=== PATIENT | female | born 1940 | race Caucasian/White ===

== ENCOUNTER 2020-10-12 18:20 | Observation (INO) | payer OTHER ==
--- OUTSIDE RECORDS SUMMARY | 2020-10-12 18:24 | XMS REPORT | Clinical Summary ---
:1940 Author Organization [facility] Address [address] [place] [address] Care Team Providers Name Role Phone MD Zuly Primary Care Provider Allergies Active Allergy Reactions Severity Noted Date Comments Levofloxacin 06/16/2017 Terfenadine 06/16/2017 Medications Medication Sig Dispensed Refills Start Date End Date Status ALPRAZolam (XANAX) 0.5 Take 0.5 mg by 0 Active MG tablet mouth 3 (three) times daily as needed for Anxiety. mrybpbn-kvvhdxjgpuevc-l Take 1 tablet by 0 Active affeine (EXCEDRIN mouth every 6 MIGRAINE) 250-250-65 mg (six) hours as per tablet needed for Pain. atorvastatin (LIPITOR) Take 20 mg by 0 Active 20 MG tablet mouth daily. carvedilol (COREG CR) Take 20 mg by 0 Active 20 MG 24 hr capsule mouth 2 (two) times daily. naproxen-esomeprazole Take by mouth. 0 Active 375-20 mg TbID pregabalin (LYRICA) 50 Take 50 mg by 0 Active MG capsule mouth 3 (three) times daily. temazepam (RESTORIL) 30 Take 30 mg by 0 Active mg capsule mouth every night as needed for Sleep. Active Problems Problem Noted Date Cerebral aneurysm 06/16/2017 Social History Tobacco Use Types Packs/Day Years Used Date Never Smoker Smokeless Tobacco: Never Used Alcohol Use Drinks/Week oz/Week Comments No Sex Assigned at Date Recorded Not on file Last Filed Vital Signs Not on file Plan of Treatment Not on file Results Not on fileafter 10/12/2019 Insurance Payer Benefit Plan / Subscriber ID Effective Phone Address T ype Group Dates HUMANA - HUMANA [id number] 2016-[employer] Contracted MEDICARE MGD MEDICARE ADV nt CARE Advance Directives For more information, please contact: [phone] Code Status Date Activated Date Inactivated Comments Full Code 06/16/2017 10:21 AM 06/16/2017 3:18 PM This code status was determined by: Patient
--- OUTSIDE RECORDS SUMMARY | 2020-10-12 18:24 | XMS REPORT | Summary of Care ---
:1940 Author Organization [facility] - Health Address [address] [place] [address] Care Team Providers Name Role Phone Ryan Caruso Primary Care Provider Reason for Referral Radiology Services (STAT) Status Reason Specialty Diagnoses / Referred By Referred To Procedures Contact Contact New Request Diagnostic Diagnoses Pain of left lower extremity Serena Hoffmann Radiology Procedures XR TIBIA FIBULA 2 VW LEFT J, DO [address] [place] [address] Reason for Visit Reason Comments LEG SWELLING Auth/Cert Status Reason Specialty Diagnoses / Referred By Referred To Procedures Contact Contact Emergency [facility] [address] [place] [address] Fax: Encounter Details Date Type Department Care Team Description 07/24/2020 Emergency ADC-Emergency Serena Hoffmann J, Pain of left lower Department DO extremity (Primary Dx) [address] [address] [place] [id number] Allergies Active Allergy Reactions Severity Noted Date Comments Adhesive Rash 03/28/2020 Levofloxacin Hives 09/05/2017 Seldane Unknown - See comments 03/21/2017 documented as of this encounter (statuses as of 07/24/2020) Medications Medication Sig Dispensed Refills Start Date End Date Status ATORVASTATIN CALCIUM Take 20 mg by 0 Active (ATORVASTATIN ORAL) mouth at bedtime. NAPROXEN/ESOMEPRAZOLE Take by mouth. 0 Active MAG (VIMOVO ORAL) carvedilol 20 mg 24 hr Take 20 mg by 0 Active capsule mouth daily. lidocaine 5 % (700 APPLY ONE PATCH TO 1 Each 0 10/24/2018 Active mg/patch) patch MOST PAINFUL AREA EVERY 12 HOURS NEEDED FOR PAIN. PHARMACIST: DISPENSE ONE BOX temazepam (RESTORIL) Take 30 mg by 0 Active 30 mg capsule mouth at bedtime. omeprazole 40 mg Take 40 mg by 0 Active capsule mouth daily. denosumab 60 mg/mL inject 60 mg under 0 Active injection the skin. Pt takes twice a year documented as of this encounter (statuses as of 07/24/2020) Active Problems Problem Noted Date SBO (small bowel obstruction) 03/28/2020 Abdominal pain 03/28/2020 SVT (supraventricular tachycardia) 07/07/2019 Essential hypertension 07/07/2019 Other hyperlipidemia 07/07/2019 Chest pain 03/21/2017 documented as of this encounter (statuses as of 07/24/2020) Immunizations Name Administration Dates Next Due Pneumococcal Polysaccharide, PPSV23 (PNEUMOVAX) 03/22/2017 documented as of this encounter Social History Tobacco Use Types Packs/Day Years Used Date Never Smoker Smokeless Tobacco: Never Used Alcohol Use Drinks/Week oz/Week Comments Not Currently Sex Assigned at Date Recorded Not on file COVID-19 Exposure Response Date Recorded In the last month, have you been in contact with No / Unsure 07/24/2020 8:32 PM CDT someone who was confirmed or suspected to have Coronavirus / COVID-19? documented as of this encounter Last Filed Vital Signs Vital Sign Reading Time Taken Comments Blood Pressure 128/79 07/24/2020 9:00 PM CDT Pulse 78 07/24/2020 9:00 PM CDT Temperature 36.3 C (97.3 F) 07/24/2020 8:46 PM CDT Respiratory Rate 14 07/24/2020 9:00 PM CDT Oxygen Saturation - - Inhaled Oxygen Concentration - - Weight 71.7 kg (158 lb) 07/24/2020 8:33 PM CDT Height - - Body Mass Index 26.29 03/28/2020 1:37 PM CDT documented in this encounter Discharge Instructions Serena Espinoza DO - 07/24/2020DIAGNOSIS 1. Leg hematoma NO LIFE-THREATENING FINDINGS ON TODAY'S EXAM. PROCEDURES IN THE ER TODAY: Xray leg MEDICATIONS ADMINISTERED IN THE ER TODAY: [place] YOUR PRESCRIPTIONS AND [id number] MEDICATION RECOMMENDATIONS: None SPECIAL CARE INSTRUCTIONS: None FOLLOW-UP RECOMMENDATIONS: RECOMMEND FOLLOW-UP WITH A PRIMARY CARE PROVIDER OR SPECIALIST IN 2-5 DAYS, ESPECIALLY IF NO IMPROVEMENT IN SYMPTOMS. TO FOLLOW-UP WITHIN THE [facility], TRY THESE OPTIONS (CLINIC APPOINTMENTS AVAILABLE ON BLQP-DC-QJIR BASIS): 1. SCHEDULE AN APPOINTMENT ONLINE AT [email or web address] 2. OR CALL THE [facility] ACCESS CENTER AT OR 3. OR CALL YOUR [facility] PHYSICIAN'S OFFICE DIRECTLY IF YOU ARE ALREADY AN ESTABLISHED [facility] PATIENT. OR, YOU MAY FOLLOW-UP WITH A PROVIDER OF YOUR CHOICE, SUCH : 1. A PHYSICIAN OF YOUR CHOICE 2. [facility], . LOCATIONS IN [facility] 3. [facility], [address] [place] [address]; [phone] RETURN TO ER FOR WORSENING OF SYMPTOMS. AttachmentsThe following attachments cannot be sent through Care Everywhere. Hematoma (Algerian)RICE (Algerian)documented in this encounter ED Notes Gerardo Knott RN - 07/24/2020 8:32 PM CDTPatient states, "I hit my left leg on the corner of the bed and it is swollen up." PMH: See list erena Hofmfann DO - 07/24/2020 8:28 PM CDT [facility] Emergency Department Note Patient Name: Dilia Russell Date of : 1940 79 year old female Treatment Room: TX2/TX2 Primary Care Physician: Ryan Caruso Patient Escorted by: Self [9] Mode of Arrival: Personal means [1] EMS Treatment Prior to ED Arrival: [employer] treatment: None Travel and Exposure Screening: Symptoms Does patient have any of these symptoms?: (not recorded) Exposure Screening Has patient had contact with someone with a communicable disease in the last month?: (not recorded) Diseases exposed to:: (not recorded) Is Patient ?: (not recorded) Exposure Date: (not recorded) Chief Complaint: Chief Complaint Patient presents with LEG SWELLING History of Present Illness: Patient presents for eval for left leg pain s/p hitting hit in the side of the bed around 1730. Didnot fall down. Has had some swelling to left leg just below her knee. Is not on blood thinners. No medicines for pain. Is able to bend her knee, hip and ankle without difficulty. Is able to walk but just has some pain. Here for eval. Past Medical History/Immunizations: Past Medical History: Diagnosis Date GERD (gastroesophageal reflux disease) 06/06/2019 HTN (hypertension) Hyperlipidemia Osteoarthritis Tetanus received in last 5 years: Unable to assess Allergies: Allergies Allergen Reactions Adhesive Rash Levaquin [Levofloxacin] Hives Seldane Unknown - See comments Past Social History: Tobacco Use Never smoked or used smokeless tobacco. Alcohol Use Not Currently. Past Surgical History: Past Surgical History: Procedure Laterality Date ANTERIOR CERVICAL FUSION C6-7 EXTRACAPSULAR CATARACT EXTRACTION WITH INTRAOCULAR LENS IMPLANT Bilateral EYE SURGERY Bilateral Macular holes HB CATH ABLATION - AV NODE 2004 LAPAROSCOPIC TOTAL ABDOMINAL HYSTERECTOMY 2017 TOTAL KNEE ARTHROPLASTY Bilateral Review of Systems: Review of Systems Constitutional: Negative for chills and fever. Respiratory: Negative for cough and shortness of breath. Cardiovascular: Negative for chest pain. Gastrointestinal: Negative for abdominal pain, nausea and vomiting. Genitourinary: Negative for dysuria. Musculoskeletal: Negative for arthralgias, neck pain and neck stiffness. Skin: Negative for wound. Neurological: Negative for dizziness. Psychiatric/Behavioral: Negative for agitation. Endocrine: Negative for goiter. Physical Exam: ED Triage Vitals Weight 07/24/202032 71.7 kg (158 lb) Actual or estimated -- Height -- BP 07/24/202045 (!) 146/87 Pulse 07/24/202045 80 Resp 07/24/202045 15 Temp 07/24/202045 36.3 C (97.3 F) Temp src -- SpO2 -- Measured on -- Physical Exam Vitals signs and nursing note reviewed. Constitutional: Appearance: She is normal weight. HENT: Head: Normocephalic and atraumatic. Neck: Musculoskeletal: Normal range of motion and neck supple. Cardiovascular: Rate and Rhythm: Normal rate. Pulmonary: Effort: Pulmonary effort is normal. No respiratory distress. Musculoskeletal: Normal range of motion. Comments: FROM left knee and ankle. +2 dp left side. Has swelling to lateral left leg just below the knee. It is soft and not erythematous or warm. No ecchymosis to the leg Skin: General: Skin is warm and dry. Neurological: General: No focal deficit present. Mental Status: She is alert. Radiology: Hospital Encounter on 07/24/20 XR TIBIA FIBULA 2 VW LEFT Narrative EXAM: XR TIBIA FIBULA 2 VW LEFT HISTORY: left leg pain COMPARISON: None FINDINGS: Radiographs of the left leg demonstrate no acute fracture or dislocation. Postsurgical changes of total knee arthroplasty are identified. The joint spaces are maintained. Anterolateral proximal leg soft tissue swelling. Impression Marked proximal lateral leg/knee soft tissue swelling, possibly a hematoma in the setting of trauma. No acute bony abnormality. Preliminary Report Dictated by Resident: Hansel Lopez I, Gonsalo Buchanan MD., have reviewed this study and agree with the above report. Lab Results (24h): No results found for this or any previous visit (from the past 24 hour(s)). Orders and Treatments: Orders Placed This Encounter Procedures XR TIBIA FIBULA 2 VW LEFT Orders Placed This Encounter Medications HYDROcodone-acetaminophen (NORCO 5) 5-325 mg tablet 1 tablet ED COURSE patient presents for eval for swelling to left leg s/p hitting her leg on the corner of the bed around 1730. Is not on blood thinners. No meds for pain. Pain worse with standing. Is able to bend knee without difficulty. VSS here in the EC. Has FROM left knee and ankle. Swelling to left lateral leg just distal to the knee. No ecchymosis to the skin. Low concern for fracture. Suspect hematoma. Will give pian meds and obtain xray. Anticipate discharge home later. 2149 - xray shows no fracture. No concern for cellulitis based on presentation. Suspect hematoma. Will give humza wrap. RICE at home. Ok for discharge home with PCP f/u. MDM: Coding Scoring Tools: No data recorded Diagnosis/Impression: ICD-10-CM ICD-9-CM 1. Pain of left lower extremity M79.605 729.5 Disposition/Condition: ED Disposition ED Disposition Condition Comment Disch - Home Stable Discharge Medications: Patient's Medications START taking these medications No medications on file CONTINUE taking these medications which have NOT CHANGED ATORVASTATIN CALCIUM (ATORVASTATIN ORAL) Take 20 mg by mouth at bedtime. CARVEDILOL 20 MG 24 HR CAPSULE Take 20 mg by mouth daily. DENOSUMAB 60 MG/ML INJECTION inject 60 mg under the skin. Pt takes twice a year LIDOCAINE 5 % (700 MG/PATCH) PATCH APPLY ONE PATCH TO MOST PAINFUL AREA EVERY 12 HOURS NEEDEDFOR PAIN. PHARMACIST: DISPENSE ONE BOX NAPROXEN/ESOMEPRAZOLE MAG (VIMOVO ORAL) Take by mouth. OMEPRAZOLE 40 MG CAPSULE Take 40 mg by mouth daily. TEMAZEPAM (RESTORIL) 30 MG CAPSULE Take 30 mg by mouth at bedtime. START taking Modified Medications as Prescribed No medications on file STOP taking these medications No medications on file Follow-up: Electronically signed by: Serena Hoffmann DO 07/24/2020 8:44 PM documented in this encounter Miscellaneous Notes ED Nurse Note - Ze Bill RN - 07/24/2020 9:52 PM CDTPt discharged home with friend. VSS, denies complaints, able to teach back instructions. D Nurse Note - Ze Bill RN - 07/24/2020 9:18 PM CDTPt reports no relief with Norco documented in this encounter Plan of Treatment Health Maintenance Due Date Last Done Comments DTaP,Tdap,and Td Vaccines (1 - Tdap) 1959 Zoster Recombinant Vaccine (SHINGRIX) (1 of 2) 1990 Medicare Wellness Visit 2005 Osteoporosis Screening 2005 INFLUENZA VACCINE (#1) 2020 Depression Screening 04/23/2021 04/23/2020 PNEUMOCOCCAL VACCINES 65+ Completed 03/22/2017 documented as of this encounter Implants Implanted Type Area Hand Pleater Device Identifier Shelf Exp iration Model / Serial Date / Lot Knee KNEE documented as of this encounter Procedures Procedure Name Priority Date/Time Associated Diagnosis Comme nts XR TIBIA FIBULA 2 STAT 07/24/2020 8:53 PM Pain of left low er Results for this VW LEFT CDT extremity procedure are i n the results section. documented in this encounter Results XR TIBIA FIBULA 2 VW LEFT (07/24/2020 8:53 PM CDT) Specimen Impressions Performed At PACS/VR/DOSE Marked proximal lateral leg/knee soft tissue swelling, possibly a hematoma in the setting of trauma. No acute bony abnormality. Preliminary Report Dictated by Resident: Gonsalo Rodrigues MD., have reviewed this study and agree with the above report. Narrative Performed At EXAM: XR TIBIA FIBULA 2 VW LEFT PACS/VR/DOSE HISTORY: left leg pain COMPARISON: None FINDINGS: Radiographs of the left leg demonstrate no acute fract ure or dislocation. Postsurgical changes of total knee arthroplasty are id entified. The joint spaces are maintained. Anterolateral pro ximal leg soft tissue swelling. Procedure Note [facility], Radiant Results Inft User - 2019 9:47 PM CDT EXAM: XR TIBIA FIBULA 2 VW LEFT HISTORY: left leg pain COMPARISON: None FINDINGS: Radiographs of the left leg demonstrate no acute fracture or dislocation. Postsurgical changes of total knee arthr oplasty are identified. The joint spaces are maintained. Anterolateral pro ximal leg soft tissue swelling. IMPRESSION Marked proximal lateral leg/knee soft ti ssue swelling, possibly a hematoma in the setting of trauma. No acute bony abnormality. Preliminary Report Dictated by Resident: Gonsalo Rodrigues MD., have reviewed th is study and agree with the above report. Performing Organization Address City/State/Zipcode Phone Number PACS/VR/DOSE documented in this encounter Visit Diagnoses Diagnosis Pain of left lower extremity - Primary documented in this encounter Administered Medications Medication Order MAR Action Action Date Dose Rate Site HYDROcodone-acetaminophen Given 07/24/2020 8:52 PM CDT 1 tablet (NORCO 5) 5-325 mg tablet 1 tablet 1 tablet, Oral, ONCE, 1 dose, Mon07/24/20 at 2145, JANEL documented in this encounter Insurance Payer Benefit Plan / Subscriber ID Effective Dates Phone Addre ss Type Group HUMANA - HUMANA [id number] 2016-Presen Medi care Adv MANAGED MEDICARE t FFS MEDICARE documented as of this encounter
--- OUTSIDE RECORDS SUMMARY | 2020-10-12 18:24 | XMS REPORT | Continuity of Care Document ---
:1940 Author Organization [facility] t Address [address] [place] [address] Care Team Providers Name Role Phone Zuly CASTAÑEDA Primary Care Physician Deonte Hoffmann DO Attending Clinician Gely MCPHERSON Attending Clinician Unavailable Yo Ott Attending Clinician Jayson CASTAÑEDA Attending Clinician Keith CASTAÑEDA Attending Clinician GLORY THURSTON Attending Clinician Unavailable Jayson CASTAÑEDA Admitting Clinician GLORY THURSTON Admitting Clinician Unavailable Payers Payer Name Policy Type Policy Number Effective Date Expiration Date S ource Problems Condition Condition Condition Status Onset Resolution Last Treating Co mments Source Name Details Category Date Date Treatment Clinician Date Cerebral Cerebral Disease [facility] Allergies, Adverse Reactions, Alerts Allergy Allergy Status Severity Reaction(s) Onset Inactive Treating Comm ents Source Name Type Date Date Clinician levoflox DA Active U 2016-10 [facility] [place] [facility] Levoflox Propensi Active [facility] adverse 00:00: Medical reaction 00 [facility] Terfenad Propensi Active [facility] - adverse 00:00: Medical reaction 00 [facility] terfenad DA [facility] [place] [facility] Social History Social Habit Start Date Stop Date Quantity Comments Source Sex Assigned At [facility] Tobacco use and 2017-06-22 2017-06-22 Never used [facility] - exposure 00:00:00 00:00:00 [facility] Alcohol intake 2017-06-22 2017-06-22 [facility] non-drinker of Medical nter alcohol (finding) Smoking Status Start Date Stop Date Source Never smoker [facility] edical Stevens Medications Ordered Filled Start Stop Current Ordering Indication Dosage Frequency Signature Comments Components Source Medication Medication Date Date Medication? Clinician (SIG) Name Name ALPRAZolam Yes .5mg Take 0.[address] [facility] (XANAX) 0.5 8-25 mg by [facility] - [facility] tablet 13:18: mouth 3 Medic al 09 (three) Center times daily as needed for Anxiety. aspirin-humza Yes 1{tbl} Take [address] taminophen- 8-25 tablet by Juan Carlos es - caffeine 13:18: mouth Medical (EXCEDRIN 09 every 6 Center MIGRAINE) (six) 250-250-65 hours as mg per needed for tablet Pain. atorvastati Yes 20mg QD Take [address] [facility] n (LIPITOR) 8-25 by mouth Luke s - 20 MG 13:18: daily. Medical tablet 09 Center carvedilol Yes 20mg Q.5D Take [address] (COREG CR) 8-25 by mouth 2 Juan Carlos es - 20 MG 24 hr 13:18: (two) Medic al capsule 09 times Center daily. naproxen-es 2017-0 Yes Take by [facility] omeprazole 8-25 [facility]. [facility] - 375-20 mg 13:18: Medical TbID 09 Center pregabalin 2017-0 Yes 50mg [id number] Take [address] [facility] (LYRICA) 50 8-25 [id number] by mouth 3 [facility] - MG capsule 13:18: 3D (three) Medi mildred 09 times Center daily. temazepam 2017-0 Yes 30mg Take [address] (RESTORIL) 8-25 by mouth [facility] - 30 mg 13:18: every Medical capsule 09 night as Center needed for Sleep. Procedures This patient has no known procedures. Encounters Start End Encounter Admission Attending Care Care Encounter Source Date/Time Date/Time Type Type Clinicians Facility Department ID 2020-10-04 2020-10-04 Emergency [facility] [id number] 16:10:00 19:08:00 Serena Carter [id number] [place] [id number] [place] [id number] 2020-09-28 2020-09-28 Transition Vi Hong [id number] 00:00:00 00:00:00 of Care Kenna Thorpe [id number] [place] [id number] [id number] 2020-09-23 2020-09-25 [facility] Lida Silverio [facility] [id number] 15:42:00 16:41:00 Encounter Wilbert Tyler [id number] [place] [id number] [place] [id number] 2020-07-24 2020-07-24 [facility] [id number] 20:31:00 21:54:00 Serena Carter [id number] [place] [id number] [place] [id number] 2020-05-19 2020-05-19 [facility] [place] [facility] [id number] 14:14:00 23:59:00 Encounter Yelena Carter [id number] [place] [id number] [place] [id number] 2020-05-19 2020-05-19 Office TRISTON Parker [id number] 13:28:59 13:43:59 Visit Yelena Carter [id number] [place] 4.2.7.2.686 Profess [id number] [facility] [address] Results Test Description Test Time Test Comments Results Result [facility] e Comments - MRI UP JNT W/O 2019-12-17 Patient Name: CONT RT 14:05:00 YULY CHADWICK Unit No: [id number] EXAMS: CPT CODE: [id number] MRI UP JNT W/[place] [id number] EXAM: MRI RIGHT SHOULDER WITHOUT CONTRAST DIAGNOSIS: 1. Marked supraspinatus tendinosis. Partial-thickness interstitial tearing is present anteriorly. No evidence of full-thickness tear. There is moderate subacromial and subdeltoid bursitis. 2. 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 3. Diffuse labral degeneration and tearing. 4. 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 5. Mild distal subscapularis tendinosis. INDICATION: Right shoulder pain TECHNIQUE: Multiplanar, multisequence MRI is obtained of the right shoulder without contrast. COMPARISON: None DISCUSSION: Osseous acromion outlet: The acromion is shallow type II, with mild lateral downsloping. Moderate AC joint arthrosis is noted. Rotator cuff: Supraspinatus tendinopathy as described. Mild distal subscapularis tendinosis. Infraspinatus and teres minor tendons are intact. Biceps tendon and anchor: The biceps anchor is intact. The biceps tendon is unremarkable, without evidence of dislocation. Labral and capsular structures: Labral abnormality is as described. Osseous structures: No evidence of fracture or avascular necrosis. at 1405 Reported and signed by: Dagmar Chaney MD CC: Ryan Caruso MD; Sherry Tavares M.D. Technologist: Reba Lai, RT(R) Transcribed D/ (1405) t.SDR.GVG [facility] NAME: YULY CHADWICK DECATUR [address] [facility] PHYS: Kin Jama MD : 1940 AGE: 79 SEX: F [place] [address] LOC: Y.MRI PHONE #: [phone] EXAM DATE: 12/17/2019 STATUS: REG CLI FAX #: [phone] RAD #: D/C DT PAGE 1 Signed Report Patient Name: YULY CHADWICKFALL Unit No: [id number] EXAMS: CPT CODE: [id number] MRI UP JNT W/[place] [id number] <Continued> Orig Print D/T: S: 12/17/2019 (1409) [facility] NAME: YULY CHADWICK DECATUR [address] [place] [address] PHYS: Kin Jama MD : 1940 AGE: 79 SEX: F [place] [address] LOC: Y.MRI PHONE #: [phone] EXAM DATE: 12/17/2019 STATUS: REG CLI FAX #: [phone] RAD #: D/C DT PAGE 2 Signed Report BASIC METABOLIC PANEL 2017-06-16 07:24:00 Test Item Value Reference Range Interpretation Comme nts SODIUM (BEAKER) (test code 141 meq/L 136-145 = 381) POTASSIUM (BEAKER) (test 4.0 meq/L 3.5-5.1 code = 379) CHLORIDE (BEAKER) (test 107 meq/L 98-107 code = 382) CO2 (BEAKER) (test code = 23 meq/L 22-29 355) BLOOD UREA NITROGEN 17 mg/dL 7-21 (BEAKER) (test code = 354) CREATININE (BEAKER) (test 0.95 mg/dL 0.57-1.25 code = 358) GLUCOSE RANDOM (BEAKER) 112 mg/dL 70-105 H (test code = 652) CALCIUM (BEAKER) (test code 9.2 mg/dL 8.4-10.2 = 697) EGFR (BEAKER) (test code = 57 mL/min/1.73 sq m ESTIMATED GFR IS NOT 1092) ACCURATE CRE ATININE CLEARANCE IN DC EDICTING GLOMERULAR FILT RATION RATE. ESTIMATED GFR IS NOT APPLICABLE FOR DIALYSIS PATIENTS. PT/[id number] 07:20:00 Test Item Value Reference Range Interpretation Comments PROTIME (BEAKER) (test code = 13.2 seconds 11.7-14.7 759) INR (BEAKER) (test code = 370) 1.0 <=5.9 PARTIAL THROMBOPLASTIN TIME 27.7 seconds 22.5-36.0 (BEAKER) (test code = 760) RECOMMENDED COUMADIN/WARFARIN INR THERAPY RANGESSTANDARD DOSE: 2.0 - 3.0 Includes: PROPHYLAXIS forvenous thrombosis, systemic embolization; TREATMENT for venous thrombosis and/or pulmonary embolus.HIGH RISK: Target INR is 2.5-3.5 for patients with mechanical heart valves.CBC W/PLT COUNT & AUTO DIFFERENTIAL 2017-06-16 07:03:00 Test Item Value Reference Range Interpretation Comments WHITE BLOOD CELL COUNT (BEAKER) 4.7 K/ L 3.5-10.5 (test code = 775) RED BLOOD CELL COUNT (BEAKER) 4.11 M/ L 3.93-5.22 (test code = 761) HEMOGLOBIN (BEAKER) (test code = 11.8 GM/DL 11.2-15.7 410) HEMATOCRIT (BEAKER) (test code = 36.1 % 34.1-44.9 411) MEAN CORPUSCULAR VOLUME (BEAKER) 87.8 fL 79.4-94.8 (test code = 753) MEAN CORPUSCULAR HEMOGLOBIN 28.7 pg 25.6-32.2 (BEAKER) (test code = 751) MEAN CORPUSCULAR HEMOGLOBIN CONC 32.7 GM/DL 32.2-35.5 (BEAKER) (test code = 752) RED CELL DISTRIBUTION WIDTH 14.3 % 11.7-14.4 (BEAKER) (test code = 412) PLATELET COUNT (BEAKER) (test 256 K/CU MM 150-450 code = 756) MEAN PLATELET VOLUME (BEAKER) 9.9 fL 9.4-12.3 (test code = 754) NUCLEATED RED BLOOD CELLS 0 /100 WBC 0-0 (BEAKER) (test code = 413) NEUTROPHILS RELATIVE PERCENT 55 % (BEAKER) (test code = 429) LYMPHOCYTES RELATIVE PERCENT 33 % (BEAKER) (test code = 430) MONOCYTES RELATIVE PERCENT 7 % (BEAKER) (test code = 431) EOSINOPHILS RELATIVE PERCENT 4 % (BEAKER) (test code = 432) BASOPHILS RELATIVE PERCENT 1 % (BEAKER) (test code = 437) NEUTROPHILS ABSOLUTE COUNT 2.60 K/ L 1.56-6.13 (BEAKER) (test code = 670) LYMPHOCYTES ABSOLUTE COUNT 1.54 K/ L 1.18-3.74 (BEAKER) (test code = 414) MONOCYTES ABSOLUTE COUNT (BEAKER) 0.34 K/ L 0.24-0.36 (test code = 415) EOSINOPHILS ABSOLUTE COUNT 0.17 K/ L 0.04-0.36 (BEAKER) (test code = 416) BASOPHILS ABSOLUTE COUNT (BEAKER) 0.05 K/ L 0.01-0.08 (test code = 417) IMMATURE GRANULOCYTES-RELATIVE 0 % 0-1 PERCENT (BEAKER) (test code = 9075)
--- OUTSIDE RECORDS SUMMARY | 2020-10-12 18:25 | XMS REPORT | Summary of Care ---
:1940 Author Organization [facility] Address [address] [place] [address] Care Team Providers Name Role Phone Zuly Primary Care Provider Reason for Referral Other (Routine) Status Reason Specialty Diagnoses / Referred By Referred To Procedures Contact Contact New Request Diagnoses Syncope, unspecified syncope type Wilbert Tyler MD Prasad, Sendil Procedures Discharge Follow-up: Specialty Provider JUAN LUIS DIAZ K.H.; 4-6 Weeks [address] [facility] MD Federico [place], [place] [address] [place] [address] JULIA 106 Phone: [place], [place] [phone] Fax: Other (Routine) Status Reason Specialty Diagnoses / Referred By Referred To Procedures Contact Contact New Request Diagnoses JASON (acute kidney injury) Wilbert Tyler MD Aglieco, Fabio G, Procedures Discharge Follow-up: Specialty Provider KITTY SARGENT; 4-6 Weeks [address] [place], [place] [address] [place] [address] [place], [place] Phone: [phone] Phone: Fax: (Routine) Status Reason Specialty Diagnoses / Referred By Referred To Procedures Contact Contact New Request Pulmonary Disease Diagnoses COVID-19 virus infection Wilbert Tyler MD Procedures Consult/Referral Post-COVID Recovery Clinic [address] [place] [address] (Routine) Status Reason Specialty Diagnoses / Referred By Referred To Procedures Contact Contact New Request Diagnoses COVID-19 virus infection Wilbert Tyler MD Resnick, Harvey Procedures Discharge Follow-up: PCP HEMALATHA CARUSO; 1 Week [address] [facility] [address] [place], [place] [address] [address] [place], [place] Phone: [phone] Phone: Fax: (Routine) Status Reason Specialty Diagnoses / Referred By Referred To Procedures Contact Contact New Request Vascular Procedures Juan Luis Diaz Sonography CAROTID DUPLEX MD Federico BILATERAL BY [address] [facility] [address] [address] (Routine) Status Reason Specialty Diagnoses / Referred By Referred To Procedures Contact Contact New Request Echocardiograph Diagnoses Syncope, unspecified syncope type Sterling Cobos, Procedures ECHO ROUTINE W/DOPPLER COLOR [address] [place] [address]. [address] [place] [address] MRI/CAT Scan (STAT) Status Reason Specialty Diagnoses / Referred By Referred To Procedures Contact Contact New Request Diagnostic Diagnoses COVID-19 virus infection Weakness generalized Silverio, Lida Radiology Procedures CT HEAD WO CONTRAST R, EMNP [address] [facility] [id number] [place] [phone] Radiology Services (STAT) Status Reason Specialty Diagnoses / Referred By Referred To Procedures Contact Contact New Request Diagnostic Diagnoses COVID-19 virus infection Weakness generalized Silverio, Lida Radiology Procedures XR CHEST 1 VW R, EMNP [address] [facility] [id number] [place] [address] Reason for Visit Reason Comments Fatigue Auth/Cert Status Reason Specialty Diagnoses / Referred By Referred To Procedures Contact Contact Emergency Medicine [facility] Em ergency Dept [address] [place] [phone] Fax: Encounter Details Date Type Department Care Team Description 09/23/2020 - Hospital Encounter [facility] Intensive Care Nusrat, Me pricila Ram, EMNP [address] [facility] [id number] [place], [place] [id number] COVID-19 virus 09/25/2020 Unit Wilbert Tyler MD [address] [place] [address] [place] [address] [place] [id number] Allergies Active Allergy Reactions Severity Noted Date Comments Adhesive Rash 03/28/2020 Levofloxacin Hives 09/05/2017 Seldane Unknown - See comments 03/21/2017 documented as of this encounter (statuses as of 09/25/2020) Medications Medication Sig Dispensed Refills Start Date End Date Status ATORVASTATIN Take 20 mg by 0 Act diandra CALCIUM mouth at (ATORVASTATIN ORAL) bedtime. temazepam Take 30 mg by 0 Active (RESTORIL) 30 mg mouth at capsule bedtime. omeprazole 40 mg Take 40 mg by 0 Active capsule mouth daily. denosumab 60 mg/mL inject 60 mg 0 Active injection under the skin. Pt takes twice a year ascorbic acid, Take 1 tablet 60 tablet 0 09/25/2020 Active vitamin C, 500 mg by mouth 2 1 tabletIndications: (two) times COVID-19 virus daily for 30 infection days. carvediloL 6.25 mg Take 1 tablet 60 tablet 0 09/25/2020 Active tabletIndications: by mouth 2 1 Essential (two) times hypertension daily with meals for 30 days. cefdinir 300 mg Take 1 capsule 10 capsule 0 09/25/2020 02 Active capsuleIndications: by mouth 2 0 Urinary tract (two) times infection without daily for 5 hematuria, site days. unspecified lactobacillus Take 1 tablet 10 tablet 0 09/25/2020 A ctive acidophilus 25 by mouth 2 0 million cell -100 (two) times mg daily for 5 captabIndications: days. Urinary tract infection without hematuria, site unspecified dexAMETHasone 4 mg Take 1.5 12 tablet 0 09/25/2020 Active tabletIndications: tablets by 0 COVID-19 virus mouth daily infection for 8 days. ergocalciferol, Take 1 capsule 4 capsule 0 10/01/2020 Active vitamin d2, 1,250 by mouth mcg (50,000 unit) weekly. capsuleIndications: COVID-19 virus infection zinc sulfate 220 Take 1 capsule 60 capsule 0 09/25/2020 Active (50) mg by mouth 2 1 capsuleIndications: (two) times COVID-19 virus daily for 30 infection days. benzonatate 100 mg Take 1 capsule 15 capsule 0 09/25/2020 Active capsuleIndications: by mouth 3 0 COVID-19 virus (three) times infection daily for 5 days. NAPROXEN/ESOMEPRAZO Take by 0 Discontinued LE MAG (VIMOVO mouth. 0 ORAL) carvedilol 20 mg 24 Take 20 mg by 0 Discontinued hr capsule mouth daily. 0 lidocaine 5 % (700 APPLY ONE 1 Each 0 10/24/2018 Discontinued mg/patch) patch PATCH TO MOST 0 PAINFUL AREA EVERY 12 HOURS NEEDED FOR PAIN. PHARMACIST: DISPENSE ONE BOX documented as of this encounter (statuses as of 09/25/2020) Active Problems Problem Noted Date Syncope 09/24/2020 Elevated brain natriuretic peptide (BNP) level 020 COVID-19 virus infection 09/23/2020 SBO (small bowel obstruction) 03/28/2020 Abdominal pain 03/28/2020 SVT (supraventricular tachycardia) 07/07/2019 Essential hypertension 07/07/2019 Other hyperlipidemia 07/07/2019 Chest pain 03/21/2017 documented as of this encounter (statuses as of 09/25/2020) Immunizations Name Administration Dates Next Due Pneumococcal Polysaccharide, PPSV23 (PNEUMOVAX) 03/22/2017 documented as of this encounter Social History Tobacco Use Types Packs/Day Years Used Date Never Smoker Smokeless Tobacco: Never Used Alcohol Use Drinks/Week oz/Week Comments Not Currently Sex Assigned at Date Recorded Not on file COVID-19 Exposure Response Date Recorded In the last month, have you been in contact with Yes 09/23/2020 3:44 PM DOMESTIC FREIGHT FORWARDER someone who was confirmed or suspected to have Coronavirus / COVID-19? documented as of this encounter Last Filed Vital Signs Vital Sign Reading Time Taken Comments Blood Pressure 125/69 09/25/2020 3:00 PM DOME[employer]IC FREIGHT FORWARDER Pulse 74 09/25/2020 3:00 PM DOME[employer]IC [employer]REIGHT FORWARDER Temperature 36.6 C (97.9 F) 09/25/2020 3:00 PM DOMESTIC FREIGHT FORWARDER Respiratory Rate 26 09/25/2020 3:00 PM DOMESTIC FREIGHT FORWARDER Oxygen Saturation 94% 09/25/2020 3:00 PM DOME[employer]IC FREIGHT FORWARDER Inhaled Oxygen Concentration - - Weight 81.6 kg (180 lb) 09/23/2020 7:30 PM DOMESTIC FREIGHT FORWARDER Height - - Body Mass Index 29.95 03/28/2020 1:37 PM CDT documented in this encounter Discharge Instructions InstructionsFostMariaelena silveira RN - 09/25/2020 Patient Discharge Instructions Discharge date: Discharge Diagnosis: Discharge Orders Discharge Follow-up: PCP HEMALATHA CARUSO; 1 Week To PCP: HEMALATHA CARUSO [[id number]] Patient's Preferred Location: Other - Specify Comments Discharge Disposition: HOME, (AHR) When (Patients with risk for unplanned readmission score over 16 or those noted as Hospital Dependent should follow up within 7 days with PCP or primary DX specialist): 1 Week Risk of Unplanned Readmission:( Score greater than 16 indicates high risk) 15 Consult/Referral Post-COVID Recovery Clinic Order Comments: At [facility] we have developed the POST COVID-19 Recovery clinic to assist 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 This is a multidisciplinaryclinic consisting of multiple medical subspecialties, and clinicians from physical and occupational therapy, rehabilitation services, nutrition, behavioral health and social work. Our goal is to help improve quality of life for patients recovering from COVID-19 through individualized care. Requesting consult or referral? Referral Reason for referral - please evaluate and treat for: covid 19 Regular Diet; Texture: Regular. Texture Regular. Diabetic: No Discharge Condition - Discharge Condition: FAIR Discharge Activity Discharge Activity: As Tolerated VTE Propylaxis- Was ordered during hospitalization Discharge Instructions Order Comments: Follow with PCP for urine culture final result. Adjustment of antibiotics deferred to PCP if needed. Discharge Follow-up: Specialty Provider KITTY SARGENT; 4-6 Weeks To Provider: KITTY SARGENT [[id number]] Patient's Preferred Location: [facility] follow-up resource center will contact the patient Discharge Disposition: Home, (AHR) When (Patients with risk for unplanned readmission score over 16 or those noted as Hospital Dependent should follow up within 7 days with PCP or primary DX specialist): 4-6 Weeks Risk of Unplanned Readmission:( Score greater than 16 indicates high risk) 15 Discharge Follow-up: Specialty Provider JUAN LUIS DIAZ; 4-6 Weeks To Provider: JUAN LUIS DIAZ [[id number]] Patient's Preferred Location: [facility] follow-up resource center will contact the patient Discharge Disposition: Home, (AHR) When (Patients with risk for unplanned readmission score over 16 or those noted as Hospital Dependent should follow up within 7 days with PCP or primary DX specialist): 4-6 Weeks Risk of Unplanned Readmission:( Score greater than 16 indicates high risk) 15 Follow instructions as indicated below: Lifting: {IP DISCHARGE INSTRUCTIONS LIFTIN::"No medical restrictions"} Weight: In general, sudden weight whalen or losses should be reported to your provider. Cardiac patients should weigh daily and notify their provider for a weight gain of 3 pounds per day or 5 pounds per week. Tobacco Avoidance: Follow recommendations below Wound/dressing care: Other discharge instructions: {DC IP DISCHARGE INSTRUCTIONS OTHER:53698} Vaccines and/or immunizations received during this hospitalization: {IP DISCHARGE INSTRUCTIONS VACCINES THIS HOSPITALIZATION:69600::"None"} Take Home Medications These are medications ordered for you by your healthcare provider. Do not take any other medications or supplements unless advised by your healthcare provider. Current Discharge Medication List START taking these medications Details ascorbic acid (vitamin C) (VITAMIN C) 500 mg Take 500 mg by mouth 2 (two) times daily. Qty: 60 tablet, Refills: 0 Start date: 09/25/2020, End date: 10/25/2020 Associated Diagnoses: COVID-19 virus infection benzonatate (TESSALON PERLES) 100 mg Take 100 mg by mouth 3 (three) times daily. Qty: 15 capsule, Refills: 0 Start date: 09/25/2020, End date: 09/30/2020 Associated Diagnoses: COVID-19 virus infection carvediloL (COREG) 6.25 mg Take 6.25 mg by mouth 2 (two) times daily with meals. Qty: 60 tablet, Refills: 0 Start date: 09/25/2020, End date: 10/25/2020 Associated Diagnoses: Essential hypertension cefdinir (OMNICEF) 300 mg Take 300 mg by mouth 2 (two) times daily. Qty: 10 capsule, Refills: 0 Start date: 09/25/2020, End date: 09/30/2020 Associated Diagnoses: Urinary tract infection without hematuria, site unspecified dexAMETHasone (DECADRON) 6 mg Take 6 mg by mouth daily. Qty: 12 tablet, Refills: 0 Start date: 09/25/2020, End date: 10/03/2020 Associated Diagnoses: COVID-19 virus infection ergocalciferol (vitamin d2) (CALCIFEROL) 50,000 Units Take 50,000 Units by mouth weekly. Qty: 4 capsule, Refills: 0 Start date: 10/01/2020 Associated Diagnoses: COVID-19 virus infection lactobacillus acidophilus (ACIDOPHILLUS) 1 tablet Take 1 tablet by mouth 2 (two) times daily. Qty: 10 tablet, Refills: 0 Start date: 09/25/2020, End date: 09/30/2020 Associated Diagnoses: Urinary tract infection without hematuria, site unspecified zinc sulfate (ORAZINC) 220 mg Take 220 mg by mouth 2 (two) times daily. Qty: 60 capsule, Refills: 0 Start date: 09/25/2020, End date: 10/25/2020 Associated Diagnoses: COVID-19 virus infection CONTINUE these medications which have NOT CHANGED Details denosumab (PROLIA) 60 mg inject 60 mg under the skin. Pt takes twice a year omeprazole (PRILOSEC) 40 mg Take 40 mg by mouth daily. temazepam (RESTORIL) 30 mg Take 30 mg by mouth at bedtime. ATORVASTATIN CALCIUM (ATORVASTATIN ORAL) 20 mg Take 20 mg by mouth at bedtime. STOP taking these medications lidocaine 5 % (700 mg/patch) patch Comments: Reason for Stopping: carvedilol (COREG CR) 20 mg Comments: Reason for Stopping: NAPROXEN/ESOMEPRAZOLE MAG (VIMOVO ORAL) Comments: Reason for Stopping: Follow-up appointments: For questions regarding follow-up instructions call the Healthcare Hotline at or If you experience any of the following symptoms , please follow up with . For worsening symptoms/changing condition/problems or questions: Non-emergency/urgent: Call the Healthcare Hotline at or or Emergency: Go to the closest emergency room or call 911 Translated by Date Time Warfarin (COUMADIN) Stay in Range Checklist: 1. Provider portion completed on Discharge Summary: (not recorded), If No, a. Name and time provider notified: (not recorded) b. Final completion of section time: (not recorded) Patient has a follow up appt in 3-5 days after starting warfarin: (not recorded) If No, a. Name and time provider notified: (not recorded) b. Time completed: (not recorded) Patient provided with anticoagulation follow-up appointment information: (not recorded) Importance of follow up discussed with patient: (not recorded) Warfarin/Anticoagulation educational materials provided: (not recorded) 6. Educational material reinforced with patient and documented on interdisciplinary form: (not recorded) Prescription(s) provided: (not recorded) Please tell us how we are doing. Complete and return the patient satisfaction survey that is mailed to you. Tobacco Avoidance Exposure to tobacco either from smoking, or from second hand (environmental smoke or smokeless tobacco - snuff) is damaging to your health. This information is to encourage everyone to avoid tobacco exposure. It is recommended that you: Avoid second-hand smoke If you do not smoke or use smokeless tobacco, do not start. If you smoke or use smokeless tobacco we encourage you to quit. If you have quit smoking, continue your good work! Information in the You Can Quit section may be used as a resource. Secondhand smoke is dangerous Secondhand smoke is the smoke that comes from a cigarette or other tobacco that someone other than you is smoking. Protect Yourself: Make your home and car smoke-free Family, friends, and visitors should never smoke inside your home or car Everyone knows that smoking is bad for smokers but did you know? Breathing smoke from someone else's cigarette, pipe or cigar can make you sick Smoking inside a home or car is more dangerous because smoke gets trapped inside - even fans and open windows don't help Children who live in homes where people smoke get sick more often with coughs, breathing problemssuch as asthma, and ear infections Secondhand smoke is also linked to Sudden Syndrome (SIDS) Secondhand smoke can cause lung cancer in adults and is also bad for the heart.1 You Can Quit Smoking Want to Quit? Nicotine is a powerful addiction Quitting is hard, but don't give up Many people try 2-3 times before they quit for good Each time you try to quit, the more likely you are to succeed Good Reasons for Quitting You will live longer and live better Quitting will lower your chance of having a heart attack, stroke, or cancer If you are , quitting smoking will improve your chances of having a healthy baby The people you live with, especially your children, will be healthier You will have extra money to spend on things other than cigarettes Tips to Help You Quit Get rid of all cigarettes and ashtrays in your home, car, or workplace Ask your family, friends, and coworkers for support Stay in nonsmoking areas Breathe in deeply when you feel the urge to smoke Keep your self busy Reward yourself often Additional Resources You may want to contact these organizations for further information on smoking and how to quit. [place] [employer] [place] [employer] Society [place] Lung Association 1U.S. Environmental Protection Agency. Secondhand Tobacco Smoke and the Health of Your Family brochure. Retrieved from the Internet on April 24, 2006. Http://www.epa.gov/smokefree/publications.html#How %20to%20Order%20EPA%20Publications Five [place] for Quitting Studies have shown that these five steps will help you quit and quit for good. You have the best chances of quitting if you use them together. 1. Get Ready Set a quit date Change your environment 1. Get rid of ALL cigarettes and ashtrays in your home, car, and place of work 2. Don't let people smoke in your home Review your past attempts to quit. Think about what worked and what did not Once you quit, don't smoke - NOT EVEN A PUFF! 2. Get Support and Encouragement Studies have shown that you have a better chance of being successful if you have help. You can get support in many ways: Tell you family, friends, and co-workers that you are going to quit and want their support. Ask them not to smoke around you or leave cigarettes out. Talk to your health care provider (for example, doctor, nurse, pharmacist, psychologist, or smoking counselor Get individual, group, or telephone counseling. The more counseling you have, the better you chances are of quitting. Programs are given at local hospitals and health centers. Call your local health department for information about programs in your area. 3. Learn New Skills and Behaviors Try to distract yourself from urges to smoke. Talk to someone, go for a walk, or get busy with atask When you first try to quit, change your routine. Use a different route to work. Drink tea instead of coffee. Eat breakfast in a different place. Do something to reduce your stress. Take a hot bath, exercise, or read a book. Plan something enjoyable to do every day Drink a lot of water and other fluids 4. Get Medication and Use It Correctly Medications can help you stop smoking and lessen the urge to smoke. The U.S. Food and Drug Administration (FDA) has approved five medications to help you quit smokin. Bupropion SR - Available by prescription 2. Nicotine gum - Available mvgx-hdt-jhpwwal 3. Nicotine inhaler - Available by prescription 4. Nicotine nasal spray - Available by prescription 5. Nicotine patch - Available by prescription and xxpn-lnt-phlrfit Ask your health care provider for advice and carefully read the information on the package All of these medications will more or less double your chances of quitting and quitting for good Everyone who is trying to quit may benefit from using a medication. If you are or trying to become , nursing, under age 18, smoking fewer than 10 cigarettes per day, or have a medical condition, talk to your doctor or other health care provider before taking medications 5. Be Prepared for Relapse or Difficult Situations Most relapses occur within the first 3 months after quitting. Don't be discouraged if you start smoking again. Remember, most people try several times before they finally quit. Here are some difficult situations to watch for: Alcohol. Avoid drinking alcohol. Drinking lowers your chances of success. Other Smokers. Being around smoking can make you want to smoke. Weight Gain. Many smokers will gain weight when they quit, usually less than 10 pounds. Eat a healthy diet and stay active. Don't let weight gain distract you from your main goal - quitting smoking. Some quit-smoking medications may help delay weight gain. Bad Mood or Depression. There are a lot of ways to improve your mood other than smoking. If you are having problems with any of these situations, talk to your doctor or other health careprovider. AttachmentsThe following attachments cannot be sent through Care Everywhere. Coronavirus Disease 2019, Caring for Yourself and Others ([place]uxembourger)Cefdinir capsules (Luxembourger)Urinary Tract Infections (UTIs), Understanding (Luxembourger) Dexamethasone tablets (Luxembourger)Lactobacillus Oral formulations (Luxembourger)Zinc Salts tablets or capsules (Luxembourger)Ergocalciferol, Vitamin D2 tablets or capsules (Luxembourger)documented in this encounter Progress Notes Ayo Birmingham RN - 09/25/2020 3:05 PM DOMESTIC FREIGHT FORWARDER Care Management Discharge Disposition Note (DCDN) 5-2-1 Interventions: Clear discharge plan 5-2-1 Providers: Supervisor Inspection Room/Teacher Advisor 5-2-1 Patient Capacity Improvements: Discharge Plan for ongoing care and services: Durable Medical Equipment Patient Choice completed for referred services: Discussed with patient/patients family involved in decision making: Patient's family or support contact: Discharge Plan: Durable Medical Equipment Receiving facility was provided the following clinical documentation at discharge- CM Facesheet, Consult notes, Labs, Progress Notes, MAR: DME location: [facility] [place] [facility], [address], [address], [place], [place] () [phone] (F) [phone] Other DME location: Durable Medical Equipment: Oxygen Concentrator;Portable Oxygen Home Health location: Discharge location(s): DME location: [facility], [address],[place], [place] () [phone] (F) [phone] Community resources/referrals made or provided to patient: Resources/Referrals: Mental Status: Alert & Oriented to Person,Place & Time Psychosocial issues and/or concerns resulting in patient being a high risk for re-admission: Manage ADL indepentdly: Living Arrangement: Home Other living arrangement: Address of living arrangement: [address] [place] [address] Funding Resources: Medicaid HMO Has patient been referred to [facility]/MedData? Nursing informed of discharge plan: CHP referral sent? CM medication request completed (if appropriate): PCP: Transportation: Private Vehicle Prior authorization obtained for ambulance: Authorization number: CPT code: Discharge Medications Will the patient be able to obtain his medications? Does the patient have transportation to to obtain the prescription medications? CM Medication Request completed (if appropriate): Name of RN informed: Expected discharge date: Time: Additional Information: CM/SW Name & Contact number: Ayo Birmingham RN Ph. Ayo Birmingham RN, BSN [facility] ADC Supervisor Inspection Room O [phone] The following information has been provided to the facility noted above: reason for the patient discharge or transfer; patients physical and psychosocial status; summary of care, treatment, servicesprovided to patient; and the patient progress toward goals. Ayo Warner RN - 09/25/2020 11:54 AM CSTHome O2 orders faxed to [facility] Patient. Awaiting auth. Ayo Birmingham RN, BSN [facility] Supervisor Inspection Room O [phone] STIC FREIGHT FORWARDER Raj Wiley RT - 09/25/2020 11:27 AM CSTO2 Saturation at REST on Room Air = 88% O2 Saturation at REST on 2 LPM of Oxygen = 91% Ayo Warner RN - 09/24/2020 3:24 PM CSTCare Management Social Functional Assessment Patient Name: Dilia Russell Age: [age] year old Sex: female Patient's Previous Admission Date at [facility]: 03/28/2020 Current diagnosis and co-morbidities: COVID-19 virus infection Readmission Questions: Was patient discharged from any acute care hospital within the last 30 days: No Social Functional Assessment: Primary language spoken/preferred: [place] Mental Status: Alert & Oriented to Person,Place & Time Information given by: Self Patient's support system: Child Name and number of support system: Nathaly Goodson daughter [phone] Primary Systems Integration Engineer: Self MPOA: Same as support system Living Arrangement: Home Address of living arrangement : [address] [place] [address] Persons living in home: Self Barriers to returning home: None Baseline functional status- ambulation: Independent Functional status-baseline personal care: Independent Baseline functional status- driving: Independent Baseline functional status- grocery shopping: Independent Functional status-baseline housekeeping: Independent Functional status-baseline meal prep: Independent Current functional status same as prior: No Current functional status- ambulation: Requires minimal to moderate assistance Current functional status- personal care: Requires minimal to moderate assistance Current functional status- driving: Requires minimal to moderate assistance Current functional status- grocery shopping: Requires minimal to moderate assistance Current functional status-house keeping: Requires minimal to moderate assistance Current functional status- meal preparation: Requires minimal to moderate assistance Do you have a PCP?: Yes Name of PCP: Hemalatha Caruso Home [facility] Care Agency: No Provider Services: No DME Company: No Equipment: Walker;Cane Hemodialysis: No Funding Resources: Medicare Replacement Medicare Replacement name and information: [employer] Prescription coverage plan: Medicare Part D Pharmacy where meds are filled: ([facility]) Expected mode of discharge transportation: Wheelchair van Additional info required for discharge planning: Pending medical evaluation Recommended discharge plan: Home with new Home Health;New placement SFA Complete: Social Functional Assessment complete: Yes Alcohol Use Screening (AUDIT-C) How often do you have a drink containing alcohol?: Never SCORE: 0 Role of Care Management explained. Yes Any issues or concerns with obtaining/affording your medications at home: no. Are you or your support system able to meat pickler medications at discharge: yes. Describe: Ayo Birmingham RN, BSN [facility] ADC Supervisor Inspection Room [phone] . Wilbert Colon MD - 09/24/2020 2:51 PM CST Hospital Medicine Progress Note Name: Dilia Russell : 1940 Admit Date: 09/23/2020 PCP on file: Hemalatha Caruso ASSESSMENT: Dilia Russell is a 80 year old female with PLAN: # Sepsis due to COVID 19, with JASON and possible AMS # Acute covid 19. Currently not hypoxic (SpO2 90% on RA) # Diarrhea likely due to COVID 19 - No hypoxia at this point. Monitor SpO2 - not a candidate for remdesivir or convalescent plasma - procal 0.24. On empiric abx ceftriaxone and azithromycin day 2 - d dimer 0.85. on Lovenox 30mg bid; hold CTA chest for now given JASON - low dose dexamethasone day 12/02 - Vit C, vit D, zinc - supportive measures - ID consulted # JASON. Initial creatinine 1.25, baseline creatinne around 0.6 # Mild hyponatremia # Dehydration - JASON resolved after IVF. Will decrease IVF rate - appreciate nephrology's input - avoid nephrotoxins - monitor renal function # Confusion, syncope, possible fall at home - Ct head no acute intracranial process; opacification sinus and ethoid, radiographic mentioned concern for fungal colonization, however clincal history and exam not consistent - follow Echo, carotid doppler - appreciate cardiology's input # Possible UTI - on empiric abx as above - follow urine culture # vit D deficiency - repletion # Hypertension - Due to low normal bp, started only low dose coreg. Monitor BP # Dyslipidemia - Lipitor # Insomnia - Temazepam # GERD - ppi Called patient's daughter and daughter in law, and updated them about patient's condition Patient's daughter declined rehab/SNF placement. She will stay will the patient after discharge. Shealso declined home health Dispo: home once medically cleared VTE Prophylaxis: lovenox Code Status: [facility] [place] CHANGE MANAGEMENT CONSULTANT was verified during stay Electronically signed by: Wilbert Tyler MD SUBJECTIVE/ 24-HOUR HOSPITAL EVENTS: 12/3: loose stools x 2 since am. No abd pain/N/V. No SOB. OBJECTIVE: Vital signs range: Temp: [36.6 C (97.8 F)-37.3 C (99.1 F)] 36.9 C (98.5 F) Pulse: [67-87] 77 Resp: [15-28] 23 BP: (95-120)/(50-67) 120/60 Most recent vital signs: BP 120/60 | Pulse 77 | Temp 36.9 C (98.5 F) (Oral) | Resp 23 | Wt 81.6 kg (180 lb) | SpO2 99% | BMI 29.95 kg/m I/O: I/O last 3 completed shifts: In: - Out: 300 [Urine:300] PHYSICAL EXAM: General: alert and oriented x 4 (person, place, date/time and situation); no apparent distress HEENT: pupils equal, round, reactive to light; extraocular movements intact; oropharynx clear; moistmucous membranes Neck: supple, no lymphadenopathy, no bruits, no JVD Lungs: clear to auscultation bilaterally Cardio: S1, S2 normal; no murmurs, rubs or gallops Abdomen: soft; non-tender; non-distended; normoactive bowel sounds Extremities: no clubbing, cyanosis, or edema Skin: no rashes Neuro: cranial nerves II through XII grossly intact; sensation grossly intact; muscle strength 5 outof 5 in all four extremities, no focal deficits, alert and oriented x 3 LABS: I reviewed all the relevant patient's new lab test results Recent Results (from the past 24 hour(s)) Lactic Acid Whole Blood Collection Time: 09/23/20 4:02 PM Result Value Ref Range LACTIC ACID 1.41 mmol/L CBC WITH DIFF Collection Time: 09/23/20 4:11 PM Result Value Ref Range WBC 3.31 (L) 4.30 - 11.10 10*3/L RBC 4.47 3.93 - 5.25 10*6/L HGB 12.4 11.6 - 15.0 g/dL HCT 37.7 35.7 - 45.2 % MCV 84.3 80.6 - 95.5 fL MCH 27.7 25.9 - 32.8 pg MCHC 32.9 31.6 - 35.1 g/dL RDW-SD 42.8 39.0 - 49.9 fL RDW-CV 13.7 12.0 - 15.5 % PLT 179 166 - 358 10*3/L MPV 10.4 9.5 - 12.9 fL NRBC/100 WBC 0.0 0.0 - 10.0 /100 WBCs NRBC x10^3 <0.01 10*3/L GRAN MAT (NEUT) % 68.9 % IMM GRAN % 0.30 % LYMPH % 25.4 % MONO % 5.1 % EOS % 0.0 % BASO % 0.3 % GRAN MAT x10^3(ANC) 2.28 1.88 - 7.09 10*3/uL IMM GRAN x10^3 <0.03 0.00 - 0.06 10*3/uL LYMPH x10^3 0.84 (L) 1.32 - 3.29 10*3/uL MONO x10^3 0.17 (L) 0.33 - 0.92 10*3/uL EOS x10^3 <0.03 (L) 0.03 - 0.39 10*3/uL BASO x10^3 <0.03 0.01 - 0.07 10*3/uL COMP. METABOLIC PANEL (55867) Collection Time: 09/23/20 4:11 PM Result Value Ref Range NA 132 (L) 135 - 145 mmol/L K 3.7 3.5 - 5.0 mmol/L CL 98 98 - 108 mmol/L CO2 TOTAL 25 23 - 31 mmol/L AGAP 9 2 - 16 BUN 27 (H) 7 - 23 mg/dL GLUCOSE 133 (H) 70 - 110 mg/dL CREATININE 1.25 (H) 0.50 - 1.04 mg/dL TOTAL BILI 0.5 0.1 - 1.1 mg/dL CALCIUM 8.4 (L) 8.6 - 10.6 mg/dL T PROTEIN 6.7 6.3 - 8.2 g/dL ALBUMIN 3.7 3.5 - 5.0 g/dL ALK PHOS 64 34 - 122 U/L ALTv 30 5 - 35 U/L AST(SGOT) 55 (H) 13 - 40 U/L eGFR Calculation (Non-) 41.2 mL/min/1.73m2 eGFR Calculation () 50.0 mL/min/1.73m2 BLOOD CULTURE SCREEN Collection Time: 09/23/20 4:11 PM Specimen: VENOUS; Blood Result Value Ref Range Blood Culture-Aerobic Culture In Progress No growth Blood Culture-Anaerobic Culture In Progress No growth BLOOD CULTURE SCREEN Collection Time: 09/23/20 4:11 PM Specimen: VENOUS; Blood Result Value Ref Range Blood Culture-Aerobic Culture In Progress No growth Blood Culture-Anaerobic Culture In Progress No growth CREATINE KINASE Collection Time: 09/23/20 4:11 PM Result Value Ref Range CK 250 (H) 33 - 194 U/L TROPONIN I Collection Time: 09/23/20 4:11 PM Result Value Ref Range TROPONIN I 0.013 <=0.034 ng/mL N-TERMINAL PRO-BNP Collection Time: 09/23/20 4:11 PM Result Value Ref Range NT-proBNP 459 (H) <=450 pg/mL LIPASE Collection Time: 09/23/20 4:11 PM Result Value Ref Range LIPASE 378 (H) 0 - 220 U/L MAGNESIUM Collection Time: 09/23/20 4:11 PM Result Value Ref Range MAGNESIUM 2.1 1.7 - 2.4 mg/dL COVID-19 (ID NOW RAPID TESTING) Collection Time: 09/23/20 4:11 PM Specimen: NASOPHARYNGEAL SWAB Result Value Ref Range SARS-CoV-2 Rapid ID NOW Positive (A) Not Detected URIC ACID Collection Time: 09/23/20 4:11 PM Result Value Ref Range URIC ACID 5.9 2.9 - 6.0 mg/dL PHOSPHORUS Collection Time: 09/23/20 4:11 PM Result Value Ref Range PHOSPHORUS 3.9 2.5 - 5.0 mg/dL FERRITIN SERUM Collection Time: 09/23/20 4:11 PM Result Value Ref Range FERRITIN 168.0 11.0 - 264.0 ng/mL THYROID STIMULATING HORMONE Collection Time: 09/23/20 4:11 PM Result Value Ref Range TSH 1.43 0.45 - 4.70 mIU/L URINALYSIS Collection Time: 09/23/20 5:33 PM Result Value Ref Range APPEARANCE Hazy (A) Clear COLOR Yellow Yellow PH 5.0 4.8 - 8.0 SP GRAVITY 1.024 1.003 - 1.030 GLU U QUAL Normal Normal BLOOD Negative Negative KETONES 20 mg/dL (A) Negative PROTEIN 30 mg/dL (A) Negative UROBILIN Normal Normal BILIRUBIN Negative Negative NITRITE Negative Negative LEUK RAMOS Negative Negative RBC/HPF 1 0 - 3 HPF WBC/HPF 6 (H) 0 - 5 HPF BACTERIA Moderate (A) Negative MUCOUS Moderate (A) Negative LPF SQ EPITH 5 HPF HYAL CAST 15 (H) <=2 LPF SEDIMENTATION RATE Collection Time: 09/24/20 3:47 AM Result Value Ref Range ESR 15 0 - 20 mm/HR CBC WITH DIFF Collection Time: 09/24/20 3:47 AM Result Value Ref Range WBC 3.05 (L) 4.30 - 11.10 10*3/L RBC 3.90 (L) 3.93 - 5.25 10*6/L HGB 10.9 (L) 11.6 - 15.0 g/dL HCT 33.5 (L) 35.7 - 45.2 % MCV 85.9 80.6 - 95.5 fL MCH 27.9 25.9 - 32.8 pg MCHC 32.5 31.6 - 35.1 g/dL RDW-SD 43.5 39.0 - 49.9 fL RDW-CV 13.8 12.0 - 15.5 % PLT 167 166 - 358 10*3/L MPV 10.6 9.5 - 12.9 fL NRBC/100 WBC 0.0 0.0 - 10.0 /100 WBCs NRBC x10^3 <0.01 10*3/L GRAN MAT (NEUT) % 65.0 % IMM GRAN % 0.30 % LYMPH % 29.8 % MONO % 4.6 % EOS % 0.0 % BASO % 0.3 % GRAN MAT x10^3(ANC) 1.98 1.88 - 7.09 10*3/uL IMM GRAN x10^3 <0.03 0.00 - 0.06 10*3/uL LYMPH x10^3 0.91 (L) 1.32 - 3.29 10*3/uL MONO x10^3 0.14 (L) 0.33 - 0.92 10*3/uL EOS x10^3 <0.03 (L) 0.03 - 0.39 10*3/uL BASO x10^3 <0.03 0.01 - 0.07 10*3/uL BANDS Increased (A) LACTATE DEHYDROGENASE Collection Time: 09/24/20 3:48 AM Result Value Ref Range LDH 842 (H) 300 - 600 U/L PROTHROMBIN TIME / INR Collection Time: 09/24/20 3:48 AM Result Value Ref Range PROTIME PATIENT 13.2 12.0 - 14.7 Seconds INR 1.1 D-DIMER Collection Time: 09/24/20 3:48 AM Result Value Ref Range D-DIMER 0.85 (H) <0.41 g/mL (FEU) TROPONIN I Collection Time: 09/24/20 3:48 AM Result Value Ref Range TROPONIN I 0.013 <=0.034 ng/mL OSMOLALITY SERUM Collection Time: 09/24/20 3:48 AM Result Value Ref Range OSMOLALITY 282 278 - 305 mOsm/kg PROCALCITONIN Collection Time: 09/24/20 3:48 AM Result Value Ref Range Procalcitonin 0.24 (H) <0.07 ng/mL VITAMIN B12, LEVEL Collection Time: 09/24/20 3:48 AM Result Value Ref Range VIT B12 993 (H) 240 - 930 pg/mL VITAMIN D, 25-OH Collection Time: 09/24/20 3:48 AM Result Value Ref Range VIT D 25OH 23 (L) 25 - 80 ng/mL N-TERMINAL PRO-BNP Collection Time: 09/24/20 3:48 AM Result Value Ref Range NT-proBNP 266 <=450 pg/mL COMP. METABOLIC PANEL ([id number]) Collection Time: 09/24/20 3:48 AM Result Value Ref Range NA 135 135 - 145 mmol/L K 3.7 3.5 - 5.0 mmol/L CL 104 98 - 108 mmol/L CO2 TOTAL 25 23 - 31 mmol/L AGAP 6 2 - 16 BUN 22 7 - 23 mg/dL GLUCOSE 100 70 - 110 mg/dL CREATININE 0.88 0.50 - 1.04 mg/dL TOTAL BILI 0.5 0.1 - 1.1 mg/dL CALCIUM 7.7 (L) 8.6 - 10.6 mg/dL T PROTEIN 5.8 (L) 6.3 - 8.2 g/dL ALBUMIN 3.1 (L) 3.5 - 5.0 g/dL ALK PHOS 54 34 - 122 U/L ALTv 27 5 - 35 U/L AST(SGOT) 57 (H) 13 - 40 U/L eGFR Calculation (Non-) 61.8 mL/min/1.73m2 eGFR Calculation () 74.9 mL/min/1.73m2 URIC ACID Collection Time: 09/24/20 3:48 AM Result Value Ref Range URIC ACID 4.5 2.9 - 6.0 mg/dL IMAGING: I reviewed all the relevant patient's new radiology test results Hospital Encounter on 09/23/20 CT HEAD WO CONTRAST Narrative Exam: CT HEAD WO CONTRAST Clinical History: Altered mental status (AMS), unclear cause Technique:Routine CT brain with multiplanar reformats. Comparison: None Findings: Ventricles are normal. Age-related volume loss is noted with prominent sulci, cisterns and ventricles. Basal cisterns are within normal limits. Aspect score: 10. The included portions of the orbits are within normal limits. Craniocervical junction is normal. Bilateral sphenoid sinuses as well as left posterior ethmoid air cells are opacified. Minimal calcification is noted within the secretions. Impression Impression: 1. No acute intracranial process. 2. Hyperdense opacification of the sphenoid sinuses and the left posterior ethmoid air cells, with small calcification noted within the sphenoid sinus and the posterior left ethmoid air cells. These are most likely related to chronic inspissated secretions and/or fungal colonization. XR CHEST 1 VW Narrative HISTORY: COVID positive. TECHNIQUE: Portable AP view of the chest is obtained. Comparison is made with 07/06/2019 study. FINDINGS: Minimal groundglass hazy changes are seen in the lower lungs and right upper lung without focal area of consolidation. Some of the hazy changes could be chronic interstitial pulmonary fibrosis. No pneumothorax or pleural effusion. Cardiac size is upper normal. Thoracic aorta is dilated. CONCLUSIONS: No definite signs of acute cardiopulmonary disease. Hazy changes in the lungs are likely secondary to chronic pulmonary fibrosis. MEDICATIONS: I reviewed the current inpatient medications ordered Current Facility-Administered Medications Medication Dose Route Frequency Last Rate Last Admin ascorbic acid (vitamin C) (VITAMIN C) tablet 500 mg 500 mg Oral TID 500 mg at 09/24/20 1330 atorvastatin (LIPITOR) tablet 20 mg 20 mg Oral QHS azithromycin (ZITHROMAX) 500 mg in NaCl 0.9% (NS) 250 mL VIAL-MATE IV piggyback 500 mg IV Piggyback Q24H ABX 500 mg at 09/24/20 0151 carvediloL (COREG) tablet 6.25 mg 6.25 mg Oral BID MEALS 6.25 mg at 09/24/20 0921 cefTRIAXone (ROCEPHIN) 1,000 mg in NaCl 0.9% (NS) 50 mL MINI-BAG 1,000 mg IV Piggyback Q24H ABX 1,000 mg at 09/24/20 0112 dexamethasone (DECADRON PHOSPHATE) 6 mg in NaCl 0.9% (NS) piggyback 6 mg IV Piggyback DAILY 6mg at 09/24/20 0922 enoxaparin (LOVENOX) injection 30 mg 30 mg Subcutaneous Q12H 30 mg at 09/24/20 0921 ergocalciferol (vitamin d2) (CALCIFEROL) capsule 50,000 Units 50,000 Units Oral QWEEKLY 50,000 Units at 09/24/20 0921 lactobacillus acidophilus (ACIDOPHILLUS) 25 million cell -100 mg captab 1 tablet 1 tablet Oral BID 1 tablet at 09/24/20 0920 NaCl 0.9% (NS) IV infusion 1,000 mL 1,000 mL IV Infusion CONTINUOUS 75 mL/hr at 09/24/20 1330 1,000 mL at 09/24/20 1330 omeprazole (PRILOSEC) capsule 40 mg 40 mg Oral DAILY 40 mg at 09/24/20 0921 temazepam (RESTORIL) capsule 30 mg 30 mg Oral QHS zinc sulfate (ORAZINC) capsule 220 mg 220 mg Oral BID 220 mg at 09/24/20 0921 acetaminophen (TYLENOL) tablet 650 mg 650 mg Oral Q6HPRN ondansetron (ZOFRAN (PF)) injection 4 mg 4 mg Slow IV Push Q6HPRN documented in this encounter H&P Notes Sterling Cobos MD - 09/23/2020 7:30 PM CST General Internal Medicine Admission History & Physical CHIEF COMPLAINT: confusion, syncope, found down, cough History of Present Illness 80 y/o female, diagnosed with COVID 4 days ago at urgent care, presents with syncope, found down with feces, diarrhea, persistent cough, fevers/chlls, dyspnea, weakenss, dizziness, decrease appetite. Family requested [employer] to check in and patient was found down, unresponsive. On arrival she was AAOx3. She's positive for fatigue. Currently denies vision changes, seizures, abdominal pain, vomiting, bleeding, dysuria, hematuria, leg edema, rash, itching, focal weakness. Denies nasal congestion, nasal pain or discharge. PAST MEDICAL HISTORY Past Medical History: Diagnosis Date GERD (gastroesophageal reflux disease) 06/06/2019 HTN (hypertension) Hyperlipidemia Osteoarthritis Past Surgical History: Procedure Laterality Date ANTERIOR CERVICAL FUSION C6-7 EXTRACAPSULAR CATARACT EXTRACTION WITH INTRAOCULAR LENS IMPLANT Bilateral EYE SURGERY Bilateral Macular holes HB CATH ABLATION - AV NODE 2003 LAPAROSCOPIC TOTAL ABDOMINAL HYSTERECTOMY 2017 TOTAL KNEE ARTHROPLASTY Bilateral Family History Problem Relation Age of Onset Ovarian Cancer Sister Kidney Cancer Brother Lymphoma Brother Stroke Father ALLERGIES Allergies Allergen Reactions Adhesive Rash Levaquin [Levofloxacin] Hives Seldane Unknown - See comments MEDICATIONS Current Discharge Medication List STOP taking these medications denosumab 60 mg/mL injection Comments: Reason for Stopping: omeprazole 40 mg capsule Comments: Reason for Stopping: temazepam (RESTORIL) 30 mg capsule Comments: Reason for Stopping: lidocaine 5 % (700 mg/patch) patch Comments: Reason for Stopping: ATORVASTATIN CALCIUM (ATORVASTATIN ORAL) Comments: Reason for Stopping: carvedilol 20 mg 24 hr capsule Comments: Reason for Stopping: NAPROXEN/ESOMEPRAZOLE MAG (VIMOVO ORAL) Comments: Reason for Stopping: SOCIAL HISTORY Social History Socioeconomic History Marital status: Spouse name: Not on file Number of children: Not on file Years of education: Not on file Highest education level: Not on file Occupational History Not on file Social Needs Financial resource strain: Not on file Food insecurity Worry: Not on file Inability: Not on file Transportation needs Medical: Not on file Non-medical: Not on file Tobacco Use Smoking status: Never Smoker Smokeless tobacco: Never Used Substance and Sexual Activity Alcohol use: Not Currently Drug use: Not on file Sexual activity: Not on file Lifestyle Physical activity Days per week: Not on file Minutes per session: Not on file Stress: Not on file Relationships Social connections Talks on phone: Not on file Gets together: Not on file Attends episcopalian service: Not on file Active member of club or organization: Not on file Attends meetings of clubs or organizations: Not on file Relationship status: Not on file Intimate partner violence Fear of current or ex partner: Not on file Emotionally abused: Not on file Physically abused: Not on file Forced sexual activity: Not on file Other Topics Concern Not on file Social History Narrative Not on file REVIEW OF SYSTEMS 12 point ROS comprehensively reviewed and negative for acute symptoms unless stated above PHYSICAL EXAMINATION Vitals: 09/23/20 1805 09/23/20 1900 09/23/20 1930 09/23/201999 BP: 107/61 105/67 115/63 Pulse: 69 67 70 Resp: 16 16 15 Temp: 36.7 C (98.1 F) TempSrc: Oral SpO2: 100% 100% 100% Weight: 81.6 kg (180 lb) NAD, lying comfortably Anicteric sclera, oral mucosa clear Good air entry b/l RRR, nl s1s2 Abd soft NT No significant LE, no calf tenderness AAO, no gross deficits Skin warm and dry Bilateral knees inspected and palpated and is not red or swollen LABS - reviewed pertinent labs as below: CBC BMP PT/INR WBC (10*3/L) Date Value 09/23/2020 3.31 (L) NA (mmol/L) Date Value 09/23/2020 132 (L) No results found for: PT RBC (10*6/L) Date Value 09/23/2020 4.47 K (mmol/L) Date Value 09/23/2020 3.7 INR (no units) Date Value 03/31/2020 1.0 PLT (10*3/L) Date Value 09/23/2020 179 CALCIUM (mg/dL) Date Value 09/23/2020 8.4 (L) HGB (g/dL) Date Value 09/23/2020 12.4 CL (mmol/L) Date Value 09/23/2020 98 aPTT HCT (%) Date Value 09/23/2020 37.7 BUN (mg/dL) Date Value 09/23/2020 27 (H) APTT Patient (Seconds) Date Value 03/31/2020 25 CREATININE (mg/dL) Date Value 09/23/2020 1.25 (H) IMAGING - reviewed, pertinent results as below: Hospital Encounter on 09/23/20 CT HEAD WO CONTRAST Narrative Exam: CT HEAD WO CONTRAST Clinical History: Altered mental status (AMS), unclear cause Technique:Routine CT brain with multiplanar reformats. Comparison: None Findings: Ventricles are normal. Age-related volume loss is noted with prominent sulci, cisterns and ventricles. Basal cisterns are within normal limits. Aspect score: 10. The included portions of the orbits are within normal limits. Craniocervical junction is normal. Bilateral sphenoid sinuses as well as left posterior ethmoid air cells are opacified. Minimal calcification is noted within the secretions. Impression Impression: 1. No acute intracranial process. 2. Hyperdense opacification of the sphenoid sinuses and the left posterior ethmoid air cells, with small calcification noted within the sphenoid sinus and the posterior left ethmoid air cells. These are most likely related to chronic inspissated secretions and/or fungal colonization. XR CHEST 1 VW Narrative HISTORY: COVID positive. TECHNIQUE: Portable AP view of the chest is obtained. Comparison is made with 07/06/2019 study. FINDINGS: Minimal groundglass hazy changes are seen in the lower lungs and right upper lung without focal area of consolidation. Some of the hazy changes could be chronic interstitial pulmonary fibrosis. No pneumothorax or pleural effusion. Cardiac size is upper normal. Thoracic aorta is dilated. CONCLUSIONS: No definite signs of acute cardiopulmonary disease. Hazy changes in the lungs are likely secondary to chronic pulmonary fibrosis. ASSESSMENT/PLAN Dilia Russell is a 80 year old female with PMH as listed above, admitted to the hospital with: COVID-19 virus infection 80 y/o female, diagnosed with COVID 4 days ago at urgent care, presents with syncope, found down with feces, diarrhea, persistent cough, fevers/chlls, dyspnea, weakenss, dizziness, decrease appetite. Family requested [employer] to check in and patient was found down, unresponsive. On arrival she was AAOx3. She's positive for fatigue. Currently denies vision changes, seizures, abdominal pain, vomiting, bleeding, dysuria, hematuria, leg edema, rash, itching, focal weakness. Denies nasal congestion, nasal pain or discharge. Sepsis Acute covid infection. Currently not hypoxic. Acute respiratory distress JASON. Initial creatinine 1.25, baseline creatinne around 0.6 Confusion, syncope, fall, diarrhea, cough Ct head no acute intracranial process; opacification sinus and ethoid, radiographic mentioned concern for fungal colonization, however clincal history and exam not consistent. If further consideration, please call ENT to discuss Mild hyponatremia Dehydration Possible UTI Full admission IVF NS 100/hr Monitor bmp Check procal, LDH, esr, d-dimer, ferritin If d-dimer elevated, consider CTA chest Vit C, vit D, zinc F/u vit D, vit b12 F/u urine culture, blood culture lovenox 40 mg bid Iv azithromycin day 1 Iv decadron day 1 ID consult Echo, telemetry, trend trops, cardiology consult for syncope Nephrology consult Dr. Marta barlow ox Telemetry Home O2 eval dvt proph lovenox 40 mg BID Full Code, advance care planning discussed with patient for 18 minutes, surrogate decision maker 2 kids in [place] Patient previous to this lives alone and independent PT consult, SW consult Dispo - likely home health discharge in 2-3 days Full admission, will require 2-3 inpatient stay Hypertension Due to low normal bp, start only low dose coreg, but might have to increase dose tomorrow Dyslipidemia Lipitor Insomnia Temazepam GERD ppi documented in this encounter Consult Notes yL Vital, PT - 09/24/2020 4:42 PM CSTAssociated Order(s): CONSULT ADULT PHYSICAL THERAPY Patient agreeable to working with physical therapy. Patient met Semi reclined in bed. PHYSICAL THERAPY EVALUATION Consult received, chart reviewed and evaluation complete this date. Patient is referred to PT for evaluation and treatment. Patient is a 80 year old female who presents to hospital for COVID-19 virus infection . Discharge Recommendations: Therapy Needs and Potential: Patient demonstrates good potential to improve and meet therapy goals with further physical therapy services. Challenges to Home Transition: increased risk of falls decreased caregiver availability decreased safety awareness Equipment recommendations: rolling walker Current Functional Status and/or Treatment:Functional mobility training, Transfer training, Gait training and Patient/Family/Caregiver education Bed Mobility: Supine to sit: CGA Scooting to edge of bed: CGA Sit to supine: CGA. Transfers: Sit to stand: Minimal assist using Rolling Walker Stand to sit: Minimal assist using Rolling Walker Verbal cueing provided for correct hand placement and correct use of AD Ambulation: Assisted patient with ambulation as follows: 6 feet using FOLDED CLOTH TAPER and Minimal assist. Therapeutic exercise: patient/caregiver verbalizes understanding of instructions. After session, patient Up in chair. Call button provided. Nurse was notified. O2 level 93-94 PLAN OF CARE: At least 2 times per week, once or twice a day (while in hospital) per patient's tolerance and medical needs. See below for complete details. Admit Date: 09/23/2020 Hospital Diagnosis:COVID-19 virus infection PT Diagnosis: Difficulty walking and Weakness Weight Bearing Precaution: NA General Precautions: PPE used:Gloves, Gown, Surgical mask, N-95 Mask and Goggles, General, Fall,IV Larm Bracing/Cast present or required:N/A PMH: Past Medical History: Diagnosis Date GERD (gastroesophageal reflux disease) 06/06/2019 HTN (hypertension) Hyperlipidemia Osteoarthritis PSH: Past Surgical History: Procedure Laterality Date ANTERIOR CERVICAL FUSION C6-7 EXTRACAPSULAR CATARACT EXTRACTION WITH INTRAOCULAR LENS IMPLANT Bilateral EYE SURGERY Bilateral Macular holes HB CATH ABLATION - AV NODE 2003 LAPAROSCOPIC TOTAL ABDOMINAL HYSTERECTOMY 2017 TOTAL KNEE ARTHROPLASTY Bilateral Prior Living Situation: lives alone and house DME: No device Prior level of Mobility: community ambulation Subjective: Patient denies pain but feels weak. Patient/Family Goals: Patient wants to get stronger and go home. Patient/Family verbalizes understanding of condition: Yes PAIN: denies pain COMMUNICATION Primary Language: Luxembourger Able to Verbalize needs: Yes Vision:good; no issues reported Hearing:good; no issues reported ORIENTATION/COGNITION: Oriented to: person, place and date/time Awake: Yes Alert: Yes Dizzy: No Follows Commands: Yes 1-Step Yes Multi-Step Yes Inconsistent: Yes NEUROLOGICAL Light Touch: within functional limits bilateral LE Heel to sparrow: NT Tone: Normal BALANCE: Sitting: Static: Good Dynamic: Good Standing: Static: Fair+ Dynamic: NT RANGE OF MOTION: within functional limits bilateral LE STRENGTH: 4-/5 (G-), bilateral LE ENDURANCE: NT SKIN INTEGRITY: intact PROBLEM LIST: Decline in bed mobility, Decline in gait, Decline in transfers, Decreased strength andSafety awareness deficits ASSESSMENT: Patient is a 80 year old female seen secondary to the above listed diagnosis. Patient would benefit from continued PT to address the above listed deficits to maximize independence and safety with functional mobility. Rehabilitation Potential: good Goals: The following goals are to maximize independence and safety with functional mobility to eventually return to prior living situation and prior functional status. Upon discharge, patient and/or family will demonstrate the followin. Supine to sit: Modified independent Scooting to edge of bed: Modified independent Sit to supine: Modified independent 2. Sit to stand: Modified independent using Rolling Walker Stand to sit: Modified independent using Rolling Walker 3. CGA with ambulation, Feet: 100 using least assistive device. Treatment Plan: Gait training, Therapeutic exercise, Transfer training, Balance training, Bed mobility training and Safety education, patient/caregiver education PATIENT EDUCATION: Patient provided with preferred teaching of verbal information on role of PT, plan of care. Shows readiness to learn. Verbal instruction teaching provided. Individual is able to readand verbalizes understanding of teaching provided. Ly Vital,PT [place] License: [id number] Required Components in Determining Evaluation Level History: No personal factors or comorbidities: Yes (03492) 1-2 personal factors and/or comorbidities: Yes (11305) 3 or more personal factors and/ or comorbidities: No (05741) Examination of Body System(s) Addressing 1-2 elements: Yes (95931) Addressing a total of 3 or more elements: No (09388) Addressing a total of 4 or more elements: No (21948) Clinical Presentation Stable: Yes (26794) Evolving: No (78618) Unstable: No (97912) Clinical Decision Making (Complexity) Low: Yes (67915) Moderate: No (08211) High: No (50422) Juan Luis Sheth MD - 09/24/2020 7:40 AM CSTAssociated Order(s): CONSULT CARDIOLOGY [facility] Cardiology Consult Note Patient: Dilia Russell Date of : 1940 Date of service: 09/24/2020 Primary Care Physician: Hemalatha Caruso CHIEF COMPLAINT: Chief Complaint Patient presents with Fatigue HISTORY OF PRESENT ILLNESS: Dilia Russell is a 80 year old female presented to the ER for evaluation for syncope. Pertinent cardiac related history reviewed from chart Patient is currently in Covid isolation Diagnosed with COVID 4 days ago at urgent care. Presented with syncope, found down with feces, diarrhea, Reports persistent cough, fevers/chlls, dyspnea, weakenss, dizziness, decrease appetite. Patient wasfound down, unresponsive. On arrival she was AAOx3. She's positive for fatigue. Previous Cardiac Studies: IMAGING - I personally reviewed, pertinent results as below: ECG 09/23/2020 Sinus rhythm with Premature atrial beats Possible Left atrial enlargement Borderline ECG CXR 09/2020 CONCLUSIONS: No definite signs of acute cardiopulmonary disease. Hazy changes in the lungs are likely secondary to chronic pulmonary fibrosis. CT head 09/2020 IMPRESSION Impression: 1. No acute intracranial process. 2. Hyperdense opacification of the sphenoid sinuses and the left posterior ethmoid air cells, with small calcification noted within the sphenoid sinus and the posterior left ethmoid air cells. These are most likely related to chronic inspissated secretions and/or fungal colonization PAST MEDICAL HISTORY Past Medical History: Diagnosis Date GERD (gastroesophageal reflux disease) 06/06/2019 HTN (hypertension) Hyperlipidemia Osteoarthritis Past Surgical History: Procedure Laterality Date ANTERIOR CERVICAL FUSION C6-7 EXTRACAPSULAR CATARACT EXTRACTION WITH INTRAOCULAR LENS IMPLANT Bilateral EYE SURGERY Bilateral Macular holes HB CATH ABLATION - AV NODE 2003 LAPAROSCOPIC TOTAL ABDOMINAL HYSTERECTOMY 2017 TOTAL KNEE ARTHROPLASTY Bilateral Family History Problem Relation Age of Onset Ovarian Cancer Sister Kidney Cancer Brother Lymphoma Brother Stroke Father SOCIAL HISTORY Social History Socioeconomic History Marital status: Spouse name: Not on file Number of children: Not on file Years of education: Not on file Highest education level: Not on file Occupational History Not on file Social Needs Financial resource strain: Not on file Food insecurity Worry: Not on file Inability: Not on file Transportation needs Medical: Not on file Non-medical: Not on file Tobacco Use Smoking status: Never Smoker Smokeless tobacco: Never Used Substance and Sexual Activity Alcohol use: Not Currently Drug use: Not on file Sexual activity: Not on file Lifestyle Physical activity Days per week: Not on file Minutes per session: Not on file Stress: Not on file Relationships Social connections Talks on phone: Not on file Gets together: Not on file Attends episcopalian service: Not on file Active member of club or organization: Not on file Attends meetings of clubs or organizations: Not on file Relationship status: Not on file Intimate partner violence Fear of current or ex partner: Not on file Emotionally abused: Not on file Physically abused: Not on file Forced sexual activity: Not on file Other Topics Concern Not on file Social History Narrative Not on file ALLERGIES Allergies Allergen Reactions Adhesive Rash Levaquin [Levofloxacin] Hives Seldane Unknown - See comments MEDICATIONS Current Discharge Medication List STOP taking these medications denosumab 60 mg/mL injection Comments: Reason for Stopping: omeprazole 40 mg capsule Comments: Reason for Stopping: temazepam (RESTORIL) 30 mg capsule Comments: Reason for Stopping: lidocaine 5 % (700 mg/patch) patch Comments: Reason for Stopping: ATORVASTATIN CALCIUM (ATORVASTATIN ORAL) Comments: Reason for Stopping: carvedilol 20 mg 24 hr capsule Comments: Reason for Stopping: NAPROXEN/ESOMEPRAZOLE MAG (VIMOVO ORAL) Comments: Reason for Stopping: Current Facility-Administered Medications: ascorbic acid (vitamin C) (VITAMIN C) tablet 500 mg, 500 mg, Oral, TID, Sterling Cobos MD, 500mg at 09/24/20 1330 atorvastatin (LIPITOR) tablet 20 mg, 20 mg, Oral, QHS, Sterling Cobos MD azithromycin (ZITHROMAX) 500 mg in NaCl 0.9% (NS) 250 mL VIAL-MATE IV piggyback, 500 mg, IV Piggyback, Q24H ABX, Sterling Cobos MD, 500 mg at 09/24/20 0151 carvediloL (COREG) tablet 6.25 mg, 6.25 mg, Oral, BID MEALS, Sterling Cobos MD, 6.25 mg at 09/24/20 1714 cefTRIAXone (ROCEPHIN) 1,000 mg in NaCl 0.9% (NS) 50 mL MINI-BAG, 1,000 mg, IV Piggyback, Q24H ABX, Sterling Cobos MD, 1,000 mg at 09/24/20 0112 dexamethasone (DECADRON PHOSPHATE) 6 mg in NaCl 0.9% (NS) piggyback, 6 mg, IV Piggyback, DAILY,Sterling Cobos MD, 6 mg at 09/24/20 0922 enoxaparin (LOVENOX) injection 30 mg, 30 mg, Subcutaneous, Q12H, Sterling Cobos MD, 30 mg at 09/24/20 0921 ergocalciferol (vitamin d2) (CALCIFEROL) capsule 50,000 Units, 50,000 Units, Oral, QWEEKLY, Sterling Cobos MD, 50,000 Units at 09/24/20 0921 lactobacillus acidophilus (ACIDOPHILLUS) 25 million cell -100 mg captab 1 tablet, 1 tablet, Oral, BID, Sterling Cobos MD, 1 tablet at 09/24/20 0920 NaCl 0.9% (NS) IV infusion 1,000 mL, 1,000 mL, IV Infusion, CONTINUOUS, Wilbert Tyler MD, Last Rate: 75 mL/hr at 09/24/20 1330, 1,000 mL at 09/24/20 1330 omeprazole (PRILOSEC) capsule 40 mg, 40 mg, Oral, DAILY, Sterling Cobos MD, 40 mg at 09/24/20 0921 temazepam (RESTORIL) capsule 30 mg, 30 mg, Oral, QHS, Sterling Cobos MD zinc sulfate (ORAZINC) capsule 220 mg, 220 mg, Oral, BID, Sterling Cobos MD, 220 mg at 09/24/20 0921 acetaminophen (TYLENOL) tablet 650 mg, 650 mg, Oral, Q6HPRN, Wilbert Tyler MD ondansetron (ZOFRAN (PF)) injection 4 mg, 4 mg, Slow IV Push, Q6HPRN, Wilbert Tyler MD REVIEW OF SYSTEMS: ROS reviewed from H&P. PHYSICAL EXAMINATION: Vitals: 09/24/20 1000 09/24/20 1200 09/24/20 1600 09/24/20 1940 BP: 120/60 114/59 Pulse: 73 77 82 77 Resp: 23 15 23 Temp: 36.9 C (98.5 F) TempSrc: Oral SpO2: 97% 99% 95% 94% Weight: Exam is limited due to COVID19 status ENT: normocephalic atraumatic GI: non-distended : not examined Neuro: no gross deficits noted. LABS - Reviewed pertinent labs as below: CBC BMP PT/INR WBC (10*3/L) Date Value 09/24/2020 3.05 (L) NA (mmol/L) Date Value 09/24/2020 135 No results found for: PT PLT (10*3/L) Date Value 09/24/2020 167 K (mmol/L) Date Value 09/24/2020 3.7 INR (no units) Date Value 09/24/2020 1.1 HGB (g/dL) Date Value 09/24/2020 10.9 (L) BUN (mg/dL) Date Value 09/24/2020 22 HCT (%) Date Value 09/24/2020 33.5 (L) CREATININE (mg/dL) Date Value 09/24/2020 0.88 LIPID PROFILE GLUCOSE (mg/dL) Date Value 09/24/2020 100 CHOL (mg/dL) Date Value 07/06/2019 181 TSH LDL CHOL (mg/dL) Date Value 07/06/2019 106 TSH (mIU/L) Date Value 09/23/2020 1.43 CARDIAC ENZYMES HDL (mg/dL) Date Value 07/06/2019 51 CK (U/L) Date Value 09/23/2020 250 (H) TRIG (mg/dL) Date Value 07/06/2019 122 LFTs No results found for: CKMB AST(SGOT) (U/L) Date Value 09/24/2020 57 (H) TROPONIN I (ng/mL) Date Value 09/24/2020 0.013 ALT(SGPT) (U/L) Date Value 07/06/2019 25 ALTv (U/L) Date Value 09/24/2020 27 No results found for: BNP LDL CHOL (mg/dL) Date Value 07/06/2019 106 Recent Labs 09/24/20 0348 TROPNI 0.013 There are no current results on file for these tests and/or test for 1 year. LDL CHOL (mg/dL) Date Value 07/06/2019 106 NT-proBNP (pg/mL) Date Value 09/24/2020 266 ASSESSMENT/PLAN Principal Problem: COVID-19 virus infection Active Problems: SVT (supraventricular tachycardia) Essential hypertension Other hyperlipidemia Syncope Elevated brain natriuretic peptide (BNP) level Sepsis/Covid infection: As per primary team. Syncope: Unspecified EKG reviewed no significant changes noted. Recommend tele monitoring, serial trop. Echo and carotid USG in AM. Mildly elevated NT proBNP: We will hold off on Lasix for now. Chest x-ray appears to be clear. History of SVT: Telemetry monitoring. No significant apneas noted so far. Hypertension: Currently blood pressure low normal. Agree with low-dose Coreg 6.25 twice daily. Will monitor. Dyslipidemia on Lipitor 20 mg daily JASON: As per primary team. IV fluids. Treatment plan reviewed with hospitalist Thank you for allowing us to participate in the care of Dilia Russell. If you have any questions or concerns please feel free to call our office at [phone]. I would be happy to be of further assistance for Dilia Russell wellbeing. Mario Diaz MD Service Cashier, Division of Cardiology [facility] [employer] Kitty Sargent, - 09/24/2020 7:20 AM CSTAssociated Order(s): CONSULT NEPHROLOGY Nephrology Consult Admit Date: 09/23/2020 PCP: Hemalatha Caruso Referring Physician: Dr. Cobos Reason for Referral: JASON/ Hyponatremia Admitting Dx: COVID-19 virus infection CHIEF COMPLAINT: Syncope HISTORY OF PRESENT ILLNESS: Dilia Russell is a 80 year old female that presented to the ER withsyncope complicated by JASON and Hyponatremia. 80 y/o female, diagnosed with COVID 4 days ago at urgent care, presents with syncope, found down with feces, diarrhea, persistent cough, fevers/chlls, dyspnea, weakenss, dizziness, decrease appetite. Family requested [employer] to check in and patient was found down, unresponsive. On arrival she was AAOx3. She's positive for fatigue. Currently denies vision changes, seizures, abdominal pain, vomiting, bleeding, dysuria, hematuria, leg edema, rash, itching, focal weakness. Denies nasal congestion, nasal pain or discharge. ROS as stated above. All other ROS negative. Temp: [36.6 C (97.8 F)-37.3 C (99.1 F)] Heart Rate (monitor): [68-87] Pulse: [67-87] Resp: [15-28] BP: (95-120)/(54-67) MAP (mmHg): [66-84] PE: Gen: NAD HEENT: NCAT. MMM. Neck: Supple. No LAD. Lungs: CTA CVS: RRR Abd: Soft. NT. +BS Ext: No C/C. LE Edema none. Skin: No rash Psych: AAO Neuro: Normal speech ASSESSMENT/PLAN Dilia Russell is a 80 year old female with PMH as listed above, admitted to the hospital with: The primary encounter diagnosis was COVID-19 virus infection. Diagnoses of Weakness generalized, Dehydration, JASON (acute kidney injury), and Syncope, unspecified syncope type were also pertinent to this visit. A/ JASON likely due to hypovolemia Hyponatremia Hypocalcemia Proteinuria HTN with CKD DM II Anemia in chronic illness COVID 19 acute respiratory distress Toxic metabolic encephalopathy/ Syncope P/ Continue current POC and Medications other than changes listed below. Please see chart and orders for complete details. Continue IVF. COVID protocol including abx and steroids. Vitamin D as ordered. No NSAIDs. AM labs. Daily weight. Thank you kindly for the consultation. Vitals: 09/23/20 1930 09/23/20 2000 09/24/20 0000 09/24/20 0400 BP: 115/63 120/67 111/60 Pulse: 70 82 87 Resp: 15 16 20 Temp: 36.7 C (98.1 F) 37.3 C (99.1 F) 36.7 C (98.1 F) TempSrc: Oral Oral Oral SpO2: 100% 100% 94% Weight: 81.6 kg (180 lb) LABS - reviewed in the chart: CBC BMP PT/INR WBC (10*3/L) Date Value 09/24/2020 3.05 (L) NA (mmol/L) Date Value 09/24/2020 135 No results found for: PT RBC (10*6/L) Date Value 09/24/2020 3.90 (L) K (mmol/L) Date Value 09/24/2020 3.7 INR (no units) Date Value 09/24/2020 1.1 PLT (10*3/L) Date Value 09/24/2020 167 CALCIUM (mg/dL) Date Value 09/24/2020 7.7 (L) HGB (g/dL) Date Value 09/24/2020 10.9 (L) CL (mmol/L) Date Value 09/24/2020 104 aPTT HCT (%) Date Value 09/24/2020 33.5 (L) BUN (mg/dL) Date Value 09/24/2020 22 APTT Patient (Seconds) Date Value 03/31/2020 25 CREATININE (mg/dL) Date Value 09/24/2020 0.88 IMAGING - reviewed in the chart: Hospital Encounter on 09/23/20 CT HEAD WO CONTRAST Narrative Exam: CT HEAD WO CONTRAST Clinical History: Altered mental status (AMS), unclear cause Technique:Routine CT brain with multiplanar reformats. Comparison: None Findings: Ventricles are normal. Age-related volume loss is noted with prominent sulci, cisterns and ventricles. Basal cisterns are within normal limits. Aspect score: 10. The included portions of the orbits are within normal limits. Craniocervical junction is normal. Bilateral sphenoid sinuses as well as left posterior ethmoid air cells are opacified. Minimal calcification is noted within the secretions. Impression Impression: 1. No acute intracranial process. 2. Hyperdense opacification of the sphenoid sinuses and the left posterior ethmoid air cells, with small calcification noted within the sphenoid sinus and the posterior left ethmoid air cells. These are most likely related to chronic inspissated secretions and/or fungal colonization. XR CHEST 1 VW Narrative HISTORY: COVID positive. TECHNIQUE: Portable AP view of the chest is obtained. Comparison is made with 07/06/2019 study. FINDINGS: Minimal groundglass hazy changes are seen in the lower lungs and right upper lung without focal area of consolidation. Some of the hazy changes could be chronic interstitial pulmonary fibrosis. No pneumothorax or pleural effusion. Cardiac size is upper normal. Thoracic aorta is dilated. CONCLUSIONS: No definite signs of acute cardiopulmonary disease. Hazy changes in the lungs are likely secondary to chronic pulmonary fibrosis. PAST MEDICAL HISTORY Past Medical History: Diagnosis Date GERD (gastroesophageal reflux disease) 06/06/2019 HTN (hypertension) Hyperlipidemia Osteoarthritis Past Surgical History: Procedure Laterality Date ANTERIOR CERVICAL FUSION C6-7 EXTRACAPSULAR CATARACT EXTRACTION WITH INTRAOCULAR LENS IMPLANT Bilateral EYE SURGERY Bilateral Macular holes HB CATH ABLATION - AV NODE 2003 LAPAROSCOPIC TOTAL ABDOMINAL HYSTERECTOMY 2017 TOTAL KNEE ARTHROPLASTY Bilateral ALLERGIES Allergies Allergen Reactions Adhesive Rash Levaquin [Levofloxacin] Hives Seldane Unknown - See comments MEDICATIONS reviewed in the chart. Current Facility-Administered Medications Medication Dose Route Frequency Last Rate Last Admin ascorbic acid (vitamin C) (VITAMIN C) tablet 500 mg 500 mg Oral TID atorvastatin (LIPITOR) tablet 20 mg 20 mg Oral QHS azithromycin (ZITHROMAX) 500 mg in NaCl 0.9% (NS) 250 mL VIAL-MATE IV piggyback 500 mg IV Piggyback Q24H ABX 500 mg at 09/24/20 0151 carvediloL (COREG) tablet 6.25 mg 6.25 mg Oral BID MEALS cefTRIAXone (ROCEPHIN) 1,000 mg in NaCl 0.9% (NS) 50 mL MINI-BAG 1,000 mg IV Piggyback Q24H ABX 1,000 mg at 09/24/20 0112 dexamethasone (DECADRON) 6 mg in NaCl 0.9% (NS) piggyback 6 mg IV Piggyback DAILY enoxaparin (LOVENOX) injection 30 mg 30 mg Subcutaneous Q12H ergocalciferol (vitamin d2) (CALCIFEROL) capsule 50,000 Units 50,000 Units Oral QWEEKLY lactobacillus acidophilus (ACIDOPHILLUS) 25 million cell -100 mg captab 1 tablet 1 tablet Oral BID NaCl 0.9% (NS) IV infusion 1,000 mL 1,000 mL IV Infusion CONTINUOUS 100 mL/hr at 09/24/20 0113 1,000 mL at 09/24/20 0113 omeprazole (PRILOSEC) capsule 40 mg 40 mg Oral DAILY temazepam (RESTORIL) capsule 30 mg 30 mg Oral QHS zinc sulfate (ORAZINC) capsule 220 mg 220 mg Oral BID acetaminophen (TYLENOL) tablet 650 mg 650 mg Oral Q6HPRN ondansetron (ZOFRAN (PF)) injection 4 mg 4 mg Slow IV Push Q6HPRN SOCIAL HISTORY Social History Socioeconomic History Marital status: Spouse name: Not on file Number of children: Not on file Years of education: Not on file Highest education level: Not on file Occupational History Not on file Social Needs Financial resource strain: Not on file Food insecurity Worry: Not on file Inability: Not on file Transportation needs Medical: Not on file Non-medical: Not on file Tobacco Use Smoking status: Never Smoker Smokeless tobacco: Never Used Substance and Sexual Activity Alcohol use: Not Currently Drug use: Not on file Sexual activity: Not on file Lifestyle Physical activity Days per week: Not on file Minutes per session: Not on file Stress: Not on file Relationships Social connections Talks on phone: Not on file Gets together: Not on file Attends episcopalian service: Not on file Active member of club or organization: Not on file Attends meetings of clubs or organizations: Not on file Relationship status: Not on file Intimate partner violence Fear of current or ex partner: Not on file Emotionally abused: Not on file Physically abused: Not on file Forced sexual activity: Not on file Other Topics Concern Not on file Social History Narrative Not on file FAMILY History Family History Problem Relation Age of Onset Ovarian Cancer Sister Kidney Cancer Brother Lymphoma Brother Stroke Father [employer] documented in this encounter ED Notes Donna Simmons RN - 09/23/2020 3:45 PM CSTPatient states she was diagnosed with COVID 4 days ago. Since then she has felt fatigued, persistentcough and fever controlled by antipyretic. Today the family requested [employer] to do a wellness check. When [employer] arrived they saw patient behind front door on floor. Then gained entrance into house and reported to EMS when they sternal rubbed her she was unresponsive and appeared apneic. After the sternal rub patient began to spontaneously breathe per [employer] to EMS. On arrival to ED patient is alert, oriented x4 and does not appear in distress. She is complaining of fatigue, cough and diarrhea. 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: Medication (comment) [employer]IVERS' CASH CLERK treatment comments: Home meds Travel and Exposure Screening: Symptoms Does patient have any of these symptoms?: (not recorded) Exposure Screening Has patient had contact with someone with a communicable disease in the last month?: (not recorded) Diseases exposed to:: (not recorded) Is Patient ?: (not recorded) Exposure Date: (not recorded) Chief Complaint: Chief Complaint Patient presents with Fatigue History of Present Illness: EMS states family called for welfare check since they hadn't heard from her in a few hours and when they got there they had to gain access to house because they saw her on the floor behind the door. EMS found her unconscious and apneic, did sternal rub and she began breathing. No CPR initiated. IV started and oxygen applied. Per EMS patient now alert and oriented. Patient states she woke up this am down on the floor with a light blanket but no pillow and doesn't recall lying on floor. Denies chest pain, sob, dizziness and denies syncopal episode. Reports slight headache. No nausea or vomiting. Reports she has had 'black' diarrhea. Is known covid + from urgent care on Monday. Is only on Tylenol and Motrin. Has had cough and fatigue since Monday. Hx of HTN, HLD, OA and GERD. Past Medical History/Immunizations: Past Medical History: Diagnosis Date GERD (gastroesophageal reflux disease) 06/06/2019 HTN (hypertension) Hyperlipidemia Osteoarthritis Tetanus received in last 5 years: No Childhood immunizations: Up-to-date Allergies: Allergies Allergen Reactions Adhesive Rash Levaquin [Levofloxacin] Sanjiv Wallace Unknown - See comments Past Social History: Tobacco Use Never smoked or used smokeless tobacco. Alcohol Use Not Currently. Past Surgical History: Past Surgical History: Procedure Laterality Date ANTERIOR CERVICAL FUSION C6-7 EXTRACAPSULAR CATARACT EXTRACTION WITH INTRAOCULAR LENS IMPLANT Bilateral EYE SURGERY Bilateral Macular holes HB CATH ABLATION - AV NODE 2003 LAPAROSCOPIC TOTAL ABDOMINAL HYSTERECTOMY 2017 TOTAL KNEE ARTHROPLASTY Bilateral Review of Systems: Review of Systems Constitutional: Positive for fatigue. Negative for chills and fever. HENT: Negative for congestion, ear pain and sore throat. Eyes: Negative for pain and visual disturbance. Respiratory: Positive for cough. Negative for chest tightness and shortness of breath. Breasts: Negative for pain. Cardiovascular: Negative for chest pain, palpitations and leg swelling. Gastrointestinal: Positive for diarrhea. Negative for abdominal pain, constipation, nausea and vomiting. Genitourinary: Negative for dysuria, flank pain, vaginal bleeding, vaginal discharge, difficulty urinating and pelvic pain. Musculoskeletal: Negative for arthralgias, gait problem, myalgias and neck pain. Skin: Negative for color change and rash. Neurological: Negative for dizziness, syncope, weakness, light-headedness and numbness. All other systems reviewed and are negative. Hematological: Does not bruise/bleed easily. Physical Exam: ED Triage Vitals Weight 09/23/20 1543 72 kg (158 lb 11.7 oz) Actual or estimated 09/23/20 1543 Estimated by healthcare provider Height -- BP 12/02/20 1548 106/67 Pulse 09/23/20 1548 73 Resp 09/23/20 1548 28 Temp 09/23/20 1548 36.6 C (97.8 F) Temp source 09/23/20 1548 Oral SpO2 09/23/20 1548 93 % Measured on 09/23/20 1548 Room air Physical Exam Vitals signs reviewed. Constitutional: General: She is not in acute distress. Appearance: Normal appearance. She is well-developed and normal weight. She is not ill-appearing or toxic-appearing. HENT: Head: Normocephalic and atraumatic. Right Ear: External ear normal. Left Ear: External ear normal. Nose: Nose normal. No rhinorrhea. Mouth/Throat: Mouth: Mucous membranes are dry. Pharynx: No oropharyngeal exudate or posterior oropharyngeal erythema. Eyes: General: Right eye: No discharge. Left eye: No discharge. Conjunctiva/sclera: Conjunctivae normal. Neck: Musculoskeletal: Normal range of motion and neck supple. No muscular tenderness. Cardiovascular: Rate and Rhythm: Normal rate and regular rhythm. Pulses: Normal pulses. Heart sounds: No murmur. Pulmonary: Effort: Pulmonary effort is normal. No respiratory distress. Breath sounds: Normal breath sounds. No wheezing. Chest: Chest wall: No tenderness. Abdominal: General: Bowel sounds are normal. There is no distension. Palpations: Abdomen is soft. Tenderness: There is no abdominal tenderness. There is no right CVA tenderness, left CVA tenderness, guarding or rebound. Musculoskeletal: Normal range of motion. General: No swelling, tenderness or signs of injury. Right lower leg: No edema. Left lower leg: No edema. Skin: General: Skin is warm and dry. Capillary Refill: Capillary refill takes less than 2 seconds. Coloration: Skin is pale. Findings: No rash. Neurological: General: No focal deficit present. Mental Status: She is alert and oriented to person, place, and time. GCS: GCS eye subscore is 4. GCS verbal subscore is 5. GCS motor subscore is 6. Cranial Nerves: No cranial nerve deficit. Sensory: No sensory deficit. Motor: No weakness or abnormal muscle tone. Gait: Gait normal. Psychiatric: Mood and Affect: Mood normal. Behavior: Behavior normal. Thought Content: Thought content normal. Judgment: Judgment normal. Radiology: Hospital Encounter on 09/23/20 CT HEAD WO CONTRAST Narrative Exam: CT HEAD WO CONTRAST Clinical History: Altered mental status (AMS), unclear cause Technique:Routine CT brain with multiplanar reformats. Comparison: None Findings: Ventricles are normal. Age-related volume loss is noted with prominent sulci, cisterns and ventricles. Basal cisterns are within normal limits. Aspect score: 10. The included portions of the orbits are within normal limits. Craniocervical junction is normal. Bilateral sphenoid sinuses as well as left posterior ethmoid air cells are opacified. Minimal calcification is noted within the secretions. Impression Impression: 1. No acute intracranial process. 2. Hyperdense opacification of the sphenoid sinuses and the left posterior ethmoid air cells, with small calcification noted within the sphenoid sinus and the posterior left ethmoid air cells. These are most likely related to chronic inspissated secretions and/or fungal colonization. XR CHEST 1 VW Narrative HISTORY: COVID positive. TECHNIQUE: Portable AP view of the chest is obtained. Comparison is made with 07/06/2019 study. FINDINGS: Minimal groundglass hazy changes are seen in the lower lungs and right upper lung without focal area of consolidation. Some of the hazy changes could be chronic interstitial pulmonary fibrosis. No pneumothorax or pleural effusion. Cardiac size is upper normal. Thoracic aorta is dilated. CONCLUSIONS: No definite signs of acute cardiopulmonary disease. Hazy changes in the lungs are likely secondary to chronic pulmonary fibrosis. Lab Results (24h): Recent Results (from the past 24 hour(s)) Lactic Acid Whole Blood Collection Time: 09/23/20 4:02 PM Result Value Ref Range LACTIC ACID 1.41 mmol/L CBC WITH DIFF Collection Time: 09/23/20 4:11 PM Result Value Ref Range WBC 3.31 (L) 4.30 - 11.10 10*3/L RBC 4.47 3.93 - 5.25 10*6/L HGB 12.4 11.6 - 15.0 g/dL HCT 37.7 35.7 - 45.2 % MCV 84.3 80.6 - 95.5 fL MCH 27.7 25.9 - 32.8 pg MCHC 32.9 31.6 - 35.1 g/dL RDW-SD 42.8 39.0 - 49.9 fL RDW-CV 13.7 12.0 - 15.5 % PLT 179 166 - 358 10*3/L MPV 10.4 9.5 - 12.9 fL NRBC/100 WBC 0.0 0.0 - 10.0 /100 WBCs NRBC x10^3 <0.01 10*3/L GRAN MAT (NEUT) % 68.9 % IMM GRAN % 0.30 % LYMPH % 25.4 % MONO % 5.1 % EOS % 0.0 % BASO % 0.3 % GRAN MAT x10^3(ANC) 2.28 1.88 - 7.09 10*3/uL IMM GRAN x10^3 <0.03 0.00 - 0.06 10*3/uL LYMPH x10^3 0.84 (L) 1.32 - 3.29 10*3/uL MONO x10^3 0.17 (L) 0.33 - 0.92 10*3/uL EOS x10^3 <0.03 (L) 0.03 - 0.39 10*3/uL BASO x10^3 <0.03 0.01 - 0.07 10*3/uL COMP. METABOLIC PANEL ([id number]) Collection Time: 09/23/20 4:11 PM Result Value Ref Range NA 132 (L) 135 - 145 mmol/L K 3.7 3.5 - 5.0 mmol/L CL 98 98 - 108 mmol/L CO2 TOTAL 25 23 - 31 mmol/L AGAP 9 2 - 16 BUN 27 (H) 7 - 23 mg/dL GLUCOSE 133 (H) 70 - 110 mg/dL CREATININE 1.25 (H) 0.50 - 1.04 mg/dL TOTAL BILI 0.5 0.1 - 1.1 mg/dL CALCIUM 8.4 (L) 8.6 - 10.6 mg/dL T PROTEIN 6.7 6.3 - 8.2 g/dL ALBUMIN 3.7 3.5 - 5.0 g/dL ALK PHOS 64 34 - 122 U/L ALTv 30 5 - 35 U/L AST(SGOT) 55 (H) 13 - 40 U/L eGFR Calculation (Non-) 41.2 mL/min/1.73m2 eGFR Calculation () 50.0 mL/min/1.73m2 CREATINE KINASE Collection Time: 09/23/20 4:11 PM Result Value Ref Range CK 250 (H) 33 - 194 U/L TROPONIN I Collection Time: 09/23/20 4:11 PM Result Value Ref Range TROPONIN I 0.013 <=0.034 ng/mL N-TERMINAL PRO-BNP Collection Time: 09/23/20 4:11 PM Result Value Ref Range NT-proBNP 459 (H) <=450 pg/mL LIPASE Collection Time: 09/23/20 4:11 PM Result Value Ref Range LIPASE 378 (H) 0 - 220 U/L MAGNESIUM Collection Time: 09/23/20 4:11 PM Result Value Ref Range MAGNESIUM 2.1 1.7 - 2.4 mg/dL COVID-19 (ID NOW RAPID TESTING) Collection Time: 09/23/20 4:11 PM Specimen: NASOPHARYNGEAL SWAB Result Value Ref Range SARS-CoV-2 Rapid ID NOW Positive (A) Not Detected URINALYSIS Collection Time: 09/23/20 5:33 PM Result Value Ref Range APPEARANCE Hazy (A) Clear COLOR Yellow Yellow PH 5.0 4.8 - 8.0 SP GRAVITY 1.024 1.003 - 1.030 GLU U QUAL Normal Normal BLOOD Negative Negative KETONES 20 mg/dL (A) Negative PROTEIN 30 mg/dL (A) Negative UROBILIN Normal Normal BILIRUBIN Negative Negative NITRITE Negative Negative LEUK RAMOS Negative Negative RBC/HPF 1 0 - 3 HPF WBC/HPF 6 (H) 0 - 5 HPF BACTERIA Moderate (A) Negative MUCOUS Moderate (A) Negative LPF SQ EPITH 5 HPF HYAL CAST 15 (H) <=2 LPF EKG: reviewed by me Sinus rhythm with PAC Rate 76 MA 166ms QTc 447ms Comparison with prior EK07/06/2019, nsr, no PAC noted ER scoring tools No data recorded Orders and Treatments: Orders Placed This Encounter Procedures XR CHEST [address] HEAD WO CONTRAST CBC WITH DIFF COMP. METABOLIC PANEL (58683) BLOOD CULTURE SCREEN BLOOD CULTURE SCREEN CREATINE KINASE Lactic Acid Whole Blood URINALYSIS URINE CULTURE TROPONIN I N-TERMINAL PRO-BNP LIPASE MAGNESIUM COVID-19 (ID NOW RAPID TESTING) LAB ONLY COVID INTERPRETATION Orders Placed This Encounter Medications NaCl 0.9% (NS) bolus infusion 1,000 mL ED COURSE ED Course as of Sep 23 1807MonSep 23, [address] Tyler, accepted for obs. Patient aware. [MM] 1558 Guaiac neg stool. Noted to be black, not no blood [MM] ED Course User Index [MM] Lida Silverio EMNP MDM: MDM Reviewed: nursing note and vitals Interpretation: labs, ECG, x-ray and CT scan Consults: admitting MD DDx: covid, covid pneumonia, dehydration, uti, hypoxemia, ICH Diagnosis/Impression: ICD-10-CM ICD-9-CM 1. COVID-19 virus infection U07.1 079.89 2. Weakness generalized R53.1 780.79 3. Dehydration E86.0 276.51 4. JASON (acute kidney injury) N17.9 584.9 Disposition/Condition: ED Disposition ED Disposition Condition Comment Admit - Observation Is this patient COVID positive or a patient under investigation (PUI)?: Yes Treatment Team: [facility] [[id number]] Primary reason for admission: COVID-19 virus infection [4689894923] Secondary reason for admission: Dehydration [276.51.ICD-9-CM] Secondary reason for admission: JASON (acute kidney injury) [[id number]] Is (or was) this a planned re-admission?: No Discharge Medications: Patient's Medications START taking these [...] taking these medications No medications on file At admission BP 107/61 | Pulse 69 | Temp 36.6 C (97.8 F) (Oral) | Resp 16 | Wt 81.6 kg (180 lb) | SpO2 100% | BMI 29.95 kg/m Electronically signed by: IRVING Triana 09/23/2020 3:40 PM [employer] Associated attestation - Stevie Huffman DO - 09/24/2020 7:05 AM CSTI was available for consultation at all times during the patient encounter. However, I did not see or evaluate the patient unless otherwise noted. Signature is for administrative purposes and not an endorsement of care provided.documented in this encounter Miscellaneous Notes Care Plan - Mariaelena Manning RN - 09/25/2020 4:18 PM [employer] Problem: Falls, Risk of Goal: Absence of falls Outcome: Adequate for discharge Problem: Infection Risk Goal: Absence of infection Outcome: Adequate for discharge Problem: Discharge Planning Goal: Absence of venous thromboembolism Outcome: Adequate for discharge Goal: Adequate for discharge Outcome: Adequate for discharge Goal: Effective communication Outcome: Adequate for discharge Problem: Respiratory Function - Impaired Goal: Able to cough effectively Outcome: Adequate for discharge Goal: Adequate oxygenation Outcome: Adequate for discharge Goal: Adequate work of breathing Outcome: Adequate for discharge Goal: Patent airway Outcome: Adequate for discharge are Plan - Ross Varghese RN - 09/25/2020 4:07 AM [employer] Problem: Falls, Risk of Goal: Absence of falls Outcome: Progressing as expected Problem: Infection Risk Goal: Absence of infection Outcome: Progressing as expected Problem: Discharge Planning Goal: Absence of venous thromboembolism Outcome: Progressing as expected Goal: Adequate for discharge Outcome: Progressing as expected Goal: Effective communication Outcome: Progressing as expected Problem: Respiratory Function - Impaired Goal: Able to cough effectively Outcome: Progressing as expected Goal: Adequate oxygenation Outcome: Progressing as expected Goal: Adequate work of breathing Outcome: Progressing as expected Goal: Patent airway Outcome: Progressing as expected are Plan - Adrianna Barnett RN - 09/24/2020 2:26 PM [employer] Problem: Falls, Risk of Goal: Absence of falls 09/24/2020 1426 by Adrianna Barnett RN Outcome: Progressing as expected 09/24/2020 1111 by Adrianna Barnett RN Outcome: Progressing as expected Problem: Infection Risk Goal: Absence of infection 09/24/2020 1426 by Adrianna Barnett RN Outcome: Progressing as expected 09/24/2020 1111 by Adrianna Barnett RN Outcome: Progressing as expected Problem: Discharge Planning Goal: Absence of venous thromboembolism 09/24/2020 1426 by Adrianna Barnett RN Outcome: Progressing as expected 09/24/2020 1111 by Adrianna Barnett RN Outcome: Progressing as expected Goal: Adequate for discharge 09/24/2020 1426 by Adrianna Barnett RN Outcome: Progressing as expected 09/24/2020 1111 by Adrianna Barnett RN Outcome: Progressing as expected Goal: Effective communication 09/24/2020 1426 by Adrianna Barnett RN Outcome: Progressing as expected 09/24/2020 1111 by Adrianna Barnett RN Outcome: Progressing as expected Problem: Respiratory Function - Impaired Goal: Able to cough effectively 09/24/2020 1426 by Adrianna Barnett RN Outcome: Progressing as expected 09/24/2020 1111 by Adrianna Barnett RN Outcome: Progressing as expected Goal: Adequate oxygenation 09/24/2020 1426 by Adrianna Barnett RN Outcome: Progressing as expected 09/24/2020 1111 by Adrianna Barnett RN Outcome: Progressing as expected Goal: Adequate work of breathing 09/24/2020 1426 by Adrianna Barnett RN Outcome: Progressing as expected 09/24/2020 1111 by Adrianna Barnett RN Outcome: Progressing as expected Goal: Patent airway 09/24/2020 1426 by Adrianna Barnett RN Outcome: Progressing as expected 09/24/2020 1111 by Adrianna Barnett RN Outcome: Progressing as expected D Nurse Note - Tran Reynaga RN - 09/23/2020 7:01 PM CSTPatient admitted to ICU for diagnosis of COVID-19, JASON, Dehydration, Weakness Patient agrees to admission, discussed plan of care with patient and family. Patient is awake, alert, oriented, resp reg unlabored, color appropriate for race, PIV intact No adverse reaction to medications administered while in ED Belongings with patient to unit Report to Gurwinder MCPHERSON D Nurse Note - Tran Reynaga RN - 09/23/2020 7:00 PM CSTReport given to Gurwinder MCPHERSON ICU. documented in this encounter Plan of Treatment Name Type Priority Associated Diagnoses Date/Ti me BLOOD CULTURE SCREEN LAB STAT COVID-19 virus 09/23 4:11 PM infection [employer] Weakness generalized BLOOD CULTURE SCREEN LAB STAT COVID-19 virus 09/23 4:11 PM infection [employer] Weakness generalized URINE CULTURE LAB STAT COVID-19 virus 09/23/2020 5:33 PM infection [employer] Weakness generalized LAB ONLY COVID LAB STAT COVID-19 virus 09/23/2020 4:11 PM INTERPRETATION infection [employer] Weakness generalized Name Type Priority Associated Diagnoses Order S chedule LAB ONLY COVID LAB Routine COVID-19 virus ONCE for 1 INTERPRETATION infection Occurrences starting Weakness generalized 020 until 09/23/2020, 1 completed TROPONIN I LAB Routine EVERY MORNING A T 0500 for 1 Days star ting 09/24/2020 unti l 09/24/2020 N-TERMINAL PRO-BNP LAB Routine EVERY MOR SUZANNE AT 0500 for 3 Days star ting 09/24/2020 unti l 09/26/2020, 2 completed CBC WITH DIFF LAB Routine EVERY MORNING AT 0500 for 3 Days star ting 09/24/2020 unti l 09/26/2020, 2 completed COMP. METABOLIC PANEL LAB Routine EVERY MORNING AT 0500 ([id number]) for 3 Days star ting 09/24/2020 unti l 09/26/2020, 2 completed OSMOLALITY URINE LAB Routine ONCE for 1 Occurrences sta rting 09/24/2020 unti l 09/24/2020 PROTEIN CREAT RATIO URINE LAB JANEL Add-On AP for 1 RANDOM Occurrences sta rting 09/24/2020 unti l 09/24/2020 SODIUM, URINE RANDOM LAB JANEL Add-On JANEL fo r 1 Occurrences sta rting 09/24/2020 unti l 09/24/2020 Health Maintenance Due Date Last Done Comments DTaP,Tdap,and Td Vaccines (1 - Tdap) 1959 Zoster Recombinant Vaccine (SHINGRIX) (1 of 2) 1990 Medicare Wellness Visit 2005 Osteoporosis Screening 2005 INFLUENZA VACCINE (#1) 2020 Depression Screening 04/23/2021 04/23/2020 PNEUMOCOCCAL VACCINES 65+ Completed 03/22/2017 documented as of this encounter Implants Implanted Type Area Philosophy And Religion Instructor Device Identifier Shelf Exp iration Model / Serial Date / Lot Knee KNEE documented as of this encounter Procedures Procedure Name Priority Date/Time Associated Comments Diagnosis N-TERMINAL PRO-BNP Routine 09/25/2020 5:12 Resul ts for this AM [employer] procedure are i n the results section. CBC WITH DIFF Routine 09/25/2020 5:12 Results fo r this AM [employer] procedure are i n the results section. COMP. METABOLIC PANEL Routine 09/25/2020 5:12 Re sults for this ([id number]) AM [employer] procedure are i n the results section. URIC ACID Routine 09/25/2020 5:12 Results for this AM [employer] procedure are i n the results section. ECHO ROUTINE Routine 09/24/2020 11:18 Syncope, W/DOPPLER COLOR AM [employer] unspecified syncope type CAROTID DUPLEX Routine 09/24/2020 10:40 BILATERAL BY VASCULAR AM [employer] LAB PROCALCITONIN STAT 09/24/2020 3:48 Results fo r this AM [employer] procedure are i n the results section. VITAMIN D, 25-OH JANEL 09/24/2020 3:48 Results for this AM [employer] procedure are i n the results section. N-TERMINAL PRO-BNP Routine 09/24/2020 3:48 Resul ts for this AM [employer] procedure are i n the results section. D-DIMER STAT 09/24/2020 3:48 Results for this AM [employer] procedure are i n the results section. PROTHROMBIN TIME / STAT 09/24/2020 3:48 Resul ts for this INR AM [employer] procedure are i n the results section. COMP. METABOLIC PANEL Routine 09/24/2020 3:48 Re sults for this ([id number]) AM [employer] procedure are i n the results section. TROPONIN I STAT 09/24/2020 3:48 Results for this AM [employer] procedure are i n the results section. VITAMIN B12, LEVEL JANEL 09/24/2020 3:48 Resul ts for this AM [employer] procedure are i n the results section. OSMOLALITY SERUM JANEL 09/24/2020 3:48 Results for this AM [employer] procedure are i n the results section. URIC ACID Routine 09/24/2020 3:48 Results for this AM [employer] procedure are i n the results section. LACTATE DEHYDROGENASE STAT 09/24/2020 3:48 Re sults for this AM [employer] procedure are i n the results section. CBC WITH DIFF Routine 09/24/2020 3:47 Results fo r this AM [employer] procedure are i n the results section. SEDIMENTATION RATE JANEL 09/24/2020 3:47 Resul ts for this AM [employer] procedure are i n the results section. URINE CULTURE STAT 09/23/2020 5:33 COVID-19 virus PM [employer] infection Weakness generalized URINALYSIS STAT 09/23/2020 5:33 COVID-19 virus Results f or this PM [employer] infection procedure are in Weakness the results generalized section. CT HEAD WO CONTRAST STAT 09/23/2020 4:50 COVID-19 virus Re sults for this PM [employer] infection procedure are in Weakness the results generalized section. HB ECG ROUTINE & STAT 09/23/2020 4:17 COVID-19 virus RHYTHM STRIP PM [employer] infection Weakness generalized COVID-19 (ID NOW STAT 09/23/2020 4:11 COVID-19 virus Resul ts for this RAPID TESTING) PM [employer] infection procedure are in Weakness the results generalized section. N-TERMINAL PRO-BNP STAT 09/23/2020 4:11 COVID-19 virus Res ults for this PM [employer] infection procedure are in Weakness the results generalized section. CBC WITH DIFF STAT 09/23/2020 4:11 COVID-19 virus Results for this PM [employer] infection procedure are in Weakness the results generalized section. COMP. METABOLIC PANEL STAT 09/23/2020 4:11 COVID-19 virus Results for this ([id number]) PM [employer] infection procedure are in Weakness the results generalized section. THYROID STIMULATING JANEL Add-On 09/23/2020 4:11 Resu lts for this HORMONE PM [employer] procedure are i n the results section. TROPONIN I STAT 09/23/2020 4:11 COVID-19 virus Results f or this PM [employer] infection procedure are in Weakness the results generalized section. FERRITIN SERUM JANEL Add-On 09/23/2020 4:11 Results f or this PM [employer] procedure are i n the results section. MAGNESIUM STAT 09/23/2020 4:11 COVID-19 virus Results f or this PM [employer] infection procedure are in Weakness the results generalized section. LIPASE STAT 09/23/2020 4:11 COVID-19 virus Results f or this PM [employer] infection procedure are in Weakness the results generalized section. URIC ACID JANEL Add-On 09/23/2020 4:11 Results for this PM [employer] procedure are i n the results section. CREATINE KINASE STAT 09/23/2020 4:11 COVID-19 virus Result s for this PM [employer] infection procedure are in Weakness the results generalized section. PHOSPHORUS JANEL Add-On 09/23/2020 4:11 Results for this PM [employer] procedure are i n the results section. BLOOD CULTURE SCREEN STAT 09/23/2020 4:11 COVID-19 virus PM [employer] infection Weakness generalized BLOOD CULTURE SCREEN STAT 09/23/2020 4:11 COVID-19 virus PM [employer] infection Weakness generalized LACTIC ACID WHOLE STAT 09/23/2020 4:02 COVID-19 virus Resu lts for this BLOOD PM [employer] infection procedure are in Weakness the results generalized section. XR CHEST 1 VW STAT 09/23/2020 4:01 COVID-19 virus Results for this PM [employer] infection procedure are in Weakness the results generalized section. documented in this encounter Results URIC ACID (09/25/2020 5:12 AM [employer]) Pathologist Sig nature URIC ACID 3.6 2.9 - 6.0 mg/dL [facility] Specimen Blood - ARM, LEFT Performing Organization Address City/State/Zipcode Phone Number [facility] CLIA: [id number] [place] [address] COMP. METABOLIC PANEL ([id number]) (09/25/2020 5:12 AM [employer]) Pathologist Sig [facility] NA [phone] 145 [facility] mmol/L [facility] K 4.0 3.5 - 5.0 [facility] mmol/L [facility] CL 105 98 - 108 mmol/L [facility] CO2 TOTAL 25 23 - 31 mmol/L [facility] AGAP 6 2 - 16 [facility] BUN 17 7 - 23 mg/dL [facility] GLUCOSE 152 (H) 70 - 110 mg/dL [facility] CREATININE 0.75 0.50 - 1.04 [facility] mg/dL [facility] TOTAL BILI 0.5 0.1 - 1.1 mg/dL [facility] CALCIUM 7.3 (L) 8.6 - 10.6 [facility] mg/dL [facility] T PROTEIN 5.7 (L) 6.3 - 8.2 g/dL [facility] ALBUMIN 2.9 (L) 3.5 - 5.0 g/dL [facility] ALK PHOS 50 34 - 122 U/L [facility] ALTv 26 5 - 35 U/L [facility] AST(SGOT) 55 (H) 13 - 40 U/L [facility] eGFR Calculation 74.4 mL/min/1.73m2 [facility] (Non[facility] Citizen [place]) eGFR Calculation 90.1 mL/min/1.73m2 [facility] () [facility] Specimen Blood - ARM, LEFT Narrative Performed At [facility] of Glomerular Filtration Rate (GFR) [facility] and Staging of Kidney Disease* + + +- + | GFR (mL/min/1.73 m2) | With Kidney Damage | Without Kidney Damage + + +- + | >90 | Stage one | Normal + + +- + | 60-89 | Stage two | Decreased GFR + + +- + | 30-59 | Stage three | Stage three + + +- + | 15-29 | Stage four | Stage four + + +- + | <15 (or dialysis) | Stage five | Stage five + + +- + *Each stage assumes the associated GFR level has been in effect for at least three months. Stages 1 to 5, with or without kidney disease, indicate chronic kidney disease. Notes: Determination of stages one and two (with eGFR >59mL/min/1.73 m2) requires estimation of kidney damage for at least three months as defined by structural or functional abnormalities of the kidney, manifested by either: Pathological abnormalities or Markers of kidney damage (including abnormalities in the composition of the blood or urine or abnormalities in imaging tests). Performing Organization Address City/State/Zipcode Phone Number [facility] CLIA: [id number] [place] [address] CBC WITH DIFF (09/25/2020 5:12 AM [employer]) WBC 2.76 (L) 4.30 - 11.10 [facility] 10*3/L [facility] RBC 3.82 (L) 3.93 - 5.25 [facility] 10*6/L [facility] HGB 10.6 (L) 11.6 - 15.0 [facility] g/dL [facility] HCT 32.9 (L) 35.7 - 45.2 % [facility] MCV 86.1 80.6 - 95.5 fL [facility] MCH 27.7 25.9 - 32.8 pg [facility] MCHC 32.2 31.6 - 35.1 [facility] g/dL [facility] RDW-SD 43.1 39.0 - 49.9 fL [facility] RDW-CV 13.6 12.0 - 15.5 % [facility] PLT 183 166 - 358 [facility] 10*3/L HOSPITAL LAB[facility]ATORY MPV 10.7 9.5 - 12.9 fL [facility] NRBC/100 WBC 0.0 0.0 - 10.0 [facility] /100 WBCs [facility] NRBC x10^3 <0.01 10*3/L [facility] GRAN MAT (NEUT) % 62.7 % [facility] IMM GRAN % 0.70 % [facility] LABORATORY LYMPH % 29.7 % [facility] LABOR[facility] MONO % 6.9 % [facility] EOS % 0.0 % [facility] BASO % 0.0 % [facility] GRAN MAT 1.73 (L) 1.88 - 7.09 [facility] x10^3(ANC) 10*3/uL HOSPITAL LABORATORY IMM GRAN x10^3 <0.03 0.00 - 0.06 [facility] 10*3/uL HOSPITAL LABORATORY LYMPH x10^3 0.82 (L) 1.32 - 3.29 [facility] 10*3/uL HOSPITAL LABORATORY MONO x10^3 0.19 (L) 0.33 - 0.92 [facility] 10*3/uL HOSPITAL LABORATORY EOS x10^3 <0.03 (L) 0.03 - 0.39 [facility] 10*3/uL HOSPITAL LABORATORY BASO x10^3 <0.03 0.01 - 0.07 [facility] 10*3/uL HOSPITAL LABORATORY CHERYL CELLS 2+ (A) (none) [facility] ELLIPTO/OVAL 2+ (A) (none) [facility] BANDS Increased (A) [facility] Specimen Blood - ARM, LEFT Performing Organization Address City/State/Zipcode Phone Number [facility] CLIA: [id number] [place] [address] [place] [address] N-TERMINAL PRO-BNP (09/25/2020 5:12 AM DOMESTIC [employer]REIGHT FORWARDER) Pathologist Sig nature NT-proBNP 445 <=450 pg/mL [facility] Specimen Blood - ARM, LEFT Narrative Performed At Biotin has been reported to cause a negative [facility] LABOR[facility] bias, interpret results relative to patient's use of biotin. Performing Organization Address City/State/Zipcode Phone Number [facility] CLIA: [id number] [place] [address] [place] [address] VITAMIN D, 25-OH (09/24/2020 3:48 AM DOMESTIC [employer]REIGHT FORWARDER) Pathologist Sig nature VIT D 25OH 23 (L) 25 - 80 ng/mL [facility] Specimen Blood - ARM, LEFT Narrative Performed At Deficiency: <20 ng/mL [facility] Insufficiency: 20-24 ng/mL Optimal: 25-80 ng/mL Performing Organization Address [facility] Phone Number [facility] CLIA: [id number] [place] [address] [place] [address] VITAMIN B12, LEVEL (09/24/2020 3:48 AM DOMESTIC FREIGHT FORWARDER) Pathologist [facility] VIT B12 993 (H) 240 - 930 pg/mL [facility] Specimen Blood - ARM, LEFT Narrative Performed At Biotin has been reported to cause a positive bias, int erpret [facility] results relative to patient's use of biotin. Performing Organization Address City/State/Zipcode Phone Number [facility] CLIA: [id number] [place] [address] [place] [address] URIC ACID (09/24/2020 3:48 AM DOMESTIC FREIGHT FORWARDER) Pathologist Sig [facility] URIC ACID 4.5 2.9 - 6.0 mg/dL [facility] Specimen Blood - ARM, LEFT Performing Organization Address City/[facility]/Zipcode Phone Number [facility] CLIA: [id number] [place] [address] [place] [address] PROCALCITONIN (09/24/2020 3:48 AM DOMESTIC FREIGHT FORWARDER) Pathologist Lloyd treadwell Procalcitonin 0.24 (H) <0.07 ng/mL [facility] Specimen Blood - ARM, LEFT Narrative Performed At INTERPRETATION OF PROCALCITONIN RESULTS IN ADULTS >= 1 8 [facility] YEARS OF AGE Initiation and discontinuation of antibiotics on patie nts with suspected or confirmed Lower Respiratory Tract Infection in Adults >= 18 years of age. + + + +----- ------ + |Procalcitonin |Interpretation |Antibiotic |Considerations |ng/mL | |recommend ation | + + + +----- ------ + | <0.1 | Bacterial | Strongly | | | infection very | discouraged | Overruling: | | unlikely | | Clinically unstable + + + + H igh risk for adverse | <0.25 | Bacterial | Discouraged | outcome | | infection | | SEE IMPORTANT NOTE | | unlikely | | + + + +----- ------ + | >=0.25 | Bacterial | Encouraged | | | infection | | | | likely | | Consider treatment failure + + + + if l cesario does not decrease | >0.5 | Bacterial | Strongly | appropriately | | infection very | encouraged | | | likely | | + + + +----- ------ + Discontinuation of antibiotics in high-acuity patients with suspected or confirmed sepsis in Adults >= 18 years of age. + + + +----- ------ + |Procalcitonin |Interpretation |Antibiotic |Considerations |ng/mL | |recommend ation | + + + +----- ------ + | <0.25 | Bacterial | Strongly | | | infection very | discouraged | Overruling: | | unlikely | | Clinically unstable + + + + H igh risk for adverse | <0.5 or drop | Bacterial | Discouraged | outcome | >80% from | infection | | SEE IMPORTANT NOTE | highest PCT | unlikely | | | level | | | + + + +----- ------ + | >=0.5 | Bacterial | Encouraged | | | infection | | | | likely | | Consider treatment failure + + + + if l evels does not decrease | >1.0 | Bacterial | Strongly | appropriately | | infection very | encouraged | | | likely | | + + + +----- ------ + Percentage of drop of Procalcitonin calculation for Discontinuation of antibiotics in high-acuity patients with suspected or confirmed sepsis in Adults >= 18 years of age. Procalcitonin highest{}-Procalcitonin current{} Delta Procalcitonin = x100% Procalcitonin current {} IMPORTANT NOTE: Procalcitonin may be elevated without bacterial infection by physiologic stress related to t rauma, pabon, chronic dialysis, metastatic cancer, surgery in the past seven days, malaria, some fungal infections, and some forms of vasculitis. The interpretation algorithm may not apply to patients with immunosuppression (equivalent o f >10 mg of prednisone daily), HIV with CD4 cell count < 350 cells/mm3, active malignancy on systemic chemotherapy, solid organ transplant or hematopoietic stem cell transplant ation, or hospital acquired pneumonia. Additionally, some cli nical trials of procalcitonin have excluded patients with sh ock requiring vasopressor use, acute respiratory failure requiring mechanical ventilation, or those with known lung abscess/empyema. For further information please refer to: [email or web address] Performing Organization Address City/[facility]/Zipcode Phone Number [facility] CLIA: [id number] [place] [address] [place] [address] OSMOLALITY SERUM (09/24/2020 3:48 AM DOMESTIC FREIGHT FORWARDER) Pathologist Sig nature OSMOLALITY 282 278 - 305 mOsm/kg [facility] S Specimen Blood - ARM, LEFT Performing Organization Address City/[facility]/Zipcode Phone Number [facility] CLIA: [id number] [place] [address] [phone] 301 [facility] COMP. METABOLIC PANEL ([id number]) (09/24/2020 3:48 AM DOMESTIC FREIGHT FORWARDER) Pathologist Sig nature NA 135 135 - 145 [facility] mmol/L [facility] LABORATORY K 3.7 3.5 - 5.0 [facility] mmol/L [facility] CL 104 98 - 108 mmol/L [facility] CO2 TOTAL 25 23 - 31 mmol/L [facility] AGAP 6 2 - 16 [facility] BUN 22 7 - 23 mg/dL [facility] GLUCOSE 100 70 - 110 mg/dL [facility] CREATININE 0.88 0.50 - 1.04 [facility] mg/dL [facility] LAB[facility] TOTAL BILI 0.5 0.1 - 1.1 mg/dL [facility] CALCIUM 7.7 (L) 8.6 - 10.6 [facility] mg/dL [facility] LAB[facility]AT[facility] T PROTEIN 5.8 (L) 6.3 - 8.2 g/dL [facility] ALBUMIN 3.1 (L) 3.5 - 5.0 g/dL [facility] ALK PHOS 54 34 - 122 U/L [facility] ALTv 27 5 - 35 U/L [facility] AST(SGOT) 57 (H) 13 - 40 U/L [facility] eGFR Calculation 61.8 mL/min/1.73m2 [facility] ([facility] LABORATORY Citizen Of [place]) eGFR Calculation 74.9 mL/min/1.73m2 [facility] ([facility] LABORATORY Specimen Blood - ARM, LEFT Narrative Performed At Association of Glomerular Filtration Rate (GFR) [place] [facility] LABORATORY and Staging of Kidney Disease* + + +- + | GFR (mL/min/1.73 m2) | With Kidney Damage | Without Kidney Damage + + +- + | >90 | Stage one | Normal + + +- + | 60-89 | Stage two | Decreased GFR + + +- + | 30-59 | Stage three | Stage three + + +- + | 15-29 | Stage four | Stage four + + +- + | <15 (or dialysis) | Stage five | Stage five + + +- + *Each stage assumes the associated GFR level has been in effect for at least three months. Stages 1 to 5, with or without kidney disease, indicate chronic kidney disease. Notes: Determination of stages one and two (with eGFR >59mL/min/1.73 m2) requires estimation of kidney damage for at least three months as defined by structural or functional abnormalities of the kidney, manifested by either: Pathological abnormalities or Markers of kidney damage (including abnormalities in the composition of the blood or urine or abnormalities in imaging tests). Performing Organization Address City/[facility] Phone Number [facility] CLIA: [id number] [place] [address] N-TERMINAL PRO-BNP (09/24/2020 3:48 AM DOMESTIC FREIGHT FORWARDER) Pathologist Sig nature NT-proBNP 266 <=450 pg/mL [facility] Specimen Blood - ARM, LEFT Narrative Performed At Biotin has been reported to cause a negative [facility] bias, interpret results relative to patient's use of biotin. Performing Organization Address [facility] Phone Number [facility] CLIA: [id number] [place] [address] [facility] [address] TROPONIN I (09/24/2020 3:48 AM DOMESTIC FREIGHT FORWARDER) Pathologist Sig nature TROPONIN I 0.013 <=0.034 ng/mL [facility] Specimen Blood - ARM, LEFT Narrative Performed At Equal or Less than 0.034 ng/ml---Normal [facility] Note: Cardiac troponin begins to rise 3-4 hours after the onset of ischemia. Repeat in 4-6 hours if the sample was drawn within 3-4 hours of the onset of the symptom and found normal. Between 0.035 and 0.120 ng/mL--- Borderline. Questionable myocardial injury or necros is Note: Serial measurement may be necessary to confirm or exclude the diagnosis of myocardial injury or necrosis; Clinical correlation (symptoms, EKGs, imaging studies, and others) required; Repeat in 4-6 hours if clinically indicated. Equal or Higher than 0.121 ng/mL---Abnormal. Myocardial Injury or Necrosis Likely Biotin has been reported to cause a negative bias, interpret results relative to patient's use of biotin. Performing Organization Address [facility] Phone Number [facility] CLIA: [id number] [place] [address] [address] D-DIMER (09/24/2020 3:48 AM DOMESTIC FREIGHT FORWARDER) [facility] D-DIMER 0.85 (H) <0.41 g/mL (FEU) [facility] LABORATORY Specimen Blood - ARM, LEFT Narrative Performed At This test may be used in conjunction with a [facility] clinical pretest probability (PTP) assessment model to exclude venous thromboembolism (VTE) in patients suspected of deep venous thrombosis (DVT) and pulmonary embolism (PE) A D-Dimer value less than 0.50 g/ml (FEU) has a negative predicative value of 96 to 100% (95% CI)and 97 to 100% (95% CI) as an aid in the diagnosis of deep vein thrombosis (DVT) and pulmonary embolism when there is low or moderate pretest probability of PE or DVT. D-Dimer values are expressed in initial fibrinogen equivalent units (FEU)" The assay results should be used with other information, including the clinical context, in forming a diagnosis. Performing Organization Address [facility] Phone Number [facility] CLIA: [id number] [place] [address] PROTHROMBIN TIME / INR (09/24/2020 3:48 AM DOMESTIC FREIGHT FORWARDER) [facility] PROTIME PATIENT 13.2 12.0 - 14.7 [facility] LABORATORY INR 1.1Comment: Normal [facility] INR <1.1; Warfarin [facility] Therapeutic range LABORATORY 2.0 to 3.0 or 2.5 to 3.5, depending upon the indications. Specimen Blood - ARM, LEFT Performing Organization Address [facility]/Zipcode Phone Number [facility] CLIA: [id number] [place] [address] LACTATE DEHYDROGENASE (09/24/2020 3:48 AM DOMESTIC FREIGHT FORWARDER) Pathologist Sig nature LDH 842 (H) 300 - 600 U/L [facility] Specimen Blood - ARM, LEFT Performing Organization Address [facility] Phone Number [facility] CLIA: [id number] [place] [address] CBC WITH DIFF (09/24/2020 3:47 AM DOMESTIC FREIGHT FORWARDER) WBC 3.05 (L) 4.30 - 11.10 [facility] 10*3/L [facility] LAB[facility]AT[facility] RBC 3.90 (L) 3.93 - 5.25 [facility] 10*6/L [facility] LAB[facility]AT[facility] HGB 10.9 (L) 11.6 - 15.0 [facility] g/dL [facility] LAB[facility]AT[facility] HCT 33.5 (L) 35.7 - 45.2 % [facility] MCV 85.9 80.6 - 95.5 fL [facility] MCH 27.9 25.9 - 32.8 pg [facility] MCHC 32.5 31.6 - 35.1 [facility] g/dL [facility] LAB[facility] RDW-SD 43.5 39.0 - 49.9 fL [facility] RDW-CV 13.8 12.0 - 15.5 % [facility] PLT 167 166 - 358 [facility] 10*3/L [facility] MPV 10.6 9.5 - 12.9 fL [facility] NRBC/100 WBC 0.0 0.0 - 10.0 [facility] /100 WBCs [facility] NRBC x10^3 <0.01 10*3/L [facility] GRAN MAT (NEUT) % 65.0 % [facility] IMM GRAN % 0.30 % [facility] LYMPH % 29.8 % [facility] MONO % 4.6 % [facility] EOS % 0.0 % [facility] BASO % 0.3 % [facility] GRAN MAT 1.98 1.88 - 7.09 [facility] x10^3(ANC) 10*3/uL HOSPITAL LABORATORY IMM GRAN x10^3 <0.03 0.00 - 0.06 [facility] 10*3/uL HOSPITAL LABORATORY LYMPH x10^3 0.91 (L) 1.32 - 3.29 [facility] 10*3/uL HOSPITAL LABORATORY MONO x10^3 0.14 (L) 0.33 - 0.92 [facility] 10*3/uL HOSPITAL LABORATORY EOS x10^3 <0.03 (L) 0.03 - 0.39 [facility] 10*3/uL HOSPITAL LABORATORY BASO x10^3 <0.03 0.01 - 0.07 [facility] 10*3/uL [facility] LABORATORY BANDS Increased (A) [facility] Specimen Blood - ARM, LEFT Performing Organization Address [facility] Phone Number [facility] CLIA: [id number] [place] [address] SEDIMENTATION RATE (09/24/2020 3:47 AM DOMESTIC FREIGHT FORWARDER) Pathologist Sig nature ESR 15 0 - 20 mm/HR [facility] Specimen Blood - ARM, LEFT Performing Organization Address [facility] Phone Number [facility] CLIA: [id number] [place] [address] URINALYSIS (09/23/2020 5:33 PM DOMESTIC FREIGHT FORWARDER) Pathologist Sig nature APPEARANCE Hazy (A) Clear [facility] COLOR Yellow Yellow [facility] PH 5.0 4.8 - 8.0 [facility] SP GRAVITY 1.024 1.003 - 1.030 [facility] GLU U QUAL Normal Normal [facility] BLOOD Negative Negative [facility] KETONES 20 mg/dL (A) Negative [facility] PROTEIN 30 mg/dL (A) Negative [facility] UROBILIN Normal Normal [facility] BILIRUBIN Negative Negative [facility] NITRITE Negative Negative [facility] LEUK RAMOS Negative Negative [facility] RBC/HPF 1 0 - 3 HPF [facility] WBC/HPF 6 (H) 0 - 5 HPF [facility] BACTERIA Moderate (A) Negative [facility] MUCOUS Moderate (A) Negative LPF [facility] SQ EPITH 5 HPF [facility] HYAL CAST 15 (H) <=2 LPF [facility] Specimen Urine - URINE, CLEAN CATCH Performing Organization Address City/State/Zipcode Phone Number [facility] CLIA: [id number] [place] [address] HEAD WO CONTRAST (09/23/2020 4:50 PM DOMESTIC FREIGHT FORWARDER) Specimen Impressions Performed At Impression: PACS/VR/DOSE 1. No acute intracranial process. 2. Hyperdense opacification of the sphenoid sinuses and the left posterior ethmoid air cells, with small calcification noted with in the sphenoid sinus and the posterior left ethmoid air cells. These are mo st likely related to chronic inspissated secretions and/or fungal colonizat ion. Narrative Performed At This result has an attachment that is no t available. Exam: CT HEAD WO CONTRAST PACS/VR/DOSE Clinical History: Altered mental status (AMS), unclear cause Technique:Routine CT brain with multiplanar reformats. Comparison: None Findings: Ventricles are normal. Age-related volume lo ss is noted with prominent sulci, cisterns and ventricles. Basal cister ns are within normal limits. Aspect score: 10. The included portions of the orbits are within normal limits. Craniocervical junction is normal. Bilateral sphenoid sinuses as well as left posterior e thmoid air cells are opacified. Minimal calcification is noted within the s ecretions. Procedure Note [facility], Radiant Results Inft User - 2019 5:00 PM DOMESTIC FREIGHT FORWARDER Exam: CT HEAD WO CONTRAST Clinical History: Altered mental status (AMS), unclear cause Technique:Routine CT brain with multipla anmol reformats. Comparison: None Findings: Ventricles are normal. Age-rel ated volume loss is noted with prominent sulci, cisterns and ventricles . Basal cisterns are within normal limits. Aspect score: 10. The included portions of the orbits are within normal limits. Craniocervical junction is normal. Bilateral sphenoid sinuses as well as le ft posterior ethmoid air cells are opacified. Minimal calcification is note d within the secretions. IMPRESSION Impression: 1. No acute intracranial process. 2. Hyperdense opacification of the sphe noid sinuses and the left posterior ethmoid air cells, with small calcificat ion noted within the sphenoid sinus and the posterior left ethmoid air cells . These are most likely related to chronic inspissated secretions and/or fu ngal colonization. Performing Organization Address City/[facility] Phone Number PACS/VR/DOSE THYROID STIMULATING HORMONE (09/23/2020 4:11 PM DOMESTIC FREIGHT FORWARDER) Pathologist Sig nature TSH 1.43Comment: Biotin 0.45 - 4.70 [facility] has been reported mIU/L [facility] LAB[facility]AT[facility] to cause a negative bias, interpret results relative to patient's use of biotin. Specimen Blood - VENOUS Performing Organization Address [facility] Phone Number [facility] CLIA: [id number] [place] [id number] LABORATORY [address] FERRITIN SERUM (09/23/2020 4:11 PM DOMESTIC FREIGHT FORWARDER) Pathologist Sig nature FERRITIN 168.0 11.0 - 264.0 ng/mL [facility]ORAT[facility] Specimen Blood - VENOUS Narrative Performed At Biotin has been reported to cause a negative [facility] LAB[facility] bias, interpret results relative to patient's use of biotin. Performing Organization Address [facility] Phone Number [facility] CLIA: [id number] [place], [place] [address] LABORATORY [address] PHOSPHORUS (09/23/2020 4:11 PM DOMESTIC FREIGHT FORWARDER) Pathologist Sig nature PHOSPHORUS 3.9 2.5 - 5.0 mg/dL [facility] Specimen Blood - VENOUS Performing Organization Address [facility] Phone Number [facility] CLIA: [id number] [place] [address] LABORATORY [address] URIC ACID (09/23/2020 4:11 PM DOMESTIC FREIGHT FORWARDER) Pathologist Sig nature URIC ACID 5.9 2.9 - 6.0 mg/dL [facility] Specimen Blood - VENOUS Performing Organization Address [facility] Phone Number [facility] CLIA: [id number] [place] [address] [place] [address] COVID-19 (ID NOW RAPID TESTING) (09/23/2020 4:11 PM DOMESTIC FREIGHT FORWARDER) SARS-CoV-2 Rapid ID Positive (A) Not Detected [facility] LAB[facility] Specimen Swab - NASOPHARYNGEAL SWAB Narrative Performed At MA NOW COVID-19 Assay is an isothermal nucleic [facility] LABOR[facility] acid amplification test intended for the qualitative detection of nucleic acid from SARS-CoV-2 viral RNA in nasopharyngeal (CUFF TURNER) specimens. It is used under Emergency Use Authorization (EUA) by FDA. The limit of detection (LOD) of the assay is 125 Genome Equivalents/mL. A positive result is indicative of the presence of SARS-CoV-2 RNA. Clinical correlation with patient history and other diagnostic information is necessary to determine patient infection status. A negative (Not Detected) result does not preclude SARS-CoV-2 infection. In patients with clinical symptoms and other tests that are consistent with SARS-CoV-2 infection, negative results should be treated as presumptive negative and a new specimen should be tested with alternative PCR molecular test. Invalid: Please collect a new specimen for repeat patient testing if clinically indicated. Performing Organization Address [facility]/Zipcode Phone Number [facility] CLIA: [id number] [place] [address] MAGNESIUM (09/23/2020 4:11 PM DOMESTIC FREIGHT FORWARDER) Pathologist Sig nature MAGNESIUM 2.1 1.7 - 2.4 mg/dL [facility] Specimen Blood - VENOUS Performing Organization Address City/[facility] Phone Number [facility] CLIA: [id number] [place] [address] LIPASE (09/23/2020 4:11 PM DOMESTIC FREIGHT FORWARDER) Pathologist Sig nature LIPASE 378 (H) 0 - 220 U/L [facility] Specimen Blood - VENOUS Performing Organization Address [facility] Phone Number [facility] CLIA: [id number] [place] [address] [place] [address] Drive N-TERMINAL PRO-BNP (09/23/2020 4:11 PM DOMESTIC FREIGHT FORWARDER) Pathologist Sig nature NT-proBNP 459 (H) <=450 pg/mL [facility] Specimen Blood - VENOUS Narrative Performed At Biotin has been reported to cause a negative [facility] bias, interpret results relative to patient's use of biotin. Performing Organization Address [facility] Phone Number [facility] CLIA: [id number] [place] [address] TROPONIN I (09/23/2020 4:11 PM DOMESTIC FREIGHT FORWARDER) Pathologist Sig nature TROPONIN I 0.013 <=0.034 ng/mL [facility] Specimen Blood - VENOUS Narrative Performed At Equal or Less than 0.034 ng/ml---Normal [facility] Note: Cardiac troponin begins to rise 3-4 hours after the onset of ischemia. Repeat in 4-6 hours if the sample was drawn within 3-4 hours of the onset of the symptom and found normal. Between 0.035 and 0.120 ng/mL--- Borderline. Questionable myocardial injury or necros is Note: Serial measurement may be necessary to confirm or exclude the diagnosis of myocardial injury or necrosis; Clinical correlation (symptoms, EKGs, imaging studies, and others) required; Repeat in 4-6 hours if clinically indicated. Equal or Higher than 0.121 ng/mL---Abnormal. Myocardial Injury or Necrosis Likely Biotin has been reported to cause a negative bias, interpret results relative to patient's use of biotin. Performing Organization Address [facility] Phone Number [facility] CLIA: [id number] [place] [address] CREATINE KINASE (09/23/2020 4:11 PM DOMESTIC FREIGHT FORWARDER) Pathologist Sig nature CK 250 (H) 33 - 194 U/L [facility] Specimen Blood - VENOUS Performing Organization Address [facility] Phone Number [facility] CLIA: [id number] [place] [address] COMP. METABOLIC PANEL (76018) (09/23/2020 4:11 PM DOMESTIC FREIGHT FORWARDER) NA 132 (L) 135 - 145 [facility] mmol/L [facility] K 3.7 3.5 - 5.0 [facility] mmol/L [facility] CL 98 98 - 108 mmol/L [facility] CO2 TOTAL 25 23 - 31 mmol/L [facility] AGAP 9 2 - 16 [facility] BUN 27 (H) 7 - 23 mg/dL [facility] GLUCOSE 133 (H) 70 - 110 mg/dL [facility] CREATININE 1.25 (H) 0.50 - 1.04 [facility] mg/dL [facility] TOTAL BILI 0.5 0.1 - 1.1 mg/dL [facility] CALCIUM 8.4 (L) 8.6 - 10.6 [facility] mg/dL [facility] T PROTEIN 6.7 6.3 - 8.2 g/dL [facility] ALBUMIN 3.7 3.5 - 5.0 g/dL [facility] ALK PHOS 64 34 - 122 U/L [facility] ALTv 30 5 - 35 U/L [facility] AST(SGOT) 55 (H) 13 - 40 U/L [facility] eGFR Calculation 41.2 mL/min/1.73m2 [facility] (Non-[facility] LABORATORY Citizen Of [place]) eGFR Calculation 50.0 mL/min/1.73m2 [facility] () [facility] Specimen Blood - VENOUS Narrative Performed At Association of Glomerular Filtration Rate (GFR) [facility] and Staging of Kidney Disease* + + +- + | GFR (mL/min/1.73 m2) | With Kidney Damage | Without Kidney Damage + + +- + | >90 | Stage one | Normal + + +- + | 60-89 | Stage two | Decreased GFR + + +- + | 30-59 | Stage three | Stage three + + +- + | 15-29 | Stage four | Stage four + + +- + | <15 (or dialysis) | Stage five | Stage five + + +- + *Each stage assumes the associated GFR level has been in effect for at least three months. Stages 1 to 5, with or without kidney disease, indicate chronic kidney disease. Notes: Determination of stages one and two (with eGFR >59mL/min/1.73 m2) requires estimation of kidney damage for at least three months as defined by structural or functional abnormalities of the kidney, manifested by either: Pathological abnormalities or Markers of kidney damage (including abnormalities in the composition of the blood or urine or abnormalities in imaging tests). Performing Organization Address City/State/Zipcode Phone Number [facility] CLIA: [id number] [place] [address] CBC WITH DIFF (09/23/2020 4:11 PM DOMESTIC FREIGHT FORWARDER) Pathologist Sig nature WBC 3.31 (L) 4.30 - 11.10 [facility] 10*3/L [facility] RBC 4.47 3.93 - 5.25 [facility] 10*6/L [facility] HGB 12.4 11.6 - 15.0 [facility] g/dL [facility] HCT 37.7 35.7 - 45.2 % [facility] MCV 84.3 80.6 - 95.5 fL [facility] MCH 27.7 25.9 - 32.8 pg [facility] MCHC 32.9 31.6 - 35.1 [facility] g/dL [facility] RDW-SD 42.8 39.0 - 49.9 fL [facility] RDW-CV 13.7 12.0 - 15.5 % [facility] PLT 179 166 - 358 [facility] 10*3/L [facility] MPV 10.4 9.5 - 12.9 fL [facility] NRBC/100 WBC 0.0 0.0 - 10.0 /100 [facility] WBCs [facility] NRBC x10^3 <0.01 10*3/L [facility] GRAN MAT (NEUT) % 68.9 % [facility] IMM GRAN % 0.30 % [facility] LYMPH % 25.4 % [facility] MONO % 5.1 % [facility] EOS % 0.0 % [facility] BASO % 0.3 % [facility] GRAN MAT x10^3(ANC) 2.28 1.88 - 7.09 [facility] 10*3/uL [facility] IMM GRAN x10^3 <0.03 0.00 - 0.06 [facility] 10*3/uL [facility] LYMPH x10^3 0.84 (L) 1.32 - 3.29 [facility] 10*3/uL HOSPITAL LABORATORY MONO x10^3 0.17 (L) 0.33 - 0.92 [facility] 10*3/uL [facility] EOS x10^3 <0.03 (L) 0.03 - 0.39 [facility] 10*3/uL HOSPITAL LABORATORY BASO x10^3 <0.03 0.01 - 0.07 [place] [address]*3/uL [facility] Specimen Blood - VENOUS Performing Organization Address City/[facility]/Zipcode Phone Number [facility] CLIA: [id number] [place] [address] Lactic Acid Whole Blood (09/23/2020 4:02 PM DOMESTIC FREIGHT FORWARDER) Pathologist Sig nature LACTIC ACID 1.41 mmol/L [facility] Specimen Blood - VENOUS Performing Organization Address [facility] Phone Number [facility] CLIA: [id number] [place] [address] LABORATORY [address] [facility] XR CHEST 1 VW (09/23/2020 4:01 PM DOMESTIC FREIGHT FORWARDER) Specimen Narrative Performed At This result has an attachment that is no t available. HISTORY: COVID positive. PACS/VR/DOSE TECHNIQUE: Portable AP view of the chest is obtained. Comparison is made with 07/06/2019 study. FINDINGS: Minimal groundglass hazy changes are seen in the lower lungs and right upper lung without focal area of consolidation. Some of the hazy changes could be chronic interstitial pulmonary fibros is. No pneumothorax or pleural effusion. Cardiac size is upper normal. Tho racic aorta is dilated. CONCLUSIONS: No definite signs of acute cardiopulmonar y disease. Hazy changes in the lungs are likely secondary to chronic p ulmonary fibrosis. Procedure Note [facility], Radiant Results Inft User - 2019 4:05 PM DOMESTIC FREIGHT FORWARDER HISTORY: COVID positive. TECHNIQUE: Portable AP view of the chest is obtained. Comparison is made with 07/06/2019 study. FINDINGS: Minimal groundglass hazy reynolds es are seen in the lower lungs and right upper lung without focal area of c onsolidation. Some of the hazy changes could be chronic interstitial pu lmonary fibrosis. No pneumothorax or pleural effusion. Cardiac size is upp er normal. Thoracic aorta is dilated. CONCLUSIONS: No definite signs of acute cardiopulmonary disease. Hazy changes in the lungs are likely secondar y to chronic pulmonary fibrosis. Performing Organization Address City/State/Zipcode Phone Number PACS/VR/DOSE documented in this encounter Visit Diagnoses Diagnosis COVID-19 virus infection - Primary Weakness generalized Other malaise and fatigue Dehydration JASON (acute kidney injury) Acute kidney failure, unspecified Syncope, unspecified syncope type Urinary tract infection without hematuri a, site unspecified Essential hypertension Unspecified essential hypertension Other hyperlipidemia SVT (supraventricular tachycardia) Other specified cardiac dysrhythmias Elevated brain natriuretic peptide (BNP) level Other nonspecific findings on examinatio n of blood documented in this encounter Administered Medications Medication Order MAR Action Action Date Dose Rate Site acetaminophen (TYLENOL) tablet 650 mg 650 mg, Oral, Q6HPRN, Starting Mon at 1856, Until Discontinued, Routine, Pain (scale 1-3) ascorbic acid (vitamin C) (VITAMIN C) tablet Given 01/2020 2:39 PM DOMESTIC FREIGHT FORWARDER 500 mg 500 mg 500 mg, Oral, TID, First dose on Mon09/24/20 at 0015, Until Discontinued, Routine Given 09/25/2020 7:54 AM DOMESTIC FREIGHT FORWARDER 500 mg Given 09/24/2020 9:06 PM DOMESTIC FREIGHT FORWARDER 500 mg atorvastatin (LIPITOR) tablet 20 mg Given 09/24/2020 9:06 PM DOMESTIC FREIGHT FORWARDER 20 mg 20 mg, Oral, QHS, First dose on Mon09/24/20 at 2100, Until Discontinued azithromycin (ZITHROMAX) 500 mg in NaCl 0.9% Given 01/2020 2:35 AM DOMESTIC FREIGHT FORWARDER 500 mg (NS) 250 mL VIAL-MATE IV piggyback 500 mg, IV Piggyback, Q24H ABX, 6 doses, First dose on Mon09/24/20 at 0100, Last dose on Mon09/29/20 at 0100, 250 mL, Reason for Anti-Infective: Empiric Therapy for Suspected Infection, Empiric Therapy Site: Respiratory, Duration of therapy: 7 days Given 09/24/2020 1:51 AM DOMESTIC FREIGHT FORWARDER 500 mg carvediloL (COREG) tablet 6.25 mg Given 09/25/2020 4:15 PM DOMESTIC FREIGHT FORWARDER 6.25 mg 6.25 mg, Oral, BID MEALS, First dose on Mon09/24/20 at 0800, Until Discontinued, Routine Given 09/25/2020 7:54 AM DOMESTIC FREIGHT FORWARDER 6.25 mg Given 09/24/2020 5:14 PM DOMESTIC FREIGHT FORWARDER 6.25 mg cefTRIAXone (ROCEPHIN) 1,000 mg in NaCl Given 09/25/2020 1:14 A M DOMESTIC FREIGHT FORWARDER 1,000 mg 0.9% (NS) 50 mL MINI-BAG 1,000 mg, IV Piggyback, Q24H ABX, First dose on Chelsey 09/24/20 at 0100, Until Discontinued, 50 mL, Reason for Anti-Infective: Empiric Therapy for Suspected Infection, Empiric Therapy Site: Urine, Duration of therapy: 7 days Given 09/24/2020 1:12 AM DOMESTIC FREIGHT FORWARDER 1,000 mg dexamethasone (DECADRON PHOSPHATE) 6 mg in New Bag 09/25/2020 7:55 AM DOMESTIC FREIGHT FORWARDER 6 mg NaCl 0.9% (NS) piggyback 6 mg, IV Piggyback, DAILY, First dose on Chelsey 09/24/20 at 0015, Until Discontinued, 50 mL New Bag 09/24/2020 9:22 AM DOMESTIC FREIGHT FORWARDER 6 mg enoxaparin (LOVENOX) injection 30 mg Given 09/25/2020 7:54 AM DOMESTIC FREIGHT FORWARDER 30 mg Abdo men-SC 30 mg, Subcutaneous, Q12H, First dose on Chelsey 09/24/20 at 0800, Until Discontinued, Routine Given 09/24/2020 9:07 PM DOMESTIC FREIGHT FORWARDER 30 mg Abdo men-SC Given 09/24/2020 9:21 AM DOMESTIC FREIGHT FORWARDER 30 mg Abdo men-SC ergocalciferol (vitamin d2) Given 09/24/2020 9:21 AM DOMESTIC FREIGHT FORWARDER 50,000 Units (CALCIFEROL) capsule 50,000 Units 50,000 Units, Oral, QWEEKLY, First dose on Chelsey 09/24/20 at 0900, Until Discontinued, Routine lactobacillus acidophilus (ACIDOPHILLUS) Given 09/25/2020 7 :54 AM DOMESTIC FREIGHT FORWARDER 1 tablet 25 million cell -100 mg captab 1 tablet 1 tablet, Oral, BID, First dose on Chelsey 09/24/20 at 0015, Until Discontinued, Routine Given 09/24/2020 9:06 PM DOMESTIC FREIGHT FORWARDER 1 tablet Given 09/24/2020 9:20 AM DOMESTIC FREIGHT FORWARDER 1 tablet NaCl 0.9% (NS) IV infusion 1,000 New Bag 09/24/2020 9:[address] 1,000 mL 75 mL/hr mL at 75 mL/hr, IV Infusion, CONTINUOUS, Starting Mon09/24/20 at 1300, Until Discontinued, Routine New Bag 09/24/2020 1:30 PM DOMESTIC FREIGHT FORWARDER 1,000 mL 75 mL/hr omeprazole (PRILOSEC) capsule 40 mg Given 09/25/2020 7:54 AM DOMESTIC FREIGHT FORWARDER 40 mg 40 mg, Oral, DAILY, First dose on Mon09/24/20 at 0900, Until Discontinued Given 09/24/2020 9:21 AM DOMESTIC FREIGHT FORWARDER 40 mg ondansetron (ZOFRAN (PF)) injection 4 mg 4 mg, Slow IV Push, Q6HPRN, Starting Mon09/23/20 at 18 56, Until Discontinued, Routine, Nausea and Vomiting (N/V) temazepam (RESTORIL) capsule 30 mg Given 09/24/2020 9:06 PM DOMESTIC FREIGHT FORWARDER 30 mg 30 mg, Oral, QHS, First dose on Mon09/24/20 at 0015, Until Discontinued, Routine zinc sulfate (ORAZINC) capsule 220 mg Given 09/25/2020 7:54 AM DOMESTIC FREIGHT FORWARDER 220 mg 220 mg, Oral, BID, First dose on Mon09/24/20 at 0015, Until Discontinued, Routine Given 09/24/2020 9:07 PM DOMESTIC FREIGHT FORWARDER 220 mg Given 09/24/2020 9:21 AM DOMESTIC FREIGHT FORWARDER 220 mg Medication Order MAR Action Action Date Dose Rate Site heparin (porcine) Given 09/23/2020 8:00 PM 5,000 Units Abdomen-SC injection 5,000 Units DOMESTIC FREIGHT FORWARDER 5,000 Units, Subcutaneous, Q12H, First dose on Mon09/23/20 at 2000, Until Discontinued, Routine NaCl 0.9% (NS) bolus infusion New Bag 09/23/2020 4:23 PM DOMESTIC FREIGHT FORWARDER 1,000 mL 999 mL/hr 1,000 mL at 999 mL/hr, 1,000 mL, IV Infusion, ONCE, 1 dose, Mon09/23/20 at 1600, JANEL NaCl 0.9% (NS) IV infusion 1,000 New Bag 09/23/2020 7:[address] 1,000 mL 100 mL/hr mL at 100 mL/hr, IV Infusion, CONTINUOUS, Starting Mon09/23/20 at 1900, Until Mon09/24/20 at 0002, Routine NaCl 0.9% (NS) IV infusion 1,000 New Bag 09/24/2020 1:[address] 1,000 mL 100 mL/hr mL at 100 mL/hr, IV Infusion, CONTINUOUS, Starting Chelsey 09/24/20 at 0015, Until Chelsey 09/24/20 at 1256, Routine documented in this encounter Additional Health Concerns Infection Onset Date Last Indicated Resolved Time COVID-19 Rule Out 09/23/2020 09/23/2020 09/23/2020 4: 45 PM DOMESTIC FREIGHT FORWARDER COVID-19 Confirmed 09/23/2020 09/23/2020 documented as of this encounter Insurance Payer Benefit Plan / Subscriber ID Effective Dates Phone Addre ss Type Group HUMANA - HUMANA [id number] 2016-[facility] MANAGED MEDICARE t FFS MEDICARE documented as of this encounter
--- OUTSIDE RECORDS SUMMARY | 2020-10-12 18:26 | XMS REPORT | Summary of Care ---
:1940 Author Organization [facility] - Health Address [address] [place] [address] Care Team Providers Name Role Phone Zuly Primary Care Provider Reason for Visit Reason Comments Transition Of Care Encounter Details Date Type Department Care Team Description 09/28/2020 Transition of Care [facility] Kenna Hong RN Transition Of Care Health [facility]- [address] [place] [id number] Allergies Active Allergy Reactions Severity Noted Date Comments Adhesive Rash 03/28/2020 Levofloxacin Hives 09/05/2017 Seldane Unknown - See comments 03/21/2017 documented as of this encounter (statuses as of 09/28/2020) Medications Medication Sig Dispensed Refills Start Date End Date Status ATORVASTATIN CALCIUM Take 20 mg by 0 Active (ATORVASTATIN ORAL) mouth at bedtime. temazepam (RESTORIL) Take 30 mg by 0 Active 30 mg capsule mouth at bedtime. omeprazole 40 mg Take 40 mg by 0 Active capsule mouth daily. denosumab 60 mg/mL inject 60 mg 0 Active injection under the skin. Pt takes twice a year ascorbic acid, vitamin Take 1 tablet 60 tablet 0 09/25/2020 Active C, 500 mg by mouth 2 tabletIndications: (two) times COVID-19 virus daily for 30 infection days. carvediloL 6.25 mg Take 1 tablet 60 tablet 0 09/25/20202020 Active tabletIndications: by mouth 2 Essential hypertension (two) times daily with meals for 30 days. cefdinir 300 mg Take 1 capsule 10 capsule 0 09/25/2020 020 Active capsuleIndications: by mouth 2 Urinary tract (two) times infection without daily for 5 hematuria, site days. unspecified lactobacillus Take 1 tablet 10 tablet 0 09/25/2020 09/30/2020 Active acidophilus 25 million by mouth 2 cell -100 mg (two) times captabIndications: daily for 5 Urinary tract days. infection without hematuria, site unspecified dexAMETHasone 4 mg Take 1.5 12 tablet 0 09/25/2020 10/03/2020 Active tabletIndications: tablets by COVID-19 virus mouth daily for infection 8 days. ergocalciferol, Take 1 capsule 4 capsule 0 10/01/2020 Active vitamin d2, 1,250 mcg by mouth (50,000 unit) weekly. capsuleIndications: COVID-19 virus infection zinc sulfate 220 (50) Take 1 capsule 60 capsule 0 09/25/2020 0 10/25/2020 Active mg capsuleIndications: by mouth 2 COVID-19 virus (two) times infection daily for 30 days. benzonatate 100 mg Take 1 capsule 15 capsule 0 09/25/202006/2020 Active capsuleIndications: by mouth 3 COVID-19 virus (three) times infection daily for 5 days. 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 documented as of this encounter Last Filed Vital Signs Not on filedocumented in this encounter Miscellaneous Notes Telephone Encounter - Kenna Hong RN - 09/28/2020 1:06 PM CST TRANSITIONAL CARE MANAGEMENT ASSESSMENT 09/28/2020 Dilia Russell [id number] Dilia Russell is a 80 year old /White female was admitted on 09/23/20 to [facility] ICU. She was discharged on 09/25/20 with discharge disposition of HR- Routine Discharge. Admitting Physician: Wilbert Tyler Discharge Diagnosis: COVID-19 virus infection Linked Episodes Type: Episode: Status: Noted: Resolved: Last update: Updated by: TRANSITION OF CARE TCM Active 09/28/2020 09/28/2020 12:59 PM Kenna Hong RN Comments: TCM Hko-amac-xi-face outreach documentation: It is noted in the discharge summary that you were tested for COVID 19. Did your physician discuss the results of this test with you? Yes Do you have any questions about your test results? No What instructions did you receive from your physician? Pt to follow up in [facility] recovery clinic Do you have any questions about your discharge instructions related to COVID 19? No Discharge Assessment Chart Assessed: 09/28/20 TCM Outreach Completed: 09/28/20 Do you have a few minutes to speak with me about how you are doing at home?: Yes(Dtr reports pt is doing "okay, just day by day". Denies any questions/concerns at this time.) Dtr reports patient's SpO2 fluctuates and unsure if patient is receiving adequate oxygenation. Dtr reports O2 rep is scheduled to visit today to drop off supplies and dtr will ask to check O2 settings.Dtr denies patient has any sob, difficulty breathing or any other complications at this time. ED warnings given. Discharge Instructions Do you understand your at-home instructions?: Yes Medications Have you filled your prescriptions and do you have them in your home? : Yes(Dtr reports pt is takingmeds as directed. Denies any questions at this time.) Do you know how to take your medications?: Yes Can you provide me with the names or descriptions of any pzmh-eys-yhpmgrr or supplements you are currently taking?: Patient declined Supplies Did you receive applicable home medical supplies/equipment?: Yes(Dtr reports pt has O2 at home and rep is coming by today to deliver supplies. Dtr will ask questions regarding if pt is receiving O2 adequately.) Do you understand how to use the medical supplies/equipment?: Yes DME location: [facility], [address], [address], [place], [place] (Ph) [phone] (F) [phone] Other DME location: Durable Medical Equipment: Oxygen Concentrator;Portable Oxygen Follow Up Appointment Has a follow up appointment been scheduled?: Yes(Dtr reports receiving a call and setting up some appts. CM advised dtr pulm clinic will call and schedule hfu appt. Dtr verbalizes understanding.) Do you have any questions about your follow up appointments?: No Are you able to get to your appointment? Who will be taking you?: Yes(Dtr) Home Health Assistance Has the home health nurse contacted you since you've been home?: N/A Survey - Recognition Is there anything you would like to share about your recent hospitalization, or anyone you would like to recognize?: No Do you have any suggestions for improvement?: No Do you have any other questions or concerns at this time?: No Future Appointments: Future Appointments Provider Department Dept Phone 11/13/2020 10:30 AM [facility] [phone] CRISTA Hernandez, RN-BC, CCRN Transition Screw Supervisor Nurse Clinician IV Transitions of Care Management Team Office: [phone] [email or web address] Encounter - Kenna Hong RN - 09/28/2020 12:59 PM CSTCM LM to return call. Will attempt again at a later time. CRISTA Hernandez, RN-BC, CCRN Transition Screw Supervisor Nurse Clinician IV Care Management Team Office: [phone] [email or web address] documented in this encounter Plan of Treatment Date Type Specialty Care Team Description 11/13/2020 Office Visit Cardiology Virginia Mclean MD [address] [place] [phone] Health Maintenance Due Date Last Done Comments DTaP,Tdap,and Td Vaccines (1 - Tdap) 1959 Zoster Recombinant Vaccine (SHINGRIX) (1 of 2) 1990 Medicare Wellness Visit 2005 Osteoporosis Screening 2005 INFLUENZA VACCINE (#1) 2020 Depression Screening 04/23/2021 04/23/2020 PNEUMOCOCCAL VACCINES 65+ Completed 03/22/2017 documented as of this encounter Implants Implanted Type Area Rip Sawyer Device Identifier Shelf Exp iration Model / Serial Date / Lot Knee KNEE documented as of this encounter Results Not on filedocumented in this encounter Additional Health Concerns Infection Onset Date Last Indicated Resolved Time COVID-19 Confirmed 09/23/2020 09/23/2020 documented as of this encounter Insurance Payer Benefit Plan / Subscriber ID Effective Dates Phone Addre ss Type Group HUMANA - HUMANA [id number] 2016-[facility] MANAGED MEDICARE t FFS MEDICARE documented as of this encounter
--- OUTSIDE RECORDS SUMMARY | 2020-10-12 18:26 | XMS REPORT | Summary of Care ---
:1940 Author Organization [facility] - [facility] Address [address] [place] [address] Care Team Providers Name Role Phone Zuly Primary Care Provider Reason for Referral Radiology Services (STAT) Status Reason Specialty Diagnoses / Referred By Referred To Procedures Contact Contact New Request Diagnostic Diagnoses Weakness Serena Hoffmann Radiology Procedures Chest 1 View J, DO [address] [place] [address] Reason for Visit Reason Comments Weakness covid + Auth/Cert Status Reason Specialty Diagnoses / Referred By Referred To Procedures Contact Contact Emergency Medicine [facility] ergency Dept [address] [place], [place] [phone] Fax: Encounter Details Date Type Department Care Team Description 10/04/2020 Emergency [facility]-Emergency Serena Hoffmann Weaknes s (Primary Dx) Department DO [address] [place] [id number] [place], [place] [address] Allergies Active Allergy Reactions Severity Noted Date Comments Adhesive Rash 03/28/2020 Levofloxacin Hives 09/05/2017 Seldane Unknown - See comments 03/21/2017 documented as of this encounter (statuses as of 10/04/2020) Medications Medication Sig Dispensed Refills Start Date [...] a year ascorbic acid, Take 1 tablet by 60 tablet 0 09/25/2020 021 Active vitamin C, 500 mg mouth 2 (two) tabletIndications: times daily for COVID-19 virus 30 days. infection carvediloL 6.25 mg Take 1 tablet by 60 tablet 0 09/25/202012/2020 Active tabletIndications: mouth 2 (two) Essential times daily with hypertension meals for 30 days. ergocalciferol, Take 1 capsule 4 capsule 0 10/01/2020 Active vitamin d2, 1,250 mcg by mouth weekly. (50,000 unit) capsuleIndications: COVID-19 virus infection zinc sulfate 220 (50) Take 1 capsule 60 capsule 0 09/25/2020 0 10/25/2020 Active mg by mouth 2 (two) capsuleIndications: times daily for COVID-19 virus 30 days. infection documented as of this encounter (statuses as of 10/04/2020) Active Problems Problem Noted Date Syncope 09/24/2020 Elevated brain natriuretic peptide (BNP) level 020 COVID-19 virus infection 09/23/2020 SBO (small bowel obstruction) 03/28/2020 Abdominal pain 03/28/2020 SVT (supraventricular tachycardia) 07/07/2019 Essential hypertension 07/07/2019 Other hyperlipidemia 07/07/2019 Chest pain 03/21/2017 documented as of this encounter (statuses as of 10/04/2020) Immunizations Name Administration Dates Next Due Pneumococcal [...] been in contact with No / Unsure 10/04/2020 4:11 PM COIN WRAPPING MACHINE OPERATOR someone who was confirmed or suspected to have Coronavirus / COVID-19? documented as of this encounter Last Filed Vital Signs Vital Sign Reading Time Taken Comments Blood Pressure 115/69 10/04/2020 6:35 PM COIN WRAPPING MACHINE OPERATOR Pulse 94 10/04/2020 6:35 PM COIN WRAPPING MACHINE OPERATOR Temperature 37.1 C (98.8 F) 10/04/2020 6:35 PM COIN WRAPPING MACHINE OPERATOR Respiratory Rate 17 10/04/2020 6:35 PM COIN WRAPPING MACHINE OPERATOR Oxygen Saturation 98% 10/04/2020 6:35 PM COIN WRAPPING MACHINE OPERATOR Inhaled Oxygen Concentration - - Weight 71.7 kg (158 lb) 10/04/2020 4:12 PM COIN WRAPPING MACHINE OPERATOR Height 165.1 cm (5' 5") 10/04/2020 4:12 PM COIN WRAPPING MACHINE OPERATOR Body Mass Index 26.29 10/04/2020 4:12 PM COIN WRAPPING MACHINE OPERATOR documented in this encounter Discharge Instructions Serena Espinoza, - 10/04/2020DIAGNOSIS 1. COVID 2. Dehydration NO LIFE-THREATENING FINDINGS ON TODAY'S EXAM. PROCEDURES IN THE ER TODAY: Blood work Urine test Chest Xray MEDICATIONS ADMINISTERED IN THE ER TODAY: IV fluids Decadron YOUR PRESCRIPTIONS AND [id number] MEDICATION RECOMMENDATIONS: None SPECIAL CARE INSTRUCTIONS: None FOLLOW-UP RECOMMENDATIONS: RECOMMEND FOLLOW-UP WITH A PRIMARY CARE PROVIDER OR SPECIALIST IN 2-5 DAYS, ESPECIALLY IF NO IMPROVEMENT IN SYMPTOMS. TO FOLLOW-UP WITHIN THE [facility], TRY THESE OPTIONS (CLINIC APPOINTMENTS AVAILABLE ON [id number] BASIS): 1. SCHEDULE AN APPOINTMENT ONLINE AT WWW[facility] 2. OR CALL THE [facility] AT OR 3. OR CALL YOUR [facility] PHYSICIAN'S OFFICE DIRECTLY IF YOU ARE ALREADY AN ESTABLISHED [facility] PATIENT. OR, YOU MAY FOLLOW-UP WITH A PROVIDER OF YOUR CHOICE, SUCH : 1. A PHYSICIAN OF YOUR CHOICE 2. [facility], . LOCATIONS IN [place] AND [place] 3. [facility], [address] [facility], [place], [place]; [phone] RETURN TO ER FOR WORSENING OF SYMPTOMS. AttachmentsThe following attachments cannot be sent through Care Everywhere. Coronavirus Disease 2019, Caring for Yourself and Others (Jamaican)documented in this encounter ED Notes Radha Kemp, RN - 10/04/2020 4:11 PM CSTPatient states: "I have covid and my daughter has been staying with me. She left today and she told me I should go to the ER because I"m weak and my doctor wanted lab work done tomorrow" Pt presents to er via wheelchair with home o2, 2 L NC. Serena Freed DO - 10/04/2020 4:07 PM CST [facility] Emergency Department Note Patient Name: Dilia Russell Date of : 1940 80 year old female Treatment Room: [place] [address] Primary Care Physician: Ryan Caruso Patient Escorted by: Self [9] Mode of Arrival: Personal means [1] EMS Treatment Prior to ED Arrival: SUPERVISOR ADVERTISING DISPATCH CLERKS treatment: Oxygen SUPERVISOR ADVERTISING DISPATCH CLERKS treatment comments: excedrine this am Travel and Exposure Screening: Symptoms Does patient have any of these symptoms?: (not recorded) Exposure Screening Has patient had contact with someone with a communicable disease in the last month?: (not recorded) Diseases exposed to:: (not recorded) Is Patient ?: (not recorded) Exposure Date: (not recorded) Chief Complaint: Chief Complaint Patient presents with Weakness covid + History of Present Illness: Patient presents for eval for weakness for several days. Was diagnosed with covid last month and went home on home O2. Her daughter has been staying with her from [place] and she went home yesterday.States her daughter told her to come into the ED today for blood work and to see about plasma. States she only coughs when she goes to the restroom. No chest pain. No n/v. No diarrhea. Did eat today - oatmeal and yogurt. Does not smoke. No h/o COPD or asthma. No h/o dm. Does have htn. Has appointment with her PCP for tomorrow. Here for eval. Past Medical History/Immunizations: Past Medical History: Diagnosis Date GERD (gastroesophageal reflux disease) 06/06/2019 HTN (hypertension) Hyperlipidemia Osteoarthritis Tetanus received in last 5 years: No Allergies: Allergies Allergen Reactions Adhesive Rash Levaquin [...] Constitutional: Negative for chills and fever. Respiratory: Positive for cough. Negative for shortness of breath. Cardiovascular: Negative for chest pain. Gastrointestinal: Negative for abdominal pain, nausea and vomiting. Genitourinary: Negative for dysuria. Musculoskeletal: Negative for arthralgias, neck pain and neck stiffness. Skin: Negative for wound. Neurological: Positive for weakness. Negative for headaches. Physical Exam: ED Triage Vitals [10/04/20 1612] Weight 71.7 kg (158 lb) Actual or estimated Estimated by patient/family report Height 1.651 m (5' 5") BP (!) 140/76 Pulse 94 Resp 16 Temp 36.4 C (97.6 F) Temp source Oral SpO2 92 % Measured on On oxygen Physical Exam Vitals signs and nursing note reviewed. Constitutional: Appearance: Normal appearance. HENT: Head: Normocephalic and atraumatic. Mouth/Throat: Mouth: Mucous membranes are dry. Neck: Musculoskeletal: Neck supple. Cardiovascular: Rate and Rhythm: Normal rate. Pulses: Normal pulses. Pulmonary: Effort: Pulmonary effort is normal. No respiratory distress. Breath sounds: No wheezing. Abdominal: General: There is no distension. Palpations: Abdomen is soft. Tenderness: There is no abdominal tenderness. Musculoskeletal: Normal range of motion. Skin: General: Skin is warm and dry. Neurological: General: No focal deficit present. Mental Status: She is alert. Radiology: Hospital Encounter on 10/04/20 Chest 1 View Narrative EXAM: XR CHEST 1 VW HISTORY: 80 years-old Female; covid, cough TECHNIQUE: Single frontal view COMPARISON: Chest radiograph 09/23/2020, 07/06/2019 FINDINGS: Bilateral mixed airspace and interstitial opacities are more prominent from the prior radiograph, and likely represents a combination of chronic parenchymal disease and acute infiltrates. The lungs remain well expanded. No pleural effusion or pneumothorax is visualized. The cardiomediastinal silhouette is unchanged. Calcifications outline the tortuous thoracic aorta. No acute osseous abnormality is present. Impression Interval worsening of multifocal airspace opacities associated with known COVID 19 pneumonia. Preliminary Report Dictated by Resident: Alberto Gonzlaez Lab Results (24h): Recent Results (from the past 24 hour(s)) CBC with Differential Collection Time: 10/04/20 4:47 PM Result Value Ref Range WBC 11.14 (H) 4.30 - 11.10 10*3/L RBC 4.74 3.93 - 5.25 10*6/L HGB 13.2 11.6 - 15.0 g/dL HCT 40.9 35.7 - 45.2 % MCV 86.3 80.6 - 95.5 fL MCH 27.8 25.9 - 32.8 pg MCHC 32.3 31.6 - 35.1 g/dL RDW-SD 42.8 39.0 - 49.9 fL RDW-CV 13.7 12.0 - 15.5 % PLT 338 166 - 358 10*3/L MPV 9.8 9.5 - 12.9 fL NRBC/100 WBC 0.0 0.0 - 10.0 /100 WBCs NRBC x10^3 <0.01 10*3/L GRAN MAT (NEUT) % 82.8 % IMM GRAN % 1.00 % LYMPH % 9.1 % MONO % 6.2 % EOS % 0.7 % BASO % 0.2 % GRAN MAT x10^3(ANC) 9.23 (H) 1.88 - 7.09 10*3/uL IMM GRAN x10^3 0.11 (H) 0.00 - 0.06 10*3/uL LYMPH x10^3 1.01 (L) 1.32 - 3.29 10*3/uL MONO x10^3 0.69 0.33 - 0.92 10*3/uL EOS x10^3 0.08 0.03 - 0.39 10*3/uL BASO x10^3 <0.03 0.01 - 0.07 10*3/uL Basic Metabolic Panel (NA, K, CL, CO2, GLUCOSE, BUN, CREATININE, CA) Collection Time: 10/04/20 4:47 PM Result Value Ref Range NA 133 (L) 135 - 145 mmol/L K 4.3 3.5 - 5.0 mmol/L CL 98 98 - 108 mmol/L CO2 TOTAL 28 23 - 31 mmol/L AGAP 7 2 - 16 BUN 27 (H) 7 - 23 mg/dL GLUCOSE 214 (H) 70 - 110 mg/dL CREATININE 1.00 0.50 - 1.04 mg/dL CALCIUM 9.2 8.6 - 10.6 mg/dL eGFR Calculation (Non-) 53.3 mL/min/1.73m2 eGFR Calculation () 64.7 mL/min/1.73m2 Hepatic Function Panel (ALB, T.PRO, BILI T, BU/BC, ALT, AST, ALK PHOS) Collection Time: 10/04/20 4:47 PM Result Value Ref Range TOTAL BILI 1.1 0.1 - 1.1 mg/dL BILI UNCON 1.0 0.1 - 1.1 mg/dL BILI CONJ 0.0 0.0 - 0.3 mg/dL T PROTEIN 6.6 6.3 - 8.2 g/dL ALBUMIN 3.4 (L) 3.5 - 5.0 g/dL ALK PHOS 79 34 - 122 U/L ALTv 23 5 - 35 U/L AST(SGOT) 22 13 - 40 U/L Troponin I Collection Time: 10/04/20 4:47 PM Result Value Ref Range TROPONIN I <0.012 <=0.034 ng/mL Urinalysis Collection Time: 10/04/20 5:06 PM Result Value Ref Range APPEARANCE Clear Clear COLOR Yellow Yellow PH 5.0 4.8 - 8.0 SP GRAVITY 1.024 1.003 - 1.030 GLU U QUAL Normal Normal BLOOD Negative Negative KETONES Negative Negative PROTEIN Negative Negative UROBILIN 2.0 mg/dL (A) Normal BILIRUBIN Negative Negative NITRITE Negative Negative LEUK RAMOS Negative Negative RBC/HPF 1 0 - 3 HPF WBC/HPF <1 0 - 5 HPF BACTERIA Few (A) Negative MUCOUS Slight (A) Negative LPF SQ EPITH 1 HPF Orders and Treatments: Orders Placed This Encounter Procedures Chest 1 View CBC with Differential Basic Metabolic Panel (NA, K, CL, CO2, GLUCOSE, BUN, CREATININE, CA) Hepatic Function Panel (ALB, T.PRO, BILI T, BU/BC, ALT, AST, ALK PHOS) Troponin I Urinalysis Orders Placed This Encounter Medications NaCl 0.9% (NS) bolus infusion 1,000 mL dexamethasone (DECADRON PHOSPHATE) injection 10 mg ED COURSE patient presents for eval for feeling weak. Has covid that was diagnosed last month. Her daughterwas staying with her and just went home to [place] yesterday. She is here as she thinks she might need some plasma. Cough improved and she states she is only coughing when in the restroom. No n/v. No diarrhea. Did eat today. No h/o dm. Does not smoke. No h/o asthma or COPD. Was admitted when first diagnosed and went home on 2L of O2. Is still using that and doing ok. VSS here in the EC. Lungs clear. Dry MM. Hand commodity specialist R=L Will obtain CXr. Will check labs and UA. Will give IV fluids. Anticipate discharge home later. 1830 - patient feeling better after IV fluids. Labs ok. UA clean. Remains with stable VS here in the EC. Is ok for discharge home with PCP f/u. MDM: Coding Scoring Tools: No data recorded Diagnosis/Impression: ICD-10-CM ICD-9-CM 1. Weakness R53.1 780.79 Disposition/Condition: ED Disposition ED Disposition Condition Comment Disch - Home Stable Discharge Medications: Patient's Medications START taking these medications No medications on file CONTINUE taking these medications which have NOT CHANGED ASCORBIC ACID, VITAMIN C, 500 MG TABLET Take 1 tablet by mouth 2 (two) times daily for 30 days. ATORVASTATIN CALCIUM (ATORVASTATIN ORAL) Take 20 mg by mouth at bedtime. CARVEDILOL 6.25 MG TABLET Take 1 tablet by mouth 2 (two) times daily with meals for 30 days. DENOSUMAB 60 MG/ML INJECTION inject 60 mg under the skin. Pt takes twice a year ERGOCALCIFEROL, VITAMIN D2, 1,250 MCG (50,000 UNIT) CAPSULE Take 1 capsule by mouth weekly. OMEPRAZOLE 40 MG CAPSULE Take 40 mg by mouth daily. TEMAZEPAM (RESTORIL) 30 MG CAPSULE Take 30 mg by mouth at bedtime. ZINC SULFATE 220 (50) MG CAPSULE Take 1 capsule by mouth 2 (two) times daily for 30 days. START taking Modified Medications as Prescribed No medications on file STOP taking these medications No medications on file Follow-up: Electronically signed by: Serena Hoffmann DO 10/04/2020 4:38 PM WRAPPING MACHINE OPERATOR documented in this encounter Miscellaneous Notes ED Nurse Note - Hortensia Chung RN - 10/04/2020 6:56 PM CSTDrClemencia Hoffmann spoke with the patient's daughter over the phone regarding the patient's condition and discharge instructions. Patient left ER vitally stable by wheelchair escorted by ED RN and states shefeels better. Patient states her son's girlfriend will be her ride home and will wait for her in thelobby. No valuables left in ED. documented in this encounter Plan of Treatment Date Type Specialty Care Team Description 11/13/2020 Office Visit Cardiology Virginia Mclean MD [address] [place] [phone] Name Type Priority Associated Diagnoses Date/Ti me Chest 1 View IMAGING STAT Weakness 10/04/2020 4:5 2 PM COIN WRAPPING MACHINE OPERATOR Health Maintenance Due Date Last Done Comments DTaP,Tdap,and Td Vaccines (1 - Tdap) 1959 Zoster Recombinant Vaccine (SHINGRIX) (1 of 2) 1990 Medicare Wellness Visit 2005 Osteoporosis Screening 2005 INFLUENZA VACCINE (#1) 2020 Depression Screening 04/23/2021 04/23/2020 PNEUMOCOCCAL VACCINES 65+ Completed 03/22/2017 documented as of this encounter Implants Implanted Type Area Laundry Machine Tender Device Identifier Shelf Exp iration Model / Serial Date / Lot Knee KNEE documented as of this encounter Procedures Procedure Name Priority Date/Time Associated Diagnosis Comme nts URINALYSIS STAT 10/04/2020 5:06 PM Weakness Results for this COIN WRAPPING MACHINE OPERATOR procedure are i n the results section . XR CHEST 1 VW STAT 10/04/2020 4:52 PM Weakness COIN WRAPPING MACHINE OPERATOR Procedure Note - [facility], Radia nt Results Inft User - 10/04/2020 4:57 PM COIN WRAPPING MACHINE OPERATOR EXAM: XR CHEST 1 VW HISTORY: 80 years-old Female ; covid, cough TECHNIQUE: Single frontal vi ew COMPARISON: Chest radiograph 09/23/2020, 07/06/2019 FINDINGS: Bilateral mixed airspace and interstitial opacities are more prominent from the prior radiograph, and lane reed represents a combination of chronic parenchymal disease and acut e infiltrates. The lungs remain well expanded. No pleural effusion or pneum othorax is visualized. The cardiomediastinal silhou ette is unchanged. Calcifications outline the tortuous thoracic aorta. No acute osseous abnormality is present. IMPRESSION Interval worsening of multif ocal airspace opacities associated with known COVID 19 pneumonia. Preliminary Report Dictated by Resident: Alberto Gonzalez CBC WITH DIFF STAT 10/04/2020 4:47 PM COIN WRAPPING MACHINE OPERATOR Weakness Res ults for this procedure are i n the results section . BASIC METABOLIC PANEL STAT 10/04/2020 4:47 PM COIN WRAPPING MACHINE OPERATOR Weakness Results for this (NA, K, CL, CO2, procedure a re in the GLUCOSE, BUN, results sectio n. CREATININE, CA) HEPATIC FUNCTION PANEL STAT 10/04/2020 4:47 PM COIN WRAPPING MACHINE OPERATOR Weaknes s Results for this (69421) (ALB,T.PRO,BILI proc edure are in the T,BU/BC,ALT,AST,ALK results section. PHOS) TROPONIN I STAT 10/04/2020 4:47 PM COIN WRAPPING MACHINE OPERATOR Weakness Resu lts for this procedure are i n the results section . CONSENT/REFUSAL FOR Routine 10/04/2020 4:06 PM COIN WRAPPING MACHINE OPERATOR DIAGNOSIS AND TREATMENT documented in this encounter Results Urinalysis (10/04/2020 5:06 PM COIN WRAPPING MACHINE OPERATOR) Pathologist Sig nature APPEARANCE Clear Clear [facility] COLOR Yellow Yellow [facility] PH 5.0 4.8 - 8.0 [facility] SP GRAVITY 1.024 1.003 - 1.030 [facility] GLU U QUAL Normal Normal [facility] BLOOD Negative Negative [facility] KETONES Negative Negative [facility] PROTEIN Negative Negative [facility] UROBILIN 2.0 mg/dL (A) Normal [facility] BILIRUBIN Negative Negative [facility] NITRITE Negative Negative [facility] LEUK RAMOS Negative Negative [facility] RBC/HPF 1 0 - 3 HPF [facility] WBC/HPF <1 0 - 5 HPF [facility] BACTERIA Few (A) Negative [facility] MUCOUS Slight (A) Negative LPF [facility] SQ EPITH 1 HPF [facility] Specimen Urine - URINE, CLEAN CATCH Performing Organization Address City/[facility]/Zipcode Phone Number [facility] CLIA: [id number] [place] [address] [place] [address] Troponin I (10/04/2020 4:47 PM COIN WRAPPING MACHINE OPERATOR) Pathologist Sig nature TROPONIN I <0.012 <=0.034 ng/mL [facility] Specimen Blood - VENOUS Narrative Performed At Equal or Less than 0.034 ng/ml---Normal [facility] Note: Cardiac troponin begins to [...] patient's use of biotin. Performing Organization Address [facility] Vegas[facility] Phone Number [facility] CLIA: [id number] [place] [address] [place] [address] Hepatic Function Panel (ALB, T.PRO, BILI T, BU/BC, ALT, AST, ALK PHOS) (10/04/2020 4:47 PM COIN WRAPPING MACHINE OPERATOR) Pathologist [facility] [place] [place] nature TOTAL BILI 1.1 0.1 - 1.1 mg/dL [facility] BILI UNCON 1.0 0.1 - 1.1 mg/dL [facility] BILI CONJ 0.0 0.0 - 0.3 mg/dL [facility] T PROTEIN 6.6 6.3 - 8.2 g/dL [facility] ALBUMIN 3.4 (L) 3.5 - 5.0 g/dL [facility] ALK PHOS 79 34 - 122 U/L [facility] ALTv 23 5 - 35 U/L [facility] AST(SGOT) 22 13 - 40 U/L [facility] Specimen Blood - VENOUS Performing Organization Address City/State/Zipcode Phone Number [facility] CLIA: [id number] [place] [address] Basic Metabolic Panel (NA, K, CL, CO2, GLUCOSE, BUN, CREATININE, CA) (10/04/2020 4:47 PM COIN WRAPPING MACHINE OPERATOR) Pathologist [facility] NA 133 (L) 135 - 145 [facility] mmol/L [facility] K 4.3 3.5 - 5.0 [facility] mmol/L [facility] CL 98 98 - 108 mmol/L [facility] CO2 TOTAL 28 23 - 31 mmol/L [facility] AGAP 7 2 - 16 [facility] BUN 27 (H) 7 - 23 mg/dL [facility] GLUCOSE 214 (H) 70 - 110 mg/dL [facility] CREATININE 1.00 0.50 - 1.04 [facility] mg/dL [facility] CALCIUM 9.2 8.6 - 10.6 [facility] mg/dL [facility] eGFR Calculation 53.3 mL/min/1.73m2 [facility] ([facility] Bahraini) eGFR Calculation 64.7 mL/min/1.73m2 [facility] () [facility] Specimen Blood - VENOUS Narrative Performed At Association of Glomerular Filtration Rate (GFR) [facility] and Staging of Kidney Disease* [...] tests). Performing Organization Address City/State/Zipcode Phone Number [facility] CLIA: [id number] [place], [place] [id number] LABORATORY [address] CBC with Differential (10/04/2020 4:47 PM COIN WRAPPING MACHINE OPERATOR) Pathologist [facility] [place] [place] nature WBC 11.14 (H) 4.30 - 11.10 [facility] 10*3/L [facility] RBC 4.74 3.93 - 5.25 [facility] 10*6/L [facility] HGB 13.2 11.6 - 15.0 [facility] g/dL [facility] HCT 40.9 35.7 - 45.2 % [facility] MCV 86.3 80.6 - 95.5 fL [facility] MCH 27.8 25.9 - 32.8 pg [facility] MCHC 32.3 31.6 - 35.1 [facility] g/dL [facility] RDW-SD 42.8 39.0 - 49.9 fL [facility] RDW-CV 13.7 12.0 - 15.5 % [facility] PLT 338 166 - 358 [facility] 10*3/L [facility] MPV 9.8 9.5 - 12.9 fL [facility] NRBC/100 WBC 0.0 0.0 - 10.0 /100 [facility] WBCs [facility] NRBC x10^3 <0.01 10*3/L [facility] GRAN MAT (NEUT) % 82.8 % [facility] IMM GRAN % 1.00 % [facility] LYMPH % 9.1 % [facility] MONO % 6.2 % [facility] EOS % 0.7 % [facility] BASO % 0.2 % [facility] GRAN MAT x10^3(ANC) 9.23 (H) 1.88 - 7.09 [facility] 10*3/uL [facility] IMM GRAN x10^3 0.11 (H) 0.00 - 0.06 [facility] 10*3/uL [facility] LYMPH x10^3 1.01 (L) 1.32 - 3.29 [facility] 10*3/uL HOSPITAL LABORATORY MONO x10^3 0.69 0.33 - 0.92 [facility] 10*3/uL [facility] EOS x10^3 0.08 0.03 - 0.39 [facility] 10*3/uL [facility] BASO x10^3 <0.03 0.01 - 0.07 [facility] 10*3/uL [facility] Specimen Blood - VENOUS Performing Organization Address City/State/Zipcode Phone Number [facility] CLIA: [id number] [place] [address] documented in this encounter Visit Diagnoses Diagnosis Weakness - Primary Other malaise and fatigue documented in this encounter Administered Medications Medication Order MAR Action Action Date Dose Rate Site dexamethasone (DECADRON PHOSPHATE) Given 10/04/2020 6:40 PM COIN WRAPPING MACHINE OPERATOR 10 mg injection 10 mg 10 mg, IV Push, ONCE, 1 dose, 10/04/20 at 1930, STAT NaCl 0.9% (NS) bolus infusion New Bag 10/04/2020 4:40 PM COIN WRAPPING MACHINE OPERATOR 1,000 mL 999 mL/hr 1,000 mL at 999 mL/hr, 1,000 mL, IV Infusion, ONCE, 1 dose, 10/04/20 at 1645, JANEL documented in this encounter Additional Health Concerns Infection Onset Date Last Indicated Resolved Time COVID-19 Confirmed 09/23/2020 09/23/2020 documented as of this encounter Insurance Payer Benefit Plan / Subscriber ID Effective Dates Phone Addre ss Type Group HUMANA - HUMANA [id number] 2016-[facility] MANAGED MEDICARE t FFS MEDICARE documented as of this encounter
--- NOTE | 2020-10-12 21:28 | RAD REPORT ---
EXAM DESCRIPTION: RAD - Chest Single View - 10/12/2020 9:21 pm CLINICAL HISTORY: Chest pain;Cough Chest pain. COMPARISON: Chest Pa And Lat (2 Views) dated 06/12/2019; CHEST SINGLE VIEW dated 08/15/2014; CHEST SI NGLE VIEW dated 08/14/2014; CHEST PA AND LAT 2 VIEW dated 11/28/2012 FINDINGS: Portable technique limits examination quality. Moderate bilateral interstitial lung opacities are present likely representing interstitial pneumonia / viral bronchitis. Rounded opacity in the left mid lung and vague opacity in the right upper lobe jimenes spicious for superimposed pneumonia. The heart is normal in size. Followup films until complete clear ance is recommended.
[2020-10-12] MEDS ORDERED: AZITHROMYCIN 500 MG INJ IVPB ONE (22:22)
[2020-10-12] MEDS ORDERED: CEFTRIAXONE/SWI 1gm 1 GM/10 ML SYR ONE (22:23)
[2020-10-12] MEDS ORDERED: NA CHLORIDE 0.9% 1,000 ML ONE (22:23)
[2020-10-12] MEDS ORDERED: NA CHLORIDE 0.9% 250 ML ONE (22:23)
[2020-10-12 22:32] LABS: Absolute Lymphocytes (CBC) 1.1 K/uL (0.7-4.9); Basophils % 1.2 % (0-1.3); Hematocrit 35.9 % (36.0-45.0); Lymphocytes % 22.1 % (15.3-44.8); MPV 7.9 fL (7.6-11.3); RBC Red Blood Cell Count 4.37 M/uL (3.86-4.86)
[2020-10-12 22:33] LABS: Protime INR 1.11
[2020-10-12 22:56] LABS: ALT/SGPT 16 U/L (12-78); AST/SGOT 19 U/L (15-37); Albumin 2.1 g/dL (3.4-5.0); Alkaline Phosphatase 107 U/L (45-117); BUN Blood Urea Nitrogen 10 mg/dL (7-18); Bicarbonate 27 mmol/L (21-32); Bilirubin Direct 0.2 mg/dL (0-0.2); Bilirubin Total 0.5 mg/dL (0.2-1.0); Glucose Level 127 mg/dL (74-106); NT PRO-BNP 283 pg/mL (<450); Potassium 3.2 mmol/L (3.5-5.1); Protein, Total 6.5 g/dL (6.4-8.2); Sodium Level 137 mmol/L (136-145); Troponin (Emerg Dept Use Only) < 0.02 ng/mL (0.0-0.045)
--- NOTE | 2020-10-13 00:22 | ER ---
Nurse's Notes [facility] Name: Dilia Russell Age: 80 yrs Sex: Female : 1940 Arrival Date: 10/12/2020 Time: 18:24 Bed 14 Private MD: Ryan Caruso Diagnosis: Pneumonia, unspecified organism Presentation: 10/12 18:38 Chief complaint: Patient's son or daughter states: [id number]. She was Covid+ 4 ca1 weeks ago. she has just been sick ever since. Today, she had L sided chest pain radiating to the back. Around mid day she got cold, around 1530 her Temp got 100.3F. Called Dr. Singer, and he thinks it might be pneumonia and was told to come to the ER. Coronavirus screen: Client denies travel out of the [place] in the last 14 days. chills, fever, Client presents with at least one sign or symptom that may indicate coronavirus-19. Standard/surgical mask placed on the client. Provider contacted for isolation considerations. Client reports previous positive COVID test result. Date of collection: September 21, 2020 [facility] Staff notified of need for isolation. Ebola Screen: Patient negative for fever greater than or equal to 101.5 degrees Fahrenheit, and additional compatible Ebola Virus Disease symptoms Patient denies exposure to infectious person. Patient denies travel to an Ebola-affected area in the 21 days before illness onset. No symptoms or risks identified at this time. Initial Sepsis Screen: Does the patient meet any 2 criteria? No. Patient's initial sepsis screen is negative. Does the patient have a suspected source of infection? No. Patient's initial sepsis screen is negative. Risk Assessment: Do you want to hurt yourself or someone else? Patient reports no desire to harm self or others. Onset of symptoms was October 12, 2020. 18:38 Method Of Arrival: Wheelchair ca1 18:38 Acuity: RORY 3 ca1 Triage Assessment: 18:44 Cardiovascular: Heart tones S1 S2 present Rhythm is sinus rhythm. ca1 Historical: - Allergies: 18:44 Levaquin; ca1 18:44 seldane; ca1 - PMHx: 18:44 High Cholesterol; Hypertension; ca1 - PSHx: 18:44 heart ablation; Tubal ligation; right knee; bilateral eye surgery; Left knee ca1 replacement; Right knee replacement; Cervical fusion; - Immunization history:: Adult Immunizations up to date, Pneumococcal vaccine is up to date, Flu vaccine is up to date. - Social history:: Smoking status: Patient denies any tobacco usage or history of. Screenin:45 Abuse screen: Denies threats or abuse. Nutritional screening: No deficits noted. ll2 Tuberculosis screening: No symptoms or risk factors identified. Fall Risk None identified. Assessment: 20:39 General: Appears in no apparent distress. Behavior is calm, cooperative, appropriate ll2 for age. Pain: Complains of pain in chest and abdomen Pain does not radiate. Pain began gradually. Neuro: Level of Consciousness is awake, alert, obeys commands, Oriented to person, place, time, situation. Cardiovascular: Capillary refill < 3 seconds Patient's skin is warm and dry. Respiratory: Airway is patent Respiratory effort is even, unlabored, Respiratory pattern is regular, symmetrical. GI: No signs and/or symptoms were reported involving the gastrointestinal system. : No signs and/or symptoms were reported regarding the genitourinary system. EENT: No signs and/or symptoms were reported regarding the EENT system. Derm: Skin is intact, is healthy with good turgor, Skin is dry, Skin is pink, warm \T\ dry. Musculoskeletal: Circulation, motion, and sensation intact. Range of motion: intact in all extremities. 21:45 Reassessment: Patient and/or family updated on plan of care and expected duration. Pain ll2 level reassessed. Patient is alert, oriented x 3, equal unlabored respirations, skin warm/dry/pink. 22:50 Reassessment: Patient and/or family updated on plan of care and expected duration. Pain ll2 level reassessed. Patient is alert, oriented x 3, equal unlabored respirations, skin warm/dry/pink. pt resting daughter at bedside. 10/13 00:00 Reassessment: Patient and/or family updated on plan of care and expected duration. Pain ll2 level reassessed. Patient is alert, oriented x 3, equal unlabored respirations, skin warm/dry/pink. Patient denies pain at this time. 01:00 Reassessment: Patient and/or family updated on plan of care and expected duration. Pain ll2 level reassessed. Patient is alert, oriented x 3, equal unlabored respirations, skin warm/dry/pink. pt sleeping in bed. 01:15 Reassessment: pt ambulated to bedside commode, tolerated well. ll2 02:46 Reassessment: Patient and/or family updated on plan of care and expected duration. Pain ll2 level reassessed. Patient is alert, oriented x 3, equal unlabored respirations, skin warm/dry/pink. attempted to call report, receiving nurse requested i call back in 10 minutes'. 02:56 Reassessment: Patient and/or family updated on plan of care and expected duration. Pain ll2 level reassessed. report given to VIDA vaca. 03:23 Reassessment: pt wheeled to 4th floor via stretcher with Airam robledo RN. ll2 Vital Signs: 10/12 18:38 BP 103 / 59; Pulse 91; Resp 18 S; Temp 97.5(TE); Pulse Ox 98% on 2 lpm NC; Weight 70.31 ca1 kg (R); Height 5 ft. 5 in. (165.10 cm) (R); Pain 2/10; 20:45 BP 122 / 80; Pulse 90; Resp 16; Temp 98; Pulse Ox 100% on 2 lpm NC; ll2 21:45 BP 124 / 85; Pulse 88; Resp 18; Pulse Ox 100% on 2 lpm NC; ll2 23:00 BP 120 / 73; Pulse 88; Resp 18; Pulse Ox 100% on 2 lpm NC; ll2 10/13 00:00 BP 122 / 70; Pulse 88; Resp 18; Pulse Ox 100% on 2 lpm NC; ll2 01:00 BP 123 / 72; Pulse 90; Resp 18; Pulse Ox 100% on 2 lpm NC; ll2 10/12 18:38 Body Mass Index 25.79 (70.31 kg, 165.10 cm) ca1 ED Course: 10/12 18:24 Patient arrived in ED. ag5 18:25 Ryan Caruso MD is Private Physician. ag5 18:42 Triage completed. ca1 18:44 Arm band placed on right wrist. ca1 20:40 Obi Waller NP is PHCP. pm1 20:40 Fausto Raymond MD is Attending Physician. pm1 20:45 Patient has correct armband on for positive identification. Bed in low position. Call ll2 light in reach. Side rails up X 1. Child being held by parent. Pulse ox on. NIBP on. 20:59 Airam Cruz RN is Primary Nurse. ll2 21:28 XRAY Chest (1 view) In Process Unspecified. EDMS 22:00 Inserted saline lock: 20 gauge in left antecubital area, using aseptic technique. Blood dh4 collected. Missed attempt(s): 20 gauge in right antecubital area. 23:03 No provider procedures requiring assistance completed. Oxygen administration via nasal ll2 cannula \T\ 2L/min. 10/13 00:22 Ryan Caruso MD is Hospitalizing Provider. pm1 02:57 Report given to VIDA vaca. ll2 03:24 Patient admitted, IV remains in place. ll2 Administered Medications: 10/12 22:20 Drug: NS 0.9% 1000 ml Route: IV; Rate: 1000 ml; Site: left antecubital; ll2 23:20 Follow up: Response: No adverse reaction; IV Status: Completed infusion; IV Intake: ll2 1000ml 22:23 Drug: Rocephin 1 grams Route: IV; Rate: calculated rate; Site: left antecubital; ll2 22:23 Follow up: Response: No adverse reaction; IV Status: Completed infusion ll2 22:45 Follow up: Response: No adverse reaction; IV Status: Completed infusion ll2 23:15 Follow up: Response: No adverse reaction ll2 22:23 Drug: AZITHromycin 500 mg Route: IVPB; Infused Over: 1 hrs; Site: left antecubital; ll2 23:20 Follow up: Response: No adverse reaction; IV Status: Completed infusion; IV Intake: ll2 250ml 10/13 00:38 Drug: Potassium Effervescent Tablet 50 mEq Route: PO; ll2 01:40 Follow up: Response: No adverse reaction ll2 00:38 Drug: Albuterol 2.5 mg Route: Inhalation; ll2 00:38 Drug: SOLU-Medrol 125 mg Route: IVP; Site: left antecubital; ll2 01:40 Follow up: Response: No adverse reaction ll2 Intake: 10/12 23:20 IV: 1000ml; Total: 1000ml. ll2 23:20 IV: 250ml; Total: 1250ml. ll2 Outcome: 10/13 00:22 Decision to Hospitalize by Provider. pm1 03:23 Admitted to Tele accompanied by nurse, via stretcher, with oxygen, Report called to ll2 VIDA vaca 03:23 Condition: stable 03:23 Instructed on the need for admit. 03:24 Patient left the ED. ll2 Signatures: Dispatcher [employer] EDObi Jarvis NP CERTIFIED OPTICIAN pm1 Belem Paula RN RN ca1 Opal Funes [employer] Andres Castillo [facility] Airam Cruz RN RN ll2 Corrections: (The following items were deleted from the chart) 10/12 18:45 18:38 BP 103 / 59; Pulse 91bpm; Resp 18bpm; Spontaneous; Pulse Ox 98% RA; Temp 97.5F ca1 Temporal; 70.31 kg Reported; Height 5 ft. 5 in. Reported; BMI: 25.7; Pain 2/10; ca1
--- NOTE | 2020-10-13 00:23 | EDPHYS ---
Physician Documentation [facility] Name: Dilia Russell Age: 80 yrs Sex: Female : 1940 Arrival Date: 10/12/2020 Time: 18:24 Bed 14 Private MD: Ryan Caruso ED Physician Fausto Raymond HPI: 10/12 21:09 This 80 yrs old Female presents to ER via Wheelchair with complaints of Chest pm1 Pain, Back Pain. 21:09 The patient or guardian reports chest pain that is located primarily in the anterior pm1 aspect of left upper chest. Onset: yesterday. 21:09 The pain radiates to left back. Associated signs and symptoms: Pertinent positives: pm1 cough, shortness of breath, poor appetite , Pertinent negatives: headache, nausea, vomiting. Modifying factors: The symptoms are alleviated by nothing. the symptoms are aggravated by cough, deep breath, palpation of area. Severity of pain: in the emergency department the pain is unchanged. The patient has been recently seen by a physician: the patient's primary care provider, Dr. Caruso earlier today, with similar presenting complaints, Was instructed to report to the ER for evaluation. She was diagnosed with covid about 3-4 weeks ago. Since diagnosis she has not been feeling well. Decreased appetite. Reports weight loss around 15 pounds. Cough and shortness of breath. Historical: - Allergies: 18:44 Levaquin; ca1 18:44 seldane; ca1 - PMHx: 18:44 High Cholesterol; Hypertension; ca1 - PSHx: 18:44 heart ablation; Tubal ligation; right knee; bilateral eye surgery; Left knee ca1 replacement; Right knee replacement; Cervical fusion; - Immunization history:: Adult Immunizations up to date, Pneumococcal vaccine is up to date, Flu vaccine is up to date. - Social history:: Smoking status: Patient denies any tobacco usage or history of. ROS: 21:09 ENT: Negative for injury, pain, and discharge, Neck: Negative for injury, pain, and pm1 swelling, Cardiovascular: Negative for chest pain, palpitations, and edema. 21:09 Abdomen/GI: Negative for abdominal pain, nausea, vomiting, diarrhea, and constipation, Back: Negative for injury and pain, MS/Extremity: Negative for injury and deformity, Skin: Negative for injury, rash, and discoloration. 21:09 Constitutional: Positive for fever, poor PO intake. 21:09 Constitutional: Positive for fatigue, malaise. 21:09 Respiratory: Positive for cough, shortness of breath. 21:09 Neuro: Positive for generalized weakness. Exam: 21:09 Constitutional: This is a well developed, well nourished patient who is awake, alert, pm1 and in no acute distress. Head/Face: Normocephalic, atraumatic. 21:09 Abdomen/GI: Soft, non-tender, with normal bowel sounds. No distension or tympany. No guarding or rebound. No evidence of tenderness throughout. Back: No spinal tenderness. No costovertebral tenderness. Full range of motion. Skin: Warm, dry with normal turgor. Normal color with no rashes, no lesions, and no evidence of cellulitis. MS/ Extremity: Pulses equal, no cyanosis. Neurovascular intact. Full, normal range of motion. 21:09 Chest/axilla: Inspection: normal, Palpation: tenderness, that is mild, of the anterior aspect of left upper chest, that totally reproduces the patient's complaints. 21:09 Cardiovascular: Rate: normal, Rhythm: regular, Pulses: no pulse deficits are appreciated, Edema: is not appreciated. 21:09 Respiratory: the patient does not display signs of respiratory distress, Respirations: normal. 21:09 Neuro: Exam negative for acute changes, Orientation: is normal, Mentation: is normal, Motor: moves all fours. Vital Signs: 18:38 BP 103 / 59; Pulse 91; Resp 18 S; Temp 97.5(TE); Pulse Ox 98% on 2 lpm NC; Weight 70.31 ca1 kg (R); Height 5 ft. 5 in. (165.10 cm) (R); Pain 2/10; 20:45 BP 122 / 80; Pulse 90; Resp 16; Temp 98; Pulse Ox 100% on 2 lpm NC; ll2 21:45 BP 124 / 85; Pulse 88; Resp 18; Pulse Ox 100% on 2 lpm NC; ll2 23:00 BP 120 / 73; Pulse 88; Resp 18; Pulse Ox 100% on 2 lpm NC; ll2 10/13 00:00 BP 122 / 70; Pulse 88; Resp 18; Pulse Ox 100% on 2 lpm NC; ll2 01:00 BP 123 / 72; Pulse 90; Resp 18; Pulse Ox 100% on 2 lpm NC; ll2 10/12 18:38 Body Mass Index 25.79 (70.31 kg, 165.10 cm) ca1 MDM: 10/12 20:47 Patient medically screened. pm1 10/13 00:13 Physician consultation: Ryan Caruso MD was contacted at 00:13, regarding patient's pm1 condition, He would like the patient to be admitted to the hospital for evaluation by Dr. Adorno, continued Rocephin and Azithromycin, steroid treatments, and breathing treatments. 00:13 ED course: Informed Dr. Caruso pending Covid results but will perform rapid test with pm1 patient being admitted. 00:17 Data reviewed: vital signs. Data interpreted: Pulse oximetry: on 2L(s) per nasal pm1 canula, is 100 %. Interpretation: normal. 10/12 21:03 Order name: Basic Metabolic Panel; Complete Time: 22:56 pm1 10/12 21:03 Order name: CBC with Diff; Complete Time: 22:42 pm1 10/12 21:03 Order name: LFT's; Complete Time: 22:56 pm1 10/12 21:03 Order name: Magnesium; Complete Time: 22:56 pm1 10/12 21:03 Order name: NT PRO-BNP; Complete Time: 22:56 pm1 10/12 21:03 Order name: PT-INR; Complete Time: 22:42 pm1 10/12 21:03 Order name: Troponin (emerg Dept Use Only); Complete Time: 22:56 pm1 10/12 21:03 Order name: COVID-19 pm1 10/12 21:03 Order name: Flu; Complete Time: 23:56 pm1 10/12 21:03 Order name: Strep; Complete Time: 23:56 pm1 10/12 21:36 Order name: Procalcitonin; Complete Time: 23:56 pm1 10/12 21:36 Order name: Lactate; Complete Time: 22:56 pm1 10/12 21:36 Order name: Blood Culture Adult (2) pm1 10/12 23:36 Order name: Throat Culture EDMS 10/12 18:38 Order name: EKG; Complete Time: 18:38 ca1 10/12 18:38 Order name: EKG - Nurse/Tech; Complete Time: 18:38 ca1 10/12 21:03 Order name: XRAY Chest (1 view); Complete Time: 21:35 pm1 10/12 21:03 Order name: Cardiac monitoring; Complete Time: 22:29 pm1 10/12 21:03 Order name: IV Saline Lock; Complete Time: 22:29 pm1 10/12 21:03 Order name: Labs collected and sent; Complete Time: 22:29 pm1 10/12 21:03 Order name: O2 Per Protocol; Complete Time: 21:05 pm1 10/12 21:03 Order name: O2 Sat Monitoring; Complete Time: 21:05 pm1 10/12 21:03 Order name: Droplet/Contact Precautions; Complete Time: 21:04 pm1 10/13 02:23 Order name: SARS-COV-2 RT PCR EDMS Administered Medications: 10/12 22:20 Drug: NS 0.9% 1000 ml Route: IV; Rate: 1000 ml; Site: left antecubital; ll2 23:20 Follow up: Response: No adverse reaction; IV Status: Completed infusion; IV Intake: ll2 1000ml 22:23 Drug: Rocephin 1 grams Route: IV; Rate: calculated rate; Site: left antecubital; ll2 22:23 Follow up: Response: No adverse reaction; IV Status: Completed infusion ll2 22:45 Follow up: Response: No adverse reaction; IV Status: Completed infusion ll2 23:15 Follow up: Response: No adverse reaction ll2 22:23 Drug: AZITHromycin 500 mg Route: IVPB; Infused Over: 1 hrs; Site: left antecubital; ll2 23:20 Follow up: Response: No adverse reaction; IV Status: Completed infusion; IV Intake: ll2 250ml 10/13 00:38 Drug: Potassium Effervescent Tablet 50 mEq Route: PO; ll2 01:40 Follow up: Response: No adverse reaction ll2 00:38 Drug: Albuterol 2.5 mg Route: Inhalation; ll2 00:38 Drug: SOLU-Medrol 125 mg Route: IVP; Site: left antecubital; ll2 01:40 Follow up: Response: No adverse reaction 2 Disposition: 04:02 Co-signature as Attending Physician, Fausto Raymond MD., ma2 Disposition: 10/13/20 00:22 Hospitalization ordered by Zuly, Ryan for Observation. Preliminary diagnosis is Pneumonia, unspecified organism. - Bed requested for Telemetry/MedSurg (observation). - Status is Observation. ll2 - Condition is Stable. - Problem is new. - Symptoms have improved. Signatures: Dispatcher [employer] EDMS Liane Kingston RN RN Obi Waller, DOUPER DOUPER pm1 Fausto Raymond MD MD ma2 Belem Paula RN RN [facility] Airam Cruz RN RN ll2 Corrections: (The following items were deleted from the chart) 02:31 00:22 Hospitalization Ordered by Ryan Caruso MD for Observation. Preliminary diagnosis is Pneumonia, unspecified organism. Bed requested for Telemetry/MedSurg (observation). Status is Observation. Condition is Stable. Problem is new. Symptoms have improved. pm1 03:24 02:31 10/13/2020 00:22 Hospitalization Ordered by Ryan Caruso MD for Observation. ll2 Preliminary diagnosis is Pneumonia, unspecified organism. Bed requested for Telemetry/MedSurg (observation). Status is Observation. Condition is Stable. Problem is new. Symptoms have improved. mw
[2020-10-13] MEDS ORDERED: METHYLPREDNISOLONE 125 MG INJ ONE (00:49)
[2020-10-13] MEDS ORDERED: POTASSIUM 25 MEQ EFFERV TAB ONE (00:49)
[2020-10-13] MEDS ORDERED: ALBUTEROL 2.5 MG/3 ML NEB SOL ONE (00:49)
[2020-10-13] MEDS ORDERED: ALBUTEROL INHALER 60 PUFF/8 GM IH PRN (03:20)
[2020-10-13 03:50] VITALS: BMI 26.4
[2020-10-13] MEDS ORDERED: predniSONE 20 MG TAB PO SCH (09:00)
[2020-10-13] MEDS ORDERED: CEFTRIAXONE 1 GM/NS 50 ML 1 GM/50 ML BAG IV SCH (09:00)
[2020-10-13] MEDS ORDERED: CEFTRIAXONE/SWI 1gm 1 GM/10 ML SYR IV SCH (09:00)
[2020-10-13] MEDS ORDERED: AZITHROMYCIN IV 250 MG in NA CHLORIDE 0.9% 250 ML IVPB SCH (09:00)
[2020-10-13 12:21] LABS: C-Reactive Protein 61.3 mg/L (<3.00); Ferritin 259.4 ng/mL (8-388)
--- NOTE | 2020-10-13 12:37 | P.CNS ---
Date of Consult: 10/13/20 Reason for Consult: Waddell virus infection Chief Complaint: Chest pain History of Present Illness: Patient is 80 years of age admitted with a retrosternal chest pain aggravated with movement never had any history of coronary artery disease before the was diagnosed with coronal virus infection 3 weeks ago and was treated with steroids denies any fever chills or weakness no shortness of breath Allergies levofloxacin [From Levaquin] Allergy (Verified 10/13/20 03:56) Itching/Hives/Rash Sildane Allergy (Uncoded 10/13/20 03:57) Itching/Hives/Rash Home Medications: Atorvastatin Calcium [Lipitor] 20 mg PO DAILY 08/14/14 Carvedilol Phosphate [Coreg Cr] 20 mg PO DAILY 08/14/14 Zolpidem Tartrate [Ambien] 10 mg PO BEDTIME 08/14/14 Omeprazole [Prilosec] 1 tab PO DAILY 10/13/20 - Past Medical/Surgical History Diabetic: No -: heart ablation svt 2003 -: cataract surgery -: macular -: knee replaceements - Family History Mother Notes: broke hip month later - Social History Alcohol use: No CD- Drugs: No Caffeine use: Yes Place of Residence: Home Review of Systems 10-point ROS is otherwise unremarkable Physical Examination Temp Pulse Resp BP Pulse Ox 98.2 F 99 H 18 115/78 96 10/13/20 08:00 10/13/20 08:00 10/13/20 08:00 10/13/20 08:00 10/13/20 08:00 General: Alert, Oriented x3 Respiratory: Clear to auscultation bilaterally Cardiovascular: Regular rate/rhythm, Normal S1 S2 Gastrointestinal: Normal bowel sounds, Soft and benign Laboratory Data (last 24 hrs) 10/12/20 22:15: PT 13.1 H, INR 1.11 10/12/20 22:15: WBC 4.9, Hgb 12.2, Hct 35.9 L, Plt Count 167 10/12/20 22:15: Sodium 137, Potassium 3.2 L, BUN 10, Creatinine 0.83, Glucose 127 H, Magnesium 2.0, Total Bilirubin 0.5, AST 19, ALT 16, Alkaline Phosphatase 107 - Problems (1) Chest pain Onset Date: 08/15/14 Current Visit: No Status: Acute Plan: Patient is 80 years of age admitted with retrosternal chest pain aggravated with movement was diagnosed with waddell virus infection 3 weeks ago the far she has minimal interstitial changes CBCs normal troponin initially was negative patient is mildly hypokalemic evaluate for home O2 repeat another troponin ambulate she is not having chest pain right now patient illnesses does not need any steroids or antibiotics once cleared by Cardiology can be discharged of order an echo Qualifiers: Chest pain type: unspecified Qualified Code(s): R07.9 - Chest pain, unspecified
--- NOTE | 2020-10-13 12:41 | EKG ---
Test Date: 2020-10-12 Test Time: 18:35:26 Heat Treat Technician: PEE MEASUREMENT RESULTS: Intervals: Rate: 91 RI: 156 QRSD: 84 QT: 360 QTc: 442 [place]: P: 56 RI: 156 QRS: -13 T: 13 INTERPRETIVE STATEMENTS: Normal sinus rhythm Normal ECG Compared to ECG 08/14/2014 11:59:46 Left-axis deviation no longer present Electronically Signed On 10-13-20 12:39:31 MICROFILM OPERATOR by Travon Fields
--- NOTE | 2020-10-13 12:58 | P.HP ---
Certification for Inpatient Patient admitted to: Observation With expected LOS: <2 Midnights Patient will require the following post-hospital care: None Practitioner: I am a practitioner with admitting privileges, knowledge of patient current condition, hospital course, and medical plan of care. Services: Services provided to patient in accordance with Admission requirements found in Title 42 Section 412.3 of the Code of Federal Regulations Patient History Date of Service: 10/13/20 Primary Care Provider: Dr. Caruso Reason for admission: Chest pain History of Present Illness: 80 year old female presented to the emergency room with chest pain. Patient reports being diagnosed with COVID 19 several weeks ago. This required hospitalization. She was sent home with steroid and home oxygen. Over the past day she has been having some chest pain. Mainly to the left side. Some shortness of breath noted. She came to the ER for further evaluation. In the ER she was evaluated. Patient was admitted to further address. Initial troponin negative. Chest x-ray still shows pattern of bilateral COVID. Allergies levofloxacin [From Levaquin] Allergy (Verified 10/13/20 03:56) Itching/Hives/Rash Sildane Allergy (Uncoded 10/13/20 03:57) Itching/Hives/Rash Home medications list reviewed: Yes Home Medications: Atorvastatin Calcium [Lipitor] 20 mg PO DAILY 08/14/14 Carvedilol Phosphate [Coreg Cr] 20 mg PO DAILY 08/14/14 Zolpidem Tartrate [Ambien] 10 mg PO BEDTIME 08/14/14 Omeprazole [Prilosec] 1 tab PO DAILY 10/13/20 - Past Medical/Surgical History Has patient received pneumonia vaccine in the past: Yes Diabetic: No -: heart ablation svt 2003 -: Cataracts surgery -: Knee replacement Psychosocial/ Personal History: Patient lives at home - Family History Family History: Reviewed- Non-Contributory - Family History Mother Notes: broke hip month later - Social History Smoking Status: Never smoker Alcohol use: No CD- Drugs: No Caffeine use: Yes Place of Residence: Home Review of Systems General: As per HPI Eyes: Unremarkable ENT: Unremarkable Respiratory: Shortness of Breath, As per HPI Cardiovascular: Chest Pain, As per HPI Gastrointestinal: Unremarkable Genitourinary: Unremarkable Musculoskeletal: Unremarkable Integumentary: Unremarkable Neurological: Unremarkable Lymphatics: Unremarkable Physical Examination - Vital Signs Temperature: 98.2 F Blood Pressure: 115/78 Pulse: 99 Respirations: 18 Pulse Ox (%): 96 - Physical Exam General: Alert, In no apparent distress, Oriented x3, Cooperative HEENT: Atraumatic, Normocephalic Neck: Supple Respiratory: Other (Patient on nasal cannula. Patient does not appear in distress.) Cardiovascular: Normal pulses, Regular rate/rhythm Gastrointestinal: Normal bowel sounds, No tenderness, No masses, No rebound, No guarding Integumentary: No tenderness/swelling, No erythema, No warmth, No cyanosis Neurological: Normal speech, Normal strength at 5/5 x4 extr, Normal tone, Normal affect - Studies Laboratory Data (last 24 hrs) 10/12/20 22:15: PT 13.1 H, INR 1.11 10/12/20 22:15: WBC 4.9, Hgb 12.2, Hct 35.9 L, Plt Count 167 10/12/20 22:15: Sodium 137, Potassium 3.2 L, BUN 10, Creatinine 0.83, Glucose 127 H, Magnesium 2.0, Total Bilirubin 0.5, AST 19, ALT 16, Alkaline Phosphatase 107 Microbiology Data (last 24 hrs): 10/12/20 22:30 Throat Group A Streptococcus Rapid Screen - Final 10/12/20 22:30 Nasopharnyx Influenza Type A Antigen Screen - Final 10/12/20 22:30 Nasopharnyx Influenza Type B Antigen Screen - Final Assessment and Plan - Plan Impression: Chest pain Shortness of breath with history of COVID 19 Plan: Patient admitted. Patient initial troponin negative. CRP elevated. Patient does not appear in distress. Will recheck troponin. Will also obtain echocardiogram and EKG. Pulmonology feels this is not related to her COVID 19 infection. Pulmonology recommends cardiology evaluation. If troponin unremarkable and including echo patient can likely be discharged home later today on steroids and to continue with home oxygen Discharge Plan: Home Plan to discharge in: 24 Hours - Advance Directives Does patient have a Living Will: Yes Does patient have a Durable POA for Healthcare: Yes - Code Status/Comfort Care Code Status Assessed: Yes (Patient full code) Time Spent Managing Pts Care (In Minutes): 55
[2020-10-13] MEDS ORDERED: METHYLPREDNISOLONE 125 MG INJ IV SCH (14:00)
[2020-10-13] MEDS ORDERED: ASCORBIC ACID 500 MG TABLET PO SCH (14:00)
[2020-10-13 15:36] VITALS: O2SAT 90
--- NOTE | 2020-10-13 15:41 | P.DS ---
Admission Date: 10/13/20 Discharge Date: 10/13/20 Primary Care Provider: Dr. Caruso Disposition: ROUTINE DISCHARGE Discharge Condition: GOOD Reason for Admission: Chest pain Consultations: Pulmonology-Dr. Navarro Cardiology-Dr. Fields Procedures: CXR: FINDINGS: Portable technique limits examination quality. Moderate bilateral interstitial lung opacities are present likely representing interstitial pneumonia/ viral bronchitis. Rounded opacity in the left mid lung and vague opacity in the right upper lobe suspicious for superimposed pneumonia. The heart is normal in size. ECHO: Medical problem list: Chest pain Shortness of breath with history of COVID 19 pneumonia on chronic oxygen Hypertension Hyperlipidemia Brief History of Present Illness: 80 year old female presented to the emergency room with chest pain. Patient reports being diagnosed with COVID 19 several weeks ago. This required hospitalization. She was sent home with steroid and home oxygen. Over the past day she has been having some chest pain. Mainly to the left side. Some shortness of breath noted. She came to the ER for further evaluation. In the ER she was evaluated. Patient was admitted to further address. Initial troponin negative. Chest x-ray still shows pattern of bilateral COVID. Hospital Course: Patient presented with chest pain and shortness of breath. Patient with history of bilateral COVID 19 pneumonia. She was recently treated and sent home with oxygen. The patient was evaluated in the emergency room. EKG unremarkable. Cardiac enzymes also unremarkable. Patient was seen and evaluated by pulmonology. Ferritin level normal. CRP at 61. Chest x-ray still shows appearance of viral pneumonia. Pulmonology recommended cardiac evaluation. Echocardiogram performed. Case discussed with cardiology. At discharge patient without chest pain or significant shortness of breath. At discharge patient will continue with home oxygen to maintain sats above 93%. At discharge she will be provided prednisone 10 mg 1 pill twice daily for 7 days then 1 pill once daily for 7 days. Patient will continue with vitamin-D, vitamin-C and thiamine supplementation. Will recommend to start aspirin 81 mg daily. Patient will follow up with pulmonology and Cardiology in 2-4 weeks to follow up this hospitalization. Patient will follow up with pulmonology to further monitor her condition. Patient with hypertension. This has remained stable. At discharge she will continue with carvedilol. Recommend to monitor blood pressure daily. Recommend to maintain blood pressure less than 130/80. Further adjustment can be done by her PCP. Patient with hyperlipidemia. At discharge she will continue with her current medication. Vital Signs/Physical Exam: Temp Pulse Resp BP Pulse Ox 98.2 F 99 H 18 115/78 96 10/13/20 12:57 10/13/20 12:57 10/13/20 12:57 10/13/20 12:57 10/13/20 12:57 General: Alert, In no apparent distress, Oriented x3, Cooperative HEENT: Atraumatic Neck: Supple Respiratory: Other (Patient breathing appropriately. Currently on 2 L per nasal ) Cardiovascular: Normal pulses, Regular rate/rhythm Neurological: Normal speech, Normal strength at 5/5 x4 extr, Normal tone, Normal affect Laboratory Data at Discharge: WBC 4.9 K/uL (4.3-10.9) 10/12/20 22:15 Hgb 12.2 g/dL (12.0-15.0) 10/12/20 22:15 Hct 35.9 % (36.0-45.0) L 10/12/20 22:15 Plt Count 167 K/uL (152-406) 10/12/20 22:15 PT 13.1 SECONDS (9.5-12.5) H 10/12/20 22:15 INR 1.11 10/12/20 22:15 Sodium 137 mmol/L (136-145) 10/12/20 22:15 Potassium 3.2 mmol/L (3.5-5.1) L 10/12/20 22:15 BUN 10 mg/dL (7-18) 10/12/20 22:15 Creatinine 0.83 mg/dL (0.55-1.3) 10/12/20 22:15 Glucose 127 mg/dL (74-106) H 10/12/20 22:15 Magnesium 2.0 mg/dL (1.8-2.4) 10/12/20 22:15 Total Bilirubin 0.5 mg/dL (0.2-1.0) 10/12/20 22:15 AST 19 U/L (15-37) 10/12/20 22:15 ALT 16 U/L (12-78) 10/12/20 22:15 Alkaline Phosphatase 107 U/L (45-117) 10/12/20 22:15 Troponin I Cancelled 10/13/20 12:52 Home Medications: Atorvastatin Calcium [Lipitor*] 20 mg PO DAILY 08/14/14 Carvedilol Phosphate [Coreg Cr] 20 mg PO DAILY 08/14/14 Zolpidem Tartrate [Ambien] 10 mg PO BEDTIME 08/14/14 Ascorbic Acid [Vitamin C*] 500 mg PO TID #90 tablet 10/13/20 Aspirin [Aspirin EC 81 MG] 81 mg PO DAILY #90 tablet. 10/13/20 Cholecalciferol (Vitamin D3) [Vitamin D 1000 Iu Tab*] 2,000 unit PO DAILY #60 tab 10/13/20 Omeprazole [Prilosec] 1 tab PO DAILY 10/13/20 Thiamine HCl [Vitamin B-1*] 100 mg PO DAILY #30 tablet 10/13/20 predniSONE [Deltasone*] 10 mg PO SEECOM #21 tab 10/13/20 New Medications: Aspirin [Aspirin EC 81 MG] 81 mg PO DAILY #90 tablet. predniSONE [Deltasone*] 10 mg PO SEECOM #21 tab Thiamine HCl [Vitamin B-1*] 100 mg PO DAILY #30 tablet Ascorbic Acid [Vitamin C*] 500 mg PO TID #90 tablet Cholecalciferol (Vitamin D3) [Vitamin D 1000 Iu Tab*] 2,000 unit PO DAILY #60 tab Patient Discharge Instructions: Recommend follow up with PCP in 1 week to follow up this hospitalization. Patient presented with chest pain and shortness of breath. Patient with history of bilateral COVID 19 pneumonia. She was recently treated and sent home with oxygen. The patient was evaluated in the emergency room. EKG unremarkable. Cardiac enzymes also unremarkable. Patient was seen and evaluated by pulmonology. Ferritin level normal. CRP at 61. Chest x-ray still shows appearance of viral pneumonia. Pulmonology recommended cardiac evaluation. Echocardiogram performed. Case discussed with cardiology. At discharge patient without chest pain or significant shortness of breath. At discharge patient will continue with home oxygen to maintain sats above 93%. At discharge she will be provided prednisone 10 mg 1 pill twice daily for 7 days then 1 pill once daily for 7 days. Patient will continue with vitamin-D, vitamin-C and thiamine supplementation. Will recommend to start aspirin 81 mg daily. Patient will follow up with pulmonology and Cardiology in 2-4 weeks to follow up this hospitalization. Patient will follow up with pulmonology to further monitor her condition. Patient with hypertension. This has remained stable. At discharge she will continue with carvedilol. Recommend to monitor blood pressure daily. Recommend to maintain blood pressure less than 130/80. Further adjustment can be done by her PCP. Patient with hyperlipidemia. At discharge she will continue with her current medication. Diet: AHA Activity: Ad antonella Followup: Ryan Caruso MD [Primary Care Provider] - Time spent managing pt's care (in minutes): 55
[2020-10-13 16:43] VITALS: BP 134/69; TEMP 99
[2020-10-13] MEDS ORDERED: ATORVASTATIN 20 MG TAB PO SCH (21:00)
[2020-10-13] MEDS ORDERED: ENSURE HIGH PROTEIN 237 ML CAN PO SCH (21:00)
--- NOTE | 2020-10-14 07:03 | ECHO ---
HEIGHT: 5 ft 5 in WEIGHT: 158 lb 0 oz DATE OF STUDY: 10/13/[address]: Jeremy Navarro MD 2-DIMENSIONAL: YES M.MODE: YES DOPPLER: YES COLOR FLOW: YES TDS: YES PORTABLE: DEFINITY: BUBBLE STUDY: DIAGNOSIS: CHEST PAIN CARDIAC HISTORY: CATHERIZATION: SURGERY: PROSTHETIC VALVE: PACEMAKER: MEASUREMENTS (cm) DIASTOLIC (NORMALS) SYSTOLIC (NORMALS) IVSd 0.8 (0.6-1.2) LA Diam (1.9-4.0) LVEF 65% LVIDd 4.0 (3.5-5.7) LVIDs 2.6 (2.0-3.5) %FS 35% LVPWd 0.8 (0.6-1.2) Ao Diam 2.6 (2.0-3.7) 2 DIMENSIONAL ASSESSMENT: RIGHT ATRIUM: NORMAL LEFT ATRIUM: NORMAL RIGHT VENTRICLE: NORMAL LEFT VENTRICLE: NORMAL TRICUSPID VALVE: NORMAL MITRAL VALVE: NORMAL PULMONIC VALVE: NORMAL AORTIC VALVE: NORMAL PERICARDIAL EFFUSION: NONE AORTIC ROOT: NORMAL LEFT VENTRICULAR WALL MOTION: NORMAL DOPPLER/COLOR FLOW: NORMAL COMMENTS: NORMAL 2-DIMENSIONAL ECHOCARDIOGRAM WITH DOPPLER. NO WALL MOTION ABNORMALITY. NO EFFUSION. TECHNOLOGIST: LUCITA JEFF
[2020-10-14] MEDS ORDERED: VITAMIN D 1000 UNIT TAB PO SCH (09:00)
[2020-10-14] MEDS ORDERED: THIAMINE HCL 100 MG TABLET PO SCH (09:00)
== END 2020-10-13 18:00 | disposition home or self-care (01) ==
LOC: ER 18:20 → ERHOLD 10-13 00:32 → 4TH 10-13 02:58
PROVIDERS: ADMIT Family Medicine; ATTEND Family Medicine
DX: U07.1 COVID-19 (principal); J12.89 Other viral pneumonia; Z99.81 Dependence on supplemental oxygen; R07.9 Chest pain, unspecified; I10 Essential (primary) hypertension; E78.5 Hyperlipidemia, unspecified; E87.6 Hypokalemia; Z96.653 Presence of artificial knee joint, bilateral
CPT/HCPCS: 96365; 93005 ×2; 93306; 87040 ×2; 87070; 85025; 80048; 36415; 83735; 85610; 80076; 87081; 83605; 84484 ×2; 82728; 84145; 83880; 86140; 87804 ×2; 71045; 94760 ×2; 96375; 99285; U0003; J0456 ×2; J0696 ×2; J7050 ×2; J7030; J2930; J7512

== ENCOUNTER 2022-08-29 12:07 | Emergency (ER) | payer OTHER ==
--- OUTSIDE RECORDS SUMMARY | 2022-08-29 12:17 | XMS REPORT | Continuity of Care Document ---
:1940 Author Organization [facility] t Address [address] [place] [address] Care Team Providers Name Role Phone Ryan Caruso MD Primary Care Physician REAGAN_Noemi_Dank Attending Clinician Unavailable Serena Hoffmann DO Attending Clinician Kenna Hong RN Attending Clinician Unavailable Lida Ott Attending Clinician Wilbert Tyler MD Attending Clinician WILBERT TYLER Attending Clinician Unavailable Yelena Parker MD Attending Clinician YELENA PARKER Attending Clinician Unavailable Doctor Unassigned, [place] Attending Clinician Unavailable Samira MCPHERSON, Sinan Dubon Attending Clinician Unavailable Tavo Figueroa MD Attending Clinician Kin Tavares Attending Clinician Unavailable ARELIS SORIA Attending Clinician Unavailable Rukhsana Bassett RN Attending Clinician Arelis Vasquez Attending Clinician Dhruv Cotter MD Attending Clinician TONEY OLIVEIRA Attending Clinician Unavailable REAGAN_Noemi_Tano_ Admitting Clinician Unavailable Wilbert Tyler MD Admitting Clinician WILBERT TYLER Admitting Clinician Unavailable Ryan Caruso Admitting Clinician Unavailable ARELIS SORIA Admitting Clinician Unavailable Dhruv Cotter MD Admitting Clinician TONEY OLIVEIRA Admitting Clinician Unavailable Payers Payer Name Policy Type Policy Number Effective Date Expiration Date Donaldo valenzuela [employer]MA[employer] MEDICARE [id number] 2016 00:00:00 [facility] [id number] (MEDICARE REPLACEMENT/ADVANTA GE - PPO) Problems Condition Condition Condition Status Onset Resolution Last Treating Co mments Source Name Details Category Date Date Treatment Clinician Date Pain of Pain of Problem Active 2020-10 Cheri left Left 0-21 Orthope shoulder Shoulder 00:00: dic joint Joint 00 Sports Medicin e Syncope Syncope Disease Active 2019-10 Univers 2-03 ity of 00:00: [place] [facility] Elevated Elevated Disease Active 2019-10 Unive rs brain brain 2-03 ity of natriureti natriureti [place] c peptide c peptide 00 Medi mildred (BNP) (BNP) Branch level level COVID-19 COVID-19 Disease Active 2019-10 Unive rs virus virus 2-02 [place] infection [place] 00:[place] [facility] [place] SBO (small SBO (small Disease Active 2020- U nivers bowel bowel 6-06 ity of obstructio obstructio [place]: [place] n) n) 00 [facility] Abdominal Abdominal Disease Active 2019- Uni vers pain pain 6-06 ity of 00:00: [place] [facility] Idiopathic Idiopathic Problem Active 2020 A zalea osteoarthr Osteoarthr 3-10 Or thope itis itis 00:00: dic 00 Sports Medicin e Essential Essential Disease Active Uni vers hypertensi hypertensi 9-15 it y of on on 00:00: [place] 00 Medical Branch Other Other Disease Active Univers hyperlipid hyperlipid 9-15 it y of emia emia 00:00: [place] [id number] Medical Branch SVT SVT Disease Active Univers (supravent (supravent 9-15 it y of ricular ricular 00:00: [place] tachycardi tachycardi 00 Me dical a) a) Branch 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 2-05 [place] knee joint Knee Joint 00:00: di c 00 Sports Medicin e Knee pain Knee Pain Problem Active Aza nicola 2-05 Orthope 00:00: dic 00 Sports Medicin e Full Full Problem Active Cheri thickness Thickness 1-29 Orth ope rotator Rotator 00:00: dic cuff tear Cuff Tear 00 Spor ts Medicin e Cerebral C[facility]bral Disease [facility] Chest pain Chest pain Disease Active U nivers 5-30 ity of 00:00: [place] [facility] Insomnia Insomnia Problem Active Azale a 8-18 Orthope 00:00: dic 00 Sports Medicin e Migraine Migraine Problem Active [facility] a 8-18 Orthope 00:00: dic 00 Sports Medicin e Essential Essential Problem Active Aza nicola hypertensi Hypertensi 8-18 Or thope on on 00:00: dic 00 Sports Medicin e Paroxysmal Paroxysmal Problem Active A zalea tachycardi Tachycardi 8-18 Or thope a a 00:00: dic 00 Sports Medicin e 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 2-04 Or thope s s 00:00: dic 00 Sports Medicin e Arthropath Arthropath Problem Active A zalea y y 1-06 Orthope 00:00: dic 00 Sports Medicin e 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 Or thope multiple-l Multiple-l 00:00: di c evel evel 00 Sports cervical Cervical Medici n spondylosi Spondylosi e s s 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 replacemen Replacemen 0-31 Or thope t t 00:00: dic 00 Sports Medicin e Allergies, Adverse Reactions, Alerts Allergy Allergy Status Severity Reaction(s) Onset Inactive Treating Comm ents Source Name Type Date Date Clinician ADHESIVE Drug Active Rash 0 Univers Class 6-06 ity of 00:00: [place] 00 Medical Branch Adhesive Propensi Active Rash Univer s ty to 606 ity of adverse 00:00: [place] reaction 00 Medical s Branch Levaquin Allergy Active Cheri to 2-05 Orthope substanc 00:00: dic e 00 Sports Medicin e Levoflox Propensi Active Hives 2016-10 Univer s acin ty to 14 ity of adverse 00:00: [place] reaction 00 Medical s Branch LEVOFLOX DRUG Active Hives 2016-10 Univers ACIN INGREDI 11-05 ity of 00:00: [place] 00 Medical Branch levoflox DA Active U 2016-10 [facility]-17 [place] 00:[facility]: [facility] levoflox DA Active U NOT SURE 2016-10 [facility] acin 0-17 [place] 00:00: [facility] Levoflox Propensi Active [facility] adverse 00:[facility]: Medical reaction 00 Center s Terfenad Propensi Active [facility] to 8[facility] adverse 00:00: Medical reaction 00 Center s terfenad DA Active U 2017 [facility] 7-17 [place] 00:00: [facility] 00 [facility] terfenad DA Active U UNKNOWN [facility] 7-17 [place] 00:00: [facility] 00 [facility] Seldane Propensi Active Unknown - Univ ers ty to See comments 5-30 ity of adverse 00:00: [place] reaction 00 Medical s Branch SELDANE DRUG Active Unknown-Cmnt Uni vers 5-30 ity of 00:00: [place] 00 Medical Branch SELDANE Allergy Active Cheri to 06 Orthope substanc 00:00: dic e 00 Sports Medicin e Social History Social Habit Start Date Stop Date Quantity Comments Source Exposure to Not sure [facility] SARS-CoV-2 [place] [facility] (event) Branch Alcohol intake 2017-06-22 2017-06-[address] [facility] 00:00:00 00:00:00 non-drinker of Medical Ce nter alcohol (finding) Tobacco use and 2017-06-16 2017-06-16 Never used [place] [facility] exposure 00:00:[facility] Sex Assigned At [birth year] [place] [facility] 00:00:[facility] Smoking Status Start Date Stop Date Source Never smoker [facility] Medical Branch Medications Ordered Filled Start Stop Current Ordering Indication Dosage Frequency Signature Comments Components Source Medication Medication Date Date Medication? Clinician (SIG) Name Name dexamethaso 2019-10 2020- No 10mg 10 mg, IV Univers ne 2-14 12-14 Push, ity of (DECADRON 01:30: 00:40 ONCE, 1 [place] PHOSPHATE[place] 00 :00 dose, Sun Medi mildred injection 10/04/20 Branch 10 mg at 1930, STAT NaCl 0.9% 2019-10- No 1000mL at 999 Uni vers (NS) bolus 2-13 12-14 mL/hr, ity of infusion 22:45: 00:30 1,000 mL, [place] as 1,000 mL 00 :00 IV Medical Infusion, Branch ONCE, 1 dose, 10/04/20 at 1645, JANEL ergocalcife 2019-10 Yes [id number] Take 1 Univers rol, 2-10 capsule by ity of vitamin d2, 00:00: mouth [place] 1,250 mcg 00 weekly. Medical (50,000 Branch unit) capsule ergocalcife 2019- Yes [id number] Take 1 Univers rol, 2-10 capsule by ity of vitamin d2, 00:00: mouth [place] 1,250 mcg 00 weekly. Medical (50,000 Branch unit) capsule ergocalcife 2019- Yes [id number] Take 1 Univers rol, 2-10 capsule by ity of vitamin d2, 00:00: mouth [place] 1,250 mcg 00 weekly. Medical (50,000 Branch unit) capsule ATORVASTATI 2019-10 Yes 20mg Take 20 mg Univers N CALCIUM 2-04 by mouth ity of (ATORVASTAT 22:41: at [place] IN ORAL) 36 bedtime. Medical Branch temazepam 2019-10 Yes 30mg Take 30 mg Un michele (RESTORIL) 2-04 by mouth ity o f 30 mg 22:41: at [place] capsule 36 bedtime. Medical Branch omeprazole 2019-10 Yes 40mg Take 40 mg U nivers 40 mg 2-04 by mouth ity of capsule 22:41: daily. [place] [address] Medical Branch denosumab 2019-10 Yes 60mg inject 60 Uni vers 60 mg/mL 2-04 mg under ity of injection 22:41: the skin. Lang as 36 Pt takes Medical twice a Branch year ATORVASTATI 2019-10 Yes 20mg Take 20 mg Univers N CALCIUM 2-04 by mouth ity of (ATORVASTAT 22:41: at [place] IN ORAL) 36 bedtime. Medical Branch temazepam 2019-10 Yes 30mg Take 30 mg Un michele (RESTORIL) 2-04 by mouth ity o f 30 mg 22:41: at [place] capsule 36 bedtime. Medical Branch omeprazole 2019-10 Yes 40mg Take 40 mg U nivers 40 mg 2-04 by mouth ity of capsule 22:41: daily. [place] [address] Medical Branch denosumab 2019-10 Yes 60mg inject 60 Uni vers 60 mg/mL 2-04 mg under ity of injection 22:41: the skin. Lang as 36 Pt takes Medical twice a Branch year ATORVASTATI 2019-10 Yes 20mg Take 20 mg Univers N CALCIUM 2-04 by mouth ity of (ATORVASTAT 22:41: at [place] IN ORAL) 36 bedtime. Medical Branch temazepam 2019-10 Yes 30mg Take 30 mg Un michele (RESTORIL) 2-04 by mouth ity o f 30 mg 22:41: at [place] capsule 36 bedtime. Medical Branch omeprazole 2019-10 Yes 40mg Take 40 mg U nivers 40 mg 2-04 by mouth ity of capsule 22:41: daily. [place] [address] Medical Branch denosumab 2019-10 Yes 60mg inject 60 Uni vers 60 mg/mL 2-04 mg under ity of injection 22:41: the skin. Lang as 36 Pt takes Medical twice a Branch year NAPROXEN/ES 2019-10 2020- No Take by Un michele OMEPRAZOLE 2-04 12-04 mouth. ity of MAG (VIMOVO 21:59: 00:00 [place] ORAL) 04 :00 Medical Branch carvedilol 2019-10 2020- No 20mg Take 20 mg Univers 20 mg 24 hr 2-04 12-04 by mouth ity of capsule 21:59: 00:00 daily. [place] 04 :00 Medical Branch atorvastati 2019-10 Yes 20mg 20 mg, Univ ers n (LIPITOR) 2-04 Oral, QHS, it y of tablet 20 03:00: First dose [place] mg 00 on [facility] 09/24/20 at Branch 2100, Until Discontinu ed ascorbic 2019-10- No [id number] 500mg Take 1 Univers acid, 2-01 21-04 tablet by ity of vitamin C, 00:00: 05:59 mouth 2 [place] 500 mg 00 :00 (two) Medical tablet times Branch daily for 30 days. carvediloL 2019-10- No [id number] 6.25mg Take 1 Univers 6.25 mg -01 21- tablet by ity of tablet 00:00: 05:59 mouth 2 [place] 00 :00 (two) Medical times Branch daily with meals for 30 days. zinc 2019-10- No [id number] 220mg Take 1 Univ ers sulfate 220 -01 21- capsule by i ty of (50) mg 00:00: 05:59 mouth 2 [place] capsule 00 :00 (two) Medical times Branch daily for 30 days. ascorbic 2019-10- No [id number] 500mg Take 1 Univers acid, 2-01 21- tablet by ity of vitamin C, 00:00: 05:59 mouth 2 [place] as 500 mg 00 :00 (two) Medical tablet times Branch daily for 30 days. carvediloL 2019-10- No [id number] 6.25mg Take 1 Univers 6.25 mg 11-26- tablet by ity of tablet 00:00: 05:59 mouth 2 [place] 00 :00 (two) Medical times [place] daily with meals for 30 days. zinc 2019-10- No [id number] 220mg Take 1 Univ ers sulfate 220 -01 21- capsule by i ty of (50) mg 00:00: 05:59 mouth 2 [place] capsule 00 :00 (two) Medical times Branch daily for 30 days. ascorbic 2019-10- No [id number] 500mg Take 1 Univers acid, 2-01 21-04 tablet by ity of vitamin C, 00:00: 05:59 mouth 2 [place] 500 mg 00 :00 (two) Medical tablet times Branch daily for 30 days. carvediloL 2019-10- No [id number] 6.25mg Take 1 Univers 6.25 mg 2-01 21-04 tablet by ity of tablet 00:00: 05:59 mouth 2 [place] 00 :00 (two) Medical times Branch daily with meals for 30 days. zinc 2019-10- No [id number] 220mg Take 1 Univ ers sulfate 220 2-01 21- capsule by i ty of (50) mg 00:00: 05:59 mouth 2 [place] capsule 00 :00 (two) Medical times Branch daily for 30 days. dexAMETHaso 2019-10- No [id number] 6mg Take 1.5 Univers ne 4 mg 2- 12-13 tablets by ity o f tablet 00:00: 05:59 mouth [place] 00 :00 daily for Medical 8 days. Branch dexAMETHaso 2019-10 No [id number] 6mg Take 1.5 Univers ne 4 mg 2- 12-13 tablets by ity o f tablet 00:00: 05:59 mouth [place] 00 :00 daily for Medical 8 days. Branch cefdinir 2019-10 No [id number] 300mg Take 1 U nivers 300 mg 2- 12-10 capsule by ity of capsule 00:00: 05:59 mouth 2 [place] 00 :00 (two) Medical times Branch daily for 5 days. lactobacill 2019-10- No [id number] 1{tbl} Take 1 Univers us 2-04 12-10 tablet by ity of acidophilus 00:00: 05:59 mouth 2 [place] 25 million 00 :00 (two) Medical cell -100 times Branch mg captab daily for 5 days. benzonatate 2019-10- No [id number] 100mg Take 1 Univers 100 mg 2- 12-10 capsule by ity of capsule 00:00: 05:59 mouth 3 [place] 00 :00 (three) Medical times Branch daily for 5 days. cefdinir 2019-10- No [id number] 300mg Take 1 U nivers 300 mg 2-04 12-10 capsule by ity of capsule 00:00: 05:59 mouth 2 [place] 00 :00 (two) Medical times Branch daily for 5 days. lactobacill 2019-10- No [id number] 1{tbl} Take 1 Univers us 2-04 12-10 tablet by ity of acidophilus 00:00: 05:59 mouth 2 [place] 25 million 00 :00 (two) Medical cell -100 times Branch mg captab daily for 5 days. benzonatate 2019-10 2020- No [id number] 100mg Take 1 Univers 100 mg 11-2610 capsule by ity of capsule 00:00: 05:59 mouth 3 [place] 00 :00 (three) Medical times Branch daily for 5 days. NaCl 0.9% 2019-10 Yes 1000mL at 75 Unive rs (NS) IV 2-03 mL/hr, IV ity of infusion 19:00: Infusion, [place] 1,000 mL 00 CONTINUOUS Medic al , Starting Branch [facility] 09/24/20 at 1300, Until Discontinu ed, Routine ergocalcife 2019-10 Yes [id number] 50,000 Un michele rol 2-03 Units, ity of (vitamin 15:00: Oral, [place] d2) 00 QWEEKLY, Medical (CALCIFEROL First dose Br anch ) capsule on [facility] 50,000 09/24/20 at Units 0900, Until Discontinu ed, Routine omeprazole 2019-10 Yes 40mg 40 mg, Unive rs (PRILOSEC) 2- Oral, ity of capsule 40 15:00: DAILY, [place] mg 00 First dose Medical on [facility] 09/24/20 at 0900, Until Discontinu ed carvediloL 2019-10 Yes 6.25mg 6.25 mg, U nivers (COREG) 2-03 Oral, BID ity of tablet 6.25 14:00: MEALS, [place] mg 00 First dose Medical on [facility] 09/24/20 at 0800, Until Discontinu ed, Routine enoxaparin 2019-10 Yes 30mg 30 mg, Unive rs (LOVENOX) 2-03 Subcutaneo ity of injection 14:00: us, Q12H, Lang as 30 mg 00 First dose Medical on [facility] Branch 09/24/20 at 0800, Until Discontinu ed, Routine cefTRIAXone 2019-10 Yes 1000mg 1,000 mg, Univers (ROCEPHIN) 2-03 IV ity of 1,000 mg in 07:00: Piggyback, [place] NaCl 0.9% 00 Q24H ABX, Medic al (NS) 50 mL First dose [facility] MINI-BAG on [place] 09/24/20 at 0100, Until Discontinu ed, 50 mL
R catie for Anti-Infec tive: Empiric Therapy for Suspected Infection< br>Empiric Therapy Site: Urine
D uration of therapy: 7 days azithromyci 2019-10 2020- No 500mg 500 mg, IV Univers n 2- 12-09 Piggyback, ity of (ZITHROMAX) 07:00: 06:59 Q24H ABX, [place] 500 mg in 00 :00 6 doses, Medica l NaCl 0.9% First dose Bran ch (NS) 250 mL on [place] VIAL-MATE 09/24/20 at IV 0100, Last piggyback dose on Mon09/29/20 at 0100, 250 mL
Reas on for Anti-Infec tive: Empiric Therapy for Suspected Infection< br>Empiric Therapy Site: Respirator y
Durat ion of therapy: 7 days zinc 2019-10 Yes 220mg 220 mg, Univers sulfate 2-03 Oral, BID, ity of (ORAZINC) 06:15: First dose [place] capsule 220 00 on [place] Medica l mg 09/24/20 at Branch 0015, Until Discontinu ed, Routine ascorbic 2019-10 Yes 500mg 500 mg, Unive rs acid 2-03 Oral, TID, ity of (vitamin C) 06:15: First dose [place] (VITAMIN C) 00 on [place] Medica l tablet 500 09/24/20 at [facility] mg 0015, Until Discontinu ed, Routine dexamethaso 2019-10 Yes 6mg 6 mg, IV Un michele ne 2-03 Piggyback, ity of (DECADRON 06:15: DAILY, [place] PHOSPHATE) 00 First dose Med ical 6 mg in on [place] Branch NaCl 0.9% 09/24/20 at (NS) 0015, piggyback Until Discontinu ed, 50 mL temazepam 2019-10 Yes 30mg 30 mg, Univer s (RESTORIL) 2-03 Oral, QHS, ity of capsule 30 06:15: First dose [place] mg 00 on [place] Medical 09/24/20 at Branch 0015, Until Discontinu ed, Routine lactobacill 2019-10 Yes 1{tbl} 1 tablet, Univers us 2-03 Oral, BID, ity of acidophilus 06:15: First dose [place] (ACIDOPHILL 00 on [place] Medica l US) 09/24/20 at Branch million 0015, cell -100 Until mg captab 1 Discontinu tablet ed, Routine NaCl 0.9% 2019-10 2020- No 1000mL at 100 Uni vers (NS) IV 2-03 12-03 mL/hr, IV ity of infusion 06:15: 18:56 Infusion, [place] 1,000 mL 00 :55 CONTINUOUS Medic al , Starting Branch Mon09/24/20 at 0015, Until Mon09/24/20 at 1256, Routine heparin 2019-10 2020- No 5000U 5,000 Univers (porcine) 2 12-03 Units, ity of injection 02:00: 06:03 Subcutaneo [place] 5,000 Units 00 :10 us, Q12H, Med ical First dose Branch on Mon09/23/20 at 2000, Until Discontinu ed, Routine NaCl 0.9% 2019-10 2020- No 1000mL at 100 Uni vers (NS) IV 11-25 12-03 mL/hr, IV ity of infusion 01:00: 06:02 Infusion, [place] 1,000 mL 00 :10 CONTINUOUS Medic al , Starting Branch Mon09/23/20 at 1900, Until Mon09/24/20 at 0002, Routine ondansetron 2019-10 Yes 4mg 4 mg, Slow Univers (ZOFRAN 203 IV Push, ity of (PF)) 00:56: Q6HPRN, [place] injection 4 35 Starting Medi mildred mg [facility] 09/23/20 at 1856, Until Discontinu ed, Routine, Nausea and Vomiting (N/V) acetaminoph 2019-10 Yes 650mg 650 mg, Un michele en 203 Oral, ity of (TYLENOL) 00:56: Q6HPRN, [place] tablet 650 28 Starting Medic al mg [facility] 09/23/20 at 1856, Until Discontinu ed, Routine, Pain (scale 1-3) NaCl 0.9% 2019-10 2020- No 1000mL at 999 Uni vers (NS) bolus 2-02 12-02 mL/hr, ity of infusion 22:00: 22:23 1,000 mL, [place] 1,000 mL 00 :00 IV Medical Infusion, Branch ONCE, 1 dose, 09/23/20 at 1600, JANEL HYDROcodone 2020- 2020- No 1{tbl} 1 tablet, Univers -acetaminop 0-03 10-03 Oral, ity of hen (NORCO 02:45: 01:52 ONCE, 1 [place] as 5) 5-325 mg 00 :00 dose, Fri Med ical tablet 1 07/24/20 at [facility] h tablet 2145, JANEL ATORVASTATI 2020-0 Yes 20mg Take 20 mg Univers N CALCIUM 6-11 by mouth ity of (ATORVASTAT 01:29: at [place] IN ORAL) 02 bedtime. Medical Branch NAPROXEN/ES 2020-0 Yes Take by Uni vers OMEPRAZOLE 6-11 mouth. ity of MAG (VIMOVO 01:29: [place] ORAL) Medical Branch carvedilol 2020-0 Yes 20mg Take 20 mg U nivers 20 mg 24 hr 6-11 by mouth ity of capsule 01:29: daily. [place] [address] Medical Branch temazepam 2020-0 Yes 30mg Take 30 mg Un michele (RESTORIL) 6-11 by mouth ity o f 30 mg 01:29: at [place] capsule 02 bedtime. Medical Branch omeprazole 2020-0 Yes 40mg Take 40 mg U nivers 40 mg 6-11 by mouth ity of capsule 01:29: daily. [place] [address] Medical Branch denosumab 2020-0 Yes 60mg inject 60 Uni vers 60 mg/mL 6-11 mg under ity of injection 01:29: the skin. Lang as 02 Pt takes Medical twice a Branch year ATORVASTATI 2020-0 Yes 20mg Take 20 mg Univers N CALCIUM 6-11 by mouth ity of (ATORVASTAT 01:29: at [place] IN ORAL) 02 bedtime. Medical Branch NAPROXEN/ES 2020-0 Yes Take by Uni vers OMEPRAZOLE 6-11 mouth. ity of MAG (VIMOVO 01:29: [place] ORAL) Medical Branch carvedilol 2020-0 Yes 20mg Take 20 mg U nivers 20 mg 24 hr 6-11 by mouth ity of capsule 01:29: daily. [place] [address] Medical Branch temazepam 2020-0 Yes 30mg Take 30 mg Un michele (RESTORIL) 6-11 by mouth ity o f 30 mg 01:29: at [place] capsule 02 bedtime. Medical Branch omeprazole 2020-0 Yes 40mg Take 40 mg U nivers 40 mg 6-11 by mouth ity of capsule 01:29: daily. Medical Branch denosumab 2020-0 Yes 60mg inject 60 Uni vers 60 mg/mL 6-11 mg under ity of injection 01:29: the skin. Lang as 02 Pt takes Medical twice a Branch year ATORVASTATI 2020-0 Yes 20mg Take 20 mg Univers N CALCIUM 6-11 by mouth ity of (ATORVASTAT 01:29: at [place] IN ORAL) 02 bedtime. Medical Branch NAPROXEN/ES 2020-0 Yes Take by Uni vers OMEPRAZOLE 6-11 mouth. ity of MAG (VIMOVO 01:29: [place] ORAL) 02 Medical Branch carvedilol 2020-0 Yes 20mg Take 20 mg U nivers 20 mg 24 hr 6-11 by mouth ity of capsule 01:29: daily. Medical Branch temazepam 2020-0 Yes 30mg Take 30 mg Un michele (RESTORIL) 6-11 by mouth ity o f 30 mg 01:29: at [place] capsule 02 bedtime. Medical Branch omeprazole 2020-0 Yes 40mg Take 40 mg U nivers 40 mg 6-11 by mouth ity of capsule 01:29: daily. Medical Branch denosumab 2020-0 Yes 60mg inject 60 Uni vers 60 mg/mL 6-11 mg under ity of injection 01:29: the skin. Lang as 02 Pt takes Medical twice a Branch year ATORVASTATI 2020-0 Yes 20mg Take 20 mg Univers N CALCIUM 6-11 by mouth ity of (ATORVASTAT 01:29: at [place] IN ORAL) 02 bedtime. Medical Branch NAPROXEN/ES 2020-0 Yes Take by Uni vers OMEPRAZOLE 6-11 mouth. ity of MAG (VIMOVO 01:29: [place] ORAL) 02 Medical Branch carvedilol 2020-0 Yes 20mg Take 20 mg U nivers 20 mg 24 hr 6-11 by mouth ity of capsule 01:29: daily. Medical Branch temazepam 2020-0 Yes 30mg Take 30 mg Un michele (RESTORIL) 6-11 by mouth ity o f 30 mg 01:29: at [place] capsule 02 bedtime. Medical Branch omeprazole 2020-0 Yes 40mg Take 40 mg U nivers 40 mg 6-11 by mouth ity of capsule 01:29: daily. [place] 02 Medical Branch denosumab 2020-0 Yes 60mg inject 60 Uni vers 60 mg/mL 6-11 mg under ity of injection 01:29: the skin. Lang as 02 Pt takes Medical twice a Branch year ATORVASTATI 2020-0 Yes 20mg Take 20 mg Univers N CALCIUM 6-11 by mouth ity of (ATORVASTAT 01:29: at [place] IN ORAL) 02 bedtime. Medical Branch NAPROXEN/ES 2020-0 Yes Take by Uni vers OMEPRAZOLE 6-11 mouth. ity of MAG (VIMOVO 01:29: [place] ORAL) 02 Medical Branch carvedilol 2020-0 Yes 20mg Take 20 mg U nivers 20 mg 24 hr 6-11 by mouth ity of capsule 01:29: daily. [place] [facility] temazepam 2020-0 Yes 30mg Take 30 mg Un michele (RESTORIL) 6-11 by mouth ity o f 30 mg 01:29: at [place] capsule 02 bedtime. Medical Branch omeprazole 2020-0 Yes 40mg Take 40 mg U nivers 40 mg 6-11 by mouth ity of capsule 01:29: daily. [place] [facility] Branch denosumab 2020-0 Yes 60mg inject 60 Uni vers 60 mg/mL 6-11 mg under ity of injection 01:29: the skin. [place] as 02 Pt takes Medical twice a Branch year ATORVASTATI 2020-0 Yes 20mg Take 20 mg Univers N CALCIUM 6-11 by mouth ity of (ATORVASTAT 01:29: at [place] IN ORAL) 02 bedtime. Medical Branch NAPROXEN/ES 2020-0 Yes Take by Uni vers OMEPRAZOLE 6-11 mouth. ity of MAG (VIMOVO 01:29: [place] ORAL) 02 Medical Branch carvedilol 2020-0 Yes 20mg Take 20 mg U nivers 20 mg 24 hr 6-11 by mouth ity of capsule 01:29: daily. [place] [facility] Branch temazepam 2020-0 Yes 30mg Take 30 mg Un michele (RESTORIL) 6-11 by mouth ity o f 30 mg 01:29: at [place] capsule 02 bedtime. Medical Branch omeprazole 2020-0 Yes 40mg Take 40 mg U nivers 40 mg 6-11 by mouth ity of capsule 01:29: daily. 02 Medical Branch denosumab 2020-0 Yes 60mg inject 60 Uni vers 60 mg/mL 6-11 mg under ity of injection 01:29: the skin. [place] as 02 Pt takes Medical twice a Branch year ATORVASTATI 2020-0 Yes 20mg Take 20 mg Univers N CALCIUM 6-11 by mouth ity of (ATORVASTAT 01:29: at [place] IN ORAL) 02 bedtime. Medical Branch NAPROXEN/ES 2020-0 Yes Take by Uni vers OMEPRAZOLE 6-11 mouth. ity of MAG (VIMOVO 01:29: [place] ORAL) 02 Medical Branch carvedilol 2020-0 Yes 20mg Take 20 mg U nivers 20 mg 24 hr 6-11 by mouth ity of capsule 01:29: daily. Medical Branch temazepam 2020-0 Yes 30mg Take 30 mg Un michele (RESTORIL) 6-11 by mouth ity o f 30 mg 01:29: at [place] capsule 02 bedtime. Medical Branch omeprazole 2020-0 Yes 40mg Take 40 mg U nivers 40 mg 6-11 by mouth ity of capsule 01:29: daily. Medical Branch denosumab 2020-0 Yes 60mg inject 60 Uni vers 60 mg/mL 6-11 mg under ity of injection 01:29: the skin. Lang as 02 Pt takes Medical twice a Branch year ATORVASTATI 2020-0 Yes 20mg Take 20 mg Univers N CALCIUM 6-11 by mouth ity of (ATORVASTAT 01:29: at [place] IN ORAL) 02 bedtime. Medical Branch NAPROXEN/ES 2020-0 Yes Take by Uni vers OMEPRAZOLE 6-11 mouth. ity of MAG (VIMOVO 01:29: [place] ORAL) 02 Medical Branch carvedilol 2020-0 Yes 20mg Take 20 mg U nivers 20 mg 24 hr 6-11 by mouth ity of capsule 01:29: daily. [place] [facility] Branch temazepam 2020-0 Yes 30mg Take 30 mg Un michele (RESTORIL) 6-11 by mouth ity o f 30 mg 01:29: at [place] capsule 02 bedtime. Medical Branch omeprazole 2020-0 Yes 40mg Take 40 mg U nivers 40 mg 6-11 by mouth ity of capsule 01:29: daily. [place] [facility] Branch denosumab 2020-0 Yes 60mg inject 60 Uni vers 60 mg/mL 6-11 mg under ity of injection 01:29: the skin. Lang as 02 Pt takes Medical twice a Branch year ATORVASTATI 2020-0 Yes 20mg Take 20 mg Univers N CALCIUM 6-11 by mouth ity of (ATORVASTAT 01:29: at [place] IN ORAL) 02 bedtime. Medical Branch NAPROXEN/ES 2020-0 Yes Take by Uni vers OMEPRAZOLE 6-11 mouth. ity of MAG (VIMOVO 01:29: [place] ORAL) 02 Medical Branch carvedilol 2020-0 Yes 20mg Take 20 mg U nivers 20 mg 24 hr 6-11 by mouth ity of capsule 01:29: daily. [place] [facility] Branch temazepam 2020-0 Yes 30mg Take 30 mg Un michele (RESTORIL) 6-11 by mouth ity o f 30 mg 01:29: at [place] capsule 02 bedtime. Medical Branch omeprazole 2020-0 Yes 40mg Take 40 mg U nivers 40 mg 6-11 by mouth ity of capsule 01:29: daily. [place] [facility] Branch denosumab 2020-0 Yes 60mg inject 60 Uni vers 60 mg/mL 6-11 mg under ity of injection 01:29: the skin. Lang as 02 Pt takes Medical twice a Branch year benzocaine 2019-0 2020- No 1{spray 1 [place], Univers (HURRICAINE 03-31 } Oral, ity of ONE) 20 % 22:45: 22:00 ONCE, 1 [place] mucosal 00 :00 dose, [facility] Medical spray 1 03/31/20 at Branch [place] 1745, Routine temazepam 2020-0 Yes 30mg 30 mg, Univer s (RESTORIL) -09 Oral, ity of capsule 30 22:43: QHSPRN, [place] mg 23 Starting Medical [facility] 03/31/20 Branch at 1743, Until Discontinu ed, Routine, Insomnia LORazepam 2019-0 2020- No .25mg 0.25 mg, Un michele (ATIVAN) 03-31- Slow IV ity of injection 12:45: 11:39 Push, [place] 0.25 mg 00 :00 ONCE, 1 Medical dose, [facility] 03/31/20 at 0745, Routine morpHINE 2019-0 2020- No 2mg 2 mg, Slow Un michele injection 2 03-31-09 IV Push, ity of mg 09:00: 07:57 ONCE, 1 [place] 00 :00 dose, [facility] Medical 03/31/20 at Branch 0400, Routine haloperidol 2020-0 2020- No 2.5mg 2.5 mg, U nivers lactate 03-31 06-09 Intramuscu ity o f (HALDOL) 06:15: 05:07 [place]CE[place] injection 00 :00 1 dose, Medical 2.5 mg [facility] 03/31/20 Branch at 0115, Routine SUMAtriptan 2020-0 2020- No 6mg 6 mg, [facility] ers (IMITREX) 03-30-08 Subcutaneo ity of injection 6 23:45: 22:58 us, ONCE, [place] mg 00 :00 1 dose, Medical [facility] 03/30/20 Branch at 1845, Routine butalbital- 2019-0 Yes 1{tbl} 1 tablet, Univers acetaminoph 03-30 Oral, ity of en-caff 21:20: Q6HPRN, [place] (ESGIC) 17 Starting Medical 50-325-40 [facility] 03/30/20 Bran ch mg tablet 1 at 1620, tablet Until Discontinu ed, Routine, Headache benzocaine 2020-0 2020- No 1{spray 1 [place], Univers (HURRICAINE 03-30 } Oral, ity of ONE) 20 % 19:00: 18:25 ONCE, 1 [place] mucosal 00 :00 dose, [facility] Medical spray 1 03/30/20 at Branch [place] 1400, Routine FENTanyl PF 2019-0 Yes 50ug 50 mcg, Uni vers (SUBLIMAZE 03-30 Slow IV ity of (PF)) 18:16: Push, [place] injection 05 Q6HPRN, Medical 50 mcg Starting Branch [facility] 03/30/20 at 1316, Until Discontinu ed, Routine, Pain (scale 7-10) LORazepam 2020-0 2020- No .5mg 0.5 mg, [facility] ers (ATIVAN) 03-30-08 Slow IV ity of injection 15:30: 14:49 Push, [place] 0.5 mg 00 :00 ONCE, 1 Medical dose, [facility] 03/30/20 at 1030, Routine proMETHazin 2020-0 Yes 25mg 25 mg, IV U nivers e 03-30 Piggyback, ity of (PHENERGAN) 14:18: Q6HPRN, Lang as 25 mg in 06 Starting Medical NaCl 0.9% [facility] 03/30/20 Bran ch (NS) 50 mL at 0918, IV Until piggyback Discontinu ed, Routine, Nausea and Vomiting (N/V) morpHINE 2019-0 2020- No 2mg 2 mg, Slow Un michele injection 2 03-30 IV Push, ity of mg 08:02: 08:07 ONCE, 1 [place] 00 :00 dose, [facility] 03/30/20 at Branch 0315, Routine ketorolac 2019-0 2020- No 15mg 15 mg, Unive rs (TORADOL) 03-30 Slow IV ity of injection 04:34: 05:21 Push, [place] 15 mg 00 :00 ONCE, 1 Medical dose, [facility] 03/29/20 at 2345, Routine
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 03/30/20 at 0918, Routine, Nausea and Vomiting (N/V) D5W 0.9% 2020-0 Yes IV Univers NaCl (NS) 1 03-29 Infusion, ity of L + KCL 20 16:30: at 125 [place] mEq 00 mL/hr, Medical CONTINUOUS Branch , Starting [place] 03/29/20 at 1130, Until Discontinu ed, Routine enoxaparin 2019-0 Yes 40mg 40 mg, Unive rs (LOVENOX) 03-29 Subcutaneo ity of injection 14:00: [place], DAILY, [place] 40 mg 00 First dose Medical on [place] Branch 03/29/20 at 0900, Until Discontinu ed, Routine proMETHazin 2020-0 2019- No 12.5mg 12.5 mg, Univers e 03-29 IV ity of (PHENERGAN) 04:38: 04:52 Piggyback, [place] 12.5 mg in 00 :00 ONCE, 1 Medica l NaCl 0.9% dose, Sat Branc h (NS) 50 mL 03/28/20 at piggyback 2345, 50 mL iohexol 2020-0 2020- No 80mL 80 mL, Univers (OMNIPAQUE 03-29 Intravenou it y of 350 04:15: 04:15 s, ONCE, 1 [place] BULK-100 00 :00 dose, Sat Medica l mL) 03/28/20 at Branch injection 2315, 80 mL Routine famotidine 2020-0 Yes 20mg 20 mg, Unive rs (PEPCID 03-29 Slow IV ity of (PF)) 02:45: Push, [place] injection 00 Q24H, Medical 20 mg First dose Branch on 03/28/20 at 2145, Until Discontinu ed, Routine hydralAZINE 2019-0 Yes 10mg 10 mg, Univ ers (APRESOLINE 03-29 Intravenou it y of ) injection 02:15: s, Q4HPRN, [place] 10 mg 07 Starting Medical 03/28/20 Branch at 2115, Until Discontinu ed, Routine, sbp > 160 or dbp > 100 iohexol 2020-0 2020- No 25mL 25 mL, Univers (OMNIPAQUE 03-29 Oral, ity of 350 BULK) 02:00: 02:00 ONCE, 1 [place] 25 mL 00 :00 dose, Sat Medical 03/28/20 at Branch 2100, Routine ATORVASTATI 2020-0 Yes 20mg Take 20 mg Univers N CALCIUM 03-28 by mouth ity of (ATORVASTAT 19:56: at [place] IN ORAL) 43 bedtime. Medical Branch NAPROXEN/ES 2020-0 Yes Take by Uni vers OMEPRAZOLE 03-28 mouth. ity of MAG (VIMOVO 19:56: [place] ORAL) 43 Medical Branch carvedilol 2020-0 Yes 20mg Take 20 mg U nivers 20 mg 24 hr -06 by mouth ity of capsule 19:56: daily. [place] [address] Medical [place] temazepam 2020-0 Yes 30mg Take 30 mg Un michele (RESTORIL) 06 by mouth ity o f 30 mg 19:56: at [place] capsule 43 bedtime. Medical Branch omeprazole 2020-0 Yes 40mg Take 40 mg U nivers 40 mg 06 by mouth ity of capsule 19:56: daily. [place] [address] Medical Branch denosumab 2020-0 Yes 60mg inject 60 Uni vers 60 mg/mL 6-06 mg under ity of injection 19:56: the skin. Lang as 43 Pt takes Medical twice a Branch year NaCl 0.9% 2019-0 2020- No 1000mL at 100 Uni vers (NS) IV 03-28- mL/hr, IV ity of infusion 19:45: 15:13 Infusion, Lang as 1,000 mL 00 :05 CONTINUOUS Medic al , Starting Branch 03/28/20 at 1445, Until 03/29/20 at 1013, Routine ondansetron 2019-0 2020- No 4mg 4 mg, Slow Univers (ZOFRAN 03-28 IV Push, ity of (PF)) 19:34: 16:[address] [place] [address] injection 4 00 :18 Starting Medi mildred mg 03/28/20 Branch at 1434, Until 03/29/20 at 1129, Routine, Nausea and Vomiting (N/V) morpHINE 2020-0 2020- No 2mg 2 mg, Slow Un michele injection 2 03-28 IV Push, ity of mg 19:33: 19:32 Q4RN, [place] 55 :55 Starting Medical 03/28/20 Branch at 1433, Until 03/29/20 at 1432, Routine, Pain (scale 7-10) acetaminoph 2020-0 Yes 650mg 650 mg, Un michele en 03-28 Oral, ity of (TYLENOL) 19:33: Q6[place], [place] tablet 650 42 Starting Medic al mg 03/28/20 Branch at 1433, Until Discontinu ed, Routine, Pain (scale 1-3) ondansetron 2019-0 2020- No 4mg 4 mg, Slow Univers (ZOFRAN 03-28 IV Push, ity of (PF)) 18:15: 17:48 ONCE, 1 [place] injection 4 00 :00 dose, Sat Med ical mg 03/28/20 at Branch 1315, JANEL morpHINE 2019-0 2020- No 4mg 4 mg, Slow Un michele injection 4 03-28 IV Push, ity of mg 18:15: 17:50 ONCE, 1 [place] 00 :00 dose, Sat Medical 03/28/20 at Branch 1315, STAT iohexol 2019-0 2020- No 120mL 120 mL, Unive rs (OMNIPAQUE 03-28 Intravenou it y of 350 16:15: 16:06 s, ONCE, 1 [place] BULK-100 00 :00 dose, Sat Medica l mL) 03/28/20 at Branch injection 1115, 120 mL Routine sodium 2019-0 Yes 5mL 5 mL, Univers chloride 03-28 Intravenou ity o f (NS) 14:57: s, PRN, [place] injection 5 34 Starting Medi mildred mL 03/28/20 Branch at 0957, Until Discontinu ed, Routine, IV line flushing ATORVASTATI Yes Take by Uni vers N CALCIUM 9-16 mouth. ity of (ATORVASTAT 19:14: [place] IN ORAL) Medical Branch NAPROXEN/ES Yes Take by Uni vers OMEPRAZOLE 9-16 mouth. ity of MAG (VIMOVO 19:14: [place] ORAL) Medical Branch carvedilol Yes 20mg Take 20 mg U nivers 20 mg 24 hr -16 by mouth ity of capsule 19:14: daily. [place] [address] Medical Branch temazepam 2018-0 Yes 30mg Take 30 mg Un michele (RESTORIL) 16 by mouth ity o f 30 mg 19:14: at [place] capsule 49 bedtime. Medical Branch omeprazole 2018-0 Yes 40mg Take 40 mg U nivers 40 mg 9-16 by mouth ity of capsule 19:14: daily. [place] [address] Medical Branch ATORVASTATI 0 Yes Take by Uni vers N CALCIUM 9-16 mouth. ity of (ATORVASTAT 19:14: [place] IN ORAL) 49 Medical Branch NAPROXEN/ES 2018-0 Yes Take by Uni vers OMEPRAZOLE 9-16 mouth. ity of MAG (VIMOVO 19:14: [place] ORAL) [address] [place] [address] Branch carvedilol 2018-0 Yes 20mg Take 20 mg U nivers 20 mg 24 hr 9-16 by mouth ity of capsule 19:14: daily. [address] temazepam 2019-0 Yes 30mg Take 30 mg Un michele (RESTORIL) 9-16 by mouth ity o f 30 mg 19:14: at [place] capsule 49 bedtime. Medical Branch omeprazole 2019-0 Yes 40mg Take 40 mg U nivers 40 mg 9-16 by mouth ity of capsule 19:14: daily. [address] ATORVASTATI 2019-0 Yes Take by Uni vers N CALCIUM 9-16 mouth. ity of (ATORVASTAT 19:14: [place] IN ORAL) [address] [place] [address] Branch NAPROXEN/ES 2018-0 Yes Take by Uni vers OMEPRAZOLE 9-16 mouth. ity of MAG (VIMOVO 19:14: [place] ORAL) [address] [place] [address] carvedilol 2018-0 Yes 20mg Take 20 mg U nivers 20 mg 24 hr 9-16 by mouth ity of capsule 19:14: daily. [address] temazepam 2018-0 Yes 30mg Take 30 mg Un michele (RESTORIL) 9-16 by mouth ity o f 30 mg 19:14: at [place] capsule 49 bedtime. Medical Branch omeprazole 2018-0 Yes 40mg Take 40 mg U nivers 40 mg 9-16 by mouth ity of capsule 19:14: daily. [address] ibuprofen 2018-0 Yes 400mg 400 mg, Univ ers (IBU) 9-16 Oral, TID, ity of tablet 400 19:00: First dose [place] mg 00 on [facility] 07/08/19 at Branch 1400, Until Discontinu ed, Routine ibuprofen 2018-0 Yes [id number] 400mg Take 1 U nivers 400 mg 9-16 tablet by ity of tablet 00:00: mouth 3 [place] 00 (three) Medical times [place] daily with meals as needed (chest pain). ibuprofen 2018-0 Yes [id number] 400mg Take 1 U nivers 400 mg 9-16 tablet by ity of tablet 00:00: mouth 3 [place] 00 (three) Medical times [place] daily with meals as needed (chest pain). ibuprofen 2018-0 Yes [id number] 400mg Take 1 U nivers 400 mg 9-16 tablet by ity of tablet 00:00: mouth 3 [place] 00 (three) Medical times [place] daily with meals as needed (chest pain). ibuprofen 2020- No [id number] 400mg Take 1 Univers 400 mg 07-08-06 tablet by ity of tablet 00:00: 00:00 mouth 3 [place] 00 :00 (three) Medical times [place] daily with meals as needed (chest pain). omeprazole 2018-0 Yes 40mg 40 mg, Unive rs (PRILOSEC) 15 Oral, ity of capsule 40 14:00: DAILY, [place] mg 00 First dose Medical on [facility] 07/07/19 at 0900, Until Discontinu ed temazepam Yes 30mg 30 mg, Univer s (RESTORIL) 07-07 Oral, QHS, ity of capsule 30 02:00: First dose [place] mg [address] [facility] 07/06/19 at Branch 2100, Until Discontinu ed, Routine iohexol 2019- No 120mL 120 mL, Unive rs (OMNIPAQUE 07-06 Intravenou it y of 350 22:30: 21:57 s, ONCE, 1 [place] BULK-150 00 :00 dose, [facility] Medica l mL) 07/06/19 at Branch injection 1730, 120 mL Routine carvedilol Yes 12.5mg 12.5 mg, U nivers (COREG) 07-06 Oral, BID ity of tablet 12.5 22:00: MEALS, [place] mg 00 First dose Medical on [facility] 07/06/19 at 1700, Until Discontinu ed HYDROcodone 2019- No 1{tbl} 1 tablet, Univers -acetaminop 07-06 Oral, ity of hen (NORCO 20:05: 20:04 Q6HPRN, [place] as 5) 5-325 mg 04 :04 Starting Medi mildred tablet 1 [facility] tablet 07/06/19 at 1505, Until 07/08/19 at 1504, Routine, Pain (scale 4-6) acetaminoph 2018-0 Yes 650mg 650 mg, Un michele en 07-06 Oral, ity of (TYLENOL) 20:05: Q6HPRN, [place] tablet 650 01 Starting Medic al mg [facility] 07/06/19 at 1505, Until Discontinu ed, Routine, Pain (scale 1-3) aspirin 2019- 2019- No 325mg 325 mg, Unive rs tablet 325 07-06 Oral, ity of mg 15:30: 15:33 ONCE, 1 [place] 00 :00 dose, Sat Medical 07/06/19 at Branch 1030, STAT sodium 2018-0 Yes 5mL 5 mL, Univers chloride 07-06 Intravenou ity o f (NS) 15:20: s, PRN, [place] injection 5 47 Starting Medi mildred mL Sat Branch 07/06/19 at 1020, Until Discontinu ed, Routine, IV line flushing Vimovo 500 Vimovo 500 2019-0 No Vim[place] 500 Cheri mg-20 mg mg-20 mg 2-05 mg-20 mg Ort hope tablet,imme tablet,imme 00:00: tablet,imm dic diate and diate and 00 ediate and Sports delay delay delay Medicin release release release e lidocaine 5 Yes APPLY ONE U nivers % (700 1-02 PATCH TO ity of mg/patch) 00:00: MOST [place] patch 00 PAINFUL Medical AREA EVERY Branch 12 HOURS NEEDED FOR PAIN. PHARMACIST : DISPENSE ONE BOX lidocaine 5 Yes APPLY ONE U nivers % (700 1-02 PATCH TO ity of mg/patch) 00:00: MOST [place] patch 00 PAINFUL Medical AREA EVERY Branch 12 HOURS NEEDED FOR PAIN. PHARMACIST : DISPENSE ONE BOX lidocaine 5 Yes APPLY ONE U nivers % (700 1-02 PATCH TO ity of mg/patch) 00:00: MOST [place] patch 00 PAINFUL Medical AREA EVERY Branch 12 HOURS NEEDED FOR PAIN. PHARMACIST : DISPENSE ONE BOX lidocaine 5 Yes APPLY ONE U nivers % (700 1-02 PATCH TO ity of mg/patch) 00:00: MOST [place] patch 00 PAINFUL Medical AREA EVERY Branch 12 HOURS NEEDED FOR PAIN. PHARMACIST : DISPENSE ONE BOX lidocaine 5 Yes APPLY ONE U nivers % (700 1-02 PATCH TO ity of mg/patch) 00:00: MOST [place] patch 00 PAINFUL Medical AREA EVERY Branch 12 HOURS NEEDED FOR PAIN. PHARMACIST : DISPENSE ONE BOX lidocaine 5 Yes APPLY ONE U nivers % (700 1-02 PATCH TO ity of mg/patch) 00:00: MOST [place] patch 00 PAINFUL Medical AREA EVERY Branch 12 HOURS NEEDED FOR PAIN. PHARMACIST : DISPENSE ONE BOX lidocaine 5 2018-0 Yes APPLY ONE U nivers % (700 1-02 PATCH TO ity of mg/patch) 00:00: MOST [place] patch 00 PAINFUL Medical AREA EVERY Branch 12 HOURS NEEDED FOR PAIN. PHARMACIST : DISPENSE ONE BOX lidocaine 5 2018-0 Yes APPLY ONE U nivers % (700 1-02 PATCH TO ity of mg/patch) 00:00: MOST [place] patch 00 PAINFUL Medical AREA EVERY Branch 12 HOURS NEEDED FOR PAIN. PHARMACIST : DISPENSE ONE BOX lidocaine 5 0 Yes APPLY ONE U nivers % (700 1-02 PATCH TO ity of mg/patch) 00:00: MOST [place] patch 00 PAINFUL Medical AREA EVERY Branch 12 HOURS NEEDED FOR PAIN. PHARMACIST : DISPENSE ONE BOX lidocaine 5 0 Yes APPLY ONE U nivers % (700 1-02 PATCH TO ity of mg/patch) 00:00: MOST [place] patch 00 PAINFUL Medical AREA EVERY Branch 12 HOURS NEEDED FOR PAIN. PHARMACIST : DISPENSE ONE BOX lidocaine 5 0 Yes APPLY ONE U nivers % (700 1-02 PATCH TO ity of mg/patch) 00:00: MOST [place] patch 00 PAINFUL Medical AREA EVERY Branch 12 HOURS NEEDED FOR PAIN. PHARMACIST : DISPENSE ONE BOX lidocaine 5 0 Yes APPLY ONE U nivers % (700 1-02 PATCH TO ity of mg/patch) 00:00: MOST [place] patch 00 PAINFUL Medical AREA EVERY Branch 12 HOURS NEEDED FOR PAIN. PHARMACIST : DISPENSE ONE BOX lidocaine 5 0 Yes APPLY ONE U nivers % (700 1-02 PATCH TO ity of mg/patch) 00:00: MOST [place] patch 00 PAINFUL Medical AREA EVERY Branch 12 HOURS NEEDED FOR PAIN. PHARMACIST : DISPENSE ONE BOX lidocaine 5 0 2020- No APPLY ONE Univers % (700 1-02 12-04 PATCH TO ity of mg/patch) 00:00: 00:00 MOST [place] patch 00 :00 PAINFUL Medical AREA EVERY Branch 12 HOURS NEEDED FOR PAIN. PHARMACIST : DISPENSE ONE BOX traMADOL 50 2019- No 50mg Take 1 Uni vers mg tablet 10-24 09-14 tablet by ity of 00:00: 00:00 mouth [place] 00 :00 every 6 Medical (six) Branch hours as needed (pain). naproxen 2017-10- No 550mg Take 1 Unive rs sodium 07-06 tablet by ity of (ANAPROX 00:00: 00:00 mouth 2 [place] DS) 550 mg 00 :00 (two) Medical tablet times Branch daily with meals. methylPREDN 2017-10- No Take by Un michele ISolone 07-06 mouth ity of (MEDROL, 00:00: 00:00 SEE-INSTRU [place] SHERRI,) 4 mg 00 :00 CTIONS. Medica l tablets follow Branch package directions atorvastati atorvastati 2016-10 No atorvastat Cheri n 10 mg n 10 mg 1-16 in 10 mg Ortho pe tablet tablet 00:00: tablet dic 00 Sports Medicin e Coreg 12.5 Coreg 12.5 2016-10 No Coreg 12.5 Cheri mg tablet mg tablet 1-16 mg tablet Orthope 00:00: dic 00 Sports Medicin e Lyrica 25 Lyrica 25 2016-10 No Lyrica 25 Cheri mg capsule mg capsule 1-16 mg capsule Orthope 00:00: dic 00 Sports Medicin e ondansetron 2016-10 2019- No 4mg Take 1 Uni vers (ZOFRAN, 11-06 tablet by it y of HYDROCHLORI 00:00: 00:00 mouth [place] donaldo CARO,) 4 mg 00 :00 every 8 Medical tablet (eight) Branch hours as needed for Nausea and Vomiting (N/V). aspirin-humza Yes 1{tbl} Take [address] taminophen- 8-25 tablet by Juan Carlos es caffeine 13:18: mouth Medical (EXCEDRIN 09 every 6 Center MIGRAINE) (six) 250-250-65 hours as mg per needed for tablet Pain. atorvastati Yes 20mg QD Take [address] [facility] (LIPITOR) 8-25 by mouth Luke s 20 MG 13:18: daily. Medical tablet 09 Center carvedilol Yes 20mg Q.5D Take [address] (COREG CR) 8-25 by mouth 2 Juan Carlos es 20 MG 24 hr 13:18: (two) Medic al capsule 09 times Center daily. naproxen-es Yes Take by [facility] omeprazole 8-25 mouth. [facility] 375-20 mg 13:18: Medical TbID 09 Center pregabalin 2017-0 Yes 50mg [id number] Take [address] [facility] (LYRICA) 50 8-25 [id number] by mouth 3 [facility] MG capsule 13:18: 3D (three) Medi mildred 09 times Center daily. temazepam 2017-0 Yes 30mg Take [address] (RESTORIL) 8-25 by mouth [facility] 30 mg 13:18: every Medical capsule 09 night as Center needed for Sleep. ALPRAZolam 2017-0 Yes .5mg Take 0.[address] [facility] (XANAX) 0.5 8-25 mg by [facility] MG tablet 13:18: mouth 3 Medic al 09 (three) Center times daily as needed for Anxiety. aspirin-humza 2017-0 Yes 1{tbl} Take [address] taminophen- 8-25 tablet by Juan Carlos es caffeine 13:18: mouth Medical (EXCEDRIN 09 every 6 Center MIGRAINE) (six) 250-250-65 hours as mg per needed for tablet Pain. atorvastati 2017-0 Yes 20mg QD Take [address] (LIPITOR) 8-25 by mouth Luke s 20 MG 13:18: daily. Medical tablet 09 Center carvedilol 2017-0 Yes 20mg Q.5D Take [address] (COREG CR) 8-25 by mouth 2 Juan Carlos es 20 MG 24 hr 13:18: (two) Medic al capsule 09 times Center daily. naproxen-es 2017-0 Yes Take by [facility] omeprazole 8-25 mouth. [facility] 375-20 mg 13:18: Medical TbID 09 Center pregabalin 2017-0 Yes 50mg [id number] Take [address] (LYRICA) 50 8-25 [id number] by mouth 3 [facility] MG capsule 13:18: 3D (three) Medi mildred 09 times Center daily. temazepam 2017-0 Yes 30mg Take [address] (RESTORIL) 8-25 by mouth [facility] 30 mg 13:18: every Medical capsule 09 night as Center needed for Sleep. ALPRAZolam 2017-0 Yes .5mg Take 0.[address] (XANAX) 0.5 8-25 mg by [facility] MG tablet 13:18: mouth 3 Medic al 09 (three) Center times daily as needed for Anxiety. nitroglycer 2019- No .4mg Place 1 Un michele in 0.4 mg 31 -14 tablet ity of sublingual 00:00: 00:00 under the [place] tablet 00 :00 tongue Medical every 5 Branch (five) minutes as needed for Chest pain. meloxicam meloxicam 2013-10 No meloxicam Cheri 7.5 mg 7.5 mg 1-19 7.5 mg Orthope tablet TAKE tablet TAKE 00:00: tablet dic 1 TABLET 1 TABLET 00 TAKE 1 Sport s BID WITH BID WITH TABLET BID M edicin FOOD AFTER FOOD AFTER WITH FOOD e STERIODS STERIODS AFTER ARE ARE STERIODS COMPLETED COMPLETED ARE COMPLETED prednisone prednisone 2013-10 No prednisone Cheri 10 mg 10 mg 1-19 10 mg Orthope tablet TAKE tablet TAKE 00:00: tablet dic TABLETS TABLETS 00 TAKE Sports 6,5,4,3,2,1 6,5,4,3,2,1 TABLETS Medicin 6,5,4,3,2, e 1 Robaxin 500 Robaxin 500 2013-10 No Robaxin Cheri mg tablet mg tablet 1-19 500 mg Ort hope TAKE 1 TAKE 1 00:00: tablet dic TABLET TID TABLET TID 00 TAKE 1 S ports TABLET TID Medicin e Voltaren 1 Voltaren 1 No Voltaren 1 Cheri % topical % topical 6-27 % topical Orthope gel apply gel apply 00:00: gel apply dic to affected to affected 00 to S ports area four area four affected M edicin times a day times a day area four e times a day prednisone prednisone No prednisone Cheri 5 mg tablet 5 mg tablet 3-27 5 mg O rthope 1 tablet 4 1 tablet 4 00:00: tablet 1 dic times a day times a day 00 tablet 4 Sports for 5 days, for 5 days, times a Medicin 1 tablet 3 1 tablet 3 day for 5 e times a day times a day days, 1 for 5 days, for 5 days, tablet 3 1 tablet 2 1 tablet 2 times a times a day times a day day for 5 for 5 days, for 5 days, days, 1 1/2 tablet 1/2 tablet tablet 2 2 times a 2 times a times a day for 5 day for 5 day for 5 days days days, 1/2 tablet 2 times a day for 5 days hydrocodone hydrocodone No hydrocodon Cheri 5 5 2-03 e 5 Orthope mg-acetamin mg-acetamin 00:00: mg-acetami dic ophen 325 ophen 325 00 nophen 325 Sports mg tablet mg tablet mg tablet Medicin TAKE 1 TAKE 1 TAKE 1 e TABLET POQ TABLET POQ TABLET POQ 4-6H PRN 4-6H PRN 4-6H PRN PAIN PAIN PAIN Medrol Medrol No Medrol Cheri (Sherri) 4 mg (Sherri) 4 mg 1-06 (Sherri) 4 mg Orthope tablets in tablets in 00:00: tablets in dic a dose pack a dose pack 00 a dose Sports take as take as pack take Medi rin directed on directed on as e package package directed on package alprazolam alprazolam No alprazolam Cheri 0.5 mg 0.5 mg 0.5 mg Orthope tablet TAKE tablet TAKE tablet dic 1 TABLET BY 1 TABLET BY TAKE 1 Sports MOUTH EVERY MOUTH EVERY TABLET BY Medicin DAY. DAY. MOUTH e EVERY DAY. Ambien 5 mg Ambien 5 mg No Ambien 5 Cheri tablet RX tablet RX mg tablet Orthope by other MD by other MD RX by dic other MD Amber blanco atorvastati atorvastati No atorvastat Cheri n 20 mg n 20 mg in 20 mg Ortho pe tablet RX tablet RX tablet RX dic by other MD by other MD by other Sports MD Walsh e carvedilol carvedilol No carvedilol Cheri phosphate phosphate phosphate Orthope ER 20 mg ER 20 mg ER 20 mg dic capsule,ext capsule,ext capsule,ex Sports .[id number] t.release2 Medicin r r 4hr e multiphase multiphase multiphase TAKE 1 TAKE 1 TAKE 1 CAPSULE BY CAPSULE BY CAPSULE BY MOUTH DAILY MOUTH DAILY MOUTH DAILY Celebrex Celebrex No Celebrex Aza nicola 200 mg 200 mg 200 mg Orthope capsule two capsule two capsule dic caplets by caplets by two Spo rts mouth every mouth every caplets by Medicin day for one day for one mouth e month ( for month ( for every day after after for one surgery use surgery use month ( only) only) for after surgery use only) citalopram citalopram No citalopram Cheri 10 mg 10 mg 10 mg Orthope tablet tablet tablet dic Sports Medicin e Corgard 20 Corgard 20 No Corgard 20 Cheri mg tablet mg tablet mg tablet Orthope RX by other RX by other RX by bethel carlson MD Sports Medicin e Lyrica 50 Lyrica 50 No Lyrica 50 Cheri mg capsule mg capsule mg capsule Orthope RX by other RX by other RX by bethel carlson MD Sports Medicin e meloxicam meloxicam No meloxicam Cheri 15 mg 15 mg 15 mg Orthope tablet TAKE tablet TAKE tablet dic 1 TABLET BY 1 TABLET BY TAKE 1 Sports MOUTH DAILY MOUTH DAILY TABLET BY Medicin WITH FOOD WITH FOOD MOUTH e DAILY WITH FOOD omeprazole omeprazole No omeprazole Cheri 20 mg 20 mg 20 mg Orthope capsule,del capsule,del capsule,de dic ayed ayed layed Sports release release release Medici n e Prolia 60 Prolia 60 No Prolia 60 Chrei mg/mL mg/mL mg/mL Orthope subcutaneou subcutaneou subcutaneo dic s syringe s syringe us syringe Sports Medicin e temazepam temazepam No temazepam Cheri 30 mg 30 mg 30 mg Orthope capsule capsule capsule dic TAKE 1 TAKE 1 TAKE 1 Sports CAPSULE BY CAPSULE BY CAPSULE BY Medicin MOUTH AT MOUTH AT MOUTH AT e BEDTIME BEDTIME BEDTIME trazodone trazodone No trazodone Cheri 150 mg 150 mg 150 mg Orthope tablet tablet tablet dic Sports Medicin e Xarelto 10 Xarelto 10 No Xarelto 10 Cheri mg tablet 1 mg tablet 1 mg tablet Orthope tablet by tablet by 1 tablet d ic mouth once mouth once by mouth Sports a day for a day for once a day Medicin 10 days ( 10 days ( for 10 e for after for after days ( for surgery use surgery use after only) only) surgery use only) Immunizations Ordered Filled Immunization Date Status Comments [facility] e Immunization Name Name Pneumococcal 2017-03-22 Completed [place] o f Polysaccharide, 00:00:00 [facility] ical PPSV23 (PNEUMOVAX) Branch Pneumococcal 2017-03-22 Completed [place] o f Polysaccharide, 00:00:00 [facility] ical PPSV23 (PNEUMOVAX) Branch Pneumococcal 2017-03-22 Completed [facility] o [facility] Polys[facility], 00:00[facility]00 [place] [facility] PPSV23 (PNEUMOVAX) Branch Pneumococcal 2017-03-22 Completed [facility] o f Polysaccharide, 00:00:00 [place] [facility] PPSV23 (PNEUMOVAX) Branch Pneumococcal 2017-03-22 Completed [facility] o f Polysaccharide, 00:00:00 [place] [facility] PPSV23 (PNEUMOVAX) Branch Pneumococcal 2017-03-22 Completed [facility] o f Polysaccharide, 00:00:00 [place] [facility] PPSV23 (PNEUMOVAX) Branch Pneumococcal 2017-03-22 Completed University o f Polysaccharide, 00:00:00 [place] [facility] PPSV23 (PNEUMOVAX) Branch Pneumococcal 2017-03-22 Completed University o f Polysaccharide, 00:00:00 [place] [facility] PPSV23 (PNEUMOVAX) Branch Pneumococcal 2017-03-22 Completed University o f Polysaccharide, 00:00:00 [place] [facility] PPSV23 (PNEUMOVAX) Branch Pneumococcal 2017-03-22 Completed University o f Polysaccharide, 00:00:00 [place] [facility] PPSV23 (PNEUMOVAX) Branch Pneumococcal 2017-03-22 Completed University o f Polysaccharide, 00:00:00 [place] [facility] PPSV23 (PNEUMOVAX) Branch Pneumococcal 2017-03-22 Completed University o f Polysaccharide, 00:00:00 [place] [facility] PPSV23 (PNEUMOVAX) Branch Pneumococcal 2017-03-22 Completed University o f Polysaccharide, 00:00:00 [place] [facility] PPSV23 (PNEUMOVAX) Branch Pneumococcal 2017-03-22 Completed University o f Polysaccharide, 00:00:00 [place] [facility] PPSV23 (PNEUMOVAX) Branch Pneumococcal 2017-03-22 Completed University o f Polysaccharide, 00:00:00 [place] [facility] PPSV23 (PNEUMOVAX) Branch Pneumococcal 2017-03-22 Completed [facility] o f Polysaccharide, 00:00:00 [place] [facility] PPSV23 (PNEUMOVAX) Branch Vital Signs Vital Name Observation Time Observation Value Comments Source Systolic blood 2020-10-05 00:35:00 115 mm[Hg] Univer sity of pressure [facility] Diastolic blood 2020-10-05 00:35:00 69 mm[Hg] Unive rsity of pressure [facility] Heart rate 2020-10-05 00:35:00 94 /min [facility] Body temperature 2020-10-05 00:35:00 37.11 Yarelis [facility] Respiratory rate 2020-10-05 00:35:00 17 /min [facility] Oxygen saturation in 2020-10-05 00:35:00 98 /min University of Arterial blood by [facility] Pulse oximetry Branch Body height 2020-10-04 22:12:00 165.1 cm [facility] Body weight 2020-10-04 22:12:00 71.668 kg [facility] BMI 2020-10-04 22:12:00 26.29 kg/m2 [facility] Systolic blood 2020-10-05 00:35:00 115 mm[Hg] [facility]iver [facility] Diastolic blood 2020-10-05 00:35:00 69 mm[Hg] Unive rsity [facility] Heart rate 2020-10-05 00:35:00 94 /min [facility] Body temperature 2020-10-05 00:35:00 37.11 Yarelis [facility] Respiratory rate 2020-10-05 00:35:00 17 /min [facility] Oxygen saturation in 2020-10-05 00:35:00 98 /min [facility] of Arterial blood by [facility] Pulse oximetry Branch Body height 2020-10-04 22:12:00 165.1 cm [facility] Body weight 2020-10-04 22:12:00 71.668 kg [facility] BMI 2020-10-04 22:12:00 26.29 kg/m2 [facility] Systolic blood 2020-09-25 21:00:00 125 mm[Hg] [facility] Diastolic blood 2020-09-25 21:00:00 69 mm[Hg] [facility] Heart rate 2020-09-25 21:00:00 74 /min [facility] Body temperature 2020-09-25 21:00:00 36.61 Yarelis [facility] Respiratory rate 2020-09-25 21:00:00 26 /min [facility] Oxygen saturation in 2020-09-25 21:00:00 94 /min [facility] Arterial blood by [facility] Pulse oximetry Branch Body weight 2020-09-24 01:30:00 81.647 kg [facility] BMI 2020-09-24 01:30:00 29.95 kg/m2 [facility] Systolic blood 2020-09-25 21:00:00 125 mm[Hg] [facility] Diastolic blood 2020-09-25 21:00:00 69 mm[Hg] [facility]ive [facility] Heart rate 2020-09-25 21:00:00 74 /min [facility] Body temperature 2020-09-25 21:00:00 36.61 Yarelis [facility] Respiratory rate 2020-09-25 21:00:00 26 /min Univ ersity of [facility] Oxygen saturation in 2020-09-25 21:00:00 94 /min [facility] Arterial blood by [facility] Pulse oximetry Branch Body weight 2020-09-24 01:30:00 81.647 kg [facility] BMI 2020-09-24 01:30:00 29.95 kg/m2 [facility] Systolic blood 2020-07-25 02:00:00 128 mm[Hg] [facility] Diastolic blood 2020-07-25 02:00:00 79 mm[Hg] [facility] Heart rate 2020-07-25 02:00:00 78 /min [facility] Respiratory rate 2020-07-25 02:00:00 14 /min [facility] [place] [facility] [place] Body temperature 2020-07-25 01:46:03 36.28 Yarelis [facility] Body weight 2020-07-25 01:33:00 71.668 kg [facility] BMI 2020-07-25 01:33:00 26.29 kg/m2 [facility] Systolic blood 2020-07-25 02:00:00 128 mm[Hg] [facility] Diastolic blood 2020-07-25 02:00:00 79 mm[Hg] [facility] Heart rate 2020-07-25 02:00:00 78 /min [facility] Respiratory rate 2020-07-25 02:00:00 14 /min [facility] Body temperature 2020-07-25 01:46:03 36.28 Yarelis [facility] Body weight 2020-07-25 01:33:00 71.668 kg [facility] BMI 2020-07-25 01:33:00 26.29 kg/m2 [facility] Systolic blood 2020-05-19 18:37:00 159 mm[Hg] [facility] Diastolic blood 2020-05-19 18:37:00 79 mm[Hg] [facility] Heart rate 2020-05-19 18:37:00 79 /min [facility] Body temperature 2020-05-19 18:37:00 36.56 Yarelis Univ ersity of [facility] Respiratory rate 2020-05-19 18:37:00 18 /min Univ ersity of [facility] Body weight 2020-05-19 18:37:00 71.94 kg [facility] BMI 2020-05-19 18:37:00 26.39 kg/m2 [facility] Systolic blood 2020-05-19 18:37:00 159 mm[Hg] [facility] Diastolic blood 2020-05-19 18:37:00 79 mm[Hg] [facility]ive [facility] Heart rate 2020-05-19 18:37:00 79 /min [facility] Body temperature 2020-05-19 18:37:00 36.56 Yarelis Univ [facility] Respiratory rate 2020-05-19 18:37:00 18 /min [facility] Body weight 2020-05-19 18:37:00 71.94 kg [facility] BMI 2020-05-19 18:37:00 26.39 kg/m2 [facility] Systolic blood 2020-04-23 13:20:00 135 mm[Hg] [facility] Diastolic blood 2020-04-23 13:20:00 82 mm[Hg] [facility]ive [facility] Heart rate 2020-04-23 13:20:00 82 /min [facility] Body temperature 2020-04-23 13:20:00 36.39 Yarelis [facility] Respiratory rate 2020-04-23 13:20:00 18 /min [facility] Body weight 2020-04-23 13:20:00 71.033 kg [facility] BMI 2020-04-23 13:20:00 26.06 kg/m2 [facility] Systolic blood 2020-04-02 01:15:00 155 mm[Hg] [facility] Diastolic blood 2020-04-02 01:15:00 87 mm[Hg] Unive rsity [facility] Respiratory rate 2020-04-02 01:15:00 18 /min [facility] Heart rate 2020-04-02 00:25:00 79 /min [facility] Body temperature 2020-04-02 00:25:00 36.94 Yarelis [facility] Oxygen saturation in 2020-04-02 00:25:00 97 /min [facility]terial blood by [facility] Pulse oximetry Branch Body weight 2020-04-01 08:33:00 71.986 kg [facility] BMI 2020-04-01 08:33:00 26.41 kg/m2 [facility] Body height 2020-03-28 18:37:00 165.1 cm [facility] Systolic blood 2019-07-08 16:59:00 143 mm[Hg] [facility] Diastolic blood 2019-07-08 16:59:00 83 mm[Hg] [facility] Heart rate 2019-07-08 16:59:00 64 /min [facility] Body temperature 2019-07-08 16:59:00 36.72 Yarelis [facility] Respiratory rate 2019-07-08 16:59:00 18 /min [facility] Oxygen saturation in 2019-07-08 16:59:00 95 /min [facility] Arterial blood by [facility] Pulse oximetry Branch Body height 2019-07-06 21:11:00 165.1 cm [facility] Body weight 2019-07-06 21:11:00 73.982 kg [facility] BMI 2019-07-06 21:11:00 27.14 kg/m2 [facility] Procedures Procedure Date / Time Performing Clinician Source Performed URINALYSIS 2020-10-04 23:06:00 Serena Hoffmann [facility] XR CHEST 1 VW 2020-10-04 22:52:50 Serena Hoffmann [facility] TROPONIN I 2020-10-04 22:47:00 Serena Hoffmann [facility] HEPATIC FUNCTION PANEL 2020-10-04 22:47:00 Serena Hoffmann [facility] ([id number]) (ALB,T.PRO,BILI [facility] T,BU/BC,ALT,AST,ALK PHOS) BASIC METABOLIC PANEL 2020-10-04 22:47:00 Serena Hoffmann [facility] (NA, K, CL, CO2, Medical Branch GLUCOSE, BUN, CREATININE, CA) CBC WITH DIFF 2020-10-04 22:47:00 Serena Hoffmann [facility] CONSENT/REFUSAL FOR 2020-10-04 22:06:25 Doctor Unassigned, No [facility] DIAGNOSIS AND TREATMENT Name [facility] URIC ACID 2020-09-25 11:12:00 Chandrika jluis [facility] COMP. METABOLIC PANEL 2020-09-25 11:12:00 Chandrika jluis [facility] ([id number]) [facility] CBC WITH DIFF 2020-09-25 11:12:00 Chandrika jluis [facility] N-TERMINAL PRO-BNP 2020-09-25 11:12:00 Sterling Cobos [facility] ECHO ROUTINE W/DOPPLER 2020-09-24 17:18:23 Sterling Cobos [facility] COLOR [facility] CAROTID DUPLEX BILATERAL 2020-09-24 16:40:31 Virginia Mclean [facility] BY VASCULAR LAB [facility] LACTATE DEHYDROGENASE 2020-09-24 09:48:00 Chandrika jluis [facility] URIC ACID 2020-09-24 09:48:00 Chandrika jluis [facility] OSMOLALITY SERUM 2020-09-24 09:48:00 Chandrika [facility] VITAMIN B12, LEVEL 2020-09-24 09:48:00 Chandrika jluis [facility] TROPONIN I 2020-09-24 09:48:00 Chandrika [facility] COMP. METABOLIC PANEL 2020-09-24 09:48:00 Sterling Cobos [facility] ([id number]) [facility] PROTHROMBIN TIME / INR 2020-09-24 09:48:00 Chandrika jluis [facility] D-DIMER 2020-09-24 09:48:00 Chandrika [facility] N-TERMINAL PRO-BNP 2020-09-24 09:48:00 Chandrika [facility] VITAMIN D, 25-OH 2020-09-24 09:48:00 Chandrika [facility] PROCALCITONIN 2020-09-24 09:48:00 Chandrika [facility] SEDIMENTATION RATE 2020-09-24 09:47:00 Chandrika jluis [facility] CBC WITH DIFF 2020-09-24 09:47:00 Chandrika [facility] URINALYSIS 2020-09-23 23:33:00 Lida Silverio [facility] URINE CULTURE 2020-09-23 23:33:00 Lida Silverio [facility] CT HEAD WO CONTRAST 2020-09-23 22:50:40 Lida Silverio [facility] HB ECG ROUTINE & RHYTHM 2020-09-23 22:17:55 Lida Silverio [facility] BLOOD CULTURE SCREEN 2020-09-23 22:11:00 Lida Silverio [facility] PHOSPHORUS 2020-09-23 22:11:00 Chandrika [facility] CREATINE KINASE 2020-09-23 22:11:00 Lida Silverio [facility] URIC ACID 2020-09-23 22:11:00 Chandrika [facility] LIPASE 2020-09-23 22:11:00 Lida Silverio [facility] MAGNESIUM 2020-09-23 22:11:00 Lida Silverio [facility] FERRITIN SERUM 2020-09-23 22:11:00 Chandrika [facility] TROPONIN I 2020-09-23 22:11:00 Lida Silverio [facility] THYROID STIMULATING 2020-09-23 22:11:00 Chandrika jluis [facility] HORMONE [facility] COMP. METABOLIC PANEL 2020-09-23 22:11:00 Lida Silverio [facility] ([id number]) [facility] CBC WITH DIFF 2020-09-23 22:11:00 Lida Silverio [facility] N-TERMINAL PRO-BNP 2020-09-23 22:11:00 Lida Silverio [facility] COVID-19 (ID NOW RAPID 2020-09-23 22:11:00 Lida Silverio [facility] TESTING) [facility] LACTIC ACID WHOLE BLOOD 2020-09-23 22:02:00 Lida Silverio [facility] XR CHEST 1 VW 2020-09-23 22:01:48 Lida Silverio [facility] XR TIBIA FIBULA 2 2020-07-25 01:53:07 Serena Hoffmann [facility] LEFT [facility] XR HIPS 3 LEFT 2020-05-19 19:29:20 Yelena Parker [facility] ASSIGNMENT OF BENEFITS 2020-04-23 13:12:46 Doctor Unassigned, No [facility] Name Medical Branch XR KUB 2020-04-01 10:12:[address] [facility] MAGNESIUM 2020-04-01 08:10:00 Jayson [facility] COMP. METABOLIC PANEL 2020-04-01 08:10:00 Jayson [facility] ([id number]) Medical Branch CBC WITH DIFFERENTIAL 2020-04-01 08:10:00 Jayson [facility] CT ABDOMEN PELVIS WO 2020-03-31 19:05:33 Yelena Parker [facility] CONTRAST [facility] XR KUB 2020-03-31 11:41:[address] [facility] COMP. METABOLIC PANEL 2020-03-31 07:40:00 Wilbert Tyler [facility] ([id number]) Medical Branch CBC WITH DIFFERENTIAL 2020-03-31 07:40:00 Brisa Chan [facility] PROTHROMBIN TIME / INR 2020-03-31 07:40:00 Brisa Chan [facility] ACTIVATED PARTIAL 2020-03-31 07:40:00 [facility] 2020-03-30 11:10:45 Yelena Parker [facility] MAGNESIUM 2020-03-30 06:22:00 Jayson [facility] BASIC METABOLIC PANEL 2020-03-30 06:22:00 Jayson [facility] (NA, K, CL, CO2, Medical Branch GLUCOSE, BUN, CREATININE, CA) XR KUB 2020-03-29 11:58:02 Kasandra Pichardo [facility] BASIC METABOLIC PANEL 2020-03-29 07:54:00 Yelena Parker [facility] (NA, K, CL, CO2, Medical Branch GLUCOSE, BUN, CREATININE, CA) CBC WITH DIFFERENTIAL 2020-03-29 07:54:00 Yelena Parker [facility] XR KUB 2020-03-29 06:47:38 Yelena Parker [facility] CT ABDOMEN PELVIS W 2020-03-29 04:05:30 Yelena Parker [facility] LACTIC ACID WHOLE BLOOD 2020-03-28 19:53:00 Yelena Parker [facility] COVID-19 (ID NOW RAPID 2020-03-28 17:42:00 Tavo Figueroa [facility] TESTING) [facility] [place] CT ABDOMEN PELVIS W 2020-03-28 16:10:02 Tavo Figueroa [facility] Medical Branch LIPASE 2020-03-28 15:06:00 Tavo Figueroa [facility] COMP. METABOLIC PANEL 2020-03-28 15:06:00 Tavo Figueroa [facility] ([id number]) Medical Branch CBC WITH DIFFERENTIAL 2020-03-28 15:06:00 Tavo Figueroa [facility] URINALYSIS 2020-03-28 15:06:00 [facility] NOTICE OF PRIVACY 2020-03-28 14:39:17 Doctor Unassigned, No [facility] PRACTICES Name Medical Branch CONSENT/REFUSAL FOR 2020-03-28 14:39:02 [facility]igned, [facility] Name Medical Branch ECHO ROUTINE W/DOPPLER 2019-07-08 16:14:37 Clem Alvares [facility] TROPONIN I 2019-07-07 09:30:00 Vahe [facility] CT ANGIOGRAM CHEST 2019-07-06 22:17:07 [facility] TROPONIN I 2019-07-06 21:10:00 [facility] LIPID PANEL 2019-07-06 21:10:00 [facility] ([id number])(TOTAL Medical Branch CHOLESTEROL, TRIGLYCERIDES, HDL) XR CHEST 2 VW 2019-07-06 16:13:20 Huffman, [facility] LIPASE 2019-07-06 15:43:00 [facility] TROPONIN I 2019-07-06 15:43:00 [facility] COMP. METABOLIC PANEL 2019-07-06 15:43:00 [facility] ([id number]) [facility] CBC WITH DIFFERENTIAL 2019-07-06 15:23:00 Singer [facility] GLYCOSYLATED HEMOGLOBIN 2019-07-06 15:23:00 [facility] PROTHROMBIN TIME / INR 2019-07-06 15:23:00 Singer [facility] ACTIVATED PARTIAL 2019-07-06 15:23:00 Singer [facility] E[facility]-12 LEAD 2019-07-06 15:21:35 Singer [facility] EKG-12 LEAD 2019-07-06 15:06:02 Huffman, [facility] NOTICE OF PRIVACY 2019-07-06 14:55:53 Doctor Unassigned, No Univ [facility] PRACTICES Name Medical Branch CONSENT/REFUSAL FOR 2019-07-06 14:55:33 Doctor Unassigned, No [facility] Name Medical Branch Encounters Start End Encounter Admission Attending Care Care Encounter Source Date/Time Date/Time Type Type Clinicians Facility Department ID 2021-08-21 Emergency [facility] [id number] Univers 10:58:14 ity of [facility] 2021-08-20 Emergency [facility] [id number] [facility] 20:51:34 ity of [facility] 2022-07-25 2022-07-25 Outpatient FOG_Stocks_ AOSM AOSM 558 Cheri 00:00:00 00:00:00 Dank [id number] [facility] 2022-07-25 2022-07-25 Lyubov Dyer A[facility] [place] - Ortho [id number] Cheri 00:00:00 00:00:00 Nevin Smyth MD: [id number] FOG_Ofc dic [facility] [place] [id number] , Ph. [id number] 2022-05-05 2022-05-05 Outpatient FOG_Stocks_ AOSM AOSM [id number] Cheri 00:00:00 00:00:00 Dank [id number] [facility] 2022-04-03 2022-04-03 Outpatient FOG_Stocks_ AOSM AOSM 558 Cheri 12:51:00 12:51:00 Dank [id number] Orth [facility] 2020-10-04 2020-10-04 Emergency [facility] [id number] 16:10:00 19:08:00 Serena Carter [id number] [place] [id number] [place] [id number] 2020-10-04 2020-10-04 Emergency [facility] [id number] [facility] 16:10:00 19:08:00 [id number] [facility] [id number] [facility] 084 Branch 2020-09-28 2020-09-28 Transition Vi Hong 1.2.840.114 [id number] 00:00:00 00:00:00 of Ashanti Thorpe [id number] [place] [id number] [id number] 2020-09-28 2020-09-28 Transition Vi Hong 1.2.840.114 [id number] Univers 00:00:00 00:00:00 of Care Kenna [place] [id number] it y of [place] [id number] [facility] [id number] [facility] 403 Branch 2020-09-23 2020-09-25 [facility] 1.2.840.1 [id number] 15:42:00 16:41:00 Encounter Wilbert Tyler [id number] [place] [id number] [place] [id number] [facility] 2020-09-23 2020-09-[facility] 1.2.840.1 [id number] Univers 15:42:00 16:41:00 Encounter Wilbert Tyler [id number] ity of [place] [id number] [facility] [id number] [facility] 080 [place] 2020-09-23 2020-09-25 Inpatient X WILBERT TYLER [facility] ELLIE [id number] Univers 15:42:00 16:41:00 ity [facility] 2020-09-21 2020-09-21 Outpatient R [facility] [id number] Univers 10:20:00 10:20:00 ity [facility] 2020-07-24 2020-07-24 [facility] 1.2.840.114 [id number] 20:31:00 21:54:00 Serena Carter [id number] [place] [id number] [place] [id number] [facility] 2020-07-24 2020-07-24 Emergency [facility] 1.2.840.114 [id number] Univers 20:31:00 21:54:00 Serena Carter [id number] ity of [place] [id number] [facility] [id number] [address] 2020-05-19 2020-05-19 [facility] 1.2.840.114 [id number] 14:14:00 23:59:00 Encounter Yelena Carter [id number] [place] [id number] [place] [id number] [facility] 2020-05-19 2020-05-19 [facility] 1.2.840.114 [id number] Univers 14:14:00 23:59:00 Encounter Yelena Carter [id number] ity of [place] [id number] [facility] [id number] [address] 2020-05-19 2020-05-19 Office [facility] [id number] 13:28:59 13:43:59 Visit Yelena Carter [id number] [place] [id number] Professio [id number] [address] 2020-05-19 2020-05-19 Office [facility] [id number] [facility] 13:28:59 13:43:59 Visit Yelena Carter [id number] i [place] of [place] [id number] [place] [id number] [place] dical [place]al [address] [place] [address] 2020-05-19 2020-05-19 Outpatient R [facility] [id number] [facility] 13:30:00 13:30:00 YELENA itsanjiv [facility] 2020-04-23 2020-04-23 Office [facility] [id number] [facility] 08:13:21 09:24:36 Visit Yelena Carter [id number] i ty of [place] [id number] [place] [id number] [place] dical [place]al [address] [place] [address] 2020-04-23 2020-04-23 Outpatient R [facility] [id number] Univers 08:15:00 08:15:00 YELENA itsajniv of [facility] 2020-04-23 2020-04-23 Orders Doctor LYUBOV 1.2.840.114 [id number] Univers 00:00:00 00:00:00 Only Unassigned, BRYANT [id number] ity of [facility] [id number] Lang as [id number] [facility] [address] [place] 2020-04-02 2020-04-02 Transition Vi Hogan 1.2.840.114 [id number] Univers 00:00:00 00:00:00 of Care Sinan Dubon [place] [id number] it[id number] [id number] [facility] [address] [place] 2020-03-28 2020-04-01 [facility] aTvo Figueroa [facility] 1.2.840.1 [id number] Univers 09:55:24 20:28:00 Encounter Wilbert Tyler [id number] [id number] [id number] [facility] [address] [place] 2020-03-28 2020-04-01 Inpatient X WILBERT TYLER [facility] ELLIE [id number] Univers 09:55:24 20:28:00 ity of [facility] 2020-03-30 2020-03-30 [facility]phone [facility] 1.2.840.114 [id number] Univers 00:00:00 00:00:00 Yelena Carter [id number] i [place] [id number] [phone] [place] dical nal 377 [facility] 2020-03-28 2020-03-28 Orders Doctor LYUBOV 1.2.840.114 [id number] Univers 00:00:00 00:00:00 Only Unassigned, BRYANT [id number] ity of [facility] [id number] Lang as [id number] [address] 2019-12-17 2019-12-17 Outpatient ALEJANDRO Tavares RADI [id number] [facility] 10:00:00 10:00:00 [facility] 2019-10-11 2019-10-11 Emergency X ESTELLA [facility] ERT [id number] Univers 17:16:22 19:46:00 ARELIS ity of [facility] 2019-07-09 2019-07-09 Transition Vi Bassett 1.2.840.114 [id number] Univers 00:00:00 00:00:00 of Care Rukhsana [place] 350.1.13.10 it y of [place] 4.2.7.2.686 [facility] [phone] [place] [id number] [place] 2019-07-06 2019-07-08 Emergency Arelis Soria S [facility] 1.2.840.1 [id number] [facility] 10:00:20 14:10:00 Dhruv Cotter 350.1.13.10 [place].2.[place] [phone] [place] [id number] [place] Results Test Description Test Time Test Comments Results Result Comments Source Urinalysis 2020-10-04 23:26:00 Test Item Value Reference Range Interpretation Comme nts APPEARANCE (test code = Clear Clear 9600424818) COLOR (test code = 3059816187) Yellow Yellow PH (test code = 9999228431) 4.8-8.0 SP GRAVITY (test code = 1.003-1.030 7019328467) GLU U QUAL (test code = Normal Normal 9573507520) BLOOD (test code = 0903456003) Negative Negative KETONES (test code = 3866636081) Negative Negative PROTEIN (test code = 2887-8) Negative Negative UROBILIN (test code = 2.0 mg/dL Normal A 0687930425) BILIRUBIN (test code = Negative Negative 4489158007) NITRITE (test code = 1148045038) Negative Negative LEUK RAMOS (test code = Negative Negative 0546487197) RBC/HPF (test code = 6203056448) See_Comment [Automated message] The system which ge nerated this result transmit cyndi reference range: 0 - 3 HP F. The reference range was not used to interpret th is result as normal/abnormal . WBC/HPF (test code = 0489101570) <1 See_Comment [Automated message] The system which ge nerated this result transmit cyndi reference range: 0 - 5 HP F. The reference range was not used to interpret th is result as normal/abnormal . BACTERIA (test code = Few Negative A 9185567992) MUCOUS (test code = 9609953451) Slight Negative LPF A SQ EPITH (test code = HPF 6046102820) Lab Interpretation (test code = Abnormal 32820-0) [id number] 23:20:00 Test Item Value Reference Range Interpretation Comments TROPONIN I (test <0.012 See_Comment [Automated code = 4673939777) message] The system which generated this result transmitted reference range : <=0.034 ng/mL. The reference range was not used to interpr et this result as normal/abnormal . ASHLEY (test code = Equal or Less than ASHLEY) 0.034 ng/ml---Normal ?Note: Cardiac troponin begins to rise 3-4 hours after the onset of ischemia. Repeat in 4-6 hours if the sample was drawn within 3-4 hours of the onset of the symptom and found normal. Between 0.035 and 0.120 ng/mL--- Borderline. Questionable myocardial injury or necrosis ? ?Note: Serial measurement may be necessary to confirm or exclude the diagnosis of myocardial injury or necrosis; Clinical correlation (symptoms, EKGs, imaging studies, and others) required; Repeat in 4-6 hours if clinically indicated. ? Equal or Higher than 0.121 ng/mL---Abnormal. Myocardial Injury or Necrosis Likely ? Biotin has been reported to cause a negative bias, interpret results relative to patient's use of biotin. ? Lab Interpretation Normal (test code = 83231-8) [facility] (NA, K, CL, CO2, GLUCOSE, BUN, CREATININE, CA)2020-10-04 23:09:00 Test Item Value Reference Range Interpretation Comments NA (test code = 133 mmol/L 135-145 L 1851116261) K (test code = 4.3 mmol/L 3.5-5 8274082760) CL (test code = 98 mmol/L 98-108 0696817597) CO2 TOTAL (test code = 28 mmol/L 23-31 3732855893) AGAP (test code = 2-16 2884837135) BUN (test code = 27 mg/dL 7-23 H 9345831021) GLUCOSE (test code = 214 mg/dL 70-110 H 2911432245) CREATININE (test code = 1.00 mg/dL 0.5-1.04 9691327230) CALCIUM (test code = 9.2 mg/dL 8.6-10.6 1991513991) eGFR Calculation mL/min/1.73m2 (Non-) (test code = 6203649910) eGFR Calculation mL/min/1.73m2 () (test code = 7510084498) ASHLEY (test code = ASHLEY) Association of Glomerular Filtration Rate (GFR) and Staging of Kidney Disease* + --+ --+ ------+| GFR (mL/min/1.73 m2) ?| With Kidney Damage ?| ?Without Kidney Damage+ --------+ --------+ +| ?>90 ?| ?Stage one ?| ? Normal ?+ ---+ ---+ -------+| ?60-89 ?| ?Stage two ?| ? Decreased GFR ? + --+ --+ ------+| ?30-59 ?| ?Stage three ?| ? Stage three ? + --+ --+ ------+| ?15-29 ?| ?Stage four ? | ? Stage four ?+ ---+ ---+ -------+| ?<15 (or dialysis) ? ?| ?Stage five ? | ? Stage five ?+ ---+ ---+ -------+ *Each stage assumes the associated GFR level has been in effect for at least three months. ?Stages 1 to 5, with or without kidney disease, indicate chronic kidney disease. Notes: Determination of stages one and two (with eGFR >59mL/min/1.73 m2) requires estimation of kidney damage for at least three months as defined by structural or functional abnormalities of the kidney, manifested by either:Pathological abnormalities or Markers of kidney damage (including abnormalities in the composition of the blood or urine or abnormalities in imaging tests). Lab Interpretation Abnormal (test code = 46068-5) [facility] (ALB, T.PRO, BILI T, BU/BC, ALT, AST, ALK PHOS)2020-10-04 23:09:00 Test Item Value Reference Range Interpretation Comments TOTAL BILI (test code = 6707753269) 1.1 mg/dL 0.1-1.1 BILI UNCON (test code = 5487620613) 1.0 mg/dL 0.1-1.1 BILI CONJ (test code = 6870160060) 0.0 mg/dL 0-0.3 T PROTEIN (test code = 1958212582) 6.6 g/dL 6.3-8.2 ALBUMIN (test code = 1937270249) 3.4 g/dL 3.5-5 L ALK PHOS (test code = 4811448651) 79 U/L 34-122 ALTv (test code = 1742-6) 23 U/L 5-35 AST(SGOT) (test code = 4343282722) 22 U/L 13-40 Lab Interpretation (test code = Abnormal 65294-8) [facility] with [id number] 22:56:00 Test Item Value Reference Range Interpretation Comments WBC (test code = See_Comment H [Automated 7990-2) message] The sy stem which generated this result transmitted reference range : 4.30 - 11.10 10*3/?L. The reference range was not used to interpret this result as normal/abnormal . RBC (test code = See_Comment [Automated 949-8) message] The sy stem which generated this result transmitted reference range : 3.93 - 5.25 10*6/?L. The reference range was not used to interpret this result as normal/abnormal . HGB (test code = 13.2 g/dL 11.6-15 718-7) HCT (test code = 40.9 % 35.7-45.2 4544-3) MCV (test code = 86.3 fL 80.6-95.5 787-2) MCH (test code = 27.8 pg 25.9-32.8 785-6) MCHC (test code = 32.3 g/dL 31.6-35.1 786-4) RDW-SD (test code = 42.8 fL 39-49.9 88477-3) RDW-CV (test code = 13.7 % 12-15.5 788-0) PLT (test code = See_Comment [Automated 777-3) message] The sy stem which generated this result transmitted reference range : 166 - 358 10*3/ ?L. The reference r nagi was not used to interpret this result as normal/abnormal . MPV (test code = 9.8 fL 9.5-12.9 73772-3) NRBC/100 WBC (test See_Comment [Automat ed code = 4762526802) message] The system which generated this result transmitted reference range : 0.0 - 10.0 /100 WBCs. The refer ence range was not u sed to interpret th is result as normal/abnormal . NRBC x10^3 (test code <0.01 See_Comment [Auto mated = 4382853373) message] The s ystem which generated this result transmitted reference range : 10*3/?L. The reference range was not used to interpret this result as normal/abnormal . GRAN MAT (NEUT) % 82.8 % (test code = 770-8) IMM GRAN % (test code 1.00 % = 5872597767) LYMPH % (test code = 9.1 % 736-9) MONO % (test code = 6.2 % 5905-5) EOS % (test code = 0.7 % 713-8) BASO % (test code = 0.2 % 706-2) GRAN MAT x10^3(ANC) 9.23 10*3/uL 1.88-7.09 H (test code = 4089794769) IMM GRAN x10^3 (test 0.11 10*3/uL 0-0.06 H code = 4015889200) LYMPH x10^3 (test code 1.01 10*3/uL 1.32-3.29 L = 731-0) MONO x10^3 (test code 0.69 10*3/uL 0.33-0.92 = 742-7) EOS x10^3 (test code = 0.08 10*3/uL 0.03-0.39 711-2) BASO x10^3 (test code <0.03 0.01-0.07 = 704-7) Lab Interpretation Abnormal (test code = 85746-8) [facility] WITH [id number] 13:02:00 Test Item Value Reference Range Interpretation Comments WBC (test code = See_Comment L [Automated 6690-2) message] The sy stem which generated this result transmitted reference range : 4.30 - 11.10 10*3/?L. The reference range was not used to interpret this result as normal/abnormal . RBC (test code = See_Comment L [Automated 789-8) message] The sy stem which generated this result transmitted reference range : 3.93 - 5.25 10*6/?L. The reference range was not used to interpret this result as normal/abnormal . HGB (test code = 10.6 g/dL 11.6-15 L 718-7) HCT (test code = 32.9 % 35.7-45.2 L 4544-3) MCV (test code = 86.1 fL 80.6-95.5 787-2) MCH (test code = 27.7 pg 25.9-32.8 785-6) MCHC (test code = 32.2 g/dL 31.6-35.1 786-4) RDW-SD (test code = 43.1 fL 39-49.9 33900-6) RDW-CV (test code = 13.6 % 12-15.5 788-0) PLT (test code = See_Comment [Automated 777-3) message] The sy stem which generated this result transmitted reference range : 166 - 358 10*3/ ?L. The reference r nagi was not used to interpret this result as normal/abnormal . MPV (test code = 10.7 fL 9.5-12.9 71264-3) NRBC/100 WBC (test See_Comment [Automat ed code = 2751787644) message] The system which generated this result transmitted reference range : 0.0 - 10.0 /100 WBCs. The refer ence range was not u sed to interpret th is result as normal/abnormal . NRBC x10^3 (test code <0.01 See_Comment [Auto mated = 0362308989) message] The s ystem which generated this result transmitted reference range : 10*3/?L. The reference range was not used to interpret this result as normal/abnormal . GRAN MAT (NEUT) % 62.7 % (test code = 770-8) IMM GRAN % (test code 0.70 % = 5613392211) LYMPH % (test code = 29.7 % 736-9) MONO % (test code = 6.9 % 5905-5) EOS % (test code = 0.0 % 713-8) BASO % (test code = 0.0 % 706-2) GRAN MAT x10^3(ANC) 1.73 10*3/uL 1.88-7.09 L (test code = 6679412839) IMM GRAN x10^3 (test <0.03 0-0.06 code = 3406927606) LYMPH x10^3 (test code 0.82 10*3/uL 1.32-3.29 L = 731-0) MONO x10^3 (test code 0.19 10*3/uL 0.33-0.92 L = 742-7) EOS x10^3 (test code = <0.03 0.03-0.39 L 711-2) BASO x10^3 (test code <0.03 0.01-0.07 = 704-7) CHERYL CELLS (test code 2+ See_Comment A [Auto mated = 7790-9) message] The sy stem which generated this result transmitted reference range : (none). The reference range was not used to interpret this result as normal/abnormal . ELLIPTO/OVAL (test 2+ See_Comment A [Automat ed code = 68799-3) message] The system which generated this result transmitted reference range : (none). The reference range was not used to interpret this result as normal/abnormal . BANDS (test code = Increased A 6988383738) Lab Interpretation Abnormal (test code = 33824-4) [facility] [id number] 12:51:00 Test Item Value Reference Range Interpretation Comments NT-proBNP (test code 445 pg/mL See_Comment [Autom ated = 8192848474) message] The system which generated this result transmitted reference range : <=450. The reference range was not used to interpret this result as normal/abnormal . ASHLEY (test code = ASHLEY) Biotin has been reported to cause a negative bias, interpret results relative to patient's use of biotin. Lab Interpretation Normal (test code = 13506-0) [facility]. METABOLIC PANEL ([id number])2020-09-25 12:46:00 Test Item Value Reference Range Interpretation Comments NA (test code = 136 mmol/L 135-145 2204338450) K (test code = 4.0 mmol/L 3.5-5 8270251842) CL (test code = 105 mmol/L 98-108 6826068804) CO2 TOTAL (test code = 25 mmol/L 23-31 6800195484) AGAP (test code = 2-16 3974035163) BUN (test code = 17 mg/dL 7-23 2983633700) GLUCOSE (test code = 152 mg/dL 70-110 H 4919525515) CREATININE (test code = 0.75 mg/dL 0.5-1.04 1193076740) TOTAL BILI (test code = 0.5 mg/dL 0.1-1.0 4539199439) CALCIUM (test code = 7.3 mg/dL 8.6-10.6 L 0428415632) T PROTEIN (test code = 5.7 g/dL 6.3-8.2 L 4316673727) ALBUMIN (test code = 2.9 g/dL 3.5-5 L 7779671422) ALK PHOS (test code = 50 U/L 34-122 8704073911) ALTv (test code = 26 U/L 5-35 1742-6) AST(SGOT) (test code = 55 U/L 13-40 H 2916839240) eGFR Calculation mL/min/1.73m2 (Non-) (test code = 5353166924) eGFR Calculation mL/min/1.73m2 () (test code = 9044376111) ASHLEY (test code = ASHLEY) Association of Glomerular Filtration Rate (GFR) and Staging of Kidney Disease* + --+ --+ ------+| GFR (mL/min/1.73 m2) ?| With Kidney Damage ?| ?Without Kidney Damage+ --------+ --------+ +| ?>90 ?| ?Stage one ?| ? Normal ?+ ---+ ---+ -------+| ?60-89 ?| ?Stage two ?| ? Decreased GFR ? + --+ --+ ------+| ?30-59 ?| ?Stage three ?| ? Stage three ? + --+ --+ ------+| ?15-29 ?| ?Stage four ? | ? Stage four ?+ ---+ ---+ -------+| ?<15 (or dialysis) ? ?| ?Stage five ? | ? Stage five ?+ ---+ ---+ -------+ *Each stage assumes the associated GFR level has been in effect for at least three months. ?Stages 1 to 5, with or without kidney disease, indicate chronic kidney disease. Notes: Determination of stages one and two (with eGFR >59mL/min/1.73 m2) requires estimation of kidney damage for at least three months as defined by structural or functional abnormalities of the kidney, manifested by either:Pathological abnormalities or Markers of kidney damage (including abnormalities in the composition of the blood or urine or abnormalities in imaging tests). Lab Interpretation Abnormal (test code = 40560-6) [facility] [id number] 12:46:00 Test Item Value Reference Range Interpretation Comments URIC ACID (test code = 6991381715) 3.6 mg/dL 2.9-6 Lab Interpretation (test code = Normal 96611-9) [facility] B12, [id number] 17:54:00 Test Item Value Reference Range Interpretation Comments VIT B12 (test code = 993 pg/mL 240-930 H 5487788991) ASHLEY (test code = ASHLEY) Biotin has been reported to cause a positive bias, interpret results relative to patient's use of biotin. Lab Interpretation (test Abnormal code = 53073-3) [facility]IN2020-12-03 17:15:00 Test Item Value Reference Range Interpretation Comments Procalcitonin (test 0.24 ng/mL <0.07 H code = 6860277676) ASHLEY (test code = ASHLEY) INTERPRETATION OF PROCALCITONIN RESULTS IN ADULTS >= 18 YEARS OF AGE Initiation and discontinuation of antibiotics on patients with suspected or confirmed Lower Respiratory Tract Infection in Adults >= 18 years of age. + +-------- --------+ + -----+|Procalcitonin |Interpretation ?|Antibiotic ? ? |Considerations ? |ng/mL ? | ?|recommendation | ? + +-------- --------+ + -----+| <0.1 ? | Bacterial ? ? ?| Strongly ? ? ?| ? | ?| infection very | discouraged ? | Overruling: ? | ?| unlikely ? ? ? | ? | ? Clinically unstable ? ? ? + +-------- --------+ + ? High risk for adverse ? ? | <0.25 ?| Bacterial ? ? ?| Discouraged ? | ? outcome ? | ?| infection ? ? ?| ? | ? SEE IMPORTANT NOTE ?| ?| unlikely ? ? ? | ? | ? + +-------- --------+ + -----+| >=0.25 ? ? ? | Bacterial ? ? ?| Encouraged ? ?| ? | ?| infection ? ? ?| ? | ? | ?| likely ? | ? | Consider treatment failure ?+ +------- ---------+ -+ if levels does not decrease | >0.5 ? | Bacterial ? ? ?| Strongly ? ? ?| appropriately ? | ?| infection very | encouraged ? ?| ? | ?| likely ? | ? | ? + +-------- --------+ + -----+ Discontinuation of antibiotics in high-acuity patients with suspected or confirmed sepsis in Adults >= 18 years of age. + +-------- --------+ + -----+|Procalcitonin |Interpretation ?|Antibiotic ? ? |Considerations ? |ng/mL ? | ?|recommendation | ? + +-------- --------+ + -----+| <0.25 ?| Bacterial ? ? ?| Strongly ? ? ?| ? | ?| infection very | discouraged ? | Overruling: ? | ?| unlikely ? ? ? | ? | ? Clinically unstable ? ? ? + +-------- --------+ + ? High risk for adverse ? ? | <0.5 or drop | Bacterial ? ? ?| Discouraged ? | ? outcome ? | >80% from ? ?| infection ? ? ?| ? | ? SEE IMPORTANT NOTE ?| highest PCT ?| unlikely ? ? ? | ? | ? | level ?| ?| ? | ? + +-------- --------+ + -----+| >=0.5 ?| Bacterial ? ? ?| Encouraged ? ?| ? | ?| infection ? ? ?| ? | ? | ?| likely ? | ? | Consider treatment failure ?+ +------- ---------+ -+ if levels does not decrease | >1.0 ? | Bacterial ? ? ?| Strongly ? ? ?| appropriately ? | ?| infection very | encouraged ? ?| ? | ?| likely ? | ? | ? + +-------- --------+ + -----+ Percentage of drop of Procalcitonin calculation for Discontinuation of antibiotics in high-acuity patients with suspected or confirmed sepsis in Adults >= 18 years of age. ? Procalcitonin highest{}-Procalcitonin current{}Delta Procalcitonin = x100% ? Procalcitonin current {} IMPORTANT NOTE: Procalcitonin may be elevated without bacterial infection by physiologic stress related to trauma, pabon, chronic dialysis, metastatic cancer, surgery in the past seven days, malaria, some fungal infections, and some forms of vasculitis. The interpretation algorithm may not apply to patients with immunosuppression (equivalent of >10 mg of prednisone daily), HIV with CD4 cell count < 350 cells/mm3, active malignancy on systemic chemotherapy, solid organ transplant or hematopoietic stem cell transplantation, or hospital acquired pneumonia. Additionally, some clinical trials of procalcitonin have excluded patients with shock requiring vasopressor use, acute respiratory failure requiring mechanical ventilation, or those with known lung abscess/empyema. For further information please refer to:[email or web address] Lab Interpretation Abnormal (test code = 46323-3) [facility] D, [id number] 17:13:00 Test Item Value Reference Range Interpretation Comments VIT D 25OH (test code = 23 ng/mL 25-80 L 47865-5) ASHLEY (test code = ASHLEY) Deficiency: <20 ng/mLInsufficiency: 20-24 ng/mLOptimal: 25-80 ng/mL Lab Interpretation (test Abnormal code = 42372-4) [facility] CenterOSMOLALITY [id number] 16:48:00 Test Item Value Reference Range Interpretation Comments OSMOLALITY (test code = See_Comment [Au tomated message] 5715933343) The system [employer] h generated this result transmitted ref erence range: 278 - 30 5 mOsm/kg. The re ference range was not u sed to interpret this result as normal/abnor mal. Lab Interpretation (test Normal code = 25016-8) [facility] WITH [id number] 12:13:00 Test Item Value Reference Range Interpretation Comments WBC (test code = See_Comment L [Automated 6690-2) message] The sy stem which generated this result transmitted reference range : 4.30 - 11.10 10*3/?L. The reference range was not used to interpret this result as normal/abnormal . RBC (test code = See_Comment L [Automated 789-8) message] The sy stem which generated this result transmitted reference range : 3.93 - 5.25 10*6/?L. The reference range was not used to interpret this result as normal/abnormal . HGB (test code = 10.9 g/dL 11.6-15 L 718-7) HCT (test code = 33.5 % 35.7-45.2 L 4544-3) MCV (test code = 85.9 fL 80.6-95.5 787-2) MCH (test code = 27.9 pg 25.9-32.8 785-6) MCHC (test code = 32.5 g/dL 31.6-35.1 786-4) RDW-SD (test code = 43.5 fL 39-49.9 49054-0) RDW-CV (test code = 13.8 % 12-15.5 788-0) PLT (test code = See_Comment [Automated 777-3) message] The sy stem which generated this result transmitted reference range : 166 - 358 10*3/ ?L. The reference r nagi was not used to interpret this result as normal/abnormal . MPV (test code = 10.6 fL 9.5-12.9 62113-2) NRBC/100 WBC (test See_Comment [Automat ed code = 6420540836) message] The system which generated this result transmitted reference range : 0.0 - 10.0 /100 WBCs. The refer ence range was not u sed to interpret th is result as normal/abnormal . NRBC x10^3 (test code <0.01 See_Comment [Auto mated = 1703901265) message] The s ystem which generated this result transmitted reference range : 10*3/?L. The reference range was not used to interpret this result as normal/abnormal . GRAN MAT (NEUT) % 65.0 % (test code = 770-8) IMM GRAN % (test code 0.30 % = 5673714092) LYMPH % (test code = 29.8 % 736-9) MONO % (test code = 4.6 % 5905-5) EOS % (test code = 0.0 % 713-8) BASO % (test code = 0.3 % 706-2) GRAN MAT x10^3(ANC) 1.98 10*3/uL 1.88-7.09 (test code = 9569982798) IMM GRAN x10^3 (test <0.03 0-0.06 code = 1791014526) LYMPH x10^3 (test code 0.91 10*3/uL 1.32-3.29 L = 731-0) MONO x10^3 (test code 0.14 10*3/uL 0.33-0.92 L = 742-7) EOS x10^3 (test code = <0.03 0.03-0.39 L 711-2) BASO x10^3 (test code <0.03 0.01-0.07 = 704-7) BANDS (test code = Increased A 2703460289) Lab Interpretation Abnormal (test code = 94626-9) [facility] CenterSEDIMENTATION [id number] 11:52:00 Test Item Value Reference Range Interpretation Comments ESR (test code = See_Comment [Automated message] 7985740501) The system [employer] generated this result transmitted ref erence range: 0 - 20 m m/HR. The reference r nagi was not used to interpret this result as normal/abnor mal. Lab Interpretation (test Normal code = 00463-2) [facility]TR[facility] [id number] 11:16:00 Test Item Value Reference Range Interpretation Comments TROPONIN I (test 0.013 ng/mL See_Comment [Automated code = 5459492788) message] The system which generated this result transmitted reference range : <=0.034. The reference range was not used to interpret this result as normal/abnormal . ASHLEY (test code = Equal or Less than ASHLEY) 0.034 ng/ml---Normal ?Note: Cardiac troponin begins to rise 3-4 hours after the onset of ischemia. Repeat in 4-6 hours if the sample was drawn within 3-4 hours of the onset of the symptom and found normal. Between 0.035 and 0.120 ng/mL--- Borderline. Questionable myocardial injury or necrosis ? ?Note: Serial measurement may be necessary to confirm or exclude the diagnosis of myocardial injury or necrosis; Clinical correlation (symptoms, EKGs, imaging studies, and others) required; Repeat in 4-6 hours if clinically indicated. ? Equal or Higher than 0.121 ng/mL---Abnormal. Myocardial Injury or Necrosis Likely ? Biotin has been reported to cause a negative bias, interpret results relative to patient's use of biotin. ? Lab Interpretation Normal (test code = 26308-1) [facility] [id number] 11:13:00 Test Item Value Reference Range Interpretation Comments NT-proBNP (test code 266 pg/mL See_Comment [Autom ated = 8471887744) message] The system which generated this result transmitted reference range : <=450. The reference range was not used to interpret this result as normal/abnormal . ASHLEY (test code = ASHLEY) Biotin has been reported to cause a negative bias, interpret results relative to patient's use of biotin. Lab Interpretation Normal (test code = 14125-2) [facility]. METABOLIC PANEL (01686)2020-09-24 11:05:00 Test Item Value Reference Range Interpretation Comments NA (test code = 135 mmol/L 135-145 8236875746) K (test code = 3.7 mmol/L 3.5-5 9176757659) CL (test code = 104 mmol/L 98-108 0542166440) CO2 TOTAL (test code = 25 mmol/L 23-31 7261901802) AGAP (test code = 2-16 5301226991) BUN (test code = 22 mg/dL 7-23 4366730173) GLUCOSE (test code = 100 mg/dL 70-110 2864778243) CREATININE (test code = 0.88 mg/dL 0.5-1.04 3345093790) TOTAL BILI (test code = 0.5 mg/dL 0.1-1.6 4045383023) CALCIUM (test code = 7.7 mg/dL 8.6-10.6 L 4331237848) T PROTEIN (test code = 5.8 g/dL 6.3-8.2 L 7880439397) ALBUMIN (test code = 3.1 g/dL 3.5-5 L 6047545685) ALK PHOS (test code = 54 U/L 34-122 2997286413) ALTv (test code = 27 U/L 5-35 1742-6) AST(SGOT) (test code = 57 U/L 13-40 H 5489786674) eGFR Calculation mL/min/1.73m2 (Non-) (test code = 5600309042) eGFR Calculation mL/min/1.73m2 () (test code = 8164715882) ASHLEY (test code = ASHLEY) Association of Glomerular Filtration Rate (GFR) and Staging of Kidney Disease* + --+ --+ ------+| GFR (mL/min/1.73 m2) ?| With Kidney Damage ?| ?Without Kidney Damage+ --------+ --------+ +| ?>90 ?| ?Stage one ?| ? Normal ?+ ---+ ---+ -------+| ?60-89 ?| ?Stage two ?| ? Decreased GFR ? + --+ --+ ------+| ?30-59 ?| ?Stage three ?| ? Stage three ? + --+ --+ ------+| ?15-29 ?| ?Stage four ? | ? Stage four ?+ ---+ ---+ -------+| ?<15 (or dialysis) ? ?| ?Stage five ? | ? Stage five ?+ ---+ ---+ -------+ *Each stage assumes the associated GFR level has been in effect for at least three months. ?Stages 1 to 5, with or without kidney disease, indicate chronic kidney disease. Notes: Determination of stages one and two (with eGFR >59mL/min/1.73 m2) requires estimation of kidney damage for at least three months as defined by structural or functional abnormalities of the kidney, manifested by either:Pathological abnormalities or Markers of kidney damage (including abnormalities in the composition of the blood or urine or abnormalities in imaging tests). Lab Interpretation Abnormal (test code = 34483-8) [facility]LACT[facility] [id number] 11:04:00 Test Item Value Reference Range Interpretation Comments LDH (test code = 8584901343) 842 U/L 300-600 H Lab Interpretation (test code = Abnormal 72438-8) [facility] BranchURIC [id number] 11:04:00 Test Item Value Reference Range Interpretation Comments URIC ACID (test code = 5058719504) 4.5 mg/dL 2.9-6 Lab Interpretation (test code = Normal 30795-6) [facility]D-[id number] 10:54:00 Test Item Value Reference Interpretation Comments Range D-DIMER (test code = See_Comment H [Autom ated 5265774719) message] The system which generated this result transmitted reference range : <0.41 ?g/mL (FEU). The reference range was not used to interpret this result as normal/abnormal . ASHLEY (test code = This test may be ASHLEY) used in conjunction with a clinical pretest probability (PTP) assessment model to exclude venous thromboembolism (VTE) in patients suspected of deep venous thrombosis (DVT) and pulmonary embolism (PE) A D-Dimer value less than 0.50 ?g/ml (FEU) has a negative predicative value of [...] the clinical context, in forming a diagnosis. Lab Interpretation Abnormal (test code = 03821-8) [facility] CenterPROTHROMBIN TIME / [id number] 10:50:00 Test Item Value Reference Range Interpretation Comments PROTIME PATIENT (test See_Comment [Auto mated message] code = 5964-2) The system [employer] generated this result transmitted ref erence range: 12.0 - 1 4.7 Seconds. The re ference range was not u sed to interpret this result as normal/abnor mal. INR (test code = 6301-6) Nor mal INR <1.1; Warfarin Therap eutic range 2.0 to 3. 0 or 2.5 to 3.5, dep ending upon the indica tions. Lab Interpretation (test Normal code = 97011-4) [facility] CenterFERRITIN [id number] 09:53:00 Test Item Value Reference Range Interpretation Comments FERRITIN (test code = 168.0 ng/mL 2120138422) ASHLEY (test code = ASHLEY) Biotin has been reported to cause a negative bias, interpret results relative to patient's use of biotin. Lab Interpretation (test Normal code = 99136-7) [facility] CenterURIC [id number] 08:48:00 Test Item Value Reference Range Interpretation Comments URIC ACID (test code = 6318803766) 5.9 mg/dL 2.9-6 Lab Interpretation (test code = Normal 80112-8) [facility]PHOSPHORUS2020-12-03 07:04:00 Test Item Value Reference Range Interpretation Comments PHOSPHORUS (test code = 9280894187) 3.9 mg/dL 2.5-5 Lab Interpretation (test code = Normal 37105-1) [facility] CenterTHYROID STIMULATING [id number] 07:03:00 Test Item Value Reference Range Interpretation Comments TSH (test code = See_Comment Biotin has been 4509933415) reported to cau se a negative bias, interpret resul ts relative to pat ient's use of biotin. [Automated mess age] The system [employer] generated this result transmitted ref erence range: 0.45 - 4 .70 mIU/L. The refe rence range was not u sed to interpret this result as normal/abnor mal. Lab Interpretation (test Normal code = 00733-3) [facility] CenterURINALYSIS2020-12-03 00:06:00 Test Item Value Reference Range Interpretation Comments APPEARANCE (test code = Hazy Clear A 4467485745) COLOR (test code = Yellow Yellow 5047852332) PH (test code = 4.8-8.0 9247643730) SP GRAVITY (test code = 1.003-1.030 3900602043) GLU U QUAL (test code = Normal Normal 6305121575) BLOOD (test code = Negative Negative 8873922997) KETONES (test code = 20 mg/dL Negative A 1814717422) PROTEIN (test code = 30 mg/dL Negative A 2887-8) UROBILIN (test code = Normal Normal 7140380944) BILIRUBIN (test code = Negative Negative 3155702408) NITRITE (test code = Negative Negative 4510201178) LEUK RAMOS (test code = Negative Negative 6301935947) RBC/HPF (test code = See_Comment [Autom ated message] 0414772474) The system [employer] generated this result transmitted ref erence range: 0 - 3 HP F. The reference range was not used to int erpret this result as normal/abnormal . WBC/HPF (test code = See_Comment H [Autom ated message] 6801583046) The system [employer] generated this result transmitted ref erence range: 0 - 5 HP F. The reference range was not used to int erpret this result as normal/abnormal . BACTERIA (test code = Moderate Negative A 7040613139) MUCOUS (test code = Moderate Negative LPF A 4870625923) SQ EPITH (test code = HPF 6614629215) HYAL CAST (test code = See_Comment H [Aut omated message] 2863699957) The system [employer] generated this result transmitted ref erence range: <=2 LPF. The reference range was not used to int erpret this result as normal/abnormal . Lab Interpretation (test Abnormal code = 56305-1) [facility] CenterCT [facility] WO [id number] 22:59:53 Impression: 1. ?No acute intracranial process. 2. ?Hyperdense opacification of the sphenoid sinuses and the left posteriorethmoid air cells, with small calcification noted within the sphenoid sinusand the posterior left ethmoid air cells. These are most likely related tochronic inspissated secretions and/or fungal colonization.Exam: CT HEAD WO CONTRAST Clinical History: Altered mental status (AMS), unclear cause Technique:Routine CT brain with multiplanar reformats. Comparison: None Findings: Ventricles are normal. Age-related volume loss is noted withprominent sulci, cisterns and ventricles. Basalcisterns are within normallimits. Aspect score: 10. The included portions of the orbits are within normal limits. Craniocervical junction is normal. Bilateral sphenoid sinuses as well as left posteriorethmoid air cells areopacified. Minimal calcification is noted within the secretions. [facility], Radiant Results Inft User - 09/23/2020 5:00 PM CSTExam: CT HEAD WO CONTRASTClinical History: Altered mental status (AMS), unclear cause Technique:Routine CT brain with multiplanar reformats.Comparison: NoneFindings: Ventricles are normal. Age-related volume loss is noted withprominent sulci, cisterns and ventricles. Basal cisterns are within normallimits. Aspect score: 10.The included portions of the orbits are within normal limits.Craniocervical junction is normal.Bilateral sphenoid sinuses as well as left posterior ethmoid air cells areopacified. Minimal calcification is noted within the secretions.IMPRESSIONImpression:1. No acute intracranial process.2. Hyperdense opacification of the sphenoid sinuses and the left posteriorethmoid air cells, with small calcification noted within the sphenoid sinusand the posterior left ethmoid air cells. These are most likely related tochronic inspissated secretions and/or fungal colonization.[facility] CenterTROPONIN [id number] 22:57:00 Test Item Value Reference Range Interpretation Comments TROPONIN I (test 0.013 ng/mL See_Comment [Automated code = 2213827357) message] The system which generated this result transmitted reference range : <=0.034. The reference range was not used to interpret this result as normal/abnormal . ASHLEY (test code = Equal or Less than ASHLEY) 0.034 ng/ml---Normal ?Note: Cardiac troponin begins to rise 3-4 hours after the onset of ischemia. Repeat in 4-6 hours if the sample was drawn within 3-4 hours of the onset of the symptom and found normal. Between 0.035 and 0.120 ng/mL--- Borderline. Questionable myocardial injury or necrosis ? ?Note: Serial measurement may be necessary to confirm or exclude the diagnosis of myocardial injury or necrosis; Clinical correlation (symptoms, EKGs, imaging studies, and others) required; Repeat in 4-6 hours if clinically indicated. ? Equal or Higher than 0.121 ng/mL---Abnormal. Myocardial Injury or Necrosis Likely ? Biotin has been reported to cause a negative bias, interpret results relative to patient's use of biotin. ? Lab Interpretation Normal (test code = 80721-4) [facility] CenterN-TERMINAL [id number] 22:53:00 Test Item Value Reference Range Interpretation Comments NT-proBNP (test code 459 pg/mL See_Comment H [Autom ated = 2261781568) message] The system which generated this result transmitted reference range : <=450. The reference range was not used to interpret this result as normal/abnormal . ASHLEY (test code = ASHLEY) Biotin has been reported to cause a negative bias, interpret results relative to patient's use of biotin. Lab Interpretation Abnormal (test code = 61897-8) [facility]. METABOLIC PANEL (07878)2020-09-23 22:45:00 Test Item Value Reference Range Interpretation Comments NA (test code = 132 mmol/L 135-145 L 7530024650) K (test code = 3.7 mmol/L 3.5-5 9905601946) CL (test code = 98 mmol/L 98-108 6195826757) CO2 TOTAL (test code = 25 mmol/L 23-31 3775639915) AGAP (test code = 2-16 5933499852) BUN (test code = 27 mg/dL 7-23 H 8064142158) GLUCOSE (test code = 133 mg/dL 70-110 H 8552190125) CREATININE (test code = 1.25 mg/dL 0.5-1.04 H 8231867085) TOTAL BILI (test code = 0.5 mg/dL 0.1-1.0 7862184442) CALCIUM (test code = 8.4 mg/dL 8.6-10.6 L 4427250922) T PROTEIN (test code = 6.7 g/dL 6.3-8.2 7365848848) ALBUMIN (test code = 3.7 g/dL 3.5-5 8263175491) ALK PHOS (test code = 64 U/L 34-122 1045420497) ALTv (test code = 30 U/L 5-35 1742-6) AST(SGOT) (test code = 55 U/L 13-40 H 8600548428) eGFR Calculation mL/min/1.73m2 (Non-) (test code = 7497135168) eGFR Calculation mL/min/1.73m2 () (test code = 9489008345) ASHLEY (test code = ASHLEY) Association of Glomerular Filtration Rate (GFR) and Staging of Kidney Disease* + --+ --+ ------+| GFR (mL/min/1.73 m2) ?| With Kidney Damage ?| ?Without Kidney Damage+ --------+ --------+ +| ?>90 ?| ?Stage one ?| ? Normal ?+ ---+ ---+ -------+| ?60-89 ?| ?Stage two ?| ? Decreased GFR ? + --+ --+ ------+| ?30-59 ?| ?Stage three ?| ? Stage three ? + --+ --+ ------+| ?15-29 ?| ?Stage four ? | ? Stage four ?+ ---+ ---+ -------+| ?<15 (or dialysis) ? ?| ?Stage five ? | ? Stage five ?+ ---+ ---+ -------+ *Each stage assumes the associated GFR level has been in effect for at least three months. ?Stages 1 to 5, with or without kidney disease, indicate chronic kidney disease. Notes: Determination of stages one and two (with eGFR >59mL/min/1.73 m2) requires estimation of kidney damage for at least three months as defined by structural or functional abnormalities of the kidney, manifested by either:Pathological abnormalities or Markers of kidney damage (including abnormalities in the composition of the blood or urine or abnormalities in imaging tests). Lab Interpretation Abnormal (test code = 17620-4) [facility] CenterLIPASE2020-12-02 22:45:00 Test Item Value Reference Range Interpretation Comments LIPASE (test code = 6939425920) 378 U/L 0-220 H Lab Interpretation (test code = Abnormal 81847-6) [facility] CenterMAGNESIUM2020-12-02 22:45:00 Test Item Value Reference Range Interpretation Comments MAGNESIUM (test code = 3740708262) 2.1 mg/dL 1.7-2.4 Lab Interpretation (test code = Normal 50939-6) [facility] CenterCOVID-19 (ID NOW RAPID TESTING)2020-09-23 22:45:00 Test Item Value Reference Range Interpretation Comments SARS-CoV-2 Rapid ID NOW Positive Not Detected A (test code = 31601-2) ASHLEY (test code = ASHLEY) ID NOW COVID-19 Assay is an isothermal nucleic acid amplification test intended for the qualitative detection of nucleic acid from SARS-CoV-2 viral RNA in nasopharyngeal (SLAB STRIPPER) specimens. It is used under Emergency Use Authorization (EUA) by FDA. The limit of detection (LOD) of the assay is 125 Genome Equivalents/mL. A positive result is indicative of the presence of SARS-CoV-2 RNA. ?Clinical correlation with patient history and other diagnostic [...] for repeat patient testing if clinically indicated. Lab Interpretation Abnormal (test code = 83066-8) [facility] CenterCREATINE [id number] 22:44:00 Test Item Value Reference Range Interpretation Comments CK (test code = 0327140006) 250 U/L 33-194 H Lab Interpretation (test code = Abnormal 67591-3) [facility] CenterCB WITH [id number] 22:34:00 Test Item Value Reference Range Interpretation Comments WBC (test code = See_Comment L [Automated 5290-2) message] The sy stem which generated this result transmitted reference range : 4.30 - 11.10 10*3/?L. The reference range was not used to interpret this result as normal/abnormal . RBC (test code = See_Comment [Automated 789-8) message] The sy stem which generated this result transmitted reference range : 3.93 - 5.25 10*6/?L. The reference range was not used to interpret this result as normal/abnormal . HGB (test code = 12.4 g/dL 11.6-15 718-7) HCT (test code = 37.7 % 35.7-45.2 4544-3) MCV (test code = 84.3 fL 80.6-95.5 787-2) MCH (test code = 27.7 pg 25.9-32.8 785-6) MCHC (test code = 32.9 g/dL 31.6-35.1 786-4) RDW-SD (test code = 42.8 fL 39-49.9 83783-9) RDW-CV (test code = 13.7 % 12-15.5 788-0) PLT (test code = See_Comment [Automated 777-3) message] The sy stem which generated this result transmitted reference range : 166 - 358 10*3/ ?L. The reference r nagi was not used to interpret this result as normal/abnormal . MPV (test code = 10.4 fL 9.5-12.9 42313-7) NRBC/100 WBC (test See_Comment [Automat ed code = 0982214572) message] The system which generated this result transmitted reference range : 0.0 - 10.0 /100 WBCs. The refer ence range was not u sed to interpret th is result as normal/abnormal . NRBC x10^3 (test code <0.01 See_Comment [Auto mated = 2479902911) message] The s [employer] which generated this result transmitted reference range : 10*3/?L. The reference range was not used to interpret this result as normal/abnormal . GRAN MAT (NEUT) % 68.9 % (test code = 770-8) IMM GRAN % (test code 0.30 % = 9449348951) LYMPH % (test code = 25.4 % 736-9) MONO % (test code = 5.1 % 5905-5) EOS % (test code = 0.0 % 713-8) BASO % (test code = 0.3 % 706-2) GRAN MAT x10^3(ANC) 2.28 10*3/uL 1.88-7.09 (test code = 0169766785) IMM GRAN x10^3 (test <0.03 0-0.06 code = 9829834504) LYMPH x10^3 (test code 0.84 10*3/uL 1.32-3.29 L = 731-0) MONO x10^3 (test code 0.17 10*3/uL 0.33-0.92 L = 742-7) EOS x10^3 (test code = <0.03 0.03-0.39 L 711-2) BASO x10^3 (test code <0.03 0.01-0.07 = 704-7) Lab Interpretation Abnormal (test code = 31022-7) [facility] CenterLactic Acid Whole [id number] 22:06:00 Test Item Value Reference Range Interpretation Comments LACTIC ACID (test code = 1.41 mmol/L 4926101647) [facility] CenterXR CHEST 1 [id number] 22:04:18HISTORY: COVID positive. TECHNIQUE: Portable AP view of the chest is obtained. Comparison is madewith 07/06/2019 study. FINDINGS: Minimal groundglass hazy changes are seen in the lower lungs andright upper lung without focal area of consolidation. Some of the hazychanges could be chronic interstitial pulmonary fibrosis. No pneumothoraxor pleural effusion. Cardiac size is upper normal. Thoracic aorta is dilated. CONCLUSIONS: No definite signs of acute cardiopulmonary disease. Hazychanges in the lungs are likely secondary to chronic pulmonary fibrosis.[facility], Radiant Results Inft User - 09/23/2020 4:05 PM CSTHISTORY: COVID positive.TECHNIQUE: Portable AP view of the chest is obtained. Comparison is madewith 07/06/2019 study.FINDINGS: Minimal groundglass hazy changes are seen in the lower lungs andright upper lung without focal area of consolidation. Some of the hazychanges could be chronic interstitialpulmonary fibrosis. No pneumothoraxor pleural effusion. Cardiac size is upper normal. Thoracic aorta isdilated.CONCLUSIONS: No definite signs of acute cardiopulmonary disease. Hazychanges in the lungs are likely secondary to chronic pulmonary fibrosis. [facility]W [id number] 02:45:55 Marked proximal lateral leg/knee soft tissue swelling, possibly a hematomain the setting of trauma.No acute bony abnormality. 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 The jointspaces are maintained. Anterolateral proximal leg soft tissue swelling. [facility], Radiant Results Inft User - 07/24/2020 9:47 PM CDTEXAM: XR TIBIA FIBULA 2 VW LEFTHISTORY: left leg pain COMPARISON: NoneFINDINGS:Radiographs ofthe left leg demonstrate no acute fracture or dislocation.Postsurgical changes of total knee arthroplasty are identified. The jointspaces are maintained. Anterolateral proximal leg soft tissue swelling. IMPRESSIONMarked proximal lateral leg/knee soft tissue swelling, possibly a hematomain the setting of trauma.No acute bony abnormality.Preliminary Report Dictated by Resident: Gonsalo Deleon MD., have reviewed this study and agree with the abovereport.[facility]XR HIPS 3 VW LEFT 2020-05-19 19:31:05HISTORY: Left hip pain. FINDINGS: AP view of the pelvis and AP and lateral views centered over lefthip joint showed no acute fracture or dislocation. No aggressive bonelesions or signs of AVN in the femoral head. Minimal changes ofdegenerative type arthritis noted in the upper weightbearing portion ofthejoint, in the form of minimal narrowing of the joint space, smallosteophyte along the articular edges of the bones and minimal subchondralsclerosis in the acetabulum. 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 [facility], Radiant Results Inft User - 05/19/2020 2:32 PM CDTHISTORY: Lefthip pain.FINDINGS: AP view of the pelvis and AP and lateral views centered over lefthip joint showedno acute fracture or dislocation. No aggressive bonelesions or signs of AVN in the femoral head. Minimal changes ofdegenerative type arthritis noted in the upper weightbearing portion of thejoint, in the form of minimal narrowing of the joint space, smallosteophyte along the articular edges of the bones and minimal subchondralsclerosis in the acetabulum.CONCLUSIONS: Minimal degenerative arthritis of left hip joint. [facility]XR [id number] 14:14:38 No bowel obstruction. Oral contrast opacifies the colon to the level of the mid descending colon. Preliminary Report Dictated by Resident: Tano Raya MD., have reviewed this study and agree with the abovereport.EXAM: XR KUB COMPARISON: None available. HISTORY: SBO FINDINGS: The bowel gas pattern is nonobstructive and without localizing findings.Radiopaque contrast material is noted within the cecum, transverse colon,splenic flexure, and descending colon. A few scattered diverticula arenoted. No abnormal calcifications or radiopaque stones are identified. [facility], Radiant Results Inft User - 04/01/2020 9:15 AM CDTEXAM: XR KUBCOMPARISON: None available.HISTORY: SBO FINDINGS:The bowel gas pattern is nonobstructive and without localizing findings.Radiopaque contrast material is noted within the cecum, transverse colon,splenic flexure, and descending colon. A few scattered diverticula arenoted.No abnormal calcifications or radiopaque stones are identified.IMPRESSIONNo bowel obstruction.Oral contrast opacifies the colon to the level of the mid descending colon.Preliminary ReportDictated by Resident: Tano Timmons MD., have reviewed this study and agree with the abovereport.[facility] CenterCOMP. METABOLIC PANEL (17445) 2020-04-01 09:57:00 Test Item Value Reference Range Interpretation Comments NA (test code = 139 mmol/L 135-145 0157350700) K (test code = 3.6 mmol/L 3.5-5 6098583357) CL (test code = 113 mmol/L 98-108 H 5774056016) CO2 TOTAL (test code = 21 mmol/L 23-31 L 2428978345) AGAP (test code = 2-16 2043116909) BUN (test code = 9 mg/dL 7-23 8855937550) GLUCOSE (test code = 114 mg/dL 70-110 H 5597271446) CREATININE (test code = 0.68 mg/dL 0.5-1.04 9759446356) TOTAL BILI (test code = 0.6 mg/dL 0.1-1.6 1389566097) CALCIUM (test code = 8.7 mg/dL 8.6-10.6 8145190397) T PROTEIN (test code = 6.6 g/dL 6.3-8.2 9537961539) ALBUMIN (test code = 3.7 g/dL 3.5-5 5522336164) ALK PHOS (test code = 52 U/L 34-122 2515792592) ALTv (test code = 14 U/L 5-35 1742-6) AST(SGOT) (test code = 19 U/L 13-40 9795205931) eGFR Calculation mL/min/1.73m2 (Non-) (test code = 6779025449) eGFR Calculation mL/min/1.73m2 () (test code = 2961512397) ASHLYE (test code = ASHLEY) Association of Glomerular Filtration Rate (GFR) and Staging of Kidney Disease* + --+ --+ ------+| GFR (mL/min/1.73 m2) ?| With Kidney Damage ?| ?Without Kidney Damage+ --------+ --------+ +| ?>90 ?| ?Stage one ?| ? Normal ?+ ---+ ---+ -------+| ?60-89 ?| ?Stage two ?| ? Decreased GFR ? + --+ --+ ------+| ?30-59 ?| ?Stage three ?| ? Stage three ? + --+ --+ ------+| ?15-29 ?| ?Stage four ? | ? Stage four ?+ ---+ ---+ -------+| ?<15 (or dialysis) ? ?| ?Stage five ? | ? Stage five ?+ ---+ ---+ -------+ *Each stage assumes the associated GFR level has been in effect for at least three months. ?Stages 1 to 5, with or without kidney disease, indicate chronic kidney disease. Notes: Determination of stages one and two (with eGFR >59mL/min/1.73 m2) requires estimation of kidney damage for at least three months as defined by structural or functional abnormalities of the kidney, manifested by either:Pathological abnormalities or Markers of kidney damage (including abnormalities in the composition of the blood or urine or abnormalities in imaging tests). Lab Interpretation Abnormal (test code = 40459-7) [facility] CenterMAGNESIUM2020-06-10 09:57:00 Test Item Value Reference Range Interpretation Comments MAGNESIUM (test code = 7948274577) 2.1 mg/dL 1.7-2.4 Lab Interpretation (test code = Normal 82114-8) [facility] WITH [id number] 09:40:00 Test Item Value Reference Range Interpretation Comments WBC (test code = See_Comment [Automated message] 6690-2) The system [employer] generated this result transmitted ref erence range: 4.30 - 1 1.10 10*3/?L. The re ference range was not u sed to interpret this result as normal/abnor mal. RBC (test code = See_Comment [Automated message] 789-8) The system [employer] generated this result transmitted ref erence range: 3.93 - 5 .25 10*6/?L. The re ference range was not u sed to interpret this result as normal/abnor mal. HGB (test code = 12.7 g/dL 11.6-15 718-7) HCT (test code = 37.7 % 35.7-45.2 4544-3) MCV (test code = 86.5 fL 80.6-95.5 787-2) MCH (test code = 29.1 pg 25.9-32.8 785-6) MCHC (test code = 33.7 g/dL 31.6-35.1 786-4) RDW-SD (test code 42.3 fL 39-49.9 = 24447-4) RDW-CV (test code 13.5 % 12-15.5 = 788-0) PLT (test code = See_Comment [Automated message] 777-3) The system whic h generated this result transmitted ref erence range: 166 - 35 8 10*3/?L. The re ference range was not u sed to interpret this result as normal/abnor mal. MPV (test code = 10.5 fL 9.5-12.9 52600-2) NRBC/100 WBC (test See_Comment [Automat ed message] code = 9661967461) The syste m which generated this result transmitted ref erence range: 0.0 - 10 .0 /100 WBCs. The refer ence range was not u sed to interpret this result as normal/abnor mal. NRBC x10^3 (test <0.01 See_Comment [Automated message] code = 6573722866) The syste m which generated this result transmitted ref erence range: 10*3/?L. The reference range was not used to interpr et this result as normal/abnormal . GRAN MAT (NEUT) % 63.3 % (test code = 770-8) IMM GRAN % (test 0.30 % code = 1371807691) LYMPH % (test code 24.2 % = 736-9) MONO % (test code 9.0 % = 5905-5) EOS % (test code = 2.6 % 713-8) BASO % (test code 0.6 % = 706-2) GRAN MAT 4.13 10*3/uL 1.88-7.09 x10^3(ANC) (test code = 6343001297) IMM GRAN x10^3 <0.03 0-0.06 (test code = 5048838561) LYMPH x10^3 (test 1.58 10*3/uL 1.32-3.29 code = 731-0) MONO x10^3 (test 0.59 10*3/uL 0.33-0.92 code = 742-7) EOS x10^3 (test 0.17 10*3/uL 0.03-0.39 code = 711-2) BASO x10^3 (test 0.04 10*3/uL 0.01-0.07 code = 704-7) [facility] CenterCT [facility] [id number] 19:27:58CT Abdomen and Pelvis with oral contrast only. CLINICAL HISTORY: Bowel obstruction. DOSE: [id number] equipment and radiation dose reduction techniques wereemployed. CTDIvol: 8.24 mGy. DLP: 357 mGy-cm. TECHNIQUE : Contiguous axial imaging from the level of the lungbases through the pubic symphysis was performed with oral contrast mediumonly. Coronal and sagittal reconstructions were obtained. Auto mA and/oriterative reconstruction were used to reduce radiation dose. FINDINGS: Comparison has been made with CT scan of 03/28/2020 as well asabdominal radiographs of 03/30/2020 and 03/31/2020. Lower lungs: Clear. Orogastric tube is in good position. Liver, Gallbladder and Spleen: Contrast medium noted in the gallbladderlumen, likely vicarious excretion of iodinated contrast medium, more thanin previous CT scan of 03/28/2020. Enlarged liver noted without any focal lesions visualized. Peritoneum: ?No free airor free fluid. No lymphadenopathy. Pancreas and Adrenals: ?Unremarkable pancreas and adrenal glands.Kidneys and Ureters: ?No visible calculi in the renal collecting systems. No hydroureter or hydronephrosis. ? Vessels: Moderate atherosclerosis. No AAA. Retroperitoneum: No abnormal fluid or lymphadenopathy. Bowel: Distal jejunal loop showed diffuse thickening of its ferrera causingincomplete proximal obstruction with mild dilatation of the proximaljejunum. The abnormal segment of jejunum showed wall thickening of 8 to 9mm and maximum diameter of 2 cm whereas slightly dilated jejunal loop isdilated to3.1 cm. Moderate diverticulosis of the sigmoid and descending colon with additionaldiverticula scattered throughout the rest of large bowel noted without anyevidence of acute diverticulitis. Normal appendix is visualized. Bladder ?and Reproductive Organs: S/P hysterectomy. No gross pathology inthe urinary bladder. Bones: Old trauma to upper plate of L5 with loss of approximately 30% ofits height. No signs of AVN in the femoral head. No aggressive bonelesions. Soft tissues: Small fat-containing bilateral indirect type inguinal hernia. CONCLUSION:1. Abnormal loop of distal jejunum with thickened ferrera causing low- gradepartial small bowel obstruction. Etiology of the abnormal loop of bowel isnot apparent.2. Diverticulosis of large bowel without any acute changes.3. S/P hysterectomy.4. Hepatomegaly.5. Old fracture in upper plate of L5. [facility], Radiant Results Inft User - 03/31/2020 2:29 PM CDTCT Abdomen and Pelvis with oral contrast only.CLINICAL HISTORY: Bowel obstruction.DOSE: Up-to-date CT equipment and radiation dose reduction techniques wereemployed. CTDIvol: 8.24 mGy. DLP: 357 mGy-cm.TECHNIQUE: Contiguous axial imaging from the level of the lungbases through the pubic symphysis was performedwith oral contrast mediumonly. Coronal and sagittal reconstructions were obtained. Auto mA and/oriterative reconstruction were used to reduce radiation dose.FINDINGS: Comparison has been made with CT scan of 03/28/2020 as well asabdominal radiographs of 03/30/2020 and 03/31/2020.Lower lungs: Clear. Orogastric tube is in good position.Liver, Gallbladder and Spleen: Contrast medium noted in the gallbladderlumen, likely vicarious excretion of iodinated contrast medium, more thanin previous CT scan of 03/28/2020.Enlarged liver noted without any focal lesions visualized.Peritoneum: No free air or free fluid. Nolymphadenopathy.Pancreas and Adrenals: Unremarkable pancreas and adrenal glands.Kidneys and Ureters:No visible calculi in the renal collecting systems. No hydroureter or hydronephrosis. Vessels: Moderate atherosclerosis. No AAA.Retroperitoneum: No abnormal fluid or lymphadenopathy.Bowel: Distal jejunal loop showed diffuse thickening of its ferrera causingincomplete proximal obstruction with mild dilata tion of the proximaljejunum. The abnormal segment of jejunum showed wall thickening of 8 to 9mm and maximum diameter of 2 cm whereas slightly dilated jejunal loop isdilated to 3.1 cm.Moderate diverticulosis of the sigmoid and descending colon with additionaldiverticula scattered throughout the rest of large bowel noted without anyevidence of acute diverticulitis. Normal appendix is visualized.Bladderand Reproductive Organs: S/P hysterectomy. No gross pathology inthe urinary bladder.Bones: Old trauma to upper plate of L5 with loss of approximately 30% ofits height. No signs of AVN in the femoral head. No aggressive bonelesions.Soft tissues: Small fat-containing bilateral indirect type inguinal hernia.CONCLUSION:1. Abnormal loop of distal jejunum with thickened ferrera causing low-gradepartial smallbowel obstruction. Etiology of the abnormal loop of bowel isnot apparent.2. Diverticulosis of large bowel without any acute changes.3. S/P hysterectomy.4. Hepatomegaly.5. Old fracture in upper plate ofL5.[facility] [id number] 13:01:09HISTORY: SOB. FINDINGS: Portable AP supine view of the abdomen is obtained and comparedwith 03/30/2020study. Small amount of contrast medium is seen right- sidedlarge bowel and distal small bowel loops. There is no significant gaseousdistention or any of the intestinal loops. Small amount of gas is seen insome of the small bowel loops, less than in yesterday's study. Mildhepatomegaly noted. CONCLUSIONS: Unremarkable AP supine abdominal radiograph. [facility], Radiant Results Inft User - 03/31/2020 8:02 AM CDTHISTORY: SOB.FINDINGS: Portable AP supine view of the abdomen is obtained and comparedwith 03/30/2020study. Small amount of contrast medium is seen right- sidedlarge bowel and distal small bowel loops. There is no significant gaseousdistention or any of the intestinal loops. Small amount of gas is seen insome of the small bowel loops, less than in yesterday's study. Mildhepatomegaly noted.CONCLUSIONS:Unremarkable AP supine abdominal radiograph. [facility] CenterPROT[facility] / [id number] 09:31:00 Test Item Value Reference Range Interpretation Comments PROTIME PATIENT (test See_Comment [Auto mated message] code = 5964-2) The system [employer] generated this result transmitted ref erence range: 12.0 - 1 4.7 Seconds. The re ference range was not u sed to interpret this result as normal/abnor mal. INR (test code = 6301-6) Nor mal INR <1.1; Warfarin Therap eutic range 2.0 to 3. 0 or 2.5 to 3.5, dep ending upon the indica tions. Lab Interpretation (test Normal code = 64267-1) [facility] 09:24:00 Test Item Value Reference Range Interpretation Comments APTT Patient (test See_Comment [Automat ed code = 3173-2) message] The system which generated this result transmitted reference range : 23 - 38 Seconds . The reference range was not used to interpr et this result as normal/abnormal . ASHLEY (test code = ASHLEY) The [facility] patient population mean normal value for aPTT is 30 seconds. Lab Interpretation Normal (test code = 29875-4) [facility]. METABOLIC PANEL (89955)2020-03-31 09:13:00 Test Item Value Reference Range Interpretation Comments NA (test code = 139 mmol/L 135-145 7003990623) K (test code = 3.8 mmol/L 3.5-5 5743049913) CL (test code = 112 mmol/L 98-108 H 4183986857) CO2 TOTAL (test code = 20 mmol/L 23-31 L 7473459049) AGAP (test code = 2-16 9273044357) BUN (test code = 9 mg/dL 7-23 9848343264) GLUCOSE (test code = 137 mg/dL 70-110 H 4446787506) CREATININE (test code = 0.72 mg/dL 0.5-1.04 1201450533) TOTAL BILI (test code = 0.6 mg/dL 0.1-1.2 8685489961) CALCIUM (test code = 9.1 mg/dL 8.6-10.6 8534688094) T PROTEIN (test code = 6.4 g/dL 6.3-8.2 7743514143) ALBUMIN (test code = 3.8 g/dL 3.5-5 8246753782) ALK PHOS (test code = 61 U/L 34-122 2710043764) ALTv (test code = 16 U/L 5-35 1742-6) AST(SGOT) (test code = 19 U/L 13-40 9871858351) eGFR Calculation mL/min/1.73m2 (Non-) (test code = 9018391668) eGFR Calculation mL/min/1.73m2 () (test code = 9999881872) ASHLEY (test code = ASHLEY) Association of Glomerular Filtration Rate (GFR) and Staging of Kidney Disease* + --+ --+ ------+| GFR (mL/min/1.73 m2) ?| With Kidney Damage ?| ?Without Kidney Damage+ --------+ --------+ +| ?>90 ?| ?Stage one ?| ? Normal ?+ ---+ ---+ -------+| ?60-89 ?| ?Stage two ?| ? Decreased GFR ? + --+ --+ ------+| ?30-59 ?| ?Stage three ?| ? Stage three ? + --+ --+ ------+| ?15-29 ?| ?Stage four ? | ? Stage four ?+ ---+ ---+ -------+| ?<15 (or dialysis) ? ?| ?Stage five ? | ? Stage five ?+ ---+ ---+ -------+ *Each stage assumes the associated GFR level has been in effect for at least three months. ?Stages 1 to 5, with or without kidney disease, indicate chronic kidney disease. Notes: Determination of stages one and two (with eGFR >59mL/min/1.73 m2) requires estimation of kidney damage for at least three months as defined by structural or functional abnormalities of the kidney, manifested by either:Pathological abnormalities or Markers of kidney damage (including abnormalities in the composition of the blood or urine or abnormalities in imaging tests). Lab Interpretation Abnormal (test code = 38274-8) [facility] WITH [id number] 08:48:00 Test Item Value Reference Range Interpretation Comments WBC (test code = See_Comment [Automated 4409-2) message] The sy stem which generated this result transmitted reference range : 4.30 - 11.10 10*3/?L. The reference range was not used to interpret this result as normal/abnormal . RBC (test code = See_Comment [Automated 209-5) message] The sy stem which generated this result transmitted reference range : 3.93 - 5.25 10*6/?L. The reference range was not used to interpret this result as normal/abnormal . HGB (test code = 13.3 g/dL 11.6-15 718-7) HCT (test code = 39.2 % 35.7-45.2 4544-3) MCV (test code = 86.3 fL 80.6-95.5 787-2) MCH (test code = 29.3 pg 25.9-32.8 785-6) MCHC (test code = 33.9 g/dL 31.6-35.1 786-4) RDW-SD (test code = 42.1 fL 39-49.9 14828-9) RDW-CV (test code = 13.5 % 12-15.5 788-0) PLT (test code = See_Comment [Automated 777-3) message] The sy stem which generated this result transmitted reference range : 166 - 358 10*3/ ?L. The reference r nagi was not used to interpret this result as normal/abnormal . MPV (test code = 10.5 fL 9.5-12.9 68044-1) NRBC/100 WBC (test See_Comment [Automat ed code = 8007870929) message] The system which generated this result transmitted reference range : 0.0 - 10.0 /100 WBCs. The refer ence range was not u sed to interpret th is result as normal/abnormal . NRBC x10^3 (test code <0.01 See_Comment [Auto mated = 6390752015) message] The s ystem which generated this result transmitted reference range : 10*3/?L. The reference range was not used to interpret this result as normal/abnormal . GRAN MAT (NEUT) % 79.9 % (test code = 770-8) IMM GRAN % (test code 0.30 % = 4142937712) LYMPH % (test code = 11.1 % 736-9) MONO % (test code = 7.9 % 5905-5) EOS % (test code = 0.6 % 713-8) BASO % (test code = 0.2 % 706-2) GRAN MAT x10^3(ANC) 7.67 10*3/uL 1.88-7.09 H (test code = 8768861295) IMM GRAN x10^3 (test 0.03 10*3/uL 0-0.06 code = 8559940131) LYMPH x10^3 (test code 1.07 10*3/uL 1.32-3.29 L = 731-0) MONO x10^3 (test code 0.76 10*3/uL 0.33-0.92 = 742-7) EOS x10^3 (test code = 0.06 10*3/uL 0.03-0.39 711-2) BASO x10^3 (test code <0.03 0.01-0.07 = 704-7) Lab Interpretation Abnormal (test code = 13980-2) [facility] [id number] 14:01:47EXAM: XR KUB HISTORY: SBO COMPARISON: None. FINDINGS: Contrast material partly opacifies the stomach and small intestine. Thesmall bowel is dilated and little or no contrast material has made its waytothe colon. The appearance suggests a distal small bowel obstruction. Theobstruction is incomplete since fecal material can be seen in the rightside of the colon. Contrast material opacifies the urinarybladder. ? [facility], Radiant Results Inft User - 03/30/2020 9:02 AM CDTEXAM: XR KUBHISTORY: SBO COMPARISON: None.FINDINGS:Contrast material partly opacifies the stomach and small intestine. Thesmall bowel is dilated and little or no contrast material has made its wayto the colon. The appearance suggests adistal small bowel obstruction. Theobstruction is incomplete since fecal material can be seen in therightside of the colon. Contrast material opacifies the urinary bladder. [facility] [id number] 12:32:21 Radiographic evidence of small bowel obstruction predominantly involvingthe small bowel within the left hemiabdomen. The tip of the nasogastric tube is located within the stomach. Preliminary Report Dictated by Resident: Venkata Raya ?MD Evangelina., have reviewed this study and agree with theabove report.EXAM: XR KUB COMPARISON: None available. HISTORY: SBO TECHNIQUE: AP radiographs of the abdomen and pelvis were obtained. FINDINGS: The tip of the nasogastric tube is located within thegastric body. Several loops of small bowel within the left hemiabdomen are dilatedmeasuring up to 3.8 cm in diameter, in keeping with a small bowelobstructive. No abnormal calcifications or radiopaque stones are identified. [facility], Radiant Results Inft User - 03/30/2020 7:33 AM CDTEXAM: XR KUBCOMPARISON: None available.HISTORY: SBO TECHNIQUE: AP radiographs of the abdomen and pelvis were obtained.FINDINGS:The tip of the nasogastric tube is located within the gastric body.Several loops of small bowel within the left hemiabdomen are dilatedmeasuring up to 3.8 cm in diameter, in keeping with a small bowelobstructive. No abnormal calcifications or radiopaque stones are identified.IMPRESSIONRadiographic evidence of small bowel obstruction predominantly involvingthe small bowel within the left hemiabdomen.The tip of the nasogastric tube is located within the stomach.Preliminary Report Dictated by Resident: Venkata Timmons MD., have reviewed this study and agree with theabove report.[facility] (NA, K, CL, CO2, GLUCOSE, BUN, CREATININE, CA)2020-03-30 08:00:00 Test Item Value Reference Range Interpretation Comments NA (test code = 136 mmol/L 135-145 6016709773) K (test code = 4.1 mmol/L 3.5-5 2076662579) CL (test code = 108 mmol/L 98-108 1804385662) CO2 TOTAL (test code = 23 mmol/L 23-31 7624980653) AGAP (test code = 2-16 8222750504) BUN (test code = 10 mg/dL 7-23 3711781819) GLUCOSE (test code = 155 mg/dL 70-110 H 5435899633) CREATININE (test code = 0.74 mg/dL 0.5-1.04 8396977181) CALCIUM (test code = 8.7 mg/dL 8.6-10.6 5868965149) eGFR Calculation mL/min/1.73m2 (Non-) (test code = 0611531899) eGFR Calculation mL/min/1.73m2 () (test code = 2345162782) ASHLEY (test code = ASHLEY) Association of Glomerular Filtration Rate (GFR) and Staging of Kidney Disease* + --+ --+ ------+| GFR (mL/min/1.73 m2) ?| With Kidney Damage ?| ?Without Kidney Damage+ --------+ --------+ +| ?>90 ?| ?Stage one ?| ? Normal ?+ ---+ ---+ -------+| ?60-89 ?| ?Stage two ?| ? Decreased GFR ? + --+ --+ ------+| ?30-59 ?| ?Stage three ?| ? Stage three ? + --+ --+ ------+| ?15-29 ?| ?Stage four ? | ? Stage four ?+ ---+ ---+ -------+| ?<15 (or dialysis) ? ?| ?Stage five ? | ? Stage five ?+ ---+ ---+ -------+ *Each stage assumes the associated GFR level has been in effect for at least three months. ?Stages 1 to 5, with or without kidney disease, indicate chronic kidney disease. Notes: Determination of stages one and two (with eGFR >59mL/min/1.73 m2) requires estimation of kidney damage for at least three months as defined by structural or functional abnormalities of the kidney, manifested by either:Pathological abnormalities or Markers of kidney damage (including abnormalities in the composition of the blood or urine or abnormalities in imaging tests). Lab Interpretation Abnormal (test code = 14850-7) [facility] 08:00:00 Test Item Value Reference Range Interpretation Comments MAGNESIUM (test code = 4227461694) 1.8 mg/dL 1.7-2.4 Lab Interpretation (test code = Normal 91487-2) [facility] [id number] 21:05:15 The tip of the nasogastric tube is located within the stomach. Preliminary Report Dictated by Resident: Trisha Raya MD., have reviewed this study and agree with the abovereport.EXAM: XR KUB COMPARISON: None available. HISTORY: S/p ng tube FINDINGS: The tip of the nasogastric tube is located within the gastric body. The bowel gas pattern is nonobstructive and without localizing findings. No abnormal calcifications or radiopaque stones are identified. The urinary bladder is opacified from previous contrast-enhancedexamination. [facility], Radiant Results Inft User - 03/29/2020 4:06 PM CDTEXAM: XR KUBCOMPARISON: None available.HISTORY: S/p ng tube FINDINGS:The tip of the nasogastric tube is located within the gastric body.The bowel gas pattern is nonobstructive and without localizing findings.No abnormal calcifications or radiopaque stones are identified.The urinary bladder is opacified from previous contrast- enhancedexamination.IMPRESSIONThe tip of the nasogastric tube is located within the stomach.Preliminary Report Dictated by Resident: Kevin Barber, Trisha Barksdale MD., have reviewed this study and agree with the abovereport.[facility] [place], [place] METABOLIC PANEL (NA, K, CL, CO2, GLUCOSE, BUN, CREATININE, CA)2020-03-29 09:21:00 Test Item Value Reference Range Interpretation Comments NA (test code = 137 mmol/L 135-145 7213639264) K (test code = 4.2 mmol/L 3.5-5 5425276786) CL (test code = 105 mmol/L 98-108 6021011951) CO2 TOTAL (test code = 28 mmol/L 23-31 7560772554) AGAP (test code = 2-16 4153031330) BUN (test code = 13 mg/dL 7-23 9781582174) GLUCOSE (test code = 122 mg/dL 70-110 H 4308614257) CREATININE (test code = 0.91 mg/dL 0.5-1.04 1928871735) CALCIUM (test code = 9.4 mg/dL 8.6-10.6 4594743147) eGFR Calculation mL/min/1.73m2 (Non-) (test code = 7435840018) eGFR Calculation mL/min/1.73m2 () (test code = 6552825104) ASHLEY (test code = ASHLEY) Association of Glomerular Filtration Rate (GFR) and Staging of Kidney Disease* + --+ --+ ------+| GFR (mL/min/1.73 m2) ?| With Kidney Damage ?| ?Without Kidney Damage+ --------+ --------+ +| ?>90 ?| ?Stage one ?| ? Normal ?+ ---+ ---+ -------+| ?60-89 ?| ?Stage two ?| ? Decreased GFR ? + --+ --+ ------+| ?30-59 ?| ?Stage three ?| ? Stage three ? + --+ --+ ------+| ?15-29 ?| ?Stage four ? | ? Stage four ?+ ---+ ---+ -------+| ?<15 (or dialysis) ? ?| ?Stage five ? | ? Stage five ?+ ---+ ---+ -------+ *Each stage assumes the associated GFR level has been in effect for at least three months. ?Stages 1 to 5, with or without kidney disease, indicate chronic kidney disease. Notes: Determination of stages one and two (with eGFR >59mL/min/1.73 m2) requires estimation of kidney damage for at least three months as defined by structural or functional abnormalities of the kidney, manifested by either:Pathological abnormalities or Markers of kidney damage (including abnormalities in the composition of the blood or urine or abnormalities in imaging tests). Lab Interpretation Abnormal (test code = 35216-8) [facility] WITH [id number] 08:53:00 Test Item Value Reference Range Interpretation Comments WBC (test code = See_Comment [Automated 4302-2) message] The sy stem which generated this result transmitted reference range : 4.30 - 11.10 10*3/?L. The reference range was not used to interpret this result as normal/abnormal . RBC (test code = See_Comment [Automated 285-8) message] The sy stem which generated this result transmitted reference range : 3.93 - 5.25 10*6/?L. The reference range was not used to interpret this result as normal/abnormal . HGB (test code = 13.0 g/dL 11.6-15 718-7) HCT (test code = 40.4 % 35.7-45.2 4544-3) MCV (test code = 89.0 fL 80.6-95.5 787-2) MCH (test code = 28.6 pg 25.9-32.8 785-6) MCHC (test code = 32.2 g/dL 31.6-35.1 786-4) RDW-SD (test code = 44.0 fL 39-49.9 77042-5) RDW-CV (test code = 13.4 % 12-15.5 788-0) PLT (test code = See_Comment [Automated 357-3) message] The sy stem which generated this result transmitted reference range : 166 - 358 10*3/ ?L. The reference r nagi was not used to interpret this result as normal/abnormal . MPV (test code = 10.5 fL 9.5-12.9 85285-0) NRBC/100 WBC (test See_Comment [Automat ed code = 4565891082) message] The system which generated this result transmitted reference range : 0.0 - 10.0 /100 WBCs. The refer ence range was not u sed to interpret th is result as normal/abnormal . NRBC x10^3 (test code <0.01 See_Comment [Auto mated = 4953913866) message] The s ystem which generated this result transmitted reference range : 10*3/?L. The reference range was not used to interpret this result as normal/abnormal . GRAN MAT (NEUT) % 82.8 % (test code = 770-8) IMM GRAN % (test code 0.30 % = 5581673994) LYMPH % (test code = 12.7 % 736-9) MONO % (test code = 2.5 % 5905-5) EOS % (test code = 1.3 % 713-8) BASO % (test code = 0.4 % 706-2) GRAN MAT x10^3(ANC) 5.95 10*3/uL 1.88-7.09 (test code = 5586933755) IMM GRAN x10^3 (test <0.03 0-0.06 code = 3027824679) LYMPH x10^3 (test code 0.91 10*3/uL 1.32-3.29 L = 731-0) MONO x10^3 (test code 0.18 10*3/uL 0.33-0.92 L = 742-7) EOS x10^3 (test code = 0.09 10*3/uL 0.03-0.39 711-2) BASO x10^3 (test code 0.03 10*3/uL 0.01-0.07 = 704-7) Lab Interpretation Abnormal (test code = 35522-4) [facility] [id number] 04:48:431. ?Prominence of 2 loops of bowel within the left lower quadrant withsurrounding mesenteric stranding and small amount of free fluid in theinterloop spaces. Questionable transition point is seen on 3:94. Findingslikely represent early small bowel obstruction versus enteritis. Oralcontrast transit to the level of the mildly prominent loop of small bowel(however, not dilated by strict CT criteria). Consider serial follow-upwith abdominal radiographs. 2. ?Hepatomegaly. 3. ?Technically indeterminate L5 compression deformity. Correlate withpoint tenderness. 4. ?Additional findings as above.CT ABDOMEN AND PELVIS WITH CONTRAST REASON FOR STUDY: Abd pain, acute, generalized Compare to earlier CT,possibleinternal hernia with strangulation Please give oral contrast andallow for time for the contrast to reach the colon before imaging, pleasedetermine if patient may receive an additional dose of IV contrast COMPARISON: None available. TECHNIQUE: Multidetector axial CT images from lung bases through proximalthighs after IV administration of nonionic iodinated contrast material.Coronal and sagittal MPR images also generated. FINDINGS: Lower chest: Mild bibasilar atelectasis. ABDOMEN AND PELVISLiver: Enlarged liver measuring 20 cm in craniocaudal dimension at midclavicular line. No focal hepatic lesions identified. Biliary Tract/GB: Physiologically distended gallbladder containing layeringcontrast material. No pericholecystic inflammatory change or stranding. Nobiliary ductal dilatation. Spleen: Within normal limits. Pancreas: Within normal limits. Adrenals: Within normal limits. Kidneys: Kidneys enhance symmetrically. No hydronephrosis, nephrolithiasisor solid renal mass. Hypoattenuating subcentimeter focus within the leftupper renal pole is too small to characterize. Bowel: Mild rectosigmoid diverticulosis without diverticulitis. Normalappendix. Two prominent loops of small bowel within the left lower quadrantmeasuring up to 2.7 cm (3:90 and 95). Oral contrast transit to the level ofone of the prominent loops. The other loop of small bowel is not opacifiedwith contrast and remains filled with fluid. Focal area of caliber changeon 3:93-94 may represent transient point versus peristalsis (appearssimilar prior). There is small amount of inflammatory change in the mesentery within theleft lower quadrant adjacent to the prominent loops of small bowel. Small hiatal hernia. Stomach is from a few distended with oral contrast. Peritoneum: Small amount of fluid within the left lower quadrant interloopspace. No pneumoperitoneum. Vasculature: Patent abdominal vasculature. Mild atheroscleroticcalcifications of the abdominal aorta. Lymph Nodes: Within normal limits. ? Pelvic organs: Urinary bladder is normal for the degree of distention.Prior hysterectomy. Ovaries are not iden tified and may be surgically absentas well. Abdominal/Pelvic Wall: Small fat- containing bilateral inguinal hernias.. BONES: Multilevel degenerative changes scattered throughout the visualizedspine. Mild compression deformity of L5 with 20-30% loss of vertebral bodyheight, age-indeterminate. [facility], Radiant Results Inft User - 03/28/2020 11:49 PM CDTCT ABDOMEN AND PELVIS WITH CONTRASTREASON FOR STUDY: Abd pain, acute, generalized Compare to earlier CT,possible internal hernia with strangulation Please give oral contrast andallow for time for the contrast to reach the colon before imaging, pleasedetermine if patient may receive an additional dose of IV contrastCOMPARISON: None available.TECHNIQUE: Multidetector axial CT images from lung bases through proximalthighs after IV administration of nonioniciodinated contrast material.Coronal and sagittal MPR images also generated.FINDINGS: Lower chest: Mild bibasilar atelectasis.ABDOMEN AND PELVISLiver: Enlarged liver measuring 20 cm in craniocaudal dimension at midclavicular line. No focal hepatic lesions identified.Biliary Tract/GB: Physiologically distended gallbladder containing layeringcontrast material. No pericholecystic inflammatory change or stranding. Nobiliary ductal dilatation.Spleen: Within normal limits.Pancreas: Within normal limits.Adrenals: Within normal limits.Kidneys: Kidneys enhance symmetrically. No hydronephrosis, nephrolithiasisor solid renal mass. Hypoattenuating subcentimeter focus within the leftupper renal pole is too small to characterize.Bowel: Mild rectosigmoid diverticulosis without diverticulitis. Normalappendix. Twoprominent loops of small bowel within the left lower quadrantmeasuring up to 2.7 cm (3:90 and 95). Oral contrast transit to the level ofone of the prominent loops. The other loop of small bowel is not opacifiedwith contrast and remains filled with fluid. Focal area of caliber changeon 3:93-94 may represent transient point versus peristalsis (appearssimilar prior).There is small amount of inflammatorychange in the mesentery within theleft lower quadrant adjacent to the prominent loops of small bowel. Small hiatal hernia. Stomach is from a few distended with oral contrast.Peritoneum: Small amount offluid within the left lower quadrant interloopspace. No pneumoperitoneum.Vasculature: Patent abdominal vasculature. Mild atheroscleroticcalcifications of the abdominal aorta.Lymph Nodes: Within normal limits. Pelvic organs: Urinary bladder is normal for the degree of distention.Prior hysterectomy. Ovaries are not identified and may be surgically absentas well.Abdominal/Pelvic Wall: Small fat-containing bilateral inguinal hernias..BONES: Multilevel degenerative changes scattered throughout the visuali zedspine. Mild compression deformity of L5 with 20-30% loss of vertebral bodyheight, age-indeterminate.IMPRESSION1. Prominence of 2 loops of bowel within the left lower quadrant withsurrounding mesenteric stranding and small amount of free fluid in theinterloop spaces. Questionable transition point isseen on 3:94. Findingslikely represent early small bowel obstruction versus enteritis. Oralcontrast transit to the level of the mildly prominent loop of small bowel(however, not dilated by strict CT criteria). Consider serial follow-upwith abdominal radiographs.2. Hepatomegaly.3. Technically indeterminate L5 compression deformity. Correlate withpoint tenderness.4. Additional findings as above.[facility] CenterLactic Acid Whole [id number] 19:56:00 Test Item Value Reference Range Interpretation Comments LACTIC ACID (test code = 0.92 mmol/L 0.5-2.2 6392048279) Lab Interpretation (test code = Normal 82786-5) [facility] CenterCOVID-19 (ID NOW RAPID TESTING)2020-03-28 19:05:00 Test Item Value Reference Range Interpretation Comments SARS-CoV-2 Rapid ID NOW Not Detected Not Detected (test code = 55733-3) ASHLEY (test code = ASHLEY) ID NOW COVID-19 Assay is an isothermal nucleic acid amplification test intended for the qualitative detection of nucleic acid from SARS-CoV-2 viral RNA in nasopharyngeal (SLAB STRIPPER) specimens. It is used under Emergency Use Authorization (EUA) by FDA. The limit of detection (LOD) of the assay is 125 Genome Equivalents/mL. A positive result is indicative of the presence of SARS-CoV-2 RNA. ?Clinical correlation with patient history and other diagnostic [...] for repeat patient testing if clinically indicated. Lab Interpretation Normal (test code = 69990-9) [facility] CenterCT ABD[facility]EN PELVIS W [id number] 17:08:28 A short segment of hypoenhancing small bowel in the left lower quadrantwith surrounding inflammatory changes and mild upstream small boweldilatation. These findings are concerning for strangulated internal hernia.No bowel perforation. Findings were discussed with Dr. Figueroa at 11:50 AM. Preliminary Report Dictated by Resident: Trisha Connolly MD., have reviewed this study and agree with the abovereport.EXAM: CT ABDOMEN AND PELVIS WITH CONTRAST HISTORY: Abdominalpain. COMPARISON: None. TECHNIQUE AND FINDINGS: Contiguous axial imaging from the level of the lungbases through the pubic symphysis was performed after the uncomplicatedadministration of 120 cc of intravenous Omnipaque contrast. Coronal andsagittal reconstructions were obtained. ?Auto mA and/or iterat ivereconstruction were used to reduce radiation dose. FINDINGS: LOWER THORAX: The lungs bases are clear. LIVER: The liver is enlarged at 21 cm. Normal contour. GALLBLADDER AND BILIARY TREE: No gallbladder wall thickening. A 3 mmhyperdense gallbladder stone is seen at the fundus (2:60). PANCREAS: No ductal dilation or masses. SPLEEN: No splenomegaly. ADRENAL GLANDS: No adrenal nodules. KIDNEYS: No hydronephrosis, stones, or masses. PELVIS/BLADDER: Unremarkable. GI TRACT: A short segment of hypoenhancing small bowel is seen in the left lowerquadrant (2:100) with surrounding inflammatory changes. Proximal to thishypoenhancing bowel there is mild dilatation of the small bowel with atransition point seen in the left lower quadrant (2:88) the blood vesselsdistal to this lesion does not demonstrate normal contrast filling.Mesenteric edema extends from the transition point to the involved butbowel lobe.Colon diverticulosis. Tubular hyperdensity is seen in the distal second portion of the midline(4:47), likely represent medication capsule. VESSELS: Unremarkable. LYMPH NODES: No lymphadenopathy. PERITONEUM AND RETROPERITONEUM: No free air or fluid. BONES AND SOFT TISSUES: No suspicious lytic or sclerotic bony lesions. [facility], Radiant Results Inft User - 03/28/2020 12:09 PM CDTEXAM: CT ABDOMEN AND PELVIS WITH CONTRASTHISTORY: Abdominal pain.COMPARISON: None.TECHNIQUE AND FINDINGS: Contiguous axial imaging from the level of the lungbases through the pubic symphysis was performed after the uncomplicatedadministration of 120 cc of intravenous Omnipaque contrast. Coronal andsagittal reconstructions were o btained. Auto mA and/or iterativereconstruction were used to reduce radiation dose.FINDINGS:LOWER THORAX: The lungs bases are clear. LIVER: The liver is enlarged at 21 cm. Normal contour.GALLBLADDER AND BILIARY TREE: No gallbladder wall thickening. A 3 mmhyperdense gallbladder stone is seen at the fundus (2:60).PANCREAS: No ductal dilation or masses.SPLEEN: No splenomegaly.ADRENAL GLANDS: No adrenal nodules.KIDNEYS: No hydronephrosis, stones, or masses.PELVIS/BLADDER: Unremarkable.GI TRACT: A short segment of hypoenhancing small bowel is seen in the left lowerquadrant (2:100) with surrounding inflam matory changes. Proximal to thishypoenhancing bowel there is mild dilatation of the small bowel withatransition point seen in the left lower quadrant (2:88) the blood vesselsdistal to this lesion doesnot demonstrate normal contrast filling.Mesenteric edema extends from the transition point to the involved butbowel lobe.Colon diverticulosis.Tubular hyperdensity is seen in the distal second portion of the midline(4:47), likely represent medication capsule.VESSELS: Unremarkable.LYMPH NODES: No lymphadenopathy.PERITONEUM AND RETROPERITONEUM: No free air or fluid.BONES AND SOFT TISSUES: No suspicious l ytic or sclerotic bony lesions.IMPRESSIONA short segment of hypoenhancing small bowel in the left lower quadrantwith surrounding inflammatory changes and mild upstream small boweldilatation. These findings are concerning for strangulated internal hernia.No bowel perforation.Findings were discussed with Dr. Figueroa at 11:50 AM.Preliminary Report Dictated by Resident: Ezekiel Padilla, Trisha Barksdale MD., have reviewed this study and agree with the abovereport.[facility] CenterUrinalysis2020-06-06 15:36:00 Test Item Value Reference Range Interpretation Comments APPEARANCE (test code = Hazy Clear A 3236664289) COLOR (test code = Radha Yellow A 9530807775) PH (test code = 4.8-8.0 9752806009) SP GRAVITY (test code = 1.003-1.030 4683055169) GLU U QUAL (test code = Normal Normal 1786268805) BLOOD (test code = Negative Negative INTERFERE NCE FROM 1076747607) ASCORBIC ACID M AY CAUSE FALSE NEG ATIVE RESULT KETONES (test code = 5 mg/dL Negative A 3037983817) PROTEIN (test code = Negative Negative 2887-8) UROBILIN (test code = 2.0 mg/dL Normal A 1256240671) BILIRUBIN (test code = Negative Negative 3947428611) NITRITE (test code = Negative Negative 0808178455) LEUK RAMOS (test code = Negative Negative 9160922246) RBC/HPF (test code = <1 See_Comment [Autom ated message] 0819905448) The system auctionpoint generated this result transmitted ref erence range: 0 - 3 HP F. The reference range was not used to int erpret this result as normal/abnormal . WBC/HPF (test code = See_Comment [Autom ated message] 1437101353) The system auctionpoint generated this result transmitted ref erence range: 0 - 5 HP F. The reference range was not used to int erpret this result as normal/abnormal . BACTERIA (test code = Few Negative A 7095940653) MUCOUS (test code = Moderate Negative LPF A 9247875187) SQ EPITH (test code = HPF 9797235110) Lab Interpretation Abnormal (test code = 31054-6) [facility] CenterComplete Metabolic [id number] 15:35:00 Test Item Value Reference Range Interpretation Comments NA (test code = 140 mmol/L 135-145 7615841313) K (test code = 3.7 mmol/L 3.5-5 9079135994) CL (test code = 106 mmol/L 98-108 7205945697) CO2 TOTAL (test code = 28 mmol/L 23-31 9704739063) AGAP (test code = 2-16 3129675826) BUN (test code = 18 mg/dL 7-23 5010288931) GLUCOSE (test code = 121 mg/dL 70-110 H 7558432412) CREATININE (test code = 1.02 mg/dL 0.5-1.04 0686293395) TOTAL BILI (test code = 0.5 mg/dL 0.1-1.4 3549318579) CALCIUM (test code = 9.6 mg/dL 8.6-10.6 0960365387) T PROTEIN (test code = 7.4 g/dL 6.3-8.2 5301335203) ALBUMIN (test code = 4.5 g/dL 3.5-5 1269806269) ALK PHOS (test code = 56 U/L 34-122 7388613141) ALTv (test code = 23 U/L 5-35 2-6) AST(SGOT) (test code = 23 U/L 13-40 2425726402) eGFR Calculation mL/min/1.73m2 (Non-) (test code = 3409411163) eGFR Calculation mL/min/1.73m2 () (test code = 8793820638) ASHLEY (test code = ASHLEY) Association of Glomerular Filtration Rate (GFR) and Staging of Kidney Disease* + --+ --+ ------+| GFR (mL/min/1.73 m2) ?| With Kidney Damage ?| ?Without Kidney Damage+ --------+ --------+ +| ?>90 ?| ?Stage one ?| ? Normal ?+ ---+ ---+ -------+| ?60-89 ?| ?Stage two ?| ? Decreased GFR ? + --+ --+ ------+| ?30-59 ?| ?Stage three ?| ? Stage three ? + --+ --+ ------+| ?15-29 ?| ?Stage four ? | ? Stage four ?+ ---+ ---+ -------+| ?<15 (or dialysis) ? ?| ?Stage five ? | ? Stage five ?+ ---+ ---+ -------+ *Each stage assumes the associated GFR level has been in effect for at least three months. ?Stages 1 to 5, with or without kidney disease, indicate chronic kidney disease. Notes: Determination of stages one and two (with eGFR >59mL/min/1.73 m2) requires estimation of kidney damage for at least three months as defined by structural or functional abnormalities of the kidney, manifested by either:Pathological abnormalities or Markers of kidney damage (including abnormalities in the composition of the blood or urine or abnormalities in imaging tests). Lab Interpretation Abnormal (test code = 92621-8) [facility] CenterLipase, [id number] 15:35:00 Test Item Value Reference Range Interpretation Comments LIPASE (test code = 8573156301) 156 U/L 0-220 Lab Interpretation (test code = Normal 06818-4) [facility] CenterCBC WITH [id number] 15:25:00 Test Item Value Reference Range Interpretation Comments WBC (test code = See_Comment [Automated 8590-2) message] The sy stem which generated this result transmitted reference range : 4.30 - 11.10 10*3/?L. The reference range was not used to interpret this result as normal/abnormal . RBC (test code = See_Comment [Automated 815-8) message] The sy stem which generated this result transmitted reference range : 3.93 - 5.25 10*6/?L. The reference range was not used to interpret this result as normal/abnormal . HGB (test code = 13.6 g/dL 11.6-15 718-7) HCT (test code = 41.8 % 35.7-45.2 4544-3) MCV (test code = 88.9 fL 80.6-95.5 787-2) MCH (test code = 28.9 pg 25.9-32.8 785-6) MCHC (test code = 32.5 g/dL 31.6-35.1 786-4) RDW-SD (test code = 43.8 fL 39-49.9 65450-8) RDW-CV (test code = 13.3 % 12-15.5 788-0) PLT (test code = See_Comment [Automated 977-3) message] The sy stem which generated this result transmitted reference range : 166 - 358 10*3/ ?L. The reference r nagi was not used to interpret this result as normal/abnormal . MPV (test code = 10.2 fL 9.5-12.9 96325-2) NRBC/100 WBC (test See_Comment [Automat ed code = 5499960330) message] The system which generated this result transmitted reference range : 0.0 - 10.0 /100 WBCs. The refer ence range was not u sed to interpret th is result as normal/abnormal . NRBC x10^3 (test code <0.01 See_Comment [Auto mated = 2026813944) message] The s ystem which generated this result transmitted reference range : 10*3/?L. The reference range was not used to interpret this result as normal/abnormal . GRAN MAT (NEUT) % 61.8 % (test code = 770-8) IMM GRAN % (test code 0.70 % = 4642929276) LYMPH % (test code = 27.2 % 736-9) MONO % (test code = 6.2 % 5905-5) EOS % (test code = 3.2 % 713-8) BASO % (test code = 0.9 % 706-2) GRAN MAT x10^3(ANC) 2.68 10*3/uL 1.88-7.09 (test code = 1750523837) IMM GRAN x10^3 (test 0.03 10*3/uL 0-0.06 code = 4867783232) LYMPH x10^3 (test code 1.18 10*3/uL 1.32-3.29 L = 731-0) MONO x10^3 (test code 0.27 10*3/uL 0.33-0.92 L = 742-7) EOS x10^3 (test code = 0.14 10*3/uL 0.03-0.39 711-2) BASO x10^3 (test code 0.04 10*3/uL 0.01-0.07 = 704-7) Lab Interpretation Abnormal (test code = 72869-0) [facility]- [facility] W/O CONT [id number] 14:05:00 Patient Name: YULY CHADWICK Unit No: [id number] EXAMS: CPT CODE: [id number] MRI UP JNT W/[place] [address] EXAM: MRI RIGHT SHOULDER WITHOUT CONTRAST DIAGNOSIS: 1. Marked supraspinatus tendinosis. Partial-thickness interstitial tearing is present anteriorly. No evidence of full-thickness tear. There is moderate subacromial and subdeltoid bursitis. 2. 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 3. Diffuse labral degeneration and tearing. 4. 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 5. Mild distal subscapularis tendinosis. INDICATION: Right shoulder painTECHNIQUE: Multiplanar, multisequence MRI is obtained of the [...] No evidence of fracture or avascular necrosis. Electronically Signed by Dagmar Chaney MD on 020 at 1405 Reported and signed by: Dagmar Chaney MD CC: Ryan Caruso MD; Sherry Tavares M.D. Technologist: Reba Lai RT(R) Transcribed D/ (0801) tGENOGVG [facility] NAME: YULY CHADWICK [address] PHYS: Kin Jama MD : 1940 AGE: 79 SEX: F [place], [place] [address] LOC: Y.MRI PHONE #: [phone] EXAM DATE: 12/17/2019 STATUS: REG CLI FAX #: [phone] RAD #: D/C DT PAGE 1 Signed Report Patient Name: YULY CHADWICK Unit No: [id number] EXAMS: CPT CODE: [id number] MRI UP JNT W/[place] [address] (Continued) Orig Print D/T: S: 12/17/2019 (1409) [facility] NAME: YULY CHADWICK [address] PHYS: Kin Jama MD : 1940 AGE: 79 SEX: F [place], [place] [address] [id number] LOC: [facility] PHONE #: [phone] EXAM DATE: 12/17/2019 STATUS: REG CLI FAX #: [phone] #: D/C DT PAGE 2 Signed ReportTROPONIN [id number] 10:41:00 Test Item Value Reference Range Interpretation Comments TROPONIN I (test 0.003 ng/mL See_Comment [Automated code = 4737833657) message] The system which generated this result transmitted reference range : <=0.034. The reference range was not used to interpret this result as normal/abnormal . ASHLEY (test code = Equal or Less than ASHLEY) 0.034 ng/ml---Normal?Not e: Cardiac troponin begins to rise 3-4 hours after the onset of ischemia. Repeat in 4-6 hours if the sample was drawn within 3-4 hours of the onset of the symptom and found normal. Between 0.035 and 0.120 ng/mL--- Borderline. Questionable myocardial injury or necrosis?Note: Serial measurement may be necessary to confirm or exclude the diagnosis of myocardial injury or necrosis; Clinical correlation (symptoms, EKGs, imaging studies, and others) required; Repeat in 4-6 hours if clinically indicated.? Equal or Higher than 0.121 ng/mL---Abnormal. Myocardial Injury or Necrosis Likely? Biotin has been reported to cause a negative bias, interpret results relative to patient's use of biotin.? ? Lab Interpretation Normal (test code = 51637-6) [facility] CenterCT ANGIOGRAM [id number] 01:26:29 1.?No evidence of a pulmonary embolism to the level of the subsegmentalbranches. 2.?No evidence of thoracic aortic dissection. Rashawn Maria?MD Lorena., have reviewed this study and agree withthe above report.PROCEDURE: CT ANGIO CHEST WITH CONTRAST - PE PROTOCOL CLINICAL INDICATION: Chest wall pain Shortness of breath Chest painradiating to back, r/o dissection,PE COMPARISON: None CT thorax 09/05/2017, same day chest radiograph. TECHNIQUE:?Helical CT was performed and reconstructed at 1.25 mm slicethickness from lung base to apices after the administration ofOmnipaque-350 intravenous contrast, without complication Display field ofview: 38 cm. FINDINGS: PULMONARY ARTERIES:Enhancement is adequate, and there is no acute or chronic pulmonaryembolism. CHEST:Lower neck/thyroid: Unremarkable. Lungs: Normal. Central airway: Unremarkable. Pleura: No pleural effusion, thickening or pneumothorax. Thoracic aorta and great vessels: Normal in diameter. Standard trivesselaortic arch anatomy. Minimal calcified atherosclerosis of the descendingthoracic aorta. Heart and pericardium: Minimal left anterior descending coronary arterycalcifications. Unremarkable cardiac morphology and pericardium. Lymph nodes: No enlarged thoracic lymph nodes. Mediastinum: Unremarkable. Thoracic spine and chest wall: Unremarkable, with normal thoracic vertebralbody heights. Visualized upper abdomen: Unremarkable. [facility], Radiant Results Inft User - 07/06/2019 8:26 PM CDTPROCEDURE: CT ANGIO CHEST WITH CONTRAST - PE PROTOCOLCLINICAL INDICATION: Chest wall pain Shortness of breath Chest painradiating to back, r/o dissection, PE COMPARISON: None CT thorax 09/05/2017, same day chest radiograph.TECHNIQUE: Helical CT was performed and reconstructed at 1.25 mm slicethickness from lung base to apices after the administration ofOmnipaque-350 intravenous contrast, without complication Display field ofview: 38 cm.FINDINGS:PULMONARY ARTERIES:Enhancement is adequate, and there is no acute or chronic pulmonaryembolism.CHEST:Lower neck/thyroid: Unremarkable.Lungs: Normal.Central airway: Unremarkable.Pleura: No pleural effusion, thickening or pneumothorax.Thoracic aortaand great vessels: Normal in diameter. Standard trivesselaortic arch anatomy. Minimal calcified atherosclerosis of the descendingthoracic aorta.Heart and pericardium: Minimal left anterior descending coronary arterycalcifications. Unremarkable cardiac morphology and pericardium.Lymph nodes: No enlarged thoracic lymph nodes.Mediastinum: Unremarkable.Thoracic spine and chest wall: Unremarkable, with normal thoracic vertebralbody heights.Visualized upper abdomen: Unremarkable. IMPRESSION1. No evidence of a pulmonary embolism to the level of the subsegmentalbranches.2. No evidence of thoracic aortic dissection. I, Rashawn Mg MD., have reviewed this study and agree withthe above report.[facility] CenterGLYCOSYLATED HEMOGLOBIN (A1C)2019-07-06 22:18:00 Test Item Value Reference Interpretation Comments Range HGB A1C (test code = See_Comment [Autom ated 4548-4) message] The system which generated this result transmitted reference range : 4.0 - 6.0 % NGSP. The reference range was not used to interpret this result as normal/abnormal . ASHLEY (test code = %A1C (NGSP) ASHLEY) Interpretation (ADA)4.8-5.6? Normal or (Non-Diabetic Range)5.7-6.4? Increased Risk (Pre-Diabetic)>6.5?D iabetes Indicated Lab Interpretation Normal (test code = 54234-9) [facility] CenterLIPID PANEL (33224)(TOTAL CHOLESTEROL, TRIGLYCERIDES, HDL)2019-07-06 22:16:00 Test Item Value Reference Range Interpretation Comments CHOL (test code = 181 mg/dL 120-200 1339268520) HDL (test code = 51 mg/dL >50 1018462260) HDLC RATIO (test code = See_Comment [Au tomated message] 3767502942) The system auctionpoint generated this result transmit cyndi reference range : <=4.5. The refe rence range was not u sed to interpret th is result as normal/abnormal . TRIG (test code = 122 mg/dL 30-170 6643119744) LDL CHOL (test code = 106 mg/dL See_Comment [Auto mated message] 28030-7) The system auctionpoint generated this result transmit cyndi reference range : <=160. The refe rence range was not u sed to interpret th is result as normal/abnormal . VLDL (test code = 24 mg/dL 5-60 0036862694) Lab Interpretation (test Normal code = 24473-4) [facility] CenterTROPONIN [id number] 22:07:00 Test Item Value Reference Range Interpretation Comments TROPONIN I (test 0.000 ng/mL See_Comment [Automated code = 3222247088) message] The system which generated this result transmitted reference range : <=0.034. The reference range was not used to interpret this result as normal/abnormal . ASHLEY (test code = Equal or Less than ASHLEY) 0.034 ng/ml---Normal?Not e: Cardiac troponin begins to rise 3-4 hours after the onset of ischemia. Repeat in 4-6 hours if the sample was drawn within 3-4 hours of the onset of the symptom and found normal. Between 0.035 and 0.120 ng/mL--- Borderline. Questionable myocardial injury or necrosis?Note: Serial measurement may be necessary to confirm or exclude the diagnosis of myocardial injury or necrosis; Clinical correlation (symptoms, EKGs, imaging studies, and others) required; Repeat in 4-6 hours if clinically indicated.? Equal or Higher than 0.121 ng/mL---Abnormal. Myocardial Injury or Necrosis Likely? Biotin has been reported to cause a negative bias, interpret results relative to patient's use of biotin.? ? Lab Interpretation Normal (test code = 73560-5) [facility] 2 [id number] 21:13:43No acute cardiopulmonary abnormality is present IHernan MD., have reviewed this study and agree with theabove report.XR CHEST 2 VW HISTORY: chest pain COMPARISON: Chest x-ray on 03/22/2017FINDINGS: The lungs are clear. No focal consolidation is present. No pleural effusion or pneumothorax is present. The cardiomediastinal silhouette is normal. Mild atheroscleroticcalcification affects the aortic arch. No acute osseous abnormality. Changes of partially visualized lowercervical spine ACDF. Diffuse bone demineralization. Suggestion of small hiatal hernia. [facility], Radiant Results Inft User - 07/06/2019 4:13 PM CDTXR CHEST 2 VWHISTORY: chest pain COMPARISON: Chest x-ray on 03/22/2017FINDINGS:The lungs are clear. No focal consolidation is present. No pleural effusion or pneumothorax is present.The cardiomediastinal silhouette is normal. Mild atheroscleroticcalcification affects the aortic arch.No acute osseous abnormality. Changes of partially visualized lowercervical spine ACDF. Diffuse bone demineralization. Suggestion of small hiatal hernia.IMPRESSIONNo acute cardiopulmonary abnormality is presentJordan Maria MD., have reviewed this study and agree with theabove report.[facility] CenterALEXANDREA [id number] 16:32:00 Test Item Value Reference Range Interpretation Comments TROPONIN I (test 0.000 ng/mL See_Comment [Automated code = 3954732287) message] The system which generated this result transmitted reference range : <=0.034. The reference range was not used to interpret this result as normal/abnormal . ASHLEY (test code = Equal or Less than ASHLEY) 0.034 ng/ml---Normal?Not e: Cardiac troponin begins to rise 3-4 hours after the onset of ischemia. Repeat in 4-6 hours if the sample was drawn within 3-4 hours of the onset of the symptom and found normal. Between 0.035 and 0.120 ng/mL--- Borderline. Questionable myocardial injury or necrosis?Note: Serial measurement may be necessary to confirm or exclude the diagnosis of myocardial injury or necrosis; Clinical correlation (symptoms, EKGs, imaging studies, and others) required; Repeat in 4-6 hours if clinically indicated.? Equal or Higher than 0.121 ng/mL---Abnormal. Myocardial Injury or Necrosis Likely? Biotin has been reported to cause a negative bias, interpret results relative to patient's use of biotin.? ? Lab Interpretation Normal (test code = 65979-6) [id number][facility] 16:22:00 Test Item Value Reference Range Interpretation Comments NA (test code = 142 mmol/L 135-145 0976393328) K (test code = 4.1 mmol/L 3.5-5 8053275115) CL (test code = 108 mmol/L 98-108 0082280240) CO2 TOTAL (test code = 27 mmol/L 23-31 2178439808) AGAP (test code = 2-16 2205797495) BUN (test code = 20 mg/dL 7-23 2136483785) GLUCOSE (test code = 112 mg/dL 70-110 H 4619514520) CREATININE (test code = 0.99 mg/dL 0.5-1.04 8302979801) TOTAL BILI (test code = 0.4 mg/dL 0.1-1.0 4715857995) CALCIUM (test code = 9.8 mg/dL 8.6-10.6 2811518908) T PROTEIN (test code = 6.8 g/dL 6.3-8.2 8515780246) ALBUMIN (test code = 3.9 g/dL 3.5-5 8222692997) ALK PHOS (test code = 60 U/L 34-122 6232540418) ALT(SGPT) (test code = 25 U/L 9-51 5276556752) AST(SGOT) (test code = 26 U/L 13-40 6123104574) eGFR Calculation mL/min/1.73m2 (Non-) (test code = 5242436089) eGFR Calculation mL/min/1.73m2 () (test code = 5983072750) ASHLEY (test code = ASHLEY) Association of Glomerular Filtration Rate (GFR) and Staging of Kidney Disease*+ + + +| GFR (mL/min/1.73 m2)?| With Kidney Damage?|?Without Kidney Damage+ --------+ --------+ +|?>90?|?S tage one?|? Normal?+ ---------+ ---------+ +|?60-89? |?Stage two?|? Decreased GFR? + --+ --+ ------+|?30-59?|?Stage three?|? Stage three? + --+ --+ ------+|?15-29?|?Stage four? |? Stage four?+ -------+ -------+ +|?<15 (or dialysis)?|?Stage five? |? Stage five?+ -------+ -------+ +*Each stage assumes the associated GFR level has been in effect for at least three months.?Stages 1 to 5, with or without kidney disease, indicate chronic kidney disease.Notes: Determination of stages one and two (with eGFR >59mL/min/1.73 m2) requires estimation of kidney damage for at least three months as defined by structural or functional abnormalities of the kidney, manifested by either:Pathological abnormalities or Markers of kidney damage (including abnormalities in the composition of the blood or urine or abnormalities in imaging tests). Lab Interpretation Abnormal (test code = 45653-0) [facility] [id number] 16:22:00 Test Item Value Reference Range Interpretation Comments LIPASE (test code = 6071193968) 157 U/L 0-220 Lab Interpretation (test code = Normal 02182-9) [facility]2019-[facility] 15:43:00 Test Item Value Reference Range Interpretation Comments APTT Patient (test See_Comment [Automat ed code = 3173-2) message] The system which generated this result transmitted reference range : 23 - 38 Seconds . The reference range was not used to interpr et this result as normal/abnormal . ASHLEY (test code = ASHLEY) The [facility] patient population mean normal value for aPTT is 30 seconds. Lab Interpretation Normal (test code = 15381-0) [facility] / [id number] 15:41:00 Test Item Value Reference Range Interpretation Comments PROTIME PATIENT (test See_Comment [Auto mated message] code = 5964-2) The system wh ich generated this result transmitted ref erence range: 12.0 - 1 4.7 Seconds. The re ference range was not u sed to interpret this result as normal/abnor mal. INR (test code = 6301-6) Nor mal INR <1.1; Warfarin Therap eutic range 2.0 to 3. 0 or 2.5 to 3.5, dep ending upon the indica tions. Lab Interpretation (test Normal code = 44369-1) [facility] WITH [id number] 15:30:00 Test Item Value Reference Range Interpretation Comments WBC (test code = See_Comment [Automated 6890-2) message] The sy stem which generated this result transmitted reference range : 4.30 - 11.10 10*3/?L. The reference range was not used to interpret this result as normal/abnormal . RBC (test code = See_Comment [Automated 049-8) message] The sy stem which generated this result transmitted reference range : 3.93 - 5.25 10*6/?L. The reference range was not used to interpret this result as normal/abnormal . HGB (test code = 13.4 g/dL 11.6-15 948-7) HCT (test code = 40.8 % 35.7-45.2 4544-3) MCV (test code = 88.9 fL 80.6-95.5 787-2) MCH (test code = 29.2 pg 25.9-32.8 785-6) MCHC (test code = 32.8 g/dL 31.6-35.1 786-4) RDW-SD (test code = 43.3 fL 39-49.9 03404-6) RDW-CV (test code = 13.2 % 12-15.5 788-0) PLT (test code = See_Comment [Automated 777-3) message] The sy stem which generated this result transmitted reference range : 166 - 358 10*3/ ?L. The reference r nagi was not used to interpret this result as normal/abnormal . MPV (test code = 10.1 fL 9.5-12.9 53018-3) NRBC/100 WBC (test See_Comment [Automat ed code = 0457974102) message] The system which generated this result transmitted reference range : 0.0 - 10.0 /100 WBCs. The refer ence range was not u sed to interpret th is result as normal/abnormal . NRBC x10^3 (test code <0.01 See_Comment [Auto mated = 9304921723) message] The s ystem which generated this result transmitted reference range : 10*3/?L. The reference range was not used to interpret this result as normal/abnormal . GRAN MAT (NEUT) % 55.3 % (test code = 770-8) IMM GRAN % (test code 0.20 % = 9277487156) LYMPH % (test code = 34.5 % 736-9) MONO % (test code = 5.7 % 5905-5) EOS % (test code = 3.2 % 713-8) BASO % (test code = 1.1 % 706-2) GRAN MAT x10^3(ANC) 2.43 10*3/uL 1.88-7.09 (test code = 4363577473) IMM GRAN x10^3 (test <0.03 0-0.06 code = 0586943883) LYMPH x10^3 (test code 1.52 10*3/uL 1.32-3.29 = 731-0) MONO x10^3 (test code 0.25 10*3/uL 0.33-0.92 L = 742-7) EOS x10^3 (test code = 0.14 10*3/uL 0.03-0.39 711-2) BASO x10^3 (test code 0.05 10*3/uL 0.01-0.07 = 704-7) Lab Interpretation Abnormal (test code = 08928-6) [facility] [id number] 07:24:00 Test Item Value Reference Range Interpretation Comments SODIUM (BEAKER) 141 meq/L 136-145 (test code = 381) POTASSIUM (BEAKER) 4.0 meq/L 3.5-5.1 (test code = 379) CHLORIDE (BEAKER) 107 meq/L 98-107 (test code = 382) CO2 (BEAKER) (test 23 meq/L 22-29 code = 355) BLOOD UREA NITROGEN 17 mg/dL 7-21 (BEAKER) (test code = 354) CREATININE (BEAKER) 0.95 mg/dL 0.57-1.25 (test code = 358) GLUCOSE RANDOM 112 mg/dL 70-105 H (BEAKER) (test code = 652) CALCIUM (BEAKER) 9.2 mg/dL 8.4-10.2 (test code = 697) EGFR (BEAKER) (test 57 mL/min/1.73 ESTIMA CYNDI GFR IS code = 1092) sq m NOT ACCURATE CREATININE CLEARANCE IN PREDICTING GLOMERULAR FILTRATION RATE . ESTIMATED GFR I S NOT APPLICABLE FOR DIALYSIS PATIEN TS. [id number] 07:20:00 Test Item Value Reference Range Interpretation Comments PROTIME (BEAKER) (test code = 13.2 seconds 11.7-14.7 759) INR (BEAKER) (test code = 370) 1.0 <=5.9 PARTIAL THROMBOPLASTIN TIME 27.7 seconds 22.5-36.0 (BEAKER) (test code = 760) RECOMMENDED COUMADIN/WARFARIN INR THERAPY RANGESSTANDARD DOSE: 2.0 - 3.0 Includes: PROPHYLAXIS for venous thrombosis, systemic embolization; TREATMENT for venous thrombosis and/or pulmonary embolus.HIGH RISK: Target INR is 2.5-3.5 for patients with mechanical heart valves.CBC W/PLT COUNT & AUTO [id number] 07:03:00 Test Item Value Reference Range Interpretation [...] % 0-1 PERCENT (BEAKER) (test code = 2801)
[2022-08-29] MEDS ORDERED: NA CHLORIDE 0.9% 1,000 ML ONE (12:49)
--- NOTE | 2022-08-29 12:59 | RAD REPORT ---
EXAM DESCRIPTION: CT - Head Brain Wo Cont - 08/29/2022 12:44 pm CLINICAL HISTORY: syncope, right head injury COMPARISON: MRA HEAD W O CONTRAST dated 05/11/2015 TECHNIQUE: Axial 5 mm thick images of the head were obtained without IV contrast. All CT scans are performed using dose optimization technique as appropriate and may include automated exposure control or mA/KV adjustment according to patient size. FINDINGS: No intracranial hemorrhage, mass, edema or shift of mid-line structures. No acute infarcti on changes seen. No cortical edema or sulcal effacement. Physiologic calcifications and arterial calc ifications are present. Atrophy changes are mild for age with ventricles in proportion. Chronic ische hilary changes mild. The right sylvian fissure there is an 8 millimeter rounded density present. Right MCA aneurysm is pos sible. This could be a summation of tortuous vasculature. No evidence for rupture of any possible ane urysm. Mastoid air cells are clear. There is chronic sphenoid sinusitis with inspissated mucus. There is exp ansile change of the sinus and slight thickening of the sinus wall. No disruption identified. No acute bony findings. IMPRESSION: No acute intracranial hemorrhage is present. There is no mass, edema or shift of midline structures. An 8 millimeter rounded density in the right sylvian fissure is potentially a right MCA aneurysm. The re is no evidence for rupture. This could potentially be a summation of tortuous vasculature. As cli nical findings warrant, follow-up MRA or CTA imaging could be performed. Chronic sphenoid sinusitis with expansile change of the sinus. No bone disruption identified.
[2022-08-29 13:00] LABS: Absolute Lymphocytes (CBC) 0.4 K/uL (0.7-4.9); Hematocrit 42.1 % (36.0-45.0); Lymphocytes % 10.4 % (15.3-44.8); MCV 87.2 fL (80-100); MPV 8.6 fL (7.6-11.3); RBC Red Blood Cell Count 4.83 M/uL (3.86-4.86)
[2022-08-29 13:23] LABS: Albumin 3.7 g/dL (3.4-5.0); Bilirubin Direct 0.1 mg/dL (0-0.2); Bilirubin Total 0.5 mg/dL (0.2-1.0); Protein, Total 7.5 g/dL (6.4-8.2); Troponin High Sensitivity 5.7 pg/mL (<58.9)
[2022-08-29 13:27] LABS: Potassium 3.9 mmol/L (3.5-5.1)
[2022-08-29 13:31] LABS: White Blood Cell Scan OK (OK)
[2022-08-29 13:32] LABS: Blood Morphology Comment NOT SEEN (NOT SEEN); Platelet Estimate ADEQ; Platelets, Giant FEW PRESENT
--- NOTE | 2022-08-29 14:00 | ER ---
Nurse's Notes [facility] Name: Dilia Russell Age: 81 yrs Sex: Female : 1940 Arrival Date: 08/29/2022 Time: 12:09 Bed 4 Private MD: Ryan Caruso Diagnosis: Unspecified injury of head, initial encounter;Dehydration;Syncope Presentation: 08/29 12:22 Chief complaint: Patient states: Vomiting since Monday night. Pt reports bruising to ld1 right eyebrow/forehead - "I think I rolled out of bed yesterday morning and hit my head on the nightstand." Denies pain to forehead. Not on blood thinners. Coronavirus screen: Client presents with at least one sign or symptom that may indicate coronavirus-19. Standard/surgical mask placed on the client. Ebola Screen: No symptoms or risks identified at this time. Initial Sepsis Screen: Does the patient meet any 2 criteria? No. Patient's initial sepsis screen is negative. Does the patient have a suspected source of infection? No. Patient's initial sepsis screen is negative. Risk Assessment: Do you want to hurt yourself or someone else? Patient reports no desire to harm self or others. Onset of symptoms was August 29, 2022. 12:22 Method Of Arrival: Ambulatory ld1 12:22 Acuity: RORY 3 ld1 Triage Assessment: 12:24 General: Appears in no apparent distress. comfortable, Behavior is calm, cooperative, ld1 appropriate for age. Pain: Denies pain. EENT: No signs and/or symptoms were reported regarding the EENT system. Neuro: Level of Consciousness is awake, alert, obeys commands, Oriented to person, place, time, situation, Appropriate for age. Cardiovascular: Capillary refill < 3 seconds Patient's skin is warm and dry. Rhythm is sinus rhythm. Respiratory: Airway is patent Respiratory effort is even, unlabored. GI: Abdomen is flat, non-distended. : No signs and/or symptoms were reported regarding the genitourinary system. Derm: No signs and/or symptoms reported regarding the dermatologic system. Musculoskeletal: No signs and/or symptoms reported regarding the musculoskeletal system. Historical: - Allergies: 12:24 Levaquin; ld1 12:24 seldane; ld1 - PMHx: 12:24 High Cholesterol; Hypertension; ld1 13:56 Brain Aneurysm; vg1 - PSHx: 12:24 Heart ablasion; ld1 - Immunization history:: Adult Immunizations up to date, Client reports receiving the 2nd dose of the Covid vaccine. - Social history:: Smoking status: Patient denies any tobacco usage or history of. Patient/guardian denies using alcohol. - Family history:: not pertinent. - Hospitalizations: : No recent hospitalization is reported. Screenin:25 Abuse screen: Denies threats or abuse. Nutritional screening: Has had N/V for 3 or more vg1 days. Tuberculosis screening: No symptoms or risk factors identified. Fall Risk Fall in past 12 months (25 points). No secondary diagnosis (0 pts). IV access (20 points). Ambulatory Aid- None/Bed Rest/Nurse Assist (0 pts). Gait- Normal/Bed Rest/Wheelchair (0 pts) Mental Status- Oriented to own ability (0 pts). Total Acosta Fall Scale indicates High Risk Score (45 or more points). Fall prevention measures have been instituted. Side Rails Up X 2 Placed Close to Nursing Station As available patient and family educated on Fall Prevention Program and Strategies. Assessment: 12:25 General: Appears in no apparent distress. comfortable, Behavior is calm, cooperative. vg1 Pain: Denies pain. Neuro: Level of Consciousness is awake, alert, obeys commands, Oriented to person, place, time, situation, Reports a syncopal episode. Cardiovascular: Patient's skin is warm and dry. Respiratory: Airway is patent Respiratory effort is even, unlabored. GI: Abdomen is flat, non-distended, Patient currently denies nausea, at this time. : No signs and/or symptoms were reported regarding the genitourinary system. EENT: No signs and/or symptoms were reported regarding the EENT system. Derm: Bruising that is dark purple, on forehead. Musculoskeletal: Circulation, motion, and sensation intact. 13:57 Reassessment: Patient appears in no apparent distress at this time. No changes from vg1 previously documented assessment. Patient and/or family updated on plan of care and expected duration. Pain level reassessed. Patient is alert, oriented x 3, equal unlabored respirations, skin warm/dry/pink. 14:03 Reassessment: pt up for d/c currently waiting for fluids to compete. vg1 Vital Signs: 12:22 BP 154 / 93; Pulse 94; Resp 14; Temp 97.7(O); Pulse Ox 96% on R/A; Weight 68.49 kg; ld1 Height 5 ft. 3 in. (160.02 cm); Pain 0/10; 12:30 BP 141 / 80; Pulse 88; Resp 15; Pulse Ox 97% on R/A; vg1 13:02 BP 147 / 73; Pulse 83; Resp 17; Pulse Ox 97% on R/A; vg1 13:30 BP 122 / 70; Pulse 82; Resp 17; Pulse Ox 97% on R/A; vg1 14:30 BP 149 / 93; Pulse 74; Resp 14; Pulse Ox 99% on R/A; mb8 12:22 Body Mass Index 26.75 (68.49 kg, 160.02 cm) ld1 Vitals: 14:30 Cardiac Rhythm Assessment Sinus rhythm. mb8 ED Course: 12:09 Patient arrived in ED. am2 12:09 Ryan Caruso MD is Private Physician. am2 12:16 Wayne Cunningham MD is Attending Physician. rn 12:18 Sharon Cardenas RN is Primary Nurse. vg1 12:24 Triage completed. ld1 12:24 Arm band placed on right wrist. ld1 12:25 Patient has correct armband on for positive identification. Placed in gown. Bed in low vg1 position. Call light in reach. Side rails up X2. Client placed on continuous cardiac and pulse oximetry monitoring. NIBP monitoring applied. 12:43 Initial lab(s) drawn, by me, sent to lab. Missed attempt(s): 22 gauge in right forearm. vg1 12:45 CT Head Brain wo Cont In Process Unspecified. EDMS 12:53 Inserted saline lock: 22 gauge in right antecubital area, using aseptic technique. vg1 14:38 IV discontinued, intact, bleeding controlled, No redness/swelling at site. Pressure mb8 dressing applied. 14:41 No provider procedures requiring assistance completed. mb8 Administered Medications: 12:58 Drug: NS 0.9% 1000 ml Route: IV; Rate: 1000 ml; Site: right antecubital; vg1 14:35 Follow up: IV Status: Completed infusion mb8 Medication: 12:25 VIS not applicable for this client. vg1 Outcome: 13:59 Discharge ordered by . rn 14:41 Discharged to home ambulatory. mb8 14:41 Condition: stable 14:41 Condition: stable 14:41 Discharge instructions given to patient, Instructed on discharge instructions, follow up and referral plans. Demonstrated understanding of instructions, follow-up care. 14:42 Patient left the ED. mb8 Signatures: Dispatcher [employer] EDMS Wayne Cunningham MD MD rn Moreno, Amanda am2 Sharon Cardenas RN RN vg1 Soo Kerns RN RN ld1 Kevin Guadarrama RN RN mb8
--- NOTE | 2022-08-29 14:00 | EDPHYS ---
Physician Documentation [facility] Name: Dilia Russell Age: 81 yrs Sex: Female : 1940 Arrival Date: 08/29/2022 Time: 12:09 Bed 4 Private MD: Ryan Caruso ED Physician Wayne Cunningham HPI: 08/29 12:33 This 81 yrs old Female presents to ER via Ambulatory with complaints of Fall Injury, rn Vomiting. 12:33 The patient presents to the emergency department with nausea, vomiting. Onset: The rn symptoms/episode began/occurred yesterday. Possible causes: bad food exposure. The symptoms are aggravated by nothing. The symptoms are alleviated by nothing. Severity of symptoms: At their worst the symptoms were moderate in the emergency department the symptoms have improved. The patient has not experienced similar symptoms in the past. The patient has not recently seen a physician. Pt reports started vomiting yesterday morning/night before, vomiting constantly, at some point hit head but doesn't recall events. Not on blood thinners. No fever. VOmiting resolved without any treatment. No abd pain/diarrhea/chills. . Historical: - Allergies: 12:24 Levaquin; ld1 12:24 seldane; ld1 - PMHx: 12:24 High Cholesterol; Hypertension; ld1 13:56 Brain Aneurysm; vg1 - PSHx: 12:24 Heart ablasion; ld1 - Immunization history:: Adult Immunizations up to date, Client reports receiving the 2nd dose of the Covid vaccine. - Social history:: Smoking status: Patient denies any tobacco usage or history of. Patient/guardian denies using alcohol. - Family history:: not pertinent. - Hospitalizations: : No recent hospitalization is reported. ROS: 12:33 Constitutional: Negative for fever, chills, and weight loss, Eyes: Negative for injury, rn pain, redness, and discharge, Neck: Negative for injury, pain, and swelling, Cardiovascular: Negative for chest pain, palpitations, and edema, Respiratory: Negative for shortness of breath, cough, wheezing, and pleuritic chest pain, Abdomen/GI: Negative for abdominal pain, diarrhea, and constipation, Back: Negative for injury and pain, MS/Extremity: Negative for injury and deformity, Skin: Negative for injury, rash, and discoloration, Neuro: Negative for headache, weakness, numbness, tingling, and seizure. Exam: 12:33 Constitutional: This is a well developed, well nourished patient who is awake, alert, rn and in no acute distress. Head/Face: Normocephalic, + right forehead hematoma and ecchymosis Eyes: Pupils equal round and reactive to light, extra-ocular motions intact. Periorbital areas with no swelling, redness, or edema. Cardiovascular: Regular rate and rhythm. No pulse deficits. Respiratory: No increased work of breathing, no retractions or nasal flaring. Abdomen/GI: Soft, non-tender Skin: Warm, dry MS/ Extremity: Pulses equal, no cyanosis. Neuro: Awake and alert, GCS 15, oriented to person, place, time, and situation. Cranial nerves II-XII grossly intact. Motor strength 5/5 in all extremities. Sensory grossly intact. Vital Signs: 12:22 BP 154 / 93; Pulse 94; Resp 14; Temp 97.7(O); Pulse Ox 96% on R/A; Weight 68.49 kg; ld1 Height 5 ft. 3 in. (160.02 cm); Pain 0/10; 12:30 BP 141 / 80; Pulse 88; Resp 15; Pulse Ox 97% on R/A; vg1 13:02 BP 147 / 73; Pulse 83; Resp 17; Pulse Ox 97% on R/A; vg1 13:30 BP 122 / 70; Pulse 82; Resp 17; Pulse Ox 97% on R/A; vg1 14:30 BP 149 / 93; Pulse 74; Resp 14; Pulse Ox 99% on R/A; mb8 12:22 Body Mass Index 26.75 (68.49 kg, 160.02 cm) ld1 MDM: 12:16 Patient medically screened. rn 13:56 Differential diagnosis: viral gastroenteritis, gastroenteritis, food poisoning, rn dehydration, syncope. Data reviewed: vital signs, nurses notes, lab test result(s), EKG, radiologic studies, CT scan, and as a result, I will discharge patient. Counseling: I had a detailed discussion with the patient and/or guardian regarding: the historical points, exam findings, and any diagnostic results supporting the discharge/admit diagnosis, lab results, radiology results, the need for outpatient follow up, to return to the emergency department if symptoms worsen or persist or if there are any questions or concerns that arise at home. Response to treatment: the patient's symptoms have markedly improved after treatment, and as a result, I will discharge patient. Special discussion: I discussed with the patient/guardian in detail that at this point there is no indication for admission to the hospital. It is understood, however, that if the symptoms persist or worsen the patient needs to return immediately for re-evaluation. ED course: Pt back to baseline, no longer vomiting since yesterday, ct head neg except for aneurysm which patient knows about, states actually has 2 aneurysms on MRA, and gets repeat studies annually, without need for intervention according to specialist. . 08/29 12:26 Order name: Basic Metabolic Panel; Complete Time: 13:49 rn 08/29 12:26 Order name: CBC with Diff; Complete Time: 13:49 rn 08/29 12:26 Order name: Hepatic Function; Complete Time: 13:49 rn 08/29 12:26 Order name: Protime (+inr) rn 08/29 12:26 Order name: Ptt, Activated rn 08/29 12:26 Order name: Troponin High Sensitivity; Complete Time: 13:49 rn 08/29 12:26 Order name: CT Head Brain wo Cont; Complete Time: 13:49 rn 08/29 12:26 Order name: EKG; Complete Time: 12:27 rn 08/29 12:26 Order name: Cardiac monitoring; Complete Time: 12:43 rn 08/29 12:26 Order name: EKG - Nurse/Tech; Complete Time: 12:43 rn 08/29 12:26 Order name: Flu; Complete Time: 13:49 rn 08/29 13:33 Order name: CBC Smear Scan; Complete Time: 13:49 EDMS 08/29 12:26 Order name: IV Saline Lock; Complete Time: 13:01 rn 08/29 12:26 Order name: Labs collected and sent; Complete Time: 12:43 rn 08/29 12:26 Order name: O2 Per Protocol; Complete Time: 12:43 rn 08/29 12:26 Order name: O2 Sat Monitoring; Complete Time: 12:43 rn 08/29 13:07 Order name: Labs - recollect needed: recollect blue top; Complete Time: 13:34 bd Administered Medications: 12:58 Drug: NS 0.9% 1000 ml Route: IV; Rate: 1000 ml; Site: right antecubital; vg1 14:35 Follow up: IV Status: Completed infusion mb8 Disposition Summary: 08/29/22 13:59 Discharge Ordered Location: Home rn Problem: new rn Symptoms: have improved rn Condition: Stable rn Diagnosis - Unspecified injury of head, initial encounter rn - Dehydration rn - Syncope rn Followup: rn - With: Private Physician - When: As needed - Reason: Recheck today's complaints, Re-evaluation by your physician Discharge Instructions: - Discharge Summary Sheet rn - Dehydration, Adult rn - Head Injury, Adult rn - Syncope rn Forms: - Medication Reconciliation Form rn - Thank You Letter rn - Antibiotic managing attorney - Prescription Opioid Use rn Signatures: Dispatcher [employer] EDDiana Pierre Roman, MD MD rn Garcia, Sharon RN RN vg1 Soo Kerns, RN RN ld1 Kevin Guadarrama RN mb8 Corrections: (The following items were deleted from the chart) 14:00 13:54 Head Angio+CT.RAD.BRZ ordered. EDMS EDMS
[2022-08-29 15:10] VITALS: TEMP 97.7
[2022-08-29 15:15] VITALS: BP 149/93; O2SAT 99
--- NOTE | 2022-08-30 13:57 | EKG ---
Test Date: 2022-08-29 Test Time: 12:29:55 [employer] Representative: MEASUREMENT RESULTS: Intervals: Rate: 82 [place]: 156 QRSD: 90 QT: 374 QTc: 436 [place]: P: 66 [place]: 156 QRS: -33 T: 38 INTERPRETIVE STATEMENTS: Normal sinus rhythm Left axis deviation Abnormal ECG Compared to ECG 10/13/2020 13:13:19 Left-axis deviation now present ST (T wave) deviation no longer present Electronically Signed On 08-30-22 13:55:50 EPIC RADIANT ANALYST by Levy Newman
== END 2022-08-29 14:42 | disposition home or self-care (01) ==
LOC: ER 12:07
DX: S00.83XA Contusion of other part of head, initial encounter (principal); E86.0 Dehydration; R55 Syncope and collapse; I10 Essential (primary) hypertension; Z88.1 Allergy status to other antibiotic agents; Z88.8 Allergy status to other drugs, medicaments and biological substances
CPT/HCPCS: 96361; 93005; 85025; 80048; 36415; 85610; 80076; 85730; 84484; 87804 ×2; 70450; 96360; 99284; J7030

== ENCOUNTER 2025-03-06 14:14 | Day surgery (SDC) | payer OTHER ==
[2025-03-05 10:21] LABS: Absolute Monocytes 0.2 K/uL (0.1-1.3); Absolute Neutrophil 2.9 K/uL (1.8-8.0); Basophils % 0.4 % (0-1.3); Eosinophils % 1.1 % (0-4.4); Hematocrit 32.6 % (36.0-45.0); Hemoglobin 11.1 g/dL (12.0-15.0); Lymphocytes % 23.5 % (15.3-44.8); MCH 31.6 pg (27.0-35.0); MCV 92.9 fL (80-100); MPV 7.5 fL (7.6-11.3); Monocytes % 3.7 % (3.3-12.3); Neutrophils % 71.3 % (41.7-73.7); Nucleated Red Blood Cells % 0.1 % (0-0); Platelets 231 thou/uL (152-406); RBC Red Blood Cell Count 3.51 M/uL (3.86-4.86); Red Cell Distribution Width 18.9 % (12.1-15.2)
[2025-03-05 10:38] LABS: Anion Gap 8.1 mEq/L (5.0-15.0); Potassium 4.1 mEq/L (3.5-5.1)
[2025-03-05 10:44] LABS: PT Prothrombin Time 10.9 SECONDS (10-13.0); PTT, Activated Partial Thromb 27.6 SECONDS (27.2-37.4); Protime INR 0.95
--- NOTE | 2025-03-05 12:12 | EKG ---
Test Date: 2025-03-05 Test Time: 09:45:05 Blueprint Reader: CHARLEEN MEASUREMENT RESULTS: Intervals: Rate: 71 TN: 174 QRSD: 90 QT: 360 QTc: 391 [place]: P: 69 TN: 174 QRS: -40 T: 69 INTERPRETIVE STATEMENTS: Normal sinus rhythm Left axis deviation Low voltage QRS Abnormal ECG Compared to ECG 08/29/2022 12:29:55 Low QRS voltage now present Electronically Signed On 03-05-25 12:12:18 CDT by Carlos Alberto Power
[2025-03-06] MEDS ORDERED: NA CHLORIDE 0.9% 500 ML ONE (14:26)
[2025-03-06] MEDS ORDERED: HEPA 1000U/500MLS 2,000 UNIT/1,000 ML BAG IV ONE (15:23)
[2025-03-06] MEDS ORDERED: VERAPAMIL HCL 10 MG/4 ML VIAL IV ONE (15:24)
[2025-03-06] MEDS ORDERED: LIDOCAINE 1% 20 ML MDV ONE (15:24)
[2025-03-06] MEDS ORDERED: FENTANYL CITR 100 MCG/2 ML ONE (15:24)
[2025-03-06] MEDS ORDERED: MIDAZOLAM HCL 2 MG/2 ML INJ ONE (15:24)
[2025-03-06] MEDS ORDERED: HEPARIN 10,000 UNIT/10 ML VIAL IV ONE (15:24)
[2025-03-06] MEDS ORDERED: ATROPINE SULF 1 MG/10 ML SYR IV ONE (15:24)
[2025-03-06] MEDS ORDERED: NALOXONE 0.4 MG/ML VIAL ONE (15:25)
[2025-03-06] MEDS ORDERED: FLUMAZENIL 0.1 MG/ML (5 mL VIAL) IV ONE (15:25)
[2025-03-06] MEDS ORDERED: ASPIRIN 325 MG TAB ONE (15:25)
[2025-03-06] MEDS ORDERED: HEPARIN 5000 UNIT/ML 1 ML VIAL ONE (15:25)
[2025-03-06] MEDS ORDERED: CLOPIDOGREL 75 MG TABLET ONE (15:25)
[2025-03-06] MEDS ORDERED: TICAGRELOR 90 MG TABLET PO ONE (15:25)
[2025-03-06 18:40] VITALS: O2SAT 100
[2025-03-06 19:00] VITALS: BP 157/80
--- NOTE | 2025-03-06 21:29 | OP ---
Date of Procedure: 03/06/2025 Surgeon: AIYANA BAKER Procedures Performed: 1. Selective coronary angiogram. 2. Left heart catheterization. Indication: Abnormal stress test with chest pain. Access: Right radial artery 6-Surinamese, closed with TR band. Complications: None. Bleeding: Less than 50 mL. Anesthesia: Total sedation time was 1 hour, used fentanyl and Versed. Description Of Procedure: After risks, benefits, and alternatives were explained, patient agreed to procedure and signed informed consent. The patient was brought into cardiac catheterization laborato , prepped and draped in sterile fashion. Then, I accessed right radial artery using pediatric micr opuncture kit, placed 6-Surinamese Slender sheath. Took 5-Surinamese Sunset 4.0 catheter over J-wire into the aortic root across the aortic valve. Measured LVEDP and pullback did not record any gradient. Then , engaged left main and took standard views and then the RCA, took standard views and removed the cat heter and the sheath, placed TR band with good hemostasis. Findings: 1. Left main: large and normal. 2. LAD: Proximal segment is normal. Diagonal branch is normal. Mid LAD has focal 50% stenosis. Re st of LAD is normal. 3. Left circumflex is normal. Moderate-sized, normal OM branches. 4. RCA: Dominant circulation with proximal 40% stenosis. 5. LVEDP is borderline at 12 mmHg. Conclusion: Moderate coronary artery disease, slightly elevated LVEDP. Recommendations: Medical management and plan to obtain stress test on her in 6 months. SR/MODL Voice ID: [id number] Report ID: [id number]
== END 2025-03-06 19:10 | disposition home or self-care (01) ==
LOC: CCL 14:14
PROVIDERS: ATTEND Internal Medicine
DX: I25.10 Atherosclerotic heart disease of native coronary artery without angina pectoris (principal); I47.10 Supraventricular tachycardia, unspecified; I11.0 Hypertensive heart disease with heart failure; I50.32 Chronic diastolic (congestive) heart failure; E78.2 Mixed hyperlipidemia; Z79.82 Long term (current) use of aspirin; Z79.899 Other long term (current) drug therapy; Z88.1 Allergy status to other antibiotic agents; Z88.8 Allergy status to other drugs, medicaments and biological substances; Z91.09 Other allergy status, other than to drugs and biological substances
CPT/HCPCS: 93005; 85025; 80048; 36415; 85610; 85730; 93458; 76937; C1893; J1644 ×2; J2003; J2250; J3010; J7040; 93454; 99152; J0461; J2310

== ENCOUNTER 2025-05-31 11:54 | Emergency (ER) | payer OTHER ==
[2025-05-31 14:33] LABS: Influenza A Ag Negative; Influenza B Ag Negative; SARS-CoV-2 Antigen Rapid Res Negative (Negative)
--- NOTE | 2025-05-31 14:47 | RAD REPORT ---
EXAMINATION: TWO VIEW CHEST XR CLINICAL INDICATION: Female, 84 years old. [facility] MAIN PRODUCTIVE COUGH Bed Name: 4 TECHNIQUE: 2 view radiographs of the chest were performed. COMPARISON: 09/26/2024 FINDINGS: The lungs are well inflated and clear. No pneumothorax or sizable effusion. The heart is normal in si ze. Mediastinal contours are unremarkable. IMPRESSION: No acute or significant abnormalities.
[2025-05-31] MEDS ORDERED: IPRATROPIUM BROM 0.5MG/2.5ML ONE (15:10)
[2025-05-31] MEDS ORDERED: ALBUTEROL 2.5 MG/3 ML NEB SOL ONE (15:10)
--- NOTE | 2025-05-31 15:40 | ER ---
Nurse's Notes [facility] Name: Dilia Russell Age: 84 yrs Sex: Female : 1940 Arrival Date: 05/31/2025 Time: 11:54 Bed 6 Private MD: Diagnosis: Acute bronchitis, unspecified Presentation: 05/31 12:28 Chief complaint: Patient states: Cough x 2 weeks, dx with bronchitis on 05/16/25, kb4 Augmentin then Doxycycline started 05/28/25 continued cough. Coronavirus screen: At this time, the client does not indicate any symptoms associated with coronavirus-19. Ebola Screen: No symptoms or risks identified at this time. Initial Sepsis Screen: Does the patient meet any 2 criteria? No. Patient's initial sepsis screen is negative. Does the patient have a suspected source of infection? No. Patient's initial sepsis screen is negative. Risk Assessment: Do you want to hurt yourself or someone else? Patient reports no desire to harm self or others. Onset of symptoms is unknown. 12:28 Method Of Arrival: Ambulatory kb4 12:28 Acuity: RORY 4 kb4 Triage Assessment: 12:30 General: Appears in no apparent distress. uncomfortable, Behavior is calm, cooperative, kb4 appropriate for age. Pain: Denies pain. Historical: - Allergies: 12:30 Levaquin; kb4 12:30 seldane; kb4 - PMHx: 12:30 brain aneurysm; High Cholesterol; Hypertension; kb4 - PSHx: 12:30 Heart ablasion; kb4 - Immunization history:: Adult Immunizations unknown. - Infectious Disease History:: Denies. - Social history:: Smoking status: Patient denies any tobacco usage or history of. Screenin:45 [facility] ED Fall Risk Assessment (Adult) History of falling in the last 3 months, aa5 including since admission No falls in past 3 months (0 pts) Confusion or Disorientation No (0 pts) Intoxicated or Sedated Impaired Gait No (0 pts) Mobility Assist Device Used No (0 pt) Altered Elimination No (0 pt) Score/Fall Risk Level 0 - 2 = Low Risk Oriented to surroundings, Maintained a safe environment, Educated pt \T\ family on fall prevention, incl call for assistance when getting out of bed, Assessed \T\ reinforced patient's understanding of fall precautions. Abuse screen: Denies threats or abuse. Nutritional screening: No deficits noted. Tuberculosis screening: No symptoms or risk factors identified. Assessment: 13:38 Reassessment: Patient and/or family updated on plan of care and expected duration. Pain ll1 level reassessed. 13:45 General: Appears uncomfortable, Behavior is calm, cooperative. Pain: Denies pain. aa5 Neuro: Level of Consciousness is awake, alert, obeys commands, Oriented to person, place, time, situation. Cardiovascular: Heart tones S1 S2 present Rhythm is regular. Respiratory: Reports cough Airway is patent Respiratory effort is even, unlabored, Respiratory pattern is regular, symmetrical, Breath sounds are clear bilaterally. GI: No signs and/or symptoms were reported involving the gastrointestinal system. : No signs and/or symptoms were reported regarding the genitourinary system. EENT: Reports nasal congestion. Derm: Skin is pink, warm \T\ dry. Musculoskeletal: Range of motion: intact in all extremities. 13:50 Reassessment: Warm blanket given to pt for comfort. . aa5 Vital Signs: 12:28 BP 135 / 79; Pulse 96; Resp 17; Temp 97.9; Pulse Ox 96% ; Weight 63.5 kg; kb4 15:57 BP 127 / 75; Pulse 100; Resp 16; Pulse Ox 97% ; bp ED Course: 11:59 Patient arrived in ED. cj3 12:14 Bharathi Saba FNP-C [facility]. dr5 12:14 Alis Ahn is Attending Physician. dr5 12:30 Triage completed. kb4 12:30 Arm band placed on right wrist. kb4 13:26 Chest Pa And Lat (2 Views) XRAY In Process Unspecified. EDMS 13:37 Patient placed in an exam room, on a stretcher. ll1 13:45 Patient has correct armband on for positive identification. Bed in low position. Call aa5 light in reach. Side rails up X 1. 13:49 Shayy Johnson, RN is Primary Nurse. aa5 15:13 No provider procedures requiring assistance completed. aa5 15:57 Patient did not have IV access during this emergency room visit. bp Administered Medications: 15:12 Drug: DuoNeb Nebulize (2.5 mg - 0.5 mg) 6 ml Nebulizer once Route: Nebulizer; aa5 15:57 Follow up: Response: No adverse reaction bp Medication: 13:45 VIS not applicable for this client. aa5 Outcome: 15:39 Discharge ordered by MD. dr5 15:57 Discharged to home ambulatory, with family, bp 15:57 Condition: stable 15:57 Discharge instructions given to patient, Instructed on discharge instructions, follow up and referral plans. medication usage, Demonstrated understanding of instructions, follow-up care, medications, Prescriptions given X 2, 15:58 Patient left the ED. bp Signatures: Dispatcher [employer] EDMS Shayy Johnson, RN RN aa5 Anil Carlton RN RN Javed Trejo RN RN ll1 Bharathi Saba, CARGO WORKER-C CARGO WORKER-[facility] [place]5 Katerine Dougherty RN RN kb4 Mariangel Oliveira cj3
--- NOTE | 2025-05-31 15:40 | EDPHYS ---
Physician Documentation [facility] Name: Dilia Russell Age: 84 yrs Sex: Female : 1940 Arrival Date: 05/31/2025 Time: 11:54 Bed 6 Private MD: ED Physician Alis Ahn HPI: 05/31 18:43 This 84 yrs old Female presents to ER via Ambulatory with complaints of dr5 Cough, BRONCHITIS. 18:48 Patient is an 84-year-old female with history of brain aneurysm, hyperlipidemia, dr5 hypertension coming in with 2 weeks of bronchitis / pneumonia that been going on for the past 2 weeks. Patient reports that she has had a round of Augmentin as well as doxycycline. Patient also has had 2 rounds of steroids as well as cough medications.. Historical: - Allergies: 12:30 Levaquin; kb4 12:30 seldane; kb4 - PMHx: 12:30 brain aneurysm; High Cholesterol; Hypertension; kb4 - PSHx: 12:30 Heart ablasion; kb4 - Immunization history:: Adult Immunizations unknown. - Infectious Disease History:: Denies. - Social history:: Smoking status: Patient denies any tobacco usage or history of. ROS: 18:48 Constitutional: as per hpi dr5 Exam: 18:48 Constitutional: This is a well developed, well nourished patient who is awake, alert, dr5 and in no acute distress. Head/Face: Normocephalic, atraumatic. Eyes: Pupils equal round and reactive to light, extra-ocular motions intact. Lids and lashes normal. Conjunctiva and sclera are non-icteric and not injected. Cornea within normal limits. Periorbital areas with no swelling, redness, or edema. Neck: Trachea midline, no thyromegaly or masses palpated, and no cervical lymphadenopathy. Supple, full range of motion without nuchal rigidity, or vertebral point tenderness. No Meningismus. Chest/axilla: Normal chest wall appearance and motion. Nontender with no deformity. No lesions are appreciated. Cardiovascular: Regular rate and rhythm with a normal S1 and S2. Normal PMI, no JVD. No pulse deficits. Respiratory: No increased work of breathing, no retractions or nasal flaring. Patient does have diffuse expiratory wheezing with mild increased work of breathing. Abdomen/GI: Soft, non-tender, non-distended Back: No spinal tenderness. No costovertebral tenderness. Full range of motion. Skin: Warm, dry with normal turgor. Normal color with no rashes, no lesions, and no evidence of cellulitis. MS/ Extremity: Pulses equal, no cyanosis. Neurovascular intact. Full, normal range of motion. Neuro: Awake and alert, GCS 15, oriented to person, place, time, and situation. Cranial nerves II-XII grossly intact. Motor strength 5/5 in all extremities. Sensory grossly intact. Cerebellar exam normal. Normal gait. Vital Signs: 12:28 BP 135 / 79; Pulse 96; Resp 17; Temp 97.9; Pulse Ox 96% ; Weight 63.5 kg; kb4 15:57 BP 127 / 75; Pulse 100; Resp 16; Pulse Ox 97% ; bp MDM: 12:14 Medical Screening Exam initiated dr5 18:48 Differential Diagnosis: Bronchitis Allergic Rhinitis Pneumonia. Data reviewed: vital dr5 signs, nurses notes, lab test result(s), Flu: negative COVID-negative, radiologic studies, plain films. Consideration of Admission/Observation Escalation of care including admission/observation considered. Escalation considered patient found to be hypoxic requiring supplemental oxygen. I considered the following discharge prescriptions or medication management in the emergency department I discussed and recommended Over The Counter medications, Medications were administered in the Emergency Department. See MAR. Care significantly affected by the following chronic conditions: Hypertension, Hyperlipidemia, HTN. Care significantly affected by the following Social Determinants of Health: Poor access to healthcare and/or lack of insurance, Poor access to transportation, Problems related to employment. Counseling: I had a detailed discussion with the patient and/or guardian regarding the historical points, exam findings, and any diagnostic results supporting the discharge/admit diagnosis, the presence of at least one elevated blood pressure reading (>120/80) during this emergency department visit, lab results, radiology results, the need for outpatient follow up, for definitive care, a family practitioner. Special discussion: I discussed with the patient/guardian in detail that at this point there is no indication for admission to the hospital. It is understood, however, that if the symptoms persist or worsen the patient needs to return immediately for re-evaluation. Based on the history and exam findings, there is no indication for further emergent testing or inpatient evaluation. I discussed with the patient/guardian the need to see the primary care provider for further evaluation of the symptoms. ED course: DuoNeb completed with resolution of expiratory wheezing. Patient reports he is much better. Recommended not doing another round of antibiotics. Will also not give steroids again. Will give patient albuterol inhaler as well as cough and decongestion medications. Strict ER precautions given. All question answered.. 05/31 12:35 Order name: COVID-19 Ag + Flu A+B Ag; Complete Time: 14:41 dr5 05/31 12:34 Order name: Chest Pa And Lat (2 Views) XRAY; Complete Time: 15:04 kb4 Administered Medications: 15:12 Drug: DuoNeb Nebulize (2.5 mg - 0.5 mg) 6 ml Nebulizer once Route: Nebulizer; aa5 15:57 Follow up: Response: No adverse reaction bp Disposition: 18:50 Co-signature as Attending Physician, Alis Ahn I agree with the assessment ci and plan of care. I reviewed the patient's care provided by the Advanced Practice Provider and agree with the diagnosis and treatment plan. Disposition Summary: 05/31/25 15:39 Discharge Ordered Notes: Location: Home dr5 Condition: Stable dr5 Diagnosis - Acute bronchitis, unspecified dr5 Followup: dr5 - With: Emergency Department - When: As needed - Reason: Worsening of condition Followup: dr5 - With: Private Physician - When: 1 - 2 days - Reason: Recheck today's complaints, Continuance of care, Re-evaluation by your physician Discharge Instructions: - Discharge Summary Sheet dr5 - Acute Bronchitis, Adult dr5 Forms: - Medication Reconciliation Form dr5 - Patient Portal Instructions dr5 - Leadership Thank You Letter dr5 Prescriptions: - Bromfed DM 2-30-10 mg/5 mL Oral syrup - administer 10 milliliter ORAL route every 12 hours as needed for sinus dr5 symptoms; 240 milliliter; Refills: 0, Product Selection Permitted - albuterol sulfate 90 mcg/actuation Inhalation HFA Aerosol Inhaler - inhale 2 puff INHALATION route 4 times per day as needed for shortness of dr5 breath or wheezing; 1 application; Refills: 0, Product Selection Permitted Signatures: Dispatcher [facility] EDShayy Hurley RN RN aa5 JosephuAlis Dustin, STAGE DIRECTOR-C STAGE DIRECTOR-Cdr5 Katerine Dougherty, RN RN kb4 Anil Carlton RN bp Corrections: (The following items were deleted from the chart) 12:32 12:32 Chest Single View+RAD.RAD.BRZ ordered. EDMS EDMS
[2025-05-31 16:16] VITALS: TEMP 97.9
[2025-05-31 16:19] VITALS: BP 127/75; O2SAT 97
== END 2025-05-31 15:58 | disposition home or self-care (01) ==
LOC: ER 11:54
DX: J20.9 Acute bronchitis, unspecified (principal); Z11.52 Encounter for screening for COVID-19
CPT/HCPCS: 36415; 71046; 99284; 87428; J7613; J7644

== ENCOUNTER 2025-06-04 10:51 | Inpatient (IN) | payer OTHER ==
[2025-06-04 11:40] LABS: Absolute Lymphocytes (CBC) 1.0 K/uL (0.7-4.9); Hematocrit 38.2 % (36.0-45.0); Hemoglobin 12.8 g/dL (12.0-15.0); MCH 29.9 pg (27.0-35.0); MCHC 33.4 g/dL (32.0-36.0); MCV 89.4 fL (80-100); MPV 8.7 fL (7.6-11.3); Nucleated RBC Absolute Count 0.0 (0-0); Nucleated Red Blood Cells % 0.1 % (0-0); RBC Red Blood Cell Count 4.27 M/uL (3.86-4.86); White Blood Count 4.20 thou/uL (4.3-10.9)
[2025-06-04 11:46] LABS: PT Prothrombin Time 13.5 SECONDS (10-13.0); Protime INR 1.2
[2025-06-04 12:11] LABS: ALT/SGPT 18.0 U/L (13-56); AST/SGOT 17.0 U/L (15-37); Alkaline Phosphatase 94.0 U/L (45-117); Anion Gap 11.7 mEq/L (5.0-15.0); BUN Blood Urea Nitrogen 18.0 mg/dL (7-18); Bilirubin Indirect, Calculated 0.7 mg/dL (0.2-0.8); Glucose Level 134.0 mg/dL (74-106); Potassium 3.7 mEq/L (3.5-5.1)
[2025-06-04 12:12] LABS: Albumin 3.3 g/dL (3.4-5.0); Albumin/Globulin Ratio 0.8 (1.1-1.8); Globulin 4.1 g/dL (2.3-3.5); Magnesium 1.8; NT PRO-BNP 250.0 pg/mL (<450); Troponin High Sensitivity 5.3 (<58.9)
--- NOTE | 2025-06-04 12:59 | RAD REPORT ---
EXAMINATION: CTA CHEST PE CLINICAL INDICATION: Female, 84 years old. cough, shortness of breath, tachycardia TECHNIQUE: This examination was performed according to an angiographic protocol with 3D post-processi ng. This involves 3D reconstructions, MIPs, volume rendered images and/or shaded surface rendering. One or more of the following dose reduction techniques were used: Automated exposure control, adjustm ent of the mA and/or kV according to patient size, and/or iterative reconstruction. Unless otherwise specified, incidental findings do not require dedicated imaging follow-up. [id number]. COMPARISON: No priors. FINDINGS: LOWER NECK: Visualized thyroid gland and soft tissues are normal. MEDIASTINUM AND LYMPH NODES: Prominent mediastinal and hilar lymph nodes which are likely reactive. THORACIC AORTA: No thoracic aortic aneurysm. Atherosclerotic changes are present. PULMONARY ARTERIES: Caliber is within normal limits. No pulmonary emboli identified. HEART: Normal heart size. Mild coronary artery calcifications.No significant pericardial effusion. LUNGS AND AIRWAYS: Ill-defined areas of nodular ground glass opacities in the lower lobes bilaterally and to lesser extent the upper lobes.. No dominant or clearly suspicious pulmonary nodule identified. PLEURA: No pleural effusions. No pneumothorax. OSSEOUS STRUCTURES AND CHEST WALL: No fracture or suspicious osseous lesions. UPPER ABDOMEN: No acute abnormalities. IMPRESSION: Negative for pulmonary embolism. Mild ill-defined areas of nodularity predominantly in the lower lobe s most likely reflecting pneumonia or pneumonitis.
--- NOTE | 2025-06-04 13:30 | ER ---
Nurse's Notes [facility] Name: Dilia Russell Age: 84 yrs Sex: Female : 1940 Arrival Date: 06/04/2025 Time: 10:51 Bed 6 Private MD: Diagnosis: Other pneumonia, unspecified organism;Tachycardia, unspecified Presentation: 06/04 10:56 Chief complaint: Patient states: COUGH FOR 3 WEEKS, WAS GIVEN ANTIBIOTICS, INHALERS, dd2 STEROIDS BUT CONTINUES TO FEELS WEAK, LOSS OF APPETITE AND COUGH. Coronavirus screen: cough unrelated to allergies, muscle pain. Ebola Screen: No symptoms or risks identified at this time. Initial Sepsis Screen: Does the patient meet any 2 criteria? No. Patient's initial sepsis screen is negative. Does the patient have a suspected source of infection? No. Patient's initial sepsis screen is negative. Risk Assessment: Do you want to hurt yourself or someone else? Patient reports no desire to harm self or others. Onset of symptoms is unknown. 10:56 Method Of Arrival: Ambulatory dd2 10:56 Acuity: RORY 3 dd2 Triage Assessment: 10:59 General: Appears in no apparent distress. uncomfortable, Behavior is calm, cooperative, dd2 appropriate for age. Pain: Complains of pain in left subscapular area and right subscapular area. Respiratory: Reports cough that is non-productive, persistent pain with cough. Historical: - Allergies: 10:59 Levaquin; dd2 10:59 seldane; dd2 - PMHx: 10:59 brain aneurysm; High Cholesterol; Hypertension; dd2 - PSHx: 10:59 Heart ablasion; dd2 - Immunization history:: Adult Immunizations up to date. - Infectious Disease History:: Denies. - Social history:: Smoking status: Patient denies any tobacco usage or history of. Screenin:37 [facility] ED Fall Risk Assessment (Adult) History of falling in the last 3 months, ph including since admission No falls in past 3 months (0 pts) Confusion or Disorientation No (0 pts) Intoxicated or Sedated No (0 pts) Impaired Gait No (0 pts) Mobility Assist Device Used No (0 pt) Altered Elimination No (0 pt) Score/Fall Risk Level 0 - 2 = Low Risk Oriented to surroundings, Maintained a safe environment, Hourly rounding (assess needs \T\ fall precautionary measures) done. Abuse screen: Denies threats or abuse. Denies injuries from another. Nutritional screening: No deficits noted. Tuberculosis screening: No symptoms or risk factors identified. Assessment: 11:36 General: Appears in no apparent distress. comfortable, well groomed, Behavior is calm, ph cooperative, appropriate for age, Denies fever, chills. Pain: Denies pain. Neuro: Level of Consciousness is awake, alert, obeys commands, Oriented to person, place, time, situation, Moves all extremities. Full function Speech is normal, Facial symmetry appears normal, Reports weakness that is generalized. Cardiovascular: Capillary refill < 3 seconds in bilateral fingers Patient's skin is warm and dry. Respiratory: Reports shortness of breath cough that is non-productive, Airway is patent Respiratory effort is even, unlabored, Respiratory pattern is regular, symmetrical. GI: No signs and/or symptoms were reported involving the gastrointestinal system. Derm: Skin is pink, warm \T\ dry. 14:02 Reassessment: Patient appears in no apparent distress at this time. Patient and/or iw family updated on plan of care and expected duration. Pain level reassessed. Patient is alert, oriented x 3, equal unlabored respirations, skin warm/dry/pink. Vital Signs: 10:56 BP 118 / 74; Pulse 121; Resp 18; Temp 97.8(O); Pulse Ox 96% on R/A; Weight 63.05 kg; dd2 Pain 6/10; 12:30 BP 116 / 72; Pulse 108; Resp 18; Pulse Ox 96% on R/A; ph 14:01 BP 114 / 80; Pulse 107; Resp 19; Pulse Ox 95% on R/A; iw 15:05 BP 118 / 70; Pulse 101; Resp 16; Temp 98.5; Pulse Ox 95% on R/A; ph 10:56 Pain Scale: Adult dd2 ED Course: 10:53 Patient arrived in ED. mr 10:55 Haim Belle DO is Attending Physician. ms3 10:59 Triage completed. dd2 10:59 Arm band placed on right wrist. dd2 11:13 Fara Lam, RN is Primary Nurse. ph 11:36 Initial lab(s) drawn, by me, sent to lab. EKG done, by ED staff, reviewed by Haim Belle DO. Inserted saline lock: 20 gauge in right antecubital area, using aseptic technique. Blood collected. Flushed with 10 mL NS. 11:37 Patient has correct armband on for positive identification. Bed in low position. Call ph light in reach. Side rails up X 1. net programmer on. Pulse ox on. NIBP on. Door closed. Noise minimized. Warm blanket given. Pillow given. 11:38 No provider procedures requiring assistance completed. ph 11:52 Basic Metabolic Panel Sent. ph 11:52 LFT's Sent. ph 11:52 Magnesium Sent. ph 11:52 NT PRO-BNP Sent. ph 11:52 Troponin HS Sent. ph 12:38 CT Chest For PE Angio In Process Unspecified. EDMS 13:29 Laron Tenorio MD is Hospitalizing Provider. ms3 13:49 Inserted saline lock: 22 gauge in left antecubital area, using aseptic technique. Blood iw collected. Flushed with 10 mL NS. 15:54 Patient admitted, IV remains in place. iw Administered Medications: 14:12 Drug: Rocephin IV 1 grams IV at calculated rate once; Given slow IV push per pharmacy iw instructions Route: IV; Rate: calculated rate; Site: right antecubital; 14:15 Follow up: IV Status: Completed infusion iw 14:30 Drug: NS 0.9% IV 500 ml 500 ml IV at 1 bolus once; to be given as a bolus over 30 ph minutes Volume: 500 ml; Route: IV; Rate: 1 bolus; Site: left antecubital; 15:54 Follow up: IV Status: Completed infusion iw 14:30 Drug: AZITHromycin IVPB 500 mg IVPB once over 1 hrs; (mix in 250 mL NS) Route: IVPB; ph Infused Over: 1 hrs; Site: left antecubital; 15:54 Follow up: IV Status: Completed infusion iw Medication: 11:37 VIS not applicable for this client. ph Outcome: 13:30 Decision to Hospitalize by Provider. ms3 15:54 Admitted to Med/surg accompanied by tech, via wheelchair, iw 15:54 Condition: good 15:54 Discharge instructions given to patient, family, Instructed on the need for admit, Demonstrated understanding of instructions, 15:55 Patient left the ED. iw Signatures: Dispatcher [employer] EDJulia Ayala, Reg Reg mr Luci Hoffmann, RN RN iw Genaro, Fara, RN RN ph Barbra, Haim, DO RODRIGUEZ ms3 ÁNGEL BAKER RN RN dd2
--- NOTE | 2025-06-04 13:31 | EDPHYS ---
Physician Documentation [facility] Name: Dilia Russell Age: 84 yrs Sex: Female : 1940 Arrival Date: 06/04/2025 Time: 10:51 Bed 6 Private MD: ED Physician Haim Belle HPI: 06/04 11:09 This 84 yrs old Female presents to ER via Ambulatory with complaints of Cough, Weakness.ms3 11:09 84-year-old female with past medical history of brain aneurysm, hyperlipidemia, ms3 hypertension presents to the emergency department for cough, weight loss, generalized weakness that has been ongoing for 3 weeks. Patient was seen at [place] [facility], her primary care physician's PA, was in the emergency department Monday, and followed back up with her primary care physician today who referred her to the emergency department. Patient denies pain at this time. Patient denies nausea. Patient does endorse vomiting yesterday x 1.. Historical: - Allergies: 10:59 Levaquin; dd2 10:59 seldane; dd2 - PMHx: 10:59 brain aneurysm; High Cholesterol; Hypertension; dd2 - PSHx: 10:59 Heart ablasion; dd2 - Immunization history:: Adult Immunizations up to date. - Infectious Disease History:: Denies. - Social history:: Smoking status: Patient denies any tobacco usage or history of. ROS: 11:09 Constitutional: Negative for fever, and chills. Cardiovascular: Negative for chest ms3 pain, and palpitations. Respiratory: Negative for shortness of breath, cough, wheezing, and pleuritic chest pain, MS/Extremity: Negative for injury and deformity, Skin: Negative for injury, rash, and discoloration, 11:09 Abdomen/GI: Positive for vomiting x1 yesterday, Negative for nausea, diarrhea, Exam: 11:09 Constitutional: This is a well developed, well nourished patient who is awake, alert, ms3 and in no acute distress. 11:09 Respiratory: Lungs have equal breath sounds bilaterally, clear to auscultation and percussion. No rales, rhonchi or wheezes noted. No increased work of breathing, no retractions or nasal flaring. Abdomen/GI: Soft, non-tender, with normal bowel sounds. No distension or tympany. No guarding or rebound. No evidence of tenderness throughout. Skin: Warm, dry with normal turgor. Normal color with no rashes, no lesions, and no evidence of cellulitis. MS/ Extremity: Pulses equal, no cyanosis. Neurovascular intact. Full, normal range of motion. 11:09 Cardiovascular: Rate: tachycardic, Rhythm: regular, Pulses: no pulse deficits are appreciated, Heart sounds: normal, normal S1and S2, Edema: is not appreciated, JVD: is not appreciated, 11:49 ECG was reviewed by the Attending Physician. ms3 Vital Signs: 10:56 BP 118 / 74; Pulse 121; Resp 18; Temp 97.8(O); Pulse Ox 96% on R/A; Weight 63.05 kg; dd2 Pain 6/10; 12:30 BP 116 / 72; Pulse 108; Resp 18; Pulse Ox 96% on R/A; ph 14:01 BP 114 / 80; Pulse 107; Resp 19; Pulse Ox 95% on R/A; iw 15:05 BP 118 / 70; Pulse 101; Resp 16; Temp 98.5; Pulse Ox 95% on R/A; ph 10:56 Pain Scale: Adult dd2 MDM: 11:02 Medical Screening Exam initiated ms3 11:09 Differential Diagnosis: Bronchitis Influenza Upper Respiratory Infection Viral Syndrome ms3 Other PE. 14:05 Data reviewed: vital signs, nurses notes, lab test result(s), EKG, radiologic studies, ms3 and as a result, I will admit patient. Consideration of Admission/Observation Patient was admitted/placed on observation. Management of patient was discussed with the following: Hospitalist: Dr Tenorio. Primary Care Provider: Dr Caruso. I considered the following discharge prescriptions or medication management in the emergency department Medications were administered in the Emergency Department. See MAR. Independent interpretation of the following test(s) in the Emergency Department EKG: See my EKG interpretation above. Counseling: I had a detailed discussion with the patient and/or guardian regarding the historical points, exam findings, and any diagnostic results supporting the discharge/admit diagnosis, lab results, radiology results, the need for further work-up and treatment in the hospital. ED course: Discussed case with hospitalist and they accept patient for admission. All questions were answered. Discussed plan for admission with patient. 06/04 11:03 Order name: Basic Metabolic Panel; Complete Time: 12:14 ms3 06/04 11:03 Order name: CBC with Diff; Complete Time: 12:14 ms3 06/04 11:03 Order name: LFT's; Complete Time: 12:14 ms3 06/04 11:03 Order name: Magnesium; Complete Time: 12:14 ms3 06/04 11:03 Order name: NT PRO-BNP; Complete Time: 12:14 ms3 06/04 11:03 Order name: PT-INR; Complete Time: 12:14 ms3 06/04 11:03 Order name: Troponin HS; Complete Time: 12:14 ms3 06/04 13:23 Order name: Blood Culture Adult (2) ms3 06/04 14:48 Order name: Magnesium EDMS 06/04 14:48 Order name: Phosphorus EDMS 06/04 14:48 Order name: Basic Metabolic Panel EDMS 06/04 14:48 Order name: Basic Metabolic Panel EDMS 06/04 14:48 Order name: CBC with Automated Diff EDMS 06/04 14:48 Order name: CBC with Automated Diff EDMS 06/04 11:03 Order name: CT Chest For PE Angio; Complete Time: 13:12 ms3 06/04 11:03 Order name: Cardiac monitoring; Complete Time: 11:52 ms3 06/04 11:03 Order name: EKG - Nurse/Tech; Complete Time: 11:52 ms3 06/04 11:03 Order name: IV Saline Lock; Complete Time: 11:52 ms3 06/04 11:03 Order name: Labs collected and sent; Complete Time: 11:52 ms3 06/04 11:03 Order name: O2 Per Protocol; Complete Time: 11:52 ms3 06/04 11:03 Order name: O2 Sat Monitoring; Complete Time: 11:52 ms3 EC:49 Rate is 111 beats/min. Rhythm is regular. Left axis deviation noted. DC interval is ms3 normal. QRS interval is normal. Clinical impression: Sinus tachycardia. Interpreted by me. Reviewed by me. Administered Medications: 14:12 Drug: Rocephin IV 1 grams IV at calculated rate once; Given slow IV push per pharmacy iw instructions Route: IV; Rate: calculated rate; Site: right antecubital; 14:15 Follow up: IV Status: Completed infusion iw 14:30 Drug: NS 0.9% IV 500 ml 500 ml IV at 1 bolus once; to be given as a bolus over 30 ph minutes Volume: 500 ml; Route: IV; Rate: 1 bolus; Site: left antecubital; 15:54 Follow up: IV Status: Completed infusion iw 14:30 Drug: AZITHromycin IVPB 500 mg IVPB once over 1 hrs; (mix in 250 mL NS) Route: IVPB; ph Infused Over: 1 hrs; Site: left antecubital; 15:54 Follow up: IV Status: Completed infusion iw Disposition Summary: 06/04/25 13:30 Hospitalization Ordered Notes: Hospitalization Status: Inpatient Admission ms3 Provider: Laron Tenorio ms3 Location: Telemetry/MedSurg (Inpatient) ms3 Condition: Stable ms3 Problem: new ms3 Symptoms: are unchanged ms3 Bed/Room Type: Standard ms3 Room Assignment: 215(06/04/25 14:56) bd Diagnosis - Other pneumonia, unspecified organism ms3 - Tachycardia, unspecified ms3 Forms: - Medication Reconciliation Form ms3 - SBAR form ms3 - Leadership Thank You Letter ms3 Signatures: Dispatcher [employer] EDMS Diana Ring Irene, VIDA MCPHERSON iw Fara Lam RN RN ph Haim Belle DO DO ms3 ÁNGEL BAKER RN RN dd2 Corrections: (The following items were deleted from the chart) 11:03 11:03 BASIC METABOLIC PANEL+C.LAB.BRZ ordered. EDMS EDMS 11:03 11:03 CBC+H.LAB.BRZ ordered. EDMS EDMS 11:03 11:03 HEPATIC FUNCTION+C.LAB.BRZ ordered. EDMS EDMS 11:03 11:03 MAGNESIUM+C.LAB.BRZ ordered. EDMS EDMS 11:03 11:03 PROBNP+C.LAB.BRZ ordered. EDMS EDMS 11:03 11:03 PROTIME (+INR)+COAG.LAB.BRZ ordered. EDMS EDMS 11:03 11:03 Troponin High Sensitivity+C.LAB.BRZ ordered. EDMS EDMS 11:03 11:03 Chest For PE Angio+CT.RAD.BRZ ordered. EDMS EDMS 13:23 13:23 BLOOD CULTURE*+BA.LAB.BRZ ordered. EDMS EDMS 14:30 14:30 BiPap ([employer] Only)+RC.RAD.BRZ ordered. EDMS EDMS 14:56 13:30 ms3 bd
[2025-06-04] MEDS ORDERED: AZITHROMYCIN 500 MG INJ IVPB ONE (14:01)
[2025-06-04] MEDS ORDERED: CEFTRIAXONE 1000 MG/VIAL ONE (14:01)
[2025-06-04] MEDS ORDERED: NA CHLORIDE 0.9% 50 ML ONE (14:02)
[2025-06-04] MEDS ORDERED: NA CHLORIDE 0.9% 500 ML ONE (14:02)
[2025-06-04] MEDS ORDERED: NA CHLORIDE 0.9% 250 ML ONE (14:02)
[2025-06-04] MEDS ORDERED: ACETAMINOPHEN 325 MG TABLET PO PRN (14:39)
[2025-06-04] MEDS ORDERED: HYDROCODONE/APAP 5/325 MG TAB PO PRN (14:39)
[2025-06-04] MEDS ORDERED: ONDANSETRON 4 MG/2 ML VIAL IV PRN (14:44)
--- NOTE | 2025-06-04 14:52 | P.HP ---
Certification for Inpatient Patient admitted to: Inpatient With expected LOS: >2 Midnights Patient will require the following post-hospital care: None Practitioner: I am a practitioner with admitting privileges, knowledge of patient current condition, hospital course, and medical plan of care. Services: Services provided to patient in accordance with Admission requirements found in Title 42 Section 412.3 of the Code of Federal Regulations <Anahi Santos - Last Filed: 06/05/25 05:29> Patient History Date of Service: 06/04/25 Reason for admission: Cough History of Present Illness: Patient is an 84-year-old female with a past medical history significant for brain aneurysm, hyperlipidemia, hypertension who presents with complaint of cough, poor appetite and generalized weakness that has been ongoing for the past 3 weeks. Patient reported associated signs and symptoms of dizziness. Patient denies any other signs or symptoms. Symptoms are aggravated or relieved by nothing. Patient was brought to the hospital for medical evaluation - Past Medical/Surgical History Diabetic: No -: heart ablation svt 2003 -: cataract surgery -: macular -: knee replaceements -: Cataracts surgery -: Knee replacement Psychosocial/ Personal History: Patient lives at home - Family History Mother Notes: broke hip month later - Social History Smoking Status: Never smoker Alcohol use: No CD- Drugs: No Caffeine use: Yes Place of Residence: Home <JessilateshaAnahi blanco Carlo - Last Filed: 06/05/25 05:29> Date of Service: 06/05/25 <Laron Tenorio - Last Filed: 06/05/25 06:42> Allergies levofloxacin [From Levaquin] Allergy (Verified 03/05/25 09:27) Itching/Hives/Rash adhesive tape Adverse Reaction (Verified 03/05/25 09:27) Itching Sildane Allergy (Uncoded 03/05/25 09:27) Itching/Hives/Rash Home Medications: Atorvastatin Calcium [Lipitor*] 20 mg PO BEDTIME 08/14/14 Carvedilol Phosphate [Coreg Cr] 20 mg PO DAILY 08/14/14 Zolpidem Tartrate [Ambien] 10 mg PO BEDTIME 08/14/14 Cholecalciferol (Vitamin D3) [Vitamin D 1000 Iu Tab*] 2,000 unit PO DAILY #60 tab 10/13/20 Omeprazole [Prilosec] 1 tab PO DAILY 10/13/20 Thiamine HCl [Vitamin B-1*] 100 mg PO DAILY #30 tablet 10/13/20 predniSONE [Deltasone*] 10 mg PO SEECOM #21 tab 10/13/20 Ascorbic Acid [Vitamin C*] 500 mg PO DAILY 06/04/25 Aspirin [Aspirin EC 81 MG] 81 mg PO DAILY PRN 06/04/25 Folic Acid 0.4 mg PO DAILY 06/04/25 Methotrexate Sodium [Methotrexate] DAILY 06/04/25 Temazepam 15 mg PO 06/04/25 Review of Systems General: Weakness, Other (Poor appetite ) ENT: Unremarkable Respiratory: Cough Cardiovascular: Unremarkable Gastrointestinal: Unremarkable Genitourinary: Unremarkable Musculoskeletal: Unremarkable Integumentary: Unremarkable Neurological: Other (Dizziness) Lymphatics: Unremarkable <Anahi Santos - Last Filed: 06/05/25 05:29> Physical Examination - Physical Exam General: Alert, In no apparent distress, Oriented x3, Oriented x1 HEENT: Atraumatic, PERRLA, Mucous membr. moist/pink, EOMI, Sclerae nonicteric Neck: Supple, 2+ carotid pulse no bruit, No LAD, Without JVD or thyroid abnormality Respiratory: Diminished, Crackles/rales Cardiovascular: No edema, Regular rate/rhythm, Normal S1 S2 Capillary refill: <2 Seconds Gastrointestinal: Normal bowel sounds, No tenderness Musculoskeletal: No clubbing, No tenderness Integumentary: No rashes Neurological: Normal speech, Normal tone, Normal affect Lymphatics: No axilla or inguinal lymphadenopathy - Studies Laboratory Data (last 24 hrs) 06/04/25 06/04/25 06/04/25: 11: 11:25 WBC 4.20 L Hgb 12.8 Hct 38.2 Plt Count 151 L D PT 13.5 H INR 1.20 Sodium 133 L Potassium 3.7 BUN 18 Creatinine 1.27 H Glucose 134 H Magnesium 1.8 Total Bilirubin 1.2 H AST 17 ALT 18 Alkaline Phosphatase 94 <Anahi Santos - Last Filed: 06/05/25 05:29> - Studies Laboratory Data (last 24 hrs) 06/04/25 06/04/25 06/04/25: 11: 11:25 WBC 4.20 L Hgb 12.8 Hct 38.2 Plt Count 151 L D PT 13.5 H INR 1.20 Sodium 133 L Potassium 3.7 BUN 18 Creatinine 1.27 H Glucose 134 H Magnesium 1.8 Total Bilirubin 1.2 H AST 17 ALT 18 Alkaline Phosphatase 94 <Laron Tenorio - Last Filed: 06/05/25 06:42> Assessment and Plan - Plan Pneumonia. --Noted on CT imaging. --Patient placed on antibiotics and neb treatment with albuterol\Atrovent. Hypertension --Poorly controlled. --Continue home medications. --Hydralazine as needed for SBP greater than 160 mmHg. HLD\insomnia\RA\GERD --Continue home medications. CKD 3B --Stable. --Will continue to monitor renal functions Moderate protein calorie malnutrition. --Dietitian consulted. Recommendations appreciated. DVT prophylaxis with heparin subQ Discharge Plan: Home Plan to discharge in: Greater than 2 days - Advance Directives Does patient have a Living Will: Yes Does patient have a Durable POA for Healthcare: Yes - Code Status/Comfort Care Code Status Assessed: Yes Physician Review: Patient Assessed, Agree with Above Assessment and Plan Critical Care: No <Anahi Santos - Last Filed: 06/05/25 05:29> Physician Review: Patient Assessed, Agree with Above Assessment and Plan <Laron Tenorio - Last Filed: 06/05/25 06:42>
[2025-06-04] MEDS: HEPARIN 5000 UNIT/ML 1 ML VIAL SQ SCH (16:35)
[2025-06-04] MEDS: ALBUTEROL 2.5 MG/3 ML NEB SOL NEB SCH (16:46)
[2025-06-04] MEDS: IPRATROPIUM BROM 0.5MG/2.5ML NEB SCH (16:46)
[2025-06-05] MEDS ORDERED: LABETALOL 20 MG/4ML SYRINGE IV PRN (05:24)
[2025-06-05 05:36] LABS: Absolute Lymphocytes (CBC) 1.9 K/uL (0.7-4.9); Hematocrit 32.6 % (36.0-45.0); Hemoglobin 11.2 g/dL (12.0-15.0); MCH 31.3 pg (27.0-35.0); MCHC 34.4 g/dL (32.0-36.0); MCV 90.9 fL (80-100); MPV 8.9 fL (7.6-11.3); Nucleated RBC Absolute Count 0.0 (0-0); Nucleated Red Blood Cells % 0.1 % (0-0); RBC Red Blood Cell Count 3.58 M/uL (3.86-4.86); White Blood Count 3.80 thou/uL (4.3-10.9)
[2025-06-05 05:57] LABS: Anion Gap 7.0 mEq/L (5.0-15.0); BUN Blood Urea Nitrogen 14.0 mg/dL (7-18); Glucose Level 96.0 mg/dL (74-106); Potassium 4.0 mEq/L (3.5-5.1)
[2025-06-05 07:55] LABS: Magnesium 1.9 mg/dL (1.6-2.4)
[2025-06-05] MEDS: CEFTRIAXONE 1,000 MG in NA CHLORIDE 0.9% 50 ML IVPB SCH (09:13)
[2025-06-05] MEDS: AZITHROMYCIN IV 500 MG in NA CHLORIDE 0.9% 250 ML IVPB SCH (09:14)
[2025-06-05 09:49] LABS: Blood Morphology Comment NOT SEEN (NOT SEEN); White Blood Cell Scan OK (OK)
[2025-06-05] MEDS ORDERED: ASPIRIN EC 81 MG TAB PO PRN (10:29)
--- NOTE | 2025-06-05 10:35 | P.PN ---
Subjective Date of Service: 06/05/25 Chief Complaint: Cough Subjective: Improving (Patient is on room air but still has productive cough.) Physical Examination - Vital Signs Temperature: 98.0 F Blood Pressure: 130/73 Pulse: 98 Respirations: 16 Pulse Ox (%): 93 - Physical Exam General: In no apparent distress, Cooperative Respiratory: Diminished, Crackles/rales, Rhonchi/gurgles Cardiovascular: No edema, Normal pulses, Regular rate/rhythm, Normal S1 S2 Musculoskeletal: No clubbing, No swelling Neurological: Normal speech - Studies Laboratory Data (last 24 hrs) 06/04/25 06/04/25 06/04/25 11:25 11:25 11:25 WBC 4.20 L Hgb 12.8 Hct 38.2 Plt Count 151 L D PT 13.5 H INR 1.20 Sodium 133 L Potassium 3.7 BUN 18 Creatinine 1.27 H Glucose 134 H Magnesium 1.8 Total Bilirubin 1.2 H AST 17 ALT 18 Alkaline Phosphatase 94 Assessment And Plan - Plan Assessment Patient is a 84-year-old female with a past medical history of brain aneurysm, hypertension and hyperlipidemia. She was admitted after she presented with productive cough, poor appetite and generalized weakness ongoing for the past 3 weeks. Associated symptoms include dizziness. Patient is being treated for community-acquired pneumonia after chest imaging revealed bibasilar opacities. Community-acquired pneumonia Acute thrombocytopenia Generalized weakness Hypertension Hyperlipidemia Brain aneurysm History of SVT status post ablation in 2003 Plan: Continue empiric antibiotics with ceftriaxone and azithromycin Add Tessalon Perles to control her cough Check for HIT panel due to acute drop in platelet count Discontinue heparin subcu She will benefit from PT/OT before discharge Continue routine home medications Patient can be discharged in 1 day if she continues to improve Physician Review: Patient Assessed, Agree with Above Assessment and Plan
[2025-06-05] MEDS ORDERED: predniSONE 10 MG TAB PO SCH (11:00)
[2025-06-05] MEDS: AZITHROMYCIN 250 MG TAB PO SCH (13:56)
[2025-06-05 16:27] VITALS: BMI 23.1
[2025-06-05] MEDS: TEMAZEPAM 15 MG CAP PO SCH (20:45)
[2025-06-05] MEDS: ATORVASTATIN 40 MG TAB PO SCH (20:45)
[2025-06-05] MEDS: AMOX/K CLAV 875 MG TAB PO SCH (20:45)
[2025-06-05] MEDS ORDERED: ZOLPIDEM TARTRATE 10 MG TABLET PO SCH (21:00)
[2025-06-06 05:23] LABS: Absolute Lymphocytes (CBC) 1.2 K/uL (0.7-4.9); Hematocrit 30.4 % (36.0-45.0); Hemoglobin 10.4 g/dL (12.0-15.0); MCH 31.1 pg (27.0-35.0); MCHC 34.2 g/dL (32.0-36.0); MCV 90.8 fL (80-100); MPV 8.7 fL (7.6-11.3); Nucleated RBC Absolute Count 0.0 (0-0); Nucleated Red Blood Cells % 0.1 % (0-0); RBC Red Blood Cell Count 3.34 M/uL (3.86-4.86); White Blood Count 2.90 thou/uL (4.3-10.9)
[2025-06-06 08:58] VITALS: BP 122/69; TEMP 98.2
[2025-06-06] MEDS ORDERED: HOME MED 1 EA UNK (Omeprazole [Prilosec] 40 MG Capsule.Dr) PO SCH (09:00)
--- NOTE | 2025-06-06 09:48 | P.DS ---
Admission Date: 06/04/25 Discharge Date: 06/06/25 Disposition: ROUTINE DISCHARGE Discharge Condition: GOOD Reason for Admission: Cough Hospital Course: Patient is a 84-year-old female with a past medical history of brain aneurysm, hypertension and hyperlipidemia. She was admitted after she presented with productive cough, poor appetite and generalized weakness ongoing for the past 3 weeks. Associated symptoms include dizziness. Patient is being treated for community-acquired pneumonia after chest imaging revealed bibasilar opacities. Patient has responded to ceftriaxone and azithromycin, and was successfully transitioned to Augmentin. She is on room air and ambulating without distress. She stayed in the hospital for evaluation of acute thrombocytopenia. Her heparin subcu was discontinued and HIT panel was sent. Results are still pending. In the meantime, her platelet has stabilized and its 100,000 at the time of discharge. She will follow-up with Dr. Caruso for repeat blood work and the results of her HIT panel. Vital Signs/Physical Exam: Temp Pulse Resp BP Pulse Ox 98.2 F 93 H 16 122/69 94 06/06/25 08:00 06/06/25 08:00 06/06/25 08:00 06/06/25 08:00 06/06/25 08:00 General: Alert, In no apparent distress, Cooperative HEENT: Atraumatic, Normocephalic Respiratory: Clear to auscultation bilaterally, Normal air movement Cardiovascular: No edema, Normal pulses, Regular rate/rhythm, Normal S1 S2 Neurological: Normal speech Laboratory Data at Discharge: WBC 2.90 thou/uL (4.3-10.9) L 06/06/25 05:03 Hgb 10.4 g/dL (12.0-15.0) L 06/06/25 05:03 Hct 30.4 % (36.0-45.0) L 06/06/25 05:03 Plt Count 100 thou/uL (152-406) L 06/06/25 05:03 PT 13.5 SECONDS (10-13.0) H 06/04/25 11:25 INR 1.20 06/04/25 11:25 Sodium 135 mEq/L (136-145) L 06/05/25 05:20 Potassium 4.0 mEq/L (3.5-5.1) 06/05/25 05:20 BUN 14 mg/dL (7-18) 06/05/25 05:20 Creatinine 0.94 mg/dL (0.55-1.02) 06/05/25 05:20 Glucose 96 mg/dL (74-106) 06/05/25 05:20 Phosphorus 3.2 mg/dL (2.5-4.9) 06/05/25 05:20 Magnesium 1.9 mg/dL (1.6-2.4) 06/05/25 05:20 Total Bilirubin 1.2 mg/dL (0.2-1.0) H 06/04/25 11:25 AST 17 U/L (15-37) 06/04/25 11:25 ALT 18 U/L (13-56) 06/04/25 11:25 Alkaline Phosphatase 94 U/L (45-117) 06/04/25 11:25 Home Medications: Atorvastatin Calcium [Lipitor*] 40 mg PO BEDTIME 08/14/14 Carvedilol Phosphate [Coreg Cr] 20 mg PO DAILY 08/14/14 Zolpidem Tartrate [Ambien] 10 mg PO BEDTIME 08/14/14 Cholecalciferol (Vitamin D3) [Vitamin D 1000 Iu Tab*] 2,000 unit PO DAILY #60 tab 10/13/20 Omeprazole [Prilosec] 1 tab PO DAILY 10/13/20 Thiamine HCl [Vitamin B-1*] 100 mg PO DAILY #30 tablet 10/13/20 predniSONE [Deltasone*] 10 mg PO SEECOM #21 tab 10/13/20 Ascorbic Acid [Vitamin C*] 500 mg PO DAILY 06/04/25 Aspirin [Aspirin EC 81 MG] 81 mg PO DAILY PRN 06/04/25 Folic Acid 0.4 mg PO DAILY 06/04/25 Methotrexate Sodium [Methotrexate] 2.5 mg PO DAILY 06/04/25 Temazepam 15 mg PO DAILY 06/04/25 Amox/Clavulanate [Augmentin 875-125 Tab*] 875 mg PO BID #12 tab 06/06/25 New Medications: Amox/Clavulanate [Augmentin 875-125 Tab*] 875 mg PO BID #12 tab Followup: Ryan Caruso MD [Primary Care Provider] - 1-2 Weeks
[2025-06-06] MEDS: FOLIC ACID 1 MG TABLET PO SCH (10:03)
[2025-06-06] MEDS: ASCORBIC ACID 500 MG TABLET PO SCH (10:03)
[2025-06-06] MEDS: THIAMINE HCL 100 MG TABLET PO SCH (10:04)
[2025-06-06] MEDS: PANTOPRAZOLE 40MG TABLET PO SCH (10:05)
[2025-06-06] MEDS: METHOTREXATE 2.5 MG TAB PO SCH (10:05)
[2025-06-06] MEDS: VITAMIN D 1000 UNIT TAB PO SCH (10:05)
[2025-06-06 15:12] VITALS: O2SAT 95
[2025-06-06] MEDS ORDERED: TEMAZEPAM 15 MG CAP PO SCH (21:00)
== END 2025-06-06 10:30 | disposition home or self-care (01) | DRG 194 ==
LOC: ER 10:51 → ERHOLD 14:40 → 2ND 15:20
PROVIDERS: ADMIT Family Medicine; ATTEND Internal Medicine
DX: J18.9 Pneumonia, unspecified organism (principal); E44.0 Moderate protein-calorie malnutrition; M06.9 Rheumatoid arthritis, unspecified; G47.00 Insomnia, unspecified; D69.6 Thrombocytopenia, unspecified; I12.9 Hypertensive chronic kidney disease with stage 1 through stage 4 chronic kidney disease, or unspecified chronic kidney disease; N18.32 Chronic kidney disease, stage 3b; E78.00 Pure hypercholesterolemia, unspecified; K21.9 Gastro-esophageal reflux disease without esophagitis; R00.0 Tachycardia, unspecified; Z88.1 Allergy status to other antibiotic agents; Z79.82 Long term (current) use of aspirin; Z68.23 Body mass index [BMI] 23.0-23.9, adult; Z79.52 Long term (current) use of systemic steroids; Z79.02 Long term (current) use of antithrombotics/antiplatelets; Z79.899 Other long term (current) drug therapy
CPT/HCPCS: 36415; 71046; 71275; 80048; 80076; 83735; 83880; 84100; 84484; 85025; 85610; 86022; 87040; 93005; 94640; 94760; 96365; 96375; 97161; 99285; J0456; J0696; J1644; J7040; J7050; J7613; J7644; J8610; Q9967